=== PATIENT | female | born 1955 ===

== ENCOUNTER 2020-02-25 09:57 | Outpatient (REF) | payer MEDICARE, MEDICAID, SELFPAY ==
--- NOTE | 2020-02-25 10:46 | XR_ITS ---
EXAMINATION: XR SHOULDER, RIGHT CLINICAL INFORMATION: Shoulder pain. COMPARISON: None TECHNIQUE: 3 views of the right shoulder. FINDINGS: Lhgy-gl-bwfzcvha glenohumeral joint arthritis, with prominent osteophytes. Moderate AC joint arthritis. No evidence of fracture or dislocation. No abnormal soft tissue calcification. IMPRESSION: Aaui-ju-thiurjho glenohumeral joint arthritis. Moderate AC joint arthritis.
== END 2020-02-25 09:58 | disposition home or self-care (01) ==
LOC: CF 09:57
PROVIDERS: PCP Internal Medicine; Visit Provider Orthopaedic Surgery
DX: M75.101 Unspecified rotator cuff tear or rupture of right shoulder, not specified as traumatic (principal); M12.811 Other specific arthropathies, not elsewhere classified, right shoulder
CPT/HCPCS: 20610; 73030; 99204; J1040

== ENCOUNTER 2020-03-12 15:12 | Outpatient (REF) | payer MEDICARE, MEDICAID, SELFPAY ==
--- NOTE | 2020-03-12 15:25 | XR_ITS ---
EXAMINATION: XR HIP, LEFT CLINICAL INFORMATION: Radiculopathy. Left hip pain. COMPARISON: None TECHNIQUE: Two views of the left hip. FINDINGS: Bones and soft tissues are normal. No fracture. Alignment is anatomic. Hip joint space is maintained. XR/XR hip LT w PEL1V IMPRESSION: Unremarkable left hip.
== END 2020-03-12 15:13 | disposition home or self-care (01) ==
LOC: HO.XRAY 15:12
PROVIDERS: PCP Internal Medicine; Visit Provider Internal Medicine
DX: M54.10 Radiculopathy, site unspecified (principal)
CPT/HCPCS: 73502

== ENCOUNTER → 2020-03-18 13:45 | Outpatient (BNVA) | payer MEDICARE, MEDICAID, SELFPAY | PROVIDERS: PCP Internal Medicine; Visit Provider Physician Assistant | DX: E66.3 Overweight (principal); Z68.28 Body mass index [BMI] 28.0-28.9, adult; Z90.3 Acquired absence of stomach [part of]; Z71.3 Dietary counseling and surveillance | CPT/HCPCS: 99212 ==

== ENCOUNTER → 2020-04-02 13:32 | Outpatient (BNVA) | payer MEDICARE, MEDICAID, SELFPAY | PROVIDERS: PCP Internal Medicine; Referring Provider Internal Medicine; Visit Provider Student in an Organized Health Care Education/Training Program | DX: M25.561 Pain in right knee (principal); M25.562 Pain in left knee; G89.29 Other chronic pain | CPT/HCPCS: 99202 ==

== ENCOUNTER 2020-04-07 09:15 | Outpatient (REF) | payer MEDICARE, MEDICAID, SELFPAY ==
--- NOTE | 2020-04-07 09:34 | XR_ITS ---
EXAMINATION: BILATERAL KNEE X-RAY CLINICAL INFORMATION: Pain COMPARISON: Previous x-ray April 2018 TECHNIQUE: 4 views each knee FINDINGS: Left: Bone alignment is normal. No fracture or dislocation is seen. There is evidence of severe arthritis at the lateral femoral tibial joint with joint space narrowing and osteophyte formation. There is mild arthritis at the patellofemoral joint with small osteophytes. There is no significant joint effusion. Right: There is mild valgus angulation. Bone alignment is otherwise normal. No fracture or dislocation is seen. There is tricompartment arthritis, greatest at the lateral femoral tibial joint, with joint space narrowing and osteophyte formation. There is no significant joint effusion.. XR/XR knee LT 3V IMPRESSION: Bilateral arthritis. Mild valgus angulation at the right knee joint.
--- NOTE | 2020-04-07 09:34 | XR_ITS ---
EXAMINATION: BILATERAL KNEE X-RAY CLINICAL INFORMATION: Pain COMPARISON: Previous x-ray April 2018 TECHNIQUE: 4 views each knee FINDINGS: Left: Bone alignment is normal. No fracture or dislocation is seen. There is evidence of severe arthritis at the lateral femoral tibial joint with joint space narrowing and osteophyte formation. There is mild arthritis at the patellofemoral joint with small osteophytes. There is no significant joint effusion. Right: There is mild valgus angulation. Bone alignment is otherwise normal. No fracture or dislocation is seen. There is tricompartment arthritis, greatest at the lateral femoral tibial joint, with joint space narrowing and osteophyte formation. There is no significant joint effusion.. XR/XR knee RT 3V IMPRESSION: Bilateral arthritis. Mild valgus angulation at the right knee joint.
[2020-04-07 10:14] LABS: MANUAL DIFF FLAG NO
[2020-04-07 10:34] LABS: Basophils Percent Auto 0.2 % (0-2); Eosinophils Absolute Auto 0.1 X10*3/uL (0.0-0.4); Eosinophils Percent Auto 2.9 % (0-4); Hematocrit 42.6 % (37-47); Imm Gran Abs Auto 0.01 X10*3/uL (0.00-0.03); Imm Gran Pct Auto 0.2 % (0.0-0.4); Lymphocytes Absolute Auto 1.2 X10*3/uL (1.2-4.9); Lymphocytes Percent Auto 28.1 % (20-40); Mean Corpuscular HGB Conc 32.9 g/dl (31.0-35.0); Mean Corpuscular Hemoglobin 32.1 pg (27.0-33.0); Mean Corpuscular Volume 97.7 fL (80-98); Mean Platelet Volume 10.1 fL (9.4-12.3); Monocytes Absolute Auto 0.4 X10*3/uL (0.1-1.2); Monocytes Percent Auto 10.6 % (2-11); Neutrophils Absolute Auto 2.4 X10*3/uL (2.0-8.3); Platelet Count 230 X10*3/uL (160-400); Red Blood Count 4.36 X10*6/uL (4.20-5.50); Red Cell Distribution Width 12.3 % (11.0-16.0); White Blood Count 4.2 X10*3/uL (4.8-10.8)
[2020-04-07 11:00] LABS: Alanine Aminotransferase 35 U/L (0-31); Alkaline Phosphatase 150 U/L (39-117); Anion Gap 12 (12-20); Aspartate Amino Transferase 39 U/L (5-31); Bilirubin Total 0.7 mg/dL (0.0-1.0); Blood Urea Nitrogen 17 mg/dL (9-16); C Reactive Protein 0.09 mg/dL (< or = 0.50); Carbon Dioxide 31 mmol/L (22-29); Chloride 102 mmol/L (96-108); Estimated Glomerular Filt Rate > 60; Glucose Random 81 mg/dL (60-115); Potassium 4.8 mmol/l (3.3-5.1); Sodium 140 mmol/L (135-145)
[2020-04-07 11:15] LABS: Rheumatoid Factor < 15.0 IU/mL (<15.0)
[2020-04-07 11:41] LABS: Erythrocyte Sedimentation Rate 10 MM/HR (0-20)
[2020-04-08 15:11] LABS: Cyclic Citrullinated Peptide <16 UNITS
== END 2020-04-07 09:16 | disposition home or self-care (01) ==
LOC: HO.LAB 09:15
PROVIDERS: PCP Internal Medicine; Visit Provider Student in an Organized Health Care Education/Training Program
DX: M25.561 Pain in right knee (principal); M25.562 Pain in left knee; G89.29 Other chronic pain
CPT/HCPCS: 36415; 73562; 80053; 85025; 85652; 86140; 86200; 86431

== ENCOUNTER 2020-04-13 14:03 | Outpatient (REF) | payer MEDICARE, MEDICAID, SELFPAY | END 2020-04-13 14:04 | disposition home or self-care (01) | LOC: HO.LAB 14:03 | PROVIDERS: PCP Internal Medicine; Visit Provider Internal Medicine | DX: Z20.828 Contact with and (suspected) exposure to other viral communicable diseases (principal) | CPT/HCPCS: C9803; U0003 ==

== ENCOUNTER 2020-04-23 08:02 | Outpatient (REF) | payer MEDICARE, MEDICAID, SELFPAY ==
--- NOTE | 2020-04-23 08:04 | EMG_ITS ---
Left tibial and peroneal motor studies were performed. Left superficial, peroneal, and sural studies were performed. Common tibial H-reflex was obtained and needle examination was done on paraspinal muscles and some limb muscles. IMPRESSION: There was no sign of any entrapment neuropathy. There was indication of left lower lumbar radiculopathy. MD SEJAL Moore/WADE / [id number]
== END 2020-04-23 08:03 | disposition home or self-care (01) ==
LOC: HO.NEURO 08:02
PROVIDERS: PCP Internal Medicine; Visit Provider Internal Medicine
DX: R20.2 Paresthesia of skin (principal); M79.2 Neuralgia and neuritis, unspecified; M47.27 Other spondylosis with radiculopathy, lumbosacral region
CPT/HCPCS: 95860; 95886; 95909; Q3014

== ENCOUNTER 2020-05-02 10:15 | Emergency (ER) | payer MEDICARE, MEDICAID, SELFPAY ==
[2020-05-02 10:28] VITALS: BP 153/75; PULSE 78; RESP 20; TEMP 36.7; O2SAT 97; BMI 27.7
[2020-05-02 10:45] LABS: Glucose Urine UA NEG (NEG); Leukocyte Esterase Urine 2+ (NEG); Nitrite Urine POS (NEG); PH 5.5 (5.0-8.0); Specific Gravity - Urine >= 1.030 (1.005-1.025); Urine Blood 3+ (NEG); Urine Ketones NEG (NEG); Urine Protein 2+ MG/DL (NEG-TRACE)
[2020-05-02 10:48] LABS: Appearance Urine TURBID; Color Urine BROWN
--- NOTE | 2020-05-02 10:54 | CT_ITS ---
EXAMINATION: CT ABDOMEN AND PELVIS WITHOUT CONTRAST CLINICAL INFORMATION: Lower abdominal pain, hematuria patient kidney stones. COMPARISON: Ultrasound abdomen 11/30/2017 TECHNIQUE: Multidetector volumetric imaging was performed from the superior aspect of the liver through the pubic symphysis. Sagittal and coronal reformatted images were obtained on the technologist's workstation. This CT examination was performed using dose optimization techniques as appropriate, variously including the following: *Automated exposure control *Adjustment of mA and/or kV according to patient size (this includes techniques or standardized protocols for targeted exams where dose is matched to indication/reason for exam; i.e. extremities or head) *Use of iterative reconstruction technique DLP: 635 mGy-cm FINDINGS: LUNG BASES: Minimal atelectatic changes in the right lung base. The heart size is normal. LIVER, GALLBLADDER, AND BILIARY TREE: The liver is normal in size, shape, and attenuation. No focal hepatic lesion or biliary ductal dilatation is present. The common bile duct is prominent in the head of pancreas measuring 1.5 cm. The gallbladder is unremarkable with no evidence of radiopaque gallstones, gallbladder wall thickening, or obvious pericholecystic inflammatory changes. PANCREAS: Unremarkable. SPLEEN: Unremarkable. ADRENAL GLANDS: Unremarkable. KIDNEYS AND URETERS: The kidneys are normal in size, shape, and attenuation. No hydronephrosis, hydroureter, or calculi seen. No perinephric stranding. There are phleboliths seen along the left retroperitoneum unlikely stones. There is no hydronephrosis seen BLADDER: Unremarkable. GASTROINTESTINAL TRACT: Postsurgical changes are seen along the There is moderate scattered stool and few scattered diverticula throughout the colon without diverticulitis or colonic distention. The small bowel loops are normal caliber. Appendix is not well visualized no free air or free fluid seen. ABDOMINAL WALL: No significant hernia is appreciated. LYMPH NODES: Normal. VASCULAR: Unremarkable. PELVIC VISCERA: Unremarkable. OSSEOUS STRUCTURES: There are degenerative disc changes L1-L2 disc level with moderate endplate sclerosis and spondylosis. There is vacuum disc phenomenon and loss of disc height L4-L5 and L5-S1 disc levels. CT/CT abdomen pelvis wo con IMPRESSION: Moderate constipation. No acute process seen. No radiopaque urolith or hydroureteronephrosis. Prominent CBD measuring 1.5 cm. Minimal right basilar atelectasis.
--- NOTE | 2020-05-02 10:57 | ED_ITS ---
HPI - Female Genitourinary General Chief complaint: Urogenital-Female Stated complaint: painful urination Time Seen by Provider: 05/02/20 10:17 Source: patient Mode of arrival: ambulatory Limitations: language barrier ([place]an-speaking) History of Present Illness HPI Narrative: 64yoF c PMHx of HTN, HLD, hypothyroidism, elevated LFT's, laparoscopic gastric sleeve, intestinal gaseous abdominal distention, malabsorpt ion following gastrectomy, ductal carcinoma in situ of breast and COPD presenting to the ED c c/o dysuria, urinary urgency/frequency and hematuria with suprapubic abdominal pain and lower back pain for the past week self treating with amoxicillin that she had for a sinus infection the past. Denies any fevers, vaginal discharge, gross hematuria or any other symptom complaints or concerns. Related Data Home Medications Medication Instructions Recorded Confirmed levothyroxine 100 mcg tablet 100 mcg PO DAILY 02/19/20 04/26/20 vitamin B complex 1 tab PO DAILY 02/19/20 04/26/20 multivitamin 1 tab PO DAILY 02/22/20 04/26/20 amlodipine 5 mg tablet 5 mg PO DAILY 03/03/20 04/26/20 ascorbate calcium (vitamin C) 500 500 mg PO BID 03/03/20 04/26/20 mg tablet aspirin 81 mg chewable tablet 81 mg PO DAILY 03/03/20 04/26/20 atorvastatin 20 mg tablet 20 mg PO DAILY 03/03/20 04/26/20 ibuprofen 600 mg tablet 600 mg PO TID PRN 03/03/20 04/26/20 mecobalamin (vitamin B12) 5,000 1,000 mcg PO .1 tab once a day tab 03/03/20 04/26/20 mcg disintegrating tablet metoprolol succinate 50 mg 50 mg PO DAILY 03/03/20 04/26/20 tablet,extended release 24 hr nabumetone 750 mg tablet 750 mg PO BID PRN 03/03/20 04/26/20 tizanidine 4 mg tablet 4 mg PO TID PRN 03/03/20 04/26/20 albuterol sulfate 90 mcg/actuation 2 puff INHALATION .4 times a day 03/11/20 04/26/20 aerosol inhaler PRN g loratadine 10 mg tablet 10 mg PO DAILY 03/11/20 04/26/20 triamcinolone acetonide 0.1 % 1 applic TOPICAL BID 03/11/20 04/26/20 topical cream pantoprazole 40 mg tablet,delayed 40 mg PO DAILY PRN 04/26/20 04/26/20 release Previous Rx's Medication Instructions Recorded acetaminophen 650 mg 650 mg PO Q8H PRN #90 tab 04/02/20 tablet,extended release calcium citrate 250 mg 2 tab PO BID #120 tab 04/23/20 calcium-vitamin D3 5 mcg (200 unit) tablet simethicone 125 mg capsule See Rx Instructions PO TID-QID PRN 04/24/20 30 Days #120 cap cefuroxime axetil 250 mg PO BID 7 Days #14 tab 05/02/20 docusate sodium [Colace] 100 mg PO DAILY #30 cap 05/02/20 phenazopyridine [Pyridium] 100 mg PO TID PRN #6 tab 05/02/20 Allergies Allergy/AdvReac Type Severity Reaction Status Date / Time apple [APPLE] Allergy Intermediate ITCHING Verified 04/26/20 20:27 THROAT- GREEN APPLES kamara [CHERRIES] Allergy Intermediate ITCHING-THR Verified 04/26/20 20:27 OAT Sulfa (Sulfonamide Allergy Intermediate rash Verified 04/26/20 20:27 Antibiotics) naproxen AdvReac Mild dizziness Verified 04/26/20 20:27 Review of Systems Review of Systems: Constitutional : No Fever, No Chills ENT/Mouth : No sore throat, No Rhinorrhea Eyes: No Eye Pain, No Redness Cardiovascular : No Chest Pain, No SOB Respiratory : No Cough, No Sputum, No Wheezing Gastrointestinal : No Nausea, No Vomiting, No Diarrhea, positive abdominal pain, Genitourinary :No irregular bleeding, + Dysuria, + Urinary Frequency/urgency/hematuria, No pelvic pain, No vaginal discharge Musculoskeletal : No Myalgias Skin : No rash Neuro : No Weakness, No Headache Psych : No Anxiety/Panic, No Depression Heme/Lymph: No bruising, No Lymphadenopathy Endocrine : No Polyuria, No Polydipsia Yes all other systems are reviewed and are negative [facility] Past Medical History Attestation statement: The following information was validated with the patient. Medical History Abdominal distension, gaseous Acquired hypothyroidism Allergic rhinitis Benign essential hypertension Chronic obstructive pulmonary disease (COPD) Elevated LFTs High cholesterol History of ductal carcinoma in situ (DCIS) of breast Hypertension Intestinal malabsorption following gastrectomy Left inguinal pain Left lumbar pain Left-sided thoracic back pain Neuropathic pain of left lower extremity Osteoarthritis of spine with radiculopathy, lumbosacral region Overweight (BMI 25.0-29.9) Primary insomnia Primary osteoarthritis of both knees Primary osteoarthritis, unspecified shoulder Pure hypercholesterolemia Radicular pain of left lower extremity Vitamin D deficiency Surgical History H/O unilateral oophorectomy History of cardiac cath (~03/2018) History of lumpectomy of right breast (~12/2012) History of sleeve gastrectomy (~07/24/18) History of total abdominal hysterectomy and bilateral salpingo-oophorectomy (~2004) S/P laparoscopic sleeve gastrectomy Family History Family History Father CVD (cardiovascular disease) Mother Cervical cancer Pancreatic cancer Uterine cancer Social History Social History Alcohol intake: never Smoking Status: Never smoker Use of substances other than those prescribed or required for medical reasons: No Advance Directives: No Advance Directives Information Provided: No 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: Unemployed Physical Exam 2 Vital Signs: Vital Signs: Last Vital Signs Temp 98.0 F 05/02/20 10:28 Pulse 78 05/02/20 10:28 Resp 20 05/02/20 10:28 BP 153/75 H 05/02/20 10:28 Pulse Ox 97 05/02/20 10:28 Body Mass Index 27.7 vital signs have been reviewed as normal and appeared to be correct. Blood pressure normal. Heart rate normal. Respiration rate normal. Temperature normal. Oxygen saturation normal. Appearance: Alert. Oriented X3. No acute distress. Head: Normal external exam. Normocephalic. Eyes: PERRLA. EOMI. Conjunctiva and sclera normal. Eyelids normal. ENT: Pharynx normal. Uvula midline. Moist mucous membranes. Neck: Normal inspection. Neck supple. FROM. No adenopathy. No meningeal signs. CVS: Normal heart rate and rhythm. Heart sound normal. No murmurs noted. Pulses normal throughout. Respiratory: No respiratory distress. Painless inspiration. Breath sounds normal. No wheezes/rales/rhonchi noted. Chest nontender. No accessory muscle usage noted or decreased air movement noted. Abdomen: Soft and mild suprapubic abdominal. Bowel sounds normal in all 4 q uadrants. No distention noted. No organomegaly noted. No visible injury noted. Back: No CVA tenderness. Full range of motion noted. Skin: Skin warm and dry. Normal skin color. Normal skin turgor. No rashes/lesions/lacerations noted. Extremities: Extremities exhibit normal range of motion. Extremities nontender. Neuro: Oriented X 3. No motor deficit. No sensory deficit. Reflexes normal. Course Course Course Narrative: 11am 64yoF c PMHx of HTN, HLD, hypothyroidism, elevated LFT's, laparoscopic gastric sleeve, intestinal gaseous abdominal distention, malabsorption following gastrectomy, ductal carcinoma in situ of breast and COPD presenting to the ED c c/o dysuria, urinary urgency/frequency and hematuria with suprapubic abdominal pain and lower back pain for the past week self treating with amoxicillin that she had for a sinus infection the past. - Concern for UTI vs Pyelonephritis vs Kidney stones - Plan: Labs, UA, CT scan of abd/pelvis and re-evaluate Reevaluation(s) Reevaluation #1: - Labs within normal limits. UA positive for nitrates consistent with UTI. CT scan of abdomen and pelvis negative for any kidney stone although revealed constipation, prominent CBD measuring 1.5 and right basilar atelectasis otherwise no other acute processes. Patient is not having any epigastric/upper abdominal pain. Will DC home with antibiotics and symptomatic treatment along with instructions return if any new or worsening symptoms and I instructed the patient to stop taking any medications that she cristina d in the past. She understands and agrees with this plan. MDM - Female Genitourinary Medical Records Attestation: I reviewed the patient's medical records. Lab Data Attestation: I reviewed the patient's lab results. Result diagrams: 05/02/20 11:00 05/02/20 11:00 Labs: Lab Results 05/02/20 05/02/20 05/02/20 Range/Units 10:34 11:00 11:00 WBC 9.3 (4.8-10.8) X10*3/uL RBC 3.90 L (4.20-5.50) X10*6/uL Hgb 12.7 (12.0-16.0) g/dl Hct 37.9 (37-47) % MCV 97.2 (80-98) fL MCH 32.6 (27.0-33.0) pg MCHC 33.5 (31.0-35.0) g/dl RDW 12.9 (11.0-16.0) % Plt Count 196 (160-400) X10*3/uL MPV 9.6 (9.4-12.3) fL Immature Gran % (Auto) 0.3 (0.0-0.4) % Neut % (Auto) 78.4 H (45-73) % Lymph % (Auto) 11.8 L (20-40) % Dupage % (Auto) 8.0 (2-11) % Eos % (Auto) 1.2 (0-4) % Baso % (Auto) 0.3 (0-2) % Lymph # (Auto) 1.1 L (1.2-4.9) X10*3/uL Dupage # (Auto) 0.7 (0.1-1.2) X10*3/uL Eos # (Auto) 0.1 (0.0-0.4) X10*3/uL Baso # (Auto) 0.0 (0.0-0.2) X10*3/uL Abs Immat Gran (auto) 0.03 (0.00-0.03) X10*3/uL Absolute Neuts (auto) 7.3 (2.0-8.3) X10*3/uL Absolute Nucleated RBC 0.000 (0.0-0.012) X10*3/uL Nucleated RBC % (auto) 0.0 (0.0-0.2) /100WBC Sodium 138 (135-145) mmol/L Potassium 4.1 (3.3-5.1) mmol/l Chloride 103 (96-108) mmol/L Carbon Dioxide 29 (22-29) mmol/L Anion Gap 10 L (12-20) BUN 20 H (9-16) mg/dL Creatinine 0.79 (0.5-1.4) mg/dL Estim Creat Clear Calc 76.3 Estimated GFR > 60 Random Glucose 78 (60-115) mg/dL Calcium 8.6 (8.4-10.2) mg/dL Urine Color BROWN Urine Appearance TURBID Urine pH 5.5 (5.0-8.0) Ur Specific Dwight >= 1.030 H (1.005-1.025) Urine Protein 2+ H (NEG-TRACE) MG/DL Urine Glucose (UA) NEG (NEG) MG/DL Urine Ketones NEG (NEG) MG/DL Urine Blood 3+ H (NEG) Urine Nitrite POS H (NEG) Ur Leukocyte Esterase 2+ H (NEG) Urine RBC TNTC H (0) /HPF Urine WBC 76-150 H (0-4) /HPF Ur Squamous Epith Cells NONE /LPF Urine Bacteria 1+ /LPF Imaging Data CT scan - abdomen: Attestation: I personally reviewed and interpreted this imaging study as follows: Radiologist's impression: IMPRESSION: Moderate constipation. No acute process seen. No radiopaque urolith or hydroureteronephrosis. Prominent CBD measuring 1.5 cm. Minimal right basilar atelectasis. Discharge Plan Discharge Clinical Impression: Acute UTI, Constipation Patient Disposition: Home, Self-Care Instructions: Constipation (ED), Urinary Tract Infection in Older Adults (ED) Prescriptions: New cefuroxime axetil 250 mg tablet 250 mg PO BID 7 Days Qty: 14 RF: 0 phenazopyridine [Pyridium] 100 mg tablet 100 mg PO TID PRN (Reason: pain) Qty: 6 RF: 0 docusate sodium [Colace] 100 mg capsule 100 mg PO DAILY Qty: 30 RF: 0 No Action aspirin 81 mg tablet,chewable 81 mg PO DAILY RF: 0 ascorbate calcium (vitamin C) 500 mg tablet 500 mg PO BID RF: 0 mecobalamin (vitamin B12) 5,000 mcg tablet,disintegrating 1,000 mcg PO .1 tab once a day RF: 0 ibuprofen 600 mg tablet 600 mg PO TID PRN (Reason: pain) RF: 0 tizanidine 4 mg tablet 4 mg PO TID PRNRF: 0 nabumetone 750 mg tablet 750 mg PO BID PRN (Reason: pain) RF: 0 atorvastatin 20 mg tablet 20 mg PO DAILY RF: 0 amlodipine 5 mg tablet 5 mg PO DAILY RF: 0 metoprolol succinate 50 mg tablet extended release 24 hr 50 mg PO DAILY RF: 0 simethicone 125 mg capsule See Rx Instructions PO TID-QID PRN (Reason: abdominal distention) 30 Days Qty: 120 RF: 3 triamcinolone acetonide 0.1 % cream 1 applic topical BID RF: 0 albuterol sulfate [ProAir HFA] 90 mcg/actuation HFA aerosol inhaler 2 puff inhalation .4 times a day PRNRF: 0 loratadine 10 mg tablet 10 mg PO DAILY RF: 0 acetaminophen [Tylenol Arthritis Pain] 650 mg tablet extended release 650 mg PO Q8H PRN (Reason: pain) Qty: 90 RF: 3 vitamin B complex [B Complex-Vitamin B12] Tablet 1 tab PO DAILY RF: 0 levothyroxine 100 mcg tablet 100 mcg PO DAILY RF: 0 pantoprazole 40 mg tablet,delayed release (DR/EC) 40 mg PO DAILY PRNRF: 0 calcium citrate-vitamin D3 250 mg-5 mcg (200 unit) tablet 2 tab PO BID Qty: 120 RF: 11 multivitamin [Multiple Vitamins] Tablet 1 tab PO DAILY RF: 0 Referrals: Armando Wheeler MD [Primary Care Provider] - 2 days Print Language: Zimbabwean
[2020-05-02 11:00] LABS: Bacteria Urine 1+ /LPF; RBC Urine TNTC /HPF (0)
[2020-05-02 11:04] LABS: MANUAL DIFF FLAG NO
[2020-05-02 11:06] LABS: Basophils Percent Auto 0.3 % (0-2); Eosinophils Absolute Auto 0.1 X10*3/uL (0.0-0.4); Eosinophils Percent Auto 1.2 % (0-4); Hematocrit 37.9 % (37-47); Hemoglobin 12.7 g/dl (12.0-16.0); Imm Gran Abs Auto 0.03 X10*3/uL (0.00-0.03); Imm Gran Pct Auto 0.3 % (0.0-0.4); Lymphocytes Absolute Auto 1.1 X10*3/uL (1.2-4.9); Lymphocytes Percent Auto 11.8 % (20-40); Mean Corpuscular HGB Conc 33.5 g/dl (31.0-35.0); Mean Corpuscular Hemoglobin 32.6 pg (27.0-33.0); Mean Corpuscular Volume 97.2 fL (80-98); Mean Platelet Volume 9.6 fL (9.4-12.3); Monocytes Absolute Auto 0.7 X10*3/uL (0.1-1.2); Neutrophils Absolute Auto 7.3 X10*3/uL (2.0-8.3); Neutrophils Percent Auto 78.4 % (45-73); Platelet Count 196 X10*3/uL (160-400); Red Cell Distribution Width 12.9 % (11.0-16.0); White Blood Count 9.3 X10*3/uL (4.8-10.8)
--- NOTE | 2020-05-02 11:19 | PC.NURSE ---
labs drawn and sent, taken to ct scan via stretcher
[2020-05-02 11:43] LABS: Anion Gap 10 (12-20); Blood Urea Nitrogen 20 mg/dL (9-16); Calcium 8.6 mg/dL (8.4-10.2); Carbon Dioxide 29 mmol/L (22-29); Chloride 103 mmol/L (96-108); Creatinine Clr Calc Pharmacy 76.3; Estimated Glomerular Filt Rate > 60; Glucose Random 78 mg/dL (60-115); Potassium 4.1 mmol/l (3.3-5.1); Sodium 138 mmol/L (135-145)
[2020-05-02] MEDS: Phenazopyridine HCL 100 MG TABLET PO (12:16)
== END 2020-05-02 12:24 | disposition home or self-care (01) ==
PROVIDERS: Physician Assistant Medical; Emergency Provider Emergency Medicine; PCP Internal Medicine
DX: N39.0 Urinary tract infection, site not specified (principal); K59.00 Constipation, unspecified; I10 Essential (primary) hypertension; J44.9 Chronic obstructive pulmonary disease, unspecified
CPT/HCPCS: 36415; 74176; 80048; 81001; 85025; 87086; 87088; 87186; 99284

== ENCOUNTER → 2020-05-05 08:28 | Outpatient (BNVA) | payer MEDICARE, MEDICAID, SELFPAY | PROVIDERS: PCP Internal Medicine; Referring Provider Internal Medicine; Visit Provider Physician Assistant | DX: Z76.89 Persons encountering health services in other specified circumstances (principal) ==

== ENCOUNTER 2020-06-01 12:43 | Outpatient (REF) | payer MEDICARE, MEDICAID, OTHER, SELFPAY ==
[2020-06-01 14:16] LABS: Basophils Percent Auto 0.6 % (0-2); Eosinophils Absolute Auto 0.1 X10*3/uL (0.0-0.4); Eosinophils Percent Auto 2.4 % (0-4); Hematocrit 44.3 % (37-47); Hemoglobin 14.6 g/dl (12.0-16.0); Imm Gran Abs Auto 0.01 X10*3/uL (0.00-0.03); Imm Gran Pct Auto 0.2 % (0.0-0.4); Lymphocytes Absolute Auto 1.6 X10*3/uL (1.2-4.9); Lymphocytes Percent Auto 30.8 % (20-40); MANUAL DIFF FLAG NO; Mean Corpuscular Hemoglobin 32.4 pg (27.0-33.0); Mean Corpuscular Volume 98.4 fL (80-98); Mean Platelet Volume 10.4 fL (9.4-12.3); Monocytes Absolute Auto 0.5 X10*3/uL (0.1-1.2); Monocytes Percent Auto 10.1 % (2-11); Neutrophils Absolute Auto 2.8 X10*3/uL (2.0-8.3); Neutrophils Percent Auto 55.9 % (45-73); Platelet Count 244 X10*3/uL (160-400); Red Cell Distribution Width 12.1 % (11.0-16.0); White Blood Count 5.1 X10*3/uL (4.8-10.8)
[2020-06-01 14:34] LABS: Glucose Urine UA NEG (NEG); Leukocyte Esterase Urine NEG (NEG); Nitrite Urine NEG (NEG); Specific Gravity - Urine 1.025 (1.005-1.025); Urine Blood NEG (NEG); Urine Ketones NEG (NEG); Urine Protein NEG (NEG-TRACE)
[2020-06-01 14:39] LABS: Estimated Average Glucose 100 mg/dL; Hemoglobin A1c % 5.1 %
[2020-06-01 14:41] LABS: Appearance Urine CLEAR; Color Urine YELLOW
[2020-06-01 14:58] LABS: C Reactive Protein 0.05 mg/dL (< or = 0.50); Iron 142 mcg/dL (30-160); Percent Iron Saturation 40 % (15-50); Total Iron Binding Capacity 354 mcg/dL (228-428); Unsaturated Iron Binding 212 ug/dL
[2020-06-01 15:01] LABS: Alanine Aminotransferase 11 U/L (0-31); Albumin Level 4.1 g/dL (3.5-5.0); Alkaline Phosphatase 164 U/L (39-117); Anion Gap 13 (12-20); Aspartate Amino Transferase 16 U/L (5-31); Blood Urea Nitrogen 15 mg/dL (9-16); Calcium 9.5 mg/dL (8.4-10.2); Carbon Dioxide 30 mmol/L (22-29); Chloride 102 mmol/L (96-108); Cholesterol 235 mg/dL; Estimated Glomerular Filt Rate > 60; Glucose Fasting 90 mg/dL (60-99); HDL Cholesterol 70 mg/dL; LDL Cholesterol Calculated 150 mg/dl; Potassium 4.7 mmol/l (3.3-5.1); Sodium 140 mmol/L (135-145); Total Protein 7.2 g/dL (6.5-8.0); Triglycerides 79 mg/dL
[2020-06-01 15:05] LABS: Erythrocyte Sedimentation Rate 7 MM/HR (0-20)
[2020-06-01 15:12] LABS: Ferritin 19 ng/mL (10-250); TSH reflex Free T4 1.76 mIU/mL (0.32-4.0); Vitamin D 25-OH Total 39.4 ng/mL (>30)
[2020-06-01 15:13] LABS: Free T4 (Free Thyroxine) 1.04 ng/dL (0.71-1.85); Thyroid Stimulating Hormone 1.64 uIU/mL (0.32-4.0); Vitamin D 25-OH Total 35.9 ng/mL (>30)
[2020-06-01 15:29] LABS: Folate 18.9 ng/mL (> or = 4.0); Vitamin B12 384 pg/mL (200-900)
[2020-06-02 17:01] LABS: Calcium (PTHI) 9.5 mg/dL (8.6-10.4); PTHI 37 pg/mL (14-64)
[2020-06-03 21:42] LABS: Zinc 71 mcg/dL (60-130)
[2020-06-04 12:12] LABS: Vitamin B1 31 nmol/L (8-30)
[2020-06-05 22:23] LABS: Vitamin A 57 mcg/dL (38-98)
== END 2020-06-01 12:44 | disposition home or self-care (01) ==
LOC: HO.LAB 12:43
PROVIDERS: Absent Provider Internal Medicine; PCP Internal Medicine; Visit Provider Physician Assistant
DX: I10 Essential (primary) hypertension (principal); J30.9 Allergic rhinitis, unspecified; E78.00 Pure hypercholesterolemia, unspecified; R79.89 Other specified abnormal findings of blood chemistry; M17.0 Bilateral primary osteoarthritis of knee; M47.27 Other spondylosis with radiculopathy, lumbosacral region; M19.019 Primary osteoarthritis, unspecified shoulder; Z86.000 Personal history of in-situ neoplasm of breast; E03.9 Hypothyroidism, unspecified; E66.3 Overweight; E55.9 Vitamin D deficiency, unspecified; Z98.84 Bariatric surgery status
CPT/HCPCS: 36415; 80053; 80061; 81003; 82306; 82607; 82728; 82746; 83036; 83525; 83540; 83970; 84425; 84439; 84443; 84590; 84630; 85025; 85652; 86140

== ENCOUNTER → 2020-06-18 11:33 | Outpatient (BNVA) | payer MEDICARE, MEDICAID, SELFPAY | PROVIDERS: PCP Internal Medicine; Visit Provider Student in an Organized Health Care Education/Training Program | DX: M25.562 Pain in left knee (principal); M25.561 Pain in right knee; G89.29 Other chronic pain | CPT/HCPCS: 99212 ==

== ENCOUNTER → 2020-06-30 08:57 | Outpatient (BNVA) | payer MEDICARE, MEDICAID, SELFPAY | PROVIDERS: PCP Internal Medicine; Visit Provider Dietitian, Registered ==

== ENCOUNTER → 2020-07-01 09:41 | Outpatient (BNVA) | payer MEDICARE, MEDICAID, SELFPAY | PROVIDERS: PCP Internal Medicine; Visit Provider Surgery | DX: Z86.000 Personal history of in-situ neoplasm of breast (principal) | CPT/HCPCS: 99212 ==

== ENCOUNTER 2020-07-29 14:00 | Outpatient (RCR) | payer MEDICARE, MEDICAID, OTHER, SELFPAY ==
--- NOTE | 2020-05-28 10:16 | MHC.PT.EP ---
[facility] [place] Office [place] Office [place] Office [address] Allan Alvarez [address] [phone] F: [phone] F: [phone] F: [phone] F: [phone] Physical Therapy Plan of Care Date of Evaluation: 05/27/20 Date of Surgery: N/A Diagnosis: radiculopathy, site unspecified Assessment: pt presents w/ pain localized to L SI joint line. She does presents w/ pelvic asymmetry and benefit from muscle energy techniques and pelvic stabilization exercises to reduce pain, promote improved alignment, and optimize function. pt presents to physical therapy with pain, decreased range of motion, decreased strength, impaired functional mobility, impaired postural awareness, and gait deviations. pt is a good candidate for skilled PT due to age, potential remediation of impairments, typical disease/condition progression and prognosis, comorbidities, and motivation. pt would benefit from tailored strengthening and stretching exercise program, functional training, gait training, postural re-training, neuromuscular re-education, modalities as needed for pain, equipment safety demonstration. Frequency and Duration: The patient will be seen 2x/wk for 5 wks Short Term Goals: pt will be I w/ HEP to promote self-management of condition. pt will demo symmetrical pelvic/hip alignment to facilitate neutral pelvis and spine. Candlemaker Goals: pt will report statistically significant improvement in self-reported outcome measure, LEFI, to promote return to PLOF. 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 Treatment Plan: Modalities to reduce pain, spasms and effusion. Manual therapy to restore motion and function. Therapeutic exercise to improve strength and flexibility. Neuromuscular re-education for posture and balance. Therapeutic activities to return to functional activities of daily living. Electronically signed by: Lanny Baird PT, DPT Please sign and return to therapist. Thank you for your referral.
--- NOTE | 2020-07-29 15:04 | MHC.PT.EP ---
[facility] [place] Office [place] Office [place] Office [address] Allan Alvarez [address] [phone] F: [phone] F: [phone] F: [phone] F: [phone] Physical Therapy Plan of Care Date of Evaluation: 07/29/20 Date of Surgery: N/A Diagnosis: radiculopathy, site unspecified Assessment: pt presents w/ pain localized to L SI joint line. She does presents w/ pelvic asymmetry and benefit from muscle energy techniques and pelvic stabilization exercises to reduce pain, promote improved alignment, and optimize function. pt presents to physical therapy with pain, decreased range of motion, decreased strength, impaired functional mobility, impaired postural awareness, and gait deviations. pt is a good candidate for skilled PT due to age, potential remediation of impairments, typical disease/condition progression and prognosis, comorbidities, and motivation. pt would benefit from tailored strengthening and stretching exercise program, functional training, gait training, postural re-training, neuromuscular re-education, modalities as needed for pain, equipment safety demonstration. Frequency and Duration: The patient will be seen 2x/wk for 5 wks Short Term Goals: pt will be I w/ HEP to promote self-management of condition. pt will demo symmetrical pelvic/hip alignment to facilitate neutral pelvis and spine. - GOAL MET Grab Jack Worker Goals: pt will report statistically significant improvement in self-reported outcome measure, LEFI, to promote return to PLOF. pt report <1/10 low back pain w/ lifting 15# object from ground to waist level x 10 reps to facilitate return to judge. Treatment Plan: Modalities to reduce pain, spasms and effusion. Manual therapy to restore motion and function. Therapeutic exercise to improve strength and flexibility. Neuromuscular re-education for posture and balance. Therapeutic activities to return to functional activities of daily living. Electronically signed by: Lanny Baird PT, DPT Please sign and return to therapist. Thank you for your referral.
== END 2020-07-29 15:05 | disposition other institution (70) ==
LOC: HO.PT 14:00
PROVIDERS: PCP Internal Medicine; Visit Provider Internal Medicine
DX: M54.10 Radiculopathy, site unspecified (principal)
CPT/HCPCS: 97110; 97140; 97162

== ENCOUNTER 2020-07-30 13:09 | Outpatient (REF) | payer MEDICARE, MEDICAID, SELFPAY ==
--- NOTE | ~2020-07-30 | XR_ITS ---
EXAMINATION: XR THORACIC SPINE XR LUMBAR SPINE CLINICAL INFORMATION: Pain. COMPARISON: CT 05/02/2020 TECHNIQUE: 3 views of the thoracic spine. 3 views of the lumbar spine. FINDINGS: Thoracic spine: No fracture or subluxation. Vertebral body height and alignment is maintained. There is diffuse disc space narrowing with endplate osteophyte formation. The paravertebral soft tissues are unremarkable. The visualized lungs are clear. Left upper quadrant surgical clips noted. Lumbar spine: No fracture or subluxation. Mild scoliotic curvature. Vertebral body heights are maintained. Disc spaces are narrowed, particularly at L4-L5 and L5-S1. Small endplate osteophytes. Mild facet arthropathy. The sacroiliac joints are symmetric. The sacrum appears intact. XR/XR lumbar spine 2-3V IMPRESSION: Mild to moderate degenerative changes throughout the thoracolumbar spine.
--- NOTE | ~2020-07-30 | XR_ITS ---
EXAMINATION: XR THORACIC SPINE XR LUMBAR SPINE CLINICAL INFORMATION: Pain. COMPARISON: CT 05/02/2020 TECHNIQUE: 3 views of the thoracic spine. 3 views of the lumbar spine. FINDINGS: Thoracic spine: No fracture or subluxation. Vertebral body height and alignment is maintained. There is diffuse disc space narrowing with endplate osteophyte formation. The paravertebral soft tissues are unremarkable. The visualized lungs are clear. Left upper quadrant surgical clips noted. Lumbar spine: No fracture or subluxation. Mild scoliotic curvature. Vertebral body heights are maintained. Disc spaces are narrowed, particularly at L4-L5 and L5-S1. Small endplate osteophytes. Mild facet arthropathy. The sacroiliac joints are symmetric. The sacrum appears intact. XR/XR thoracic spine 3V IMPRESSION: Mild to moderate degenerative changes throughout the thoracolumbar spine.
--- NOTE | ~2020-07-30 | XR_ITS ---
EXAMINATION: XR CHEST CLINICAL INFORMATION: Pleurodynia COMPARISON: 07/25/2018 TECHNIQUE: 2 views of the chest were obtained. FINDINGS: The lungs are well expanded. There is no focal consolidation, edema, or effusion. No pneumothorax. The cardiomediastinal silhouette is within normal limits. No acute osseous abnormality. Mild degenerative changes of the spine. Degenerative changes at both shoulders. XR/XR chest 2V IMPRESSION: No acute pulmonary finding.
== END 2020-07-30 13:10 | disposition home or self-care (01) ==
LOC: HO.XRAY 13:09
PROVIDERS: PCP Internal Medicine; Visit Provider Internal Medicine
DX: R07.81 Pleurodynia (principal); M54.5 Low back pain; M51.36 Other intervertebral disc degeneration, lumbar region; M54.6 Pain in thoracic spine
CPT/HCPCS: 71046; 72072; 72100

== ENCOUNTER 2020-08-04 14:20 | Emergency (ER) | payer MEDICARE, MEDICAID, SELFPAY ==
--- NOTE | ~2020-08-04 | CT_ITS ---
EXAMINATION: CT HEAD WITHOUT CONTRAST CLINICAL INFORMATION: Vertigo COMPARISON: Previous head CT July 2013 TECHNIQUE: Contiguous axial imaging was performed from the skull base to vertex without intravenous administration of contrast. This CT examination was performed using dose optimization techniques as appropriate, variously including the following: *Automated exposure control *Adjustment of mA and/or kV according to patient size (this includes techniques or standardized protocols for targeted exams where dose is matched to indication/reason for exam; i.e. extremities or head) *Use of iterative reconstruction technique DLP: 590 mGy-cm FINDINGS: There is no evidence of acute intracranial hemorrhage or territorial infarction. No abnormal mass effect or midline shift is seen. Flores to white matter differentiation is well preserved. No extra-axial fluid collections are identified. There is a small extra-axial calcification along the left cerebellar tentorium that is stable. The ventricles are normal in size. There is no abnormal attenuation within the brain parenchyma. The osseous structures and soft tissues are normal. The mastoid air cells and visualized portions of the paranasal sinuses are well aerated. CT/CT head/brain wo con IMPRESSION: No acute intracranial pathology.
[2020-08-04 14:26] VITALS: BP 151/69; PULSE 67; RESP 18; TEMP 36.8; O2SAT 96; BMI 27.8
--- NOTE | 2020-08-04 15:33 | ED.DIZZY ---
HPI - Dizziness General Chief Complaint: Dizziness Stated Complaint: DIZZY Time Seen by Provider: 08/04/20 15:32 Source: patient Mode of arrival: ambulatory Limitations: no limitations History of Present Illness HPI Narrative: patient with 5 days of dizziness, room spinning MD elicited complaint: disequilibrium Onset (ago): day(s) (5) Timing: gradual onset Severity: moderate Description: room spinning Exacerbating factors: position/lying down Relieving factors: remaining still Related Data Home Medications Medication Instructions Recorded Confirmed vitamin B complex 1 tab PO DAILY 02/19/20 07/29/20 multivitamin 1 tab PO DAILY 02/22/20 07/29/20 amlodipine 5 mg tablet 5 mg PO DAILY 03/03/20 07/29/20 ascorbate calcium (vitamin C) 500 500 mg PO BID 03/03/20 07/29/20 mg tablet aspirin 81 mg chewable tablet 81 mg PO DAILY 03/03/20 07/29/20 atorvastatin 20 mg tablet 20 mg PO DAILY 03/03/20 07/29/20 ibuprofen 600 mg tablet 600 mg PO TID PRN 03/03/20 07/29/20 mecobalamin (vitamin B12) 5,000 1,000 mcg PO .1 tab once a day tab 03/03/20 07/29/20 mcg disintegrating tablet metoprolol succinate 50 mg 50 mg PO DAILY 03/03/20 07/29/20 tablet,extended release 24 hr nabumetone 750 mg tablet 750 mg PO BID PRN 03/03/20 07/29/20 tizanidine 4 mg tablet 4 mg PO TID PRN 03/03/20 07/29/20 albuterol sulfate 90 mcg/actuation 2 puff INHALATION .4 times a day 03/11/20 07/29/20 aerosol inhaler PRN g triamcinolone acetonide 0.1 % 1 applic TOPICAL BID 03/11/20 07/29/20 topical cream pantoprazole 40 mg tablet,delayed 40 mg PO DAILY PRN 04/26/20 07/29/20 release Previous Rx's Medication Instructions Recorded acetaminophen 650 mg 650 mg PO Q8H PRN #90 tab 04/02/20 tablet,extended release simethicone 125 mg capsule See Rx Instructions PO TID-QID PRN 04/24/20 30 Days #120 cap docusate sodium [Colace] 100 mg PO DAILY #30 cap 05/02/20 calcium citrate 250 mg PO BID #60 tab 05/20/20 cholecalciferol (vitamin D3) 25 25 mcg PO DAILY #30 cap 05/20/20 mcg (1,000 unit) capsule levothyroxine 100 mcg tablet 100 mcg PO DAILY #90 tab 06/11/20 diclofenac sodium 1 % topical gel 2 g TOPICAL QID #100 g 06/18/20 mometasone 0.1 % topical cream 1 appl TOPICAL DAILY 15 Days #45 g 07/09/20 loratadine 10 mg tablet 10 mg PO DAILY PRN 90 Days #90 tab 07/29/20 meclizine 25 mg PO TID PRN #20 tab 08/04/20 Allergies Allergy/AdvReac Type Severity Reaction Status Date / Time apple [APPLE] Allergy Intermediate ITCHING Verified 08/04/20 14:26 THROAT- GREEN APPLES kamara [CHERRIES] Allergy Intermediate ITCHING-THR Verified 08/04/20 14:26 OAT Sulfa (Sulfonamide Allergy Intermediate rash Verified 08/04/20 14:26 Antibiotics) naproxen AdvReac Mild dizziness Verified 08/04/20 14:26 Review of Systems Constitutional: Constitutional: Reports no additional constitutional complaints Eyes: Eyes: Reports no additional eye complaints ENT: Denies dizziness Cardiovascular: Cardiovascular: Reports no additional cardiovascular complaints Respiratory: Respiratory: Reports as per HPI Gastrointestinal: Gastrointestinal: Reports no additional gastrointestinal complaints Genitourinary: Genitourinary: Reports no additional female genitourinary complaints Musculoskeletal: Musculoskeletal: Reports no additional musculoskeletal complaints Integumentary/Breasts: Skin/Breast: Denies rash Neurologic: Reports system reviewed and no additional complaints, except as documented, Denies dizziness and Denies Sensory deficit (Neuro) Psychiatric: Psychiatric: Denies anxiety [facility] Past Medical History Medical History Abdominal distension, gaseous Acquired hypothyroidism Allergic rhinitis Benign essential hypertension Chest pain, pleuritic Chronic obstructive pulmonary disease (COPD) Elevated LFTs High cholesterol History of ductal carcinoma in situ (DCIS) of breast Hypertension Intestinal malabsorption following gastrectomy Left inguinal pain Left lumbar pain Left-sided thoracic back pain Lumbar degenerative disc disease Neuropathic pain of left lower extremity Osteoarthritis of spine with radiculopathy, lumbosacral region Overweight (BMI 25.0-29.9) Primary insomnia Primary osteoarthritis of both knees Primary osteoarthritis, unspecified shoulder Pure hypercholesterolemia Radicular pain of left lower extremity Vitamin D deficiency Surgical History H/O unilateral oophorectomy History of cardiac cath (~03/2018) History of lumpectomy of right breast (~12/2012) History of sleeve gastrectomy (~07/24/18) History of total abdominal hysterectomy and bilateral salpingo-oophorectomy (~2004) S/P laparoscopic sleeve gastrectomy Family History Family History Father CVD (cardiovascular disease) Mother Cervical cancer Pancreatic cancer Uterine cancer Social History Social History Alcohol intake: never Smoking Status: Never smoker Use of substances other than those prescribed or required for medical reasons: No Advance Directives: No Advance Directives Information Provided: Yes 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: Unemployed Physical Exam Vital Signs: Vital Signs: Last Vital Signs Temp 98.3 F 08/04/20 16:03 Pulse 53 08/04/20 16:03 Resp 16 08/04/20 16:03 BP 148/79 H 08/04/20 16:03 Pulse Ox 98 08/04/20 16:03 Body Mass Index 27.8 Const: General: healthy appearing Nutritional Appearance: average body habitus Orientation/consciousness: oriented to person and patient oriented x3 Limitations: no limitations HENMT: Head: Yes normal to inspection Ears: external ears normal and TM's normal bilaterally General nose exam: Normal external nose present Mouth: Normal oral and palatal mucosa present and oropharynx normal Throat: Yes posterior oropharynx normal Eyes: Other: nystagmus on right lateral gaze General: appearance normal, both eyes and all related structures Neck: Other: supple Neck: Yes normal visual inspection Chest: Chest palpation & inspection: normal inspection of the chest Resp: Auscultation: clear to auscultation bilaterally Cardio: Jugular venous distension: no JVD Rate: regular rate Rhythm: regular rhythm Heart sounds: S1 normal heart sound present and S2 normal heart sound present GI: Inspection: Yes normal to inspection Palpation (GI): Soft to palpation, nontender and No hepatosplenomegaly present Auscultation: normal bowel sounds : General: Yes no CVA tenderness Back/Spine/Pelvis: Back: no CVA tenderness Skin: General skin exam: no rashes or lesions noted Neuro: Other: positive barrone with right lateral gaze and nystagmus General: oriented to person and patient oriented x3 Cranial nerves: Yes CN's II-XII intact bilaterally Motor exam (neuro): 5/5 motor strength present throughout Sensory Exam: No Sensory deficit (Neuro) Extrem: General: Yes normal to inspection Psych: Appearance: grossly normal MDM - Dizziness Lab Data Result diagrams: 08/04/20 16:10 08/04/20 16:10 Labs: Lab Results 08/04/20 08/04/20 08/04/20 Range/Units 16:10 16:10 16:10 WBC 6.2 (4.8-10.8) X10*3/uL RBC 4.10 L (4.20-5.50) X10*6/uL Hgb 13.0 (12.0-16.0) g/dl Hct 40.2 (37-47) % MCV 98.0 (80-98) fL MCH 31.7 (27.0-33.0) pg MCHC 32.3 (31.0-35.0) g/dl RDW 12.1 (11.0-16.0) % Plt Count 233 (160-400) X10*3/uL MPV 9.8 (9.4-12.3) fL Immature Gran % (Auto) 0.2 (0.0-0.4) % Neut % (Auto) 64.9 (45-73) % Lymph % (Auto) 22.9 (20-40) % [place] % (Auto) 9.1 (2-11) % Eos % (Auto) 2.4 (0-4) % Baso % (Auto) 0.5 (0-2) % Lymph # (Auto) 1.4 (1.2-4.9) X10*3/uL [place] # (Auto) 0.6 (0.1-1.2) X10*3/uL Eos # (Auto) 0.2 (0.0-0.4) X10*3/uL Baso # (Auto) 0.0 (0.0-0.2) X10*3/uL Abs Immat Gran (auto) 0.01 (0.00-0.03) X10*3/uL Absolute Neuts (auto) 4.0 (2.0-8.3) X10*3/uL Absolute Nucleated RBC 0.000 (0.0-0.012) X10*3/uL Nucleated RBC % (auto) 0.0 (0.0-0.2) /100WBC Hold Purple Top SEE NOTE Hold Blue Top SEE NOTE Imaging Data CT scan - head: Radiologist's impression: no acute changes ECG Data Attestation: I personally reviewed and interpreted this ECG as follows: Interpretation: sinus rate of 60, pvc no acute st or twave changes Discharge Plan Discharge Clinical Impression: Vertigo Patient Disposition: Home, Self-Care Instructions: Vertigo (ED) Prescriptions: New meclizine 25 mg tablet 25 mg PO TID PRN (Reason: dizziness) Qty: 20 RF: 0 No Action cholecalciferol (vitamin D3) 25 mcg (1,000 unit) capsule 25 mcg PO DAILY Qty: 30 RF: 11 calcium citrate 250 mg calcium tablet 250 mg PO BID Qty: 60 RF: 11 levothyroxine 100 mcg tablet 100 mcg PO DAILY Qty: 90 RF: 2 mometasone 0.1 % cream 1 appl topical DAILY 15 Days Qty: 45 RF: 1 docusate sodium [Colace] 100 mg capsule 100 mg PO DAILY Qty: 30 RF: 0 aspirin 81 mg tablet,chewable 81 mg PO DAILY RF: 0 ascorbate calcium (vitamin C) 500 mg tablet 500 mg PO BID RF: 0 mecobalamin (vitamin B12) 5,000 mcg tablet,disintegrating 1,000 mcg PO .1 tab once a day RF: 0 ibuprofen 600 mg tablet 600 mg PO TID PRN (Reason: pain) RF: 0 tizanidine 4 mg tablet 4 mg PO TID PRNRF: 0 nabumetone 750 mg tablet 750 mg PO BID PRN (Reason: pain) RF: 0 atorvastatin 20 mg tablet 20 mg PO DAILY RF: 0 amlodipine 5 mg tablet 5 mg PO DAILY RF: 0 metoprolol succinate 50 mg tablet extended release 24 hr 50 mg PO DAILY RF: 0 simethicone 125 mg capsule See Rx Instructions PO TID-QID PRN (Reason: abdominal distention) 30 Days Qty: 120 RF: 3 loratadine 10 mg tablet 10 mg PO DAILY PRN (Reason: allergy symptoms) 90 Days Qty: 90 RF: 1 triamcinolone acetonide 0.1 % cream 1 applic topical BID RF: 0 albuterol sulfate [ProAir HFA] 90 mcg/actuation HFA aerosol inhaler 2 puff inhalation .4 times a day PRNRF: 0 acetaminophen [Tylenol Arthritis Pain] 650 mg tablet extended release 650 mg PO Q8H PRN (Reason: pain) Qty: 90 RF: 3 vitamin B complex [B Complex-Vitamin B12] Tablet 1 tab PO DAILY RF: 0 pantoprazole 40 mg tablet,delayed release (DR/EC) 40 mg PO DAILY PRNRF: 0 diclofenac sodium [Voltaren] 1 % gel 2 g topical QID Qty: 100 RF: 1 multivitamin [Multiple Vitamins] Tablet 1 tab PO DAILY RF: 0 Referrals: Armando Wheeler MD [Primary Care Provider] - 2 days
--- NOTE | 2020-08-04 15:38 | ECG_ITS ---
Test Reason : DIZZINESS Blood Pressure : / mmHG Vent. Rate : 057 BPM Atrial Rate : 057 BPM P-R Int : 198 ms QRS Dur : 090 ms QT Int : 418 ms P-R-T Axes : 063 013 030 degrees QTc Int : 406 ms Sinus bradycardia with sinus arrhythmia with occasional Premature ventricular complexes Otherwise normal ECG When compared to the previous EKG of Premature ventricular complexes are now Present Referred By: Ministerio Parker Electronically Signed By:TRISTAN FERGUSON MD
[2020-08-04 16:03] VITALS: BP 148/79; PULSE 53; RESP 16; TEMP 36.8; O2SAT 98
[2020-08-04] MEDS: Meclizine HCl 25 MG TABLET 50 MG PO (16:11)
[2020-08-04 16:19] LABS: MANUAL DIFF FLAG NO
[2020-08-04 16:30] LABS: Basophils Percent Auto 0.5 % (0-2); Eosinophils Absolute Auto 0.2 X10*3/uL (0.0-0.4); Eosinophils Percent Auto 2.4 % (0-4); Hematocrit 40.2 % (37-47); Imm Gran Abs Auto 0.01 X10*3/uL (0.00-0.03); Imm Gran Pct Auto 0.2 % (0.0-0.4); Lymphocytes Absolute Auto 1.4 X10*3/uL (1.2-4.9); Lymphocytes Percent Auto 22.9 % (20-40); Mean Corpuscular HGB Conc 32.3 g/dl (31.0-35.0); Mean Corpuscular Hemoglobin 31.7 pg (27.0-33.0); Mean Platelet Volume 9.8 fL (9.4-12.3); Monocytes Absolute Auto 0.6 X10*3/uL (0.1-1.2); Monocytes Percent Auto 9.1 % (2-11); Neutrophils Percent Auto 64.9 % (45-73); Platelet Count 233 X10*3/uL (160-400); Red Cell Distribution Width 12.1 % (11.0-16.0); White Blood Count 6.2 X10*3/uL (4.8-10.8)
[2020-08-04 16:48] LABS: Anion Gap 10 (12-20); Blood Urea Nitrogen 26 mg/dL (9-16); Calcium 8.9 mg/dL (8.4-10.2); Carbon Dioxide 31 mmol/L (22-29); Chloride 104 mmol/L (96-108); Creatinine Clr Calc Pharmacy 76.6; Estimated Glomerular Filt Rate > 60; Glucose Random 94 mg/dL (60-115); Potassium 4.6 mmol/L (3.3-5.1); Sodium 140 mmol/L (135-145)
== END 2020-08-04 16:56 | disposition home or self-care (01) ==
PROVIDERS: Emergency Provider Emergency Medicine; PCP Internal Medicine
DX: R42 Dizziness and giddiness (principal); I10 Essential (primary) hypertension; J44.9 Chronic obstructive pulmonary disease, unspecified; Z98.84 Bariatric surgery status
CPT/HCPCS: 36415; 70450; 80048; 85025; 93005; 99284

== ENCOUNTER → 2020-08-18 12:50 | Outpatient (BNVA) | payer MEDICARE, MEDICAID, SELFPAY | PROVIDERS: PCP Internal Medicine; Visit Provider Dietitian, Registered ==

== ENCOUNTER 2020-09-02 14:19 | Outpatient (REF) | payer MEDICARE, MEDICAID, SELFPAY ==
--- NOTE | ~2020-09-02 | US_ITS ---
EXAMINATION: US VENOUS ULTRASOUND WITH DOPPLER LOWER EXTREMITY, LEFT CLINICAL INFORMATION: Left lower extremity pain. Assess for occult DVT. COMPARISON: None TECHNIQUE: Ultrasound of the deep veins is performed from the hip to the calf with compression sonography and color and pulse Doppler assessment. Spectral analysis with color-flow imaging is performed. FINDINGS: There is normal venous compression and respiratory variation and augmented flow. The visualized common femoral vein, superficial femoral vein, profunda femoral vein, popliteal vein, and the trifurcation region shows no evidence of deep venous thrombosis. No popliteal fossa cyst demonstrated. US/US venous duplex LE LT IMPRESSION: No DVT demonstrated in the left lower extremity.
== END 2020-09-02 14:20 | disposition home or self-care (01) ==
LOC: HO.HMGCX 14:19
PROVIDERS: Visit Provider Internal Medicine
DX: M79.605 Pain in left leg (principal); M79.89 Other specified soft tissue disorders
CPT/HCPCS: 93971

== ENCOUNTER → 2020-10-09 14:32 | Outpatient (BNV) | payer MEDICARE, MEDICAID, SELFPAY | PROVIDERS: PCP Internal Medicine; Visit Provider Internal Medicine Medical Oncology | DX: Z85.3 Personal history of malignant neoplasm of breast (principal) | CPT/HCPCS: 99213 ==

== ENCOUNTER → 2020-11-05 14:15 | Outpatient (BNVA) | payer MEDICARE, MEDICAID, SELFPAY | PROVIDERS: PCP Internal Medicine; Visit Provider Physician Assistant | DX: E66.3 Overweight (principal); Z68.28 Body mass index [BMI] 28.0-28.9, adult | CPT/HCPCS: 99212 ==

== ENCOUNTER 2020-11-09 10:30 | Outpatient (REF) | payer MEDICARE, MEDICAID, SELFPAY ==
[2020-11-09 11:36] LABS: MANUAL DIFF FLAG NO
[2020-11-09 11:43] LABS: Basophils Percent Auto 0.6 % (0-2); Eosinophils Absolute Auto 0.1 X10*3/uL (0.0-0.4); Eosinophils Percent Auto 2.2 % (0-4); Hematocrit 41.4 % (37-47); Hemoglobin 14.3 g/dl (12.0-16.0); Imm Gran Abs Auto 0.01 X10*3/uL (0.00-0.03); Imm Gran Pct Auto 0.2 % (0.0-0.4); Lymphocytes Absolute Auto 1.2 X10*3/uL (1.2-4.9); Lymphocytes Percent Auto 24.5 % (20-40); Mean Corpuscular HGB Conc 34.5 g/dl (31.0-35.0); Mean Corpuscular Hemoglobin 33.3 pg (27.0-33.0); Mean Corpuscular Volume 96.5 fL (80-98); Monocytes Absolute Auto 0.5 X10*3/uL (0.1-1.2); Monocytes Percent Auto 10.1 % (2-11); Neutrophils Absolute Auto 3.1 X10*3/uL (2.0-8.3); Neutrophils Percent Auto 62.4 % (45-73); Platelet Count 269 X10*3/uL (160-400); Red Blood Count 4.29 X10*6/uL (4.20-5.50); Red Cell Distribution Width 12.3 % (11.0-16.0); White Blood Count 4.9 X10*3/uL (4.8-10.8)
[2020-11-09 11:52] LABS: Estimated Average Glucose 103 mg/dL; Hemoglobin A1c % 5.2 %
[2020-11-09 12:15] LABS: Alanine Aminotransferase 11 U/L (0-31); Albumin Level 4.1 g/dL (3.5-5.0); Alkaline Phosphatase 142 U/L (39-117); Anion Gap 9 (12-20); Aspartate Amino Transferase 17 U/L (5-31); Bilirubin Total 0.8 mg/dL (0.0-1.0); Blood Urea Nitrogen 24 mg/dL (9-16); C Reactive Protein 0.07 mg/dL (< or = 0.50); Calcium 9.4 mg/dL (8.4-10.2); Carbon Dioxide 31 mmol/L (22-29); Chloride 104 mmol/L (96-108); Cholesterol 260 mg/dL; Estimated Glomerular Filt Rate > 60; Glucose Fasting 83 mg/dL (60-99); HDL Cholesterol 70 mg/dL; Iron 120 mcg/dL (30-160); LDL Cholesterol Calculated 175 mg/dl; Percent Iron Saturation 36 % (15-50); Potassium 4.4 mmol/L (3.3-5.1); Sodium 140 mmol/L (135-145); Total Iron Binding Capacity 332 mcg/dL (228-428); Total Protein 6.9 g/dL (6.5-8.0); Triglycerides 78 mg/dL; Unsaturated Iron Binding 212 ug/dL
[2020-11-09 12:17] LABS: Ferritin 23 ng/mL (10-250); TSH reflex Free T4 0.07 uIU/mL (0.32-4.0); Vitamin D 25-OH Total 36.1 ng/mL (>30)
[2020-11-09 12:36] LABS: Folate 11.8 ng/mL (> or = 4.0); Vitamin B12 228 pg/mL (200-900)
[2020-11-09 13:10] LABS: Free T4 (Free Thyroxine) 1.01 ng/dL (0.71-1.85)
[2020-11-10 09:36] LABS: Calcium (PTHI) 9.5 mg/dL (8.6-10.4); Insulin Level Total 5.5 uIU/mL; PTHI 51 pg/mL (14-64)
[2020-11-12 22:52] LABS: Zinc 58 mcg/dL (60-130)
[2020-11-13 20:46] LABS: Vitamin A 69 mcg/dL (38-98)
== END 2020-11-09 10:31 | disposition home or self-care (01) ==
LOC: HO.LAB 10:30
PROVIDERS: PCP Internal Medicine; Visit Provider Physician Assistant
DX: E66.01 Morbid (severe) obesity due to excess calories (principal); Z90.3 Acquired absence of stomach [part of]
CPT/HCPCS: 36415; 80053; 80061; 82306; 82607; 82728; 82746; 83036; 83525; 83540; 83970; 84425; 84439; 84443; 84590; 84630; 85025; 86140

== ENCOUNTER 2020-11-12 | Outpatient (REF) | payer MEDICARE, MEDICAID, SELFPAY | END 2020-11-12 00:01 | disposition home or self-care (01) | LOC: HO.LAB | PROVIDERS: Visit Provider Physician Assistant | DX: E66.3 Overweight (principal); Z90.3 Acquired absence of stomach [part of] | CPT/HCPCS: 36415; 84425 ==

== ENCOUNTER 2020-11-27 22:16 | Emergency (ER) | payer MEDICARE, MEDICAID, SELFPAY ==
[2020-11-27 22:47] VITALS: BP 147/64; PULSE 66; RESP 16; TEMP 36.9; O2SAT 96; BMI 29.3
--- NOTE | 2020-11-28 00:17 | ED.EXTPRO ---
HPI - Extremity Problem General Chief complaint: Extremity Problem Stated complaint: Hip pain Time Seen by Provider: 11/28/20 00:17 Source: patient Mode of arrival: ambulatory Limitations: no limitations History of Present Illness HPI Narrative: Patient with no significant past medical history complaining of pain for last 2 days left hip area radiating to the left thigh no paresthesia no motor weakness no spinal injury no urinary complaints Related Data Home Medications Medication Instructions Recorded Confirmed multivitamin 1 tab PO DAILY 02/22/20 11/05/20 ascorbate calcium (vitamin C) 500 500 mg PO BID 03/03/20 11/05/20 mg tablet aspirin 81 mg chewable tablet 81 mg PO DAILY 03/03/20 11/05/20 atorvastatin 20 mg tablet 20 mg PO DAILY 03/03/20 11/05/20 mecobalamin (vitamin B12) 5,000 1,000 mcg PO .1 tab once a day tab 03/03/20 11/05/20 mcg disintegrating tablet nabumetone 750 mg tablet 750 mg PO BID PRN 03/03/20 11/05/20 tizanidine 4 mg tablet 4 mg PO TID PRN 03/03/20 11/05/20 albuterol sulfate 90 mcg/actuation 2 puff INHALATION .4 times a day 03/11/20 11/05/20 aerosol inhaler PRN g Previous Rx's Medication Instructions Recorded acetaminophen 650 mg 650 mg PO Q8H PRN #90 tab 04/02/20 tablet,extended release calcium citrate 250 mg PO BID #60 tab 05/20/20 cholecalciferol (vitamin D3) 25 25 mcg PO DAILY #30 cap 05/20/20 mcg (1,000 unit) capsule levothyroxine 100 mcg tablet 100 mcg PO DAILY #90 tab 06/11/20 loratadine 10 mg tablet 10 mg PO DAILY PRN 90 Days #90 tab 07/29/20 diclofenac sodium 1 % topical gel 2 g TOPICAL BID PRN #100 g 09/01/20 ibuprofen 600 mg tablet 600 mg PO BID-TID PRN #90 tab 10/06/20 cholecalciferol (vitamin D3) 50 50 mcg PO DAILY #30 cap 11/26/20 mcg (2,000 unit) capsule vitamin A 10,000 unit capsule 10,000 unit PO DAILY #30 cap 11/26/20 zinc acetate 25 mg (zinc) capsule 25 mg PO DAILY #30 cap 11/26/20 cyclobenzaprine 10 mg PO Q8H #20 tab 11/28/20 tramadol 50 mg PO Q6H PRN #20 tab 11/28/20 Allergies Allergy/AdvReac Type Severity Reaction Status Date / Time apple [APPLE] Allergy Intermediate ITCHING Verified 11/27/20 22:51 THROAT- GREEN APPLES kamara [CHERRIES] Allergy Intermediate ITCHING-THR Verified 11/27/20 22:51 OAT Sulfa (Sulfonamide Allergy Intermediate rash Verified 11/27/20 22:51 Antibiotics) naproxen AdvReac Mild dizziness Verified 11/27/20 22:51 Review of Systems Review of Systems: Yes all other systems are reviewed and are negative PMFSH Past Medical History Medical History Abdominal distension, gaseous Acquired hypothyroidism Allergic rhinitis Benign essential hypertension Chest pain, pleuritic Chronic obstructive pulmonary disease (COPD) Elevated LFTs High cholesterol History of ductal carcinoma in situ (DCIS) of breast Hypertension Intestinal malabsorption following gastrectomy Left inguinal pain Left lumbar pain Left lumbar radiculopathy Left-sided thoracic back pain Lumbar degenerative disc disease Neuropathic pain of left lower extremity Osteoarthritis of spine with radiculopathy, lumbosacral region Overweight (BMI 25.0-29.9) Pain and swelling of left lower extremity Primary insomnia Primary osteoarthritis of both knees Primary osteoarthritis, unspecified shoulder Pure hypercholesterolemia Radicular pain of left lower extremity Vitamin A deficiency Vitamin B1 deficiency Vitamin D deficiency Zinc deficiency Surgical History H/O unilateral oophorectomy History of cardiac cath (~03/2018) History of lumpectomy of right breast (~12/2012) History of sleeve gastrectomy (07/24/18) History of total abdominal hysterectomy and bilateral salpingo-oophorectomy (~2004) S/P laparoscopic sleeve gastrectomy Family History Family History Father CVD (cardiovascular disease) Mother Cervical cancer Pancreatic cancer Uterine cancer Social History Social History Alcohol intake: never Advance Directives: No Advance Directives Information Provided: No 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: Unemployed Physical Exam Vital Signs: Vital Signs: Last Vital Signs Temp 98.5 F 11/27/20 22:47 Pulse 66 11/27/20 22:47 Resp 16 11/27/20 22:47 BP 147/64 H 11/27/20 22:47 Pulse Ox 96 11/27/20 22:47 Body Mass Index 29.3 Const: General: comfortable HENMT: Head: Yes normocephalic Eyes: General: appearance normal, both eyes and all related structures Neck: Neck: Yes normal visual inspection Resp: Effort & Inspection: normal respiratory effort Cardio: Rate: regular rate Rhythm: regular rhythm GI: Inspection: Yes normal to inspection Palpation (GI): Soft to palpation and nontender : General: Yes no CVA tenderness Back/Spine/Pelvis: Back: no CVA tenderness Thoracic/Lumbar Spine: thoracic and lumbar spine normal to inspection, straight leg raise negative bilaterally and paraspinal muscle tenderness Pelvis: no pain with anterior-posterior compression Back/spine/pelvis image: 1. Iliac notch tenderness SLR negative MDM - Extremity (Nontraumatic) MDM Narrative Medical decision making narrative: Patient's symptoms matches pyriform muscle spasm syndrome. Will discharge patient on Flexeril and tramadol advised by the from his muscle exercises Discharge Plan Discharge Clinical Impression: Pyriformis syndrome Qualifiers: Laterality: left Qualified Code(s): G57.02 - Lesion of sciatic nerve, left lower limb Patient Disposition: Home, Self-Care Instructions: Piriformis Syndrome (ED) Additional Instructions: Take pain and muscle relaxant medication as prescribed and do exercise as advised for piriformis syndrome Prescriptions: New cyclobenzaprine 10 mg tablet 10 mg PO Q8H Qty: 20 RF: 0 tramadol 50 mg tablet 50 mg PO Q6H PRN (Reason: pain) Qty: 20 RF: 0 No Action cholecalciferol (vitamin D3) 25 mcg (1,000 unit) capsule 25 mcg PO DAILY Qty: 30 RF: 11 calcium citrate 250 mg calcium tablet 250 mg PO BID Qty: 60 RF: 11 levothyroxine 100 mcg tablet 100 mcg PO DAILY Qty: 90 RF: 2 diclofenac sodium 1 % gel 2 g topical BID PRN (Reason: pain) Qty: 100 RF: 3 ibuprofen 600 mg tablet 600 mg PO BID-TID PRN (Reason: for pain) Qty: 90 RF: 1 zinc acetate 25 mg (zinc) capsule 25 mg PO DAILY Qty: 30 RF: 1 vitamin A 10,000 unit capsule 10,000 unit PO DAILY Qty: 30 RF: 1 cholecalciferol (vitamin D3) 50 mcg (2,000 unit) capsule 50 mcg PO DAILY Qty: 30 RF: 1 aspirin 81 mg tablet,chewable 81 mg PO DAILY RF: 0 ascorbate calcium (vitamin C) 500 mg tablet 500 mg PO BID RF: 0 mecobalamin (vitamin B12) 5,000 mcg tablet,disintegrating 1,000 mcg PO .1 tab once a day RF: 0 tizanidine 4 mg tablet 4 mg PO TID PRN (Reason: Pain) RF: 0 nabumetone 750 mg tablet 750 mg PO BID PRN (Reason: pain) RF: 0 atorvastatin 20 mg tablet 20 mg PO DAILY RF: 0 loratadine 10 mg tablet 10 mg PO DAILY PRN (Reason: allergy symptoms) 90 Days Qty: 90 RF: 1 albuterol sulfate [ProAir HFA] 90 mcg/actuation HFA aerosol inhaler 2 puff inhalation .4 times a day PRN (Reason: Wheezing) RF: 0 acetaminophen [Tylenol Arthritis Pain] 650 mg tablet extended release 650 mg PO Q8H PRN (Reason: pain) Qty: 90 RF: 3 multivitamin [Multiple Vitamins] Tablet 1 tab PO DAILY RF: 0 Interventions: ED Discharge Assessment Last Done: 11/28/20 00:49 Discharge Date/Time: 11/28/20 00:52
[2020-11-28] MEDS: traMADoL HCL 50 MG TABLET PO (00:48)
[2020-11-28] MEDS: Cyclobenzaprine HCl 10 MG TABLET PO (00:48)
== END 2020-11-28 00:52 | disposition home or self-care (01) ==
PROVIDERS: Emergency Provider Internal Medicine; PCP Internal Medicine
DX: G57.02 Lesion of sciatic nerve, left lower limb (principal); M25.552 Pain in left hip; Z79.899 Other long term (current) drug therapy
CPT/HCPCS: 99283

== ENCOUNTER 2020-12-11 13:22 | Outpatient (REF) | payer MEDICARE, MEDICAID, SELFPAY ==
--- NOTE | ~2020-12-11 | XR_ITS ---
EXAMINATION: XR HIP, LEFT CLINICAL INFORMATION: Left hip pain. COMPARISON: Pelvic and left hip radiographs dated 03/12/2020. TECHNIQUE: Two views of the left hip. FINDINGS: No acute fracture or dislocation. No significant joint space narrowing or marginal osteophytes. No osseous erosion. No abnormal soft tissue calcification. XR/XR hip LT min 2V IMPRESSION: Unremarkable examination.
== END 2020-12-11 13:23 | disposition home or self-care (01) ==
LOC: HO.XRAY 13:22
PROVIDERS: PCP Internal Medicine; Visit Provider Nurse Practitioner Family
DX: M25.552 Pain in left hip (principal)
CPT/HCPCS: 73502

== ENCOUNTER → 2021-01-07 12:50 | Outpatient (BNVA) | payer MEDICARE, MEDICAID, SELFPAY | PROVIDERS: PCP Internal Medicine; Visit Provider Surgery | DX: D05.11 Intraductal carcinoma in situ of right breast (principal); I10 Essential (primary) hypertension; E78.00 Pure hypercholesterolemia, unspecified; K90.9 Intestinal malabsorption, unspecified; Z92.3 Personal history of irradiation; Z90.3 Acquired absence of stomach [part of]; Z87.891 Personal history of nicotine dependence | CPT/HCPCS: 99212 ==

== ENCOUNTER 2021-02-25 14:36 | Outpatient (REF) | payer MEDICARE, MEDICAID, SELFPAY ==
--- NOTE | ~2021-02-25 | MM_ITS ---
EXAMINATION: BONE DENSITOMETRY CLINICAL INDICATION: Osteopenia. COMPARISON: Previous BD dated 10/06/2017 and baseline BD dated 08/24/2009. TECHNIQUE: Using a [employer] DXA System (software version: 13.1) manufactured by [employer], dual-energy x-ray absorptiometry was performed of the lumbar spine and left hip. The images are of good technical quality. Summary results are attached. FINDINGS: AP SPINE L1-L3 (excluding L2 and L4): The data of L1-L4 has been changed to exclude the L2 and L4 vertebral bodies, because degenerative changes at these levels may cause overestimation of lumbar spine density. Current: BMD 1.182 g/cm2, Z-score 1.2, T-score 0.1, normal, 7.0% decrease from previous, 1.2% decrease from baseline (<5% change is not significant). Prior: BMD 1.271 g/cm2. Baseline: BMD 1.196 g/cm2. LEFT FEMUR, NECK: Current: BMD 0.895 g/cm2, Z-score 0.1, T-score -1.0, normal. Prior: BMD 1.043 g/cm2. Baseline: BMD 1.141 g/cm2. LEFT FEMUR, TOTAL: Current: BMD 0.951 g/cm2, Z-score 0.4, T-score -0.4, normal, 17.4% decrease from previous, 20.5% decrease from baseline (<5% change is not significant). Prior: BMD 1.152 g/cm2. Baseline: BMD 1.196 g/cm2. IDENTIFIED RISK FACTORS: Secondary osteoporosis (early menopause, part of stomach removed). Hysterectomy. Bilateral oophorectomy. HISTORY OF FRACTURE: None listed. MEDICATIONS: Calcium supplement and/or multivitamin. Vitamin D. MM/XR DEXA axial skeleton IMPRESSION: 1. DIAGNOSIS: Normal bone density based on the lowest T-score value of -1.0 in the femoral neck applying World Health Organization criteria. 2. 10-YEAR FRACTURE RISK PREDICTION, FRAX: Major osteoporotic fracture (clinical spine, forearm, hip or shoulder) 4.6%. Hip fracture 0.4%. 3. Treatment Recommendations: NOF guidelines recommend consideration for treatment in postmenopausal women and men age 50 and older presenting with the following: -A hip or vertebral (clinical or morphometric) fracture. -T-score less than or equal to -2.5 at the femoral neck or spine after appropriate evaluation to exclude secondary causes. -Low bone mass at the hip or spine and a 10-year fracture probability by FRAX of greater than or equal to 3% for hip fracture or greater than or equal to 20% for major osteoporotic fracture based on the [place] adapted WHO algorithm. 4. Other Recommendations: All treatment decisions require clinical judgment and consideration of individual patient factors, including patient preferences, comorbidities, previous drug use, risk factors not captured in the FRAX model (e.g. frailty, falls, vitamin D deficiency, increased bone turnover, interval significant decline in bone density) and possible under or overestimation of fracture risk by FRAX. FUTURE SCAN RECOMMENDATION: People with diagnosed cases of osteoporosis or at high risk for fracture should have regular bone mineral density tests. For patients eligible for Medicare, routine testing is allowed once every 2 years. The testing frequency can be increased to one year for patients who have rapidly progressing disease, those who are receiving or discontinuing medical therapy to restore bone mass, or have additional risk factors.
--- NOTE | ~2021-02-25 | MM_ITS ---
EXAMINATION: MM SCREENING DIGITAL BREAST TOMOSYNTHESIS, BILATERAL CLINICAL INFORMATION: Screening. Asymptomatic. Right DCIS post lumpectomy, 2013. Due for yearly. COMPARISON: Mammography: 12/06/2019, 08/08/2018, 10/08/2017, 09/30/2016 TECHNIQUE: Digital breast tomosynthesis is performed in both the craniocaudal and mediolateral oblique views along with computer-aided detection (CAD). Synthesized 2D images are generated from the tomosynthesis. FINDINGS: There are scattered areas of fibroglandular density (ACR BI-RADS breast composition Category b). Fibronodular parenchymal pattern is similar to prior studies. Minor parenchymal asymmetry posterior medial left breast is stable. There is no developing density or interval mass or architectural abnormality. There are scattered benign round and coarse calcifications again seen. No significant changes. MM/MM tomosynthesis screening BI IMPRESSION: No significant changes from prior studies. ASSESSMENT: BI-RADS 2: Benign RECOMMENDATION: Routine annual mammography screening. This patient's information was entered into a reminder system with a target due date for their next mammogram.
== END 2021-02-25 14:37 | disposition home or self-care (01) ==
LOC: HO.MAMMO 14:36
PROVIDERS: Visit Provider Internal Medicine
DX: Z12.31 Encounter for screening mammogram for malignant neoplasm of breast (principal); Z13.820 Encounter for screening for osteoporosis; D05.11 Intraductal carcinoma in situ of right breast; Z78.0 Asymptomatic menopausal state; Z79.899 Other long term (current) drug therapy; Z90.722 Acquired absence of ovaries, bilateral; Z98.890 Other specified postprocedural states
CPT/HCPCS: 77063; 77067; 77080

== ENCOUNTER 2021-03-08 12:13 | Outpatient (REF) | payer MEDICARE, OTHER, SELFPAY ==
[2021-03-08 12:38] LABS: MANUAL DIFF FLAG NO
[2021-03-08 13:03] LABS: Basophils Percent Auto 0.6 % (0-2); Eosinophils Absolute Auto 0.1 X10*3/uL (0.0-0.4); Eosinophils Percent Auto 2.1 % (0-4); Hematocrit 40.5 % (37-47); Hemoglobin 13.4 g/dl (12.0-16.0); Lymphocytes Absolute Auto 1.2 X10*3/uL (1.2-4.9); Lymphocytes Percent Auto 25.4 % (20-40); Mean Corpuscular HGB Conc 33.1 g/dl (31.0-35.0); Mean Corpuscular Hemoglobin 32.1 pg (27.0-33.0); Mean Corpuscular Volume 97.1 fL (80-98); Mean Platelet Volume 9.8 fL (9.4-12.3); Monocytes Absolute Auto 0.5 X10*3/uL (0.1-1.2); Monocytes Percent Auto 11.4 % (2-11); Neutrophils Absolute Auto 2.9 X10*3/uL (2.0-8.3); Neutrophils Percent Auto 60.5 % (45-73); Platelet Count 254 X10*3/uL (160-400); Red Blood Count 4.17 X10*6/uL (4.20-5.50); White Blood Count 4.7 X10*3/uL (4.8-10.8)
[2021-03-08 13:20] LABS: Appearance Urine CLEAR; Color Urine YELLOW; Glucose Urine UA NEG (NEG); Leukocyte Esterase Urine NEG (NEG); Nitrite Urine NEG (NEG); Urine Blood NEG (NEG); Urine Ketones NEG (NEG); Urine Protein NEG (NEG-TRACE)
[2021-03-08 13:21] LABS: Alanine Aminotransferase 10 U/L (0-31); Alkaline Phosphatase 153 U/L (39-117); Anion Gap 11 (12-20); Aspartate Amino Transferase 17 U/L (5-31); Bilirubin Total 0.8 mg/dL (0.0-1.0); Blood Urea Nitrogen 13 mg/dL (9-16); Calcium 9.5 mg/dL (8.4-10.2); Carbon Dioxide 29 mmol/L (22-29); Chloride 105 mmol/L (96-108); Cholesterol 244 mg/dL; Estimated Glomerular Filt Rate > 60; Glucose Fasting 85 mg/dL (60-99); HDL Cholesterol 63 mg/dL; LDL Cholesterol Calculated 166 mg/dl; Potassium 4.5 mmol/L (3.3-5.1); Sodium 140 mmol/L (135-145); Total Protein 6.9 g/dL (6.5-8.0); Triglycerides 76 mg/dL
[2021-03-08 13:41] LABS: Vitamin D 25-OH Total 39.1 ng/mL (>30)
[2021-03-08 13:42] LABS: Free T4 (Free Thyroxine) 0.87 ng/dL (0.71-1.85); Vitamin D 25-OH Total 38.1 ng/mL (>30)
[2021-03-11 02:17] LABS: Zinc 74 mcg/dL (60-130)
[2021-03-12 21:17] LABS: Vitamin A 51 mcg/dL (38-98)
== END 2021-03-08 12:14 | disposition home or self-care (01) ==
LOC: HO.LAB 12:13
PROVIDERS: Absent Provider Physician Assistant; PCP Internal Medicine; Visit Provider Internal Medicine
DX: E55.9 Vitamin D deficiency, unspecified (principal); E03.9 Hypothyroidism, unspecified; E66.3 Overweight; E50.9 Vitamin A deficiency, unspecified; E51.9 Thiamine deficiency, unspecified; E60 Dietary zinc deficiency; I10 Essential (primary) hypertension; E78.00 Pure hypercholesterolemia, unspecified; J44.9 Chronic obstructive pulmonary disease, unspecified; Z98.84 Bariatric surgery status
CPT/HCPCS: 36415; 80053; 80061; 81003; 82306; 84439; 84443; 84590; 84630; 85025

== ENCOUNTER 2021-04-22 08:40 | Outpatient (REF) | payer MEDICARE, OTHER, SELFPAY ==
--- NOTE | ~2021-04-22 | US_ITS ---
EXAMINATION: US ABDOMEN COMPLETE CLINICAL INFORMATION: Other specified abnormal findings of blood chemistry. COMPARISON: CT abdomen and pelvis 05/02/2020. X-ray abdomen 08/13/2018. Ultrasound abdomen complete with elastography 11/30/2017. TECHNIQUE: Real-time imaging of the abdominal viscera. FINDINGS: PANCREAS: Normal. ABDOMINAL AORTA: The proximal, mid, and distal segments are normal in caliber. INFERIOR VENA CAVA: Visualized portions are normal. LIVER: The liver is normal in size. The liver contour is normal. There is increased liver echogenicity. No focal hepatic lesion. There is no intrahepatic biliary duct dilatation seen. The middle portal vein appears to be prominent. GALLBLADDER: The gallbladder wall thickness is 0.3 cm. The gallbladder is physiologically distended without evidence of stones, sludge, polyps, wall thickening or pericholecystic fluid. COMMON BILE DUCT: Normal in caliber measuring 0.7-0.9 cm in diameter. The CBD is patent. RIGHT KIDNEY: Normal. No hydronephrosis. No renal calculi or focal parenchymal lesions. The kidney measures 8.7 cm in maximum dimension. LEFT KIDNEY: Normal. No hydronephrosis. No renal calculi or focal parenchymal lesions. The kidney measures 9.5 cm in maximum dimension. SPLEEN: Normal. The spleen measures 7.7 cm in maximum dimension. FREE FLUID: None. US/US abdomen complete IMPRESSION: Mildly prominent CBD measuring 0.9 cm. Dilated middle portal vein measuring 1.8 cm with hepatopedal flow seen. Mild hepatic steatosis. The rest of the abdominal ultrasound is unremarkable.
== END 2021-04-22 08:41 | disposition home or self-care (01) ==
LOC: HO.US 08:40
PROVIDERS: PCP Internal Medicine; Visit Provider Nurse Practitioner Family
DX: R79.89 Other specified abnormal findings of blood chemistry (principal)
CPT/HCPCS: 76700

== ENCOUNTER → 2021-05-07 14:01 | Outpatient (BNVA) | payer MEDICARE, OTHER, SELFPAY | PROVIDERS: PCP Internal Medicine; Referring Provider Internal Medicine; Visit Provider Physician Assistant | DX: E66.3 Overweight (principal); Z98.84 Bariatric surgery status; Z68.28 Body mass index [BMI] 28.0-28.9, adult | CPT/HCPCS: 99212 ==

== ENCOUNTER 2021-05-21 22:39 | Emergency (ER) | payer MEDICARE, OTHER, SELFPAY ==
--- NOTE | 2021-05-21 23:25 | ED.URI ---
HPI - URI/Sore Throat General Stated Complaint: Migraine, stomach pain Source: patient Mode of arrival: ambulatory Limitations: no limitations History of Present Illness HPI Narrative: 65-year-old female presents with migraine and stomach ache. Onset (ago): day(s) (1) Consistency: constant Severity: moderate Relieving factors: nothing Associated symptoms: headache and abdominal pain Treatments prior to arrival: none Related Data Home Medications Medication Instructions Recorded Confirmed ascorbate calcium (vitamin C) 500 500 mg PO BID 03/03/20 05/07/21 mg tablet aspirin 81 mg chewable tablet 81 mg PO DAILY 03/03/20 05/07/21 atorvastatin 20 mg tablet 20 mg PO DAILY 03/03/20 05/07/21 mecobalamin (vitamin B12) 5,000 1,000 mcg PO .1 tab once a day tab 03/03/20 05/07/21 mcg disintegrating tablet tizanidine 4 mg tablet 4 mg PO TID PRN 03/03/20 05/07/21 albuterol sulfate 90 mcg/actuation 2 puff INHALATION .4 times a day 03/11/20 05/07/21 aerosol inhaler (ProAir HFA) PRN g Previous Rx's Medication Instructions Recorded calcium citrate 250 mg PO BID #60 tab 05/20/20 loratadine 10 mg tablet 10 mg PO DAILY PRN 90 Days #90 tab 07/29/20 ibuprofen 600 mg tablet 600 mg PO BID-TID PRN #90 tab 10/06/20 vitamin A 10,000 unit capsule 10,000 unit PO DAILY #30 cap 11/26/20 zinc acetate 25 mg (zinc) capsule 25 mg PO DAILY #30 cap 11/26/20 cyclobenzaprine 10 mg tablet 10 mg PO Q8H #20 tab 11/28/20 tramadol 50 mg tablet 50 mg PO Q6H PRN #20 tab 11/28/20 zinc 50 mg tablet 50 mg PO .every other day #14 tab 12/10/20 diclofenac sodium 1 % topical gel 2 g TOPICAL BID PRN #100 g 01/12/21 blood pressure monitor #1 ea 03/10/21 hydrocortisone 2.5 % topical cream 1 appl TOPICAL BID PRN #30 g 03/10/21 levothyroxine 100 mcg tablet 100 mcg PO DAILY #90 tab 03/21/21 cholecalciferol (vitamin D3) 50 50 mcg PO DAILY #30 cap 05/07/21 mcg (2,000 unit) capsule multivitamin (Multiple Vitamins) 1 tab PO DAILY #30 tab 05/07/21 Allergies Allergy/AdvReac Type Severity Reaction Status Date / Time kamara [CHERRIES] Allergy Intermediate ITCHING-THR Verified 05/07/21 14:14 OAT Sulfa (Sulfonamide Allergy Intermediate rash Verified 05/07/21 14:14 Antibiotics) naproxen AdvReac Mild dizziness Verified 05/07/21 14:14 Review of Systems Review of Systems: Constitutional: No Fever, No Chills ENT/Mouth: No Ear Pain, No Hoarseness, No sore throat Eyes: No Eye Pain, No Swelling, No Redness, No Foreign Body Cardiovascular: No Chest Pain, No SOB Respiratory: No Cough, No Dyspnea Gastrointestinal: No Nausea, No Vomiting, No Diarrhea, positive abdominal Pain Genitourinary: No Dysuria, No Hematuria Musculoskeletal: No joint pain, No Myalgias, No Joint Swelling Skin: No Skin lacerations, No rash Neuro: No Weakness, No Numbness, No Paresthesias, No Loss of Consciousness, No Dizziness, positive Headache Psych: No Anxiety/Panic, No Depression Heme/Lymph: no easy bruising, no Lymphadenopathy Endocrine: No Polyuria, No Polydipsia Yes all other systems are reviewed and are negative PMFSH Past Medical History Attestation statement: The following information was validated with the patient. Source: old records reviewed Medical History Abdominal distension, gaseous Acquired hypothyroidism Allergic rhinitis Benign essential hypertension Chest pain, pleuritic Chronic obstructive pulmonary disease (COPD) Elevated LFTs High cholesterol History of ductal carcinoma in situ (DCIS) of breast Hypertension Intestinal malabsorption following gastrectomy Left inguinal pain Left lumbar pain Left lumbar radiculopathy Left-sided thoracic back pain Lumbar degenerative disc disease Neuropathic pain of left lower extremity Osteoarthritis of spine with radiculopathy, lumbosacral region Overweight (BMI 25.0-29.9) Pain and swelling of left lower extremity Primary insomnia Primary osteoarthritis of both knees Primary osteoarthritis, unspecified shoulder Pure hypercholesterolemia Radicular pain of left lower extremity Vitamin A deficiency Vitamin B1 deficiency Vitamin D deficiency Zinc deficiency Surgical History H/O unilateral oophorectomy History of cardiac cath (~03/2018) History of colonoscopy History of lumpectomy of right breast (~12/2012) History of sleeve gastrectomy (07/24/18) History of total abdominal hysterectomy and bilateral salpingo-oophorectomy (~2004) S/P laparoscopic sleeve gastrectomy Family History Family History Father CVD (cardiovascular disease) Mother Cervical cancer Pancreatic cancer Uterine cancer Sister Substance abuse Social History Social History Housing: Apartment Alcohol intake: never Patient Tobacco Use Status: Former Tobacco user Tobacco use type: Cigarette e-Cigarette/Vaping Use: Never Used Second Hand Smoke Exposure: No Advance Directives: No Advance Directives Information Provided: Yes service: No 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al status: unemployed 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: Unemployed Physical Exam Vital Signs: Vital Signs: Last Vital Signs Pulse 63 05/21/21 23:34 Resp 16 05/21/21 23:34 BP 176/80 H 05/21/21 23:34 Pulse Ox 98 05/21/21 23:34 BMI result Body Mass Index 28.3 Appearance: Alert. Oriented X3. No acute distress. Eyes: Pupils equal, round and reactive to light. ENT: Pharynx normal. Neck: Normal inspection. Neck supple. CVS: Normal heart rate and rhythm. Pulses normal. Respiratory: No respiratory distress. Breath sounds normal. Abdomen: Soft and nontender. Skin: Skin warm and dry. Normal skin color. Normal skin turgor. Extremities: No lower extremity edema. Gait well-balanced well coordinated. Neuro: No motor deficit. No sensory deficit. Cranial nerves 2-12 intact. Course Course Course Narrative: 65-year-old female presents with migraine and stomach ache. States that she was exposed to COVID-19. Patient afebrile, even unlabored respirations. Nontoxic. Patient tested positive for COVID-19. Plan of care is to for discharge home with supportive measures. Patient verbalized understanding of and agrees to plan of care discharge home. MDM - URI/Sore Throat MDM Narrative Medical decision making narrative: Carbon monoxide Differential Diagnosis Differential diagnosis: Likely upper respiratory infection, viral infection, bronchitis, influenza and pharyngitis Medical Records Attestation: I reviewed the patient's medical records. Lab Data Attestation: I reviewed the patient's lab results. Labs: Lab Results 05/21/21 Range/Units 23:07 COVID-19 (ANDRADE) Negative (Negative) COVID-19 Clin Com See Note Discharge Plan Discharge Clinical Impression: COVID-19 Patient Disposition: Home, Self-Care Instructions: Covid-19 Viral Syndrome and Novel Coronavirus (ED) Hey/Ath, COVID-19 (Coronavirus Disease 2019) (ED) Additional Instructions: You tested positive for COVID-19. Maintain social isolation per State and Federal guidelines. Thank you for choosing this emergency department for evaluation. Please follow-up with primary care physician as needed. Return to the emergency department for any new, concerning, or worsening symptoms. Prescriptions: No Action calcium citrate 250 mg calcium tablet 250 mg PO BID Qty: 60 RF: 11 ibuprofen 600 mg tablet 600 mg PO BID-TID PRN (Reason: for pain) Qty: 90 RF: 1 zinc acetate 25 mg (zinc) capsule 25 mg PO DAILY Qty: 30 RF: 1 vitamin A 10,000 unit capsule 10,000 unit PO DAILY Qty: 30 RF: 1 zinc 50 mg tablet 50 mg PO .every other day Qty: 14 RF: 0 diclofenac sodium 1 % gel 2 g topical BID PRN (Reason: for pain) Qty: 100 RF: 3 levothyroxine 100 mcg tablet 100 mcg PO DAILY Qty: 90 RF: 2 cyclobenzaprine 10 mg tablet 10 mg PO Q8H Qty: 20 RF: 0 tramadol 50 mg tablet 50 mg PO Q6H PRN (Reason: pain) Qty: 20 RF: 0 aspirin 81 mg tablet,chewable 81 mg PO DAILY RF: 0 ascorbate calcium (vitamin C) 500 mg tablet 500 mg PO BID RF: 0 mecobalamin (vitamin B12) 5,000 mcg tablet,disintegrating 1,000 mcg PO .1 tab once a day RF: 0 tizanidine 4 mg tablet 4 mg PO TID PRN (Reason: Pain) RF: 0 atorvastatin 20 mg tablet 20 mg PO DAILY RF: 0 loratadine 10 mg tablet 10 mg PO DAILY PRN (Reason: allergy symptoms) 90 Days Qty: 90 RF: 1 (DME) blood pressure monitor Kit See Rx Instructions .Route Qty: 1 RF: 0 hydrocortisone 2.5 % cream 1 appl topical BID PRN (Reason: itching) Qty: 30 RF: 0 albuterol sulfate [ProAir HFA] 90 mcg/actuation HFA aerosol inhaler 2 puff inhalation .4 times a day PRN (Reason: Wheezing) RF: 0 cholecalciferol (vitamin D3) 50 mcg (2,000 unit) capsule 50 mcg PO DAILY Qty: 30 RF: 11 multivitamin [Multiple Vitamins] Tablet 1 tab PO DAILY Qty: 30 RF: 11
[2021-05-21 23:34] VITALS: BP 176/80; PULSE 63; RESP 16; O2SAT 98; BMI 28.3
[2021-05-21 23:38] LABS: COVID-19 Test Negative (Negative); IDNOW Serial# 08D9AD1C
[2021-05-21 23:47] VITALS: BMI 28.3
== END 2021-05-22 00:14 | disposition home or self-care (01) ==
PROVIDERS: Emergency Provider Internal Medicine
DX: U07.1 COVID-19 (principal); R51.9 Headache, unspecified; I10 Essential (primary) hypertension; E78.5 Hyperlipidemia, unspecified; Z79.82 Long term (current) use of aspirin; Z79.02 Long term (current) use of antithrombotics/antiplatelets; Z98.84 Bariatric surgery status
CPT/HCPCS: 36415; 87635; 99283

== ENCOUNTER 2021-06-01 15:10 | Outpatient (REF) | payer MEDICARE, OTHER, SELFPAY ==
[2021-06-01 16:12] LABS: Binax Internal Control QC Valid; Binax Now Covid-19 Ag Positive (Negative)
== END 2021-06-01 15:11 | disposition home or self-care (01) ==
LOC: HO.LAB 15:10
PROVIDERS: Visit Provider Internal Medicine
DX: Z20.822 Contact with and (suspected) exposure to COVID-19 (principal)
CPT/HCPCS: C9803

== ENCOUNTER 2021-06-07 11:51 | Outpatient (REF) | payer MEDICARE, OTHER, SELFPAY ==
[2021-06-07 12:56] LABS: COVID-19 Test Negative (Negative); IDNOW Serial# 16C4AD1C
== END 2021-06-07 11:52 | disposition home or self-care (01) ==
LOC: HO.LAB 11:51
PROVIDERS: Visit Provider Internal Medicine
DX: Z20.822 Contact with and (suspected) exposure to COVID-19 (principal)
CPT/HCPCS: 87635; C9803

== ENCOUNTER 2021-06-17 10:25 | Outpatient (REF) | payer MEDICARE, OTHER, SELFPAY ==
--- NOTE | ~2021-06-17 | XR_ITS ---
EXAMINATION: XR WRIST, RIGHT XR ANKLE, LEFT INDICATION: Pain. COMPARISON: None TECHNIQUE: 4 views of the right wrist. 3 views of the left ankle. FINDINGS: Four views of the right wrist demonstrate some mild degeneration at the base of the thumb. There are also some likely mild degenerative changes at the articulation of the radius with the navicular and lunate. There is no acute finding. No fracture or dislocation. Three views of the left ankle show degenerative change at the insertion of the Achilles and likely dystrophic calcification within the distal Achilles. The Achilles tendon may well be thickened based on the lateral image. Mild spurring at the insertion of the plantar aponeuroses. There is mild degeneration medially and laterally, but the mortise is grossly intact. XR/XR ankle LT min 3V IMPRESSION: Some evidence of degenerative changes, as described above, in the ankle on the left and right wrist. No acute finding.
--- NOTE | ~2021-06-17 | XR_ITS ---
EXAMINATION: XR WRIST, RIGHT XR ANKLE, LEFT INDICATION: Pain. COMPARISON: None TECHNIQUE: 4 views of the right wrist. 3 views of the left ankle. FINDINGS: Four views of the right wrist demonstrate some mild degeneration at the base of the thumb. There are also some likely mild degenerative changes at the articulation of the radius with the navicular and lunate. There is no acute finding. No fracture or dislocation. Three views of the left ankle show degenerative change at the insertion of the Achilles and likely dystrophic calcification within the distal Achilles. The Achilles tendon may well be thickened based on the lateral image. Mild spurring at the insertion of the plantar aponeuroses. There is mild degeneration medially and laterally, but the mortise is grossly intact. XR/XR wrist RT 2V IMPRESSION: Some evidence of degenerative changes, as described above, in the ankle on the left and right wrist. No acute finding.
== END 2021-06-17 10:26 | disposition home or self-care (01) ==
LOC: HO.XRAY 10:25
PROVIDERS: PCP Internal Medicine; Visit Provider Internal Medicine
DX: M25.531 Pain in right wrist (principal); M79.672 Pain in left foot
CPT/HCPCS: 73100; 73610

== ENCOUNTER → 2021-07-14 14:08 | Outpatient (BNVA) | payer MEDICARE, OTHER, SELFPAY | PROVIDERS: PCP Internal Medicine; Visit Provider Physician Assistant | DX: M19.031 Primary osteoarthritis, right wrist (principal); M17.0 Bilateral primary osteoarthritis of knee; M47.27 Other spondylosis with radiculopathy, lumbosacral region; J44.9 Chronic obstructive pulmonary disease, unspecified; I10 Essential (primary) hypertension; E03.9 Hypothyroidism, unspecified; E78.00 Pure hypercholesterolemia, unspecified; E50.9 Vitamin A deficiency, unspecified; E51.9 Thiamine deficiency, unspecified; E55.9 Vitamin D deficiency, unspecified; K90.49 Malabsorption due to intolerance, not elsewhere classified; Z90.3 Acquired absence of stomach [part of]; Z91.013 Allergy to seafood; Z88.8 Allergy status to other drugs, medicaments and biological substances; Z91.018 Allergy to other foods; Z79.82 Long term (current) use of aspirin; Z79.899 Other long term (current) drug therapy | CPT/HCPCS: 99202 ==

== ENCOUNTER → 2021-07-20 12:49 | Outpatient (BNVA) | payer MEDICARE, OTHER, SELFPAY | PROVIDERS: PCP Internal Medicine; Referring Provider Internal Medicine; Visit Provider Internal Medicine | DX: R07.89 Other chest pain (principal); R53.82 Chronic fatigue, unspecified | CPT/HCPCS: 93005; 99212 ==

== ENCOUNTER 2021-07-27 14:38 | Outpatient (REF) | payer MEDICARE, OTHER, SELFPAY ==
--- NOTE | ~2021-07-27 | US_ITS ---
EXAMINATION: US VENOUS ULTRASOUND WITH DOPPLER LOWER EXTREMITY, LEFT CLINICAL INFORMATION: Pain COMPARISON: Previous exam August 2020 TECHNIQUE: Ultrasound of the deep veins is performed from the hip to the calf with compression sonography and color and pulse Doppler assessment. Spectral analysis with color-flow imaging is performed. FINDINGS: There is normal venous compression and respiratory variation and augmented flow. The visualized common femoral vein, superficial femoral vein, profunda femoral vein, popliteal vein, and the trifurcation region shows no evidence of deep venous thrombosis. There is no Hanson's cyst. Imaging of the soft tissues of the left mid medial thigh was performed in the area of patient's lump. No abnormality is seen by ultrasound. US/US venous duplex LE LT IMPRESSION: No DVT demonstrated in the left lower extremity.
== END 2021-07-27 14:39 | disposition home or self-care (01) ==
LOC: HO.US 14:38
PROVIDERS: PCP Internal Medicine; Visit Provider Nurse Practitioner Family
DX: M79.605 Pain in left leg (principal)
CPT/HCPCS: 93971

== ENCOUNTER → 2021-08-13 12:51 | Outpatient (BNVA) | payer MEDICARE, OTHER, SELFPAY | PROVIDERS: PCP Internal Medicine; Referring Provider Internal Medicine; Visit Provider Physician Assistant | DX: E66.3 Overweight (principal); Z90.3 Acquired absence of stomach [part of]; Z68.27 Body mass index [BMI] 27.0-27.9, adult | CPT/HCPCS: 99212 ==

== ENCOUNTER 2021-08-17 14:00 | Outpatient (RCR) | payer MEDICARE, MEDICAID, SELFPAY ==
--- NOTE | 2021-08-03 14:31 | MHC.OT.OEV ---
[address] [phone] F: [phone] Occupational Therapy Evaluation Diagnosis: Right wrist OA Date of Onset: 07/13/21 Attending Provider: Sri Kong PA-C Prescribed Treatment: Eval and Trat History of Current Condition: 65 yo female presents w/ right hand pain, onset about 3 weeks ago. She was referred to [facility], x-ray shows mild degeneration at base of thumb and articulation of radius at DRUJ. She was placed in prefab wrist orthosis and referred to OT. Significant Medical History: See EMR Patient Goals: Relieve pain Hand Dominance: Right Observations: Wearing right pre-ronda orthosis QuickDASH Score: 48 Prior Level of Function and Occupation Self Care, Employment, Leisure: Ind with ADLs, and IADLs and able to drive. Living Situation, Family and/or Social Support: Lives with in apartment. Current Level of Function and Occupation Self Care, Employment, Leisure: Difficulty brushing hair, washing back, moving rice in pot, opening jars, handwriting. Sleep: Difficulty sleeping due to pain in wrist. Driving: Sometimes painful to drive with both hands. Vision: Balance: Pain Assessment Pain Score: 3 Pain Scale Used: Pain Location and Description: Ulner wrist. Pain with ulnar deviation and ext with resistance Pain at rest 3/10 Pain when aggravated 9/10 Aggravating Factors: Difficulty brushing hair, washing back, moving rice in pot, opening jars, handwriting. Alleviating Factors: Tylenol for pain relief Trialed heat for pain releif, provides some comfort Nerve assessment Ulnar Nerve: WNL Median Nerve: WNL Radial Nerve: WNL Sensory Assessment Comments: Pt repors numbness intermittantly in right hand, worse with activities w/ elbow flexed or while sleeping [place] Malcolm 3.61 B/L'ly Edema Assessment Upper Extremity: Right Impaired Comments: Swelling in the ulner wrist, and thenar eminence. Wrist Crease Edema right 6.6cm left 6.1cm Special Tests Comments: (-) Tinnels at carpal tunnel and ulnar nerve at elbow and wrist (-) elbow flexion test (+) fovea sign (+) grind test (-) Ballotment test AROM(PROM) Strength Cervical Cervical Flexion: Cervical Extension: Cervical Lateral Flexion: Cervical Rotation: Comments: WFL Shoulder Flexion: Extension: Abduction: Internal Rotation: External Rotation: Comments: WFL Flexion: Extension: Abduction: Internal Rotation: External Rotation: Comments: Elbow Flexion: Extension: Pronation: Supination: Comments: WFL Flexion: Extension: Pronation: Supination: Comments: Wrist Flexion: Extension: Ulnar Deviation: Radial Deviation: Comments: WFL Flexion: Extension: Ulnar Deviation: Radial Deviation: Comments: Thumb Thumb CMC Flexion: Thumb MCP Flexion: Thumb IP Flexion: Radial Abduction: Palmar Abduction: [place] (Kapandji 0-10): Comments: WFL, mild adduction positioning w/ okay sign Digits Index MCP: PIP: DIP: Long MCP: PIP: DIP: Ring MCP: PIP: DIP: Small MCP: PIP: DIP: Comments: WFL Gross Grasp: R 21lbs L 45lbs Lateral Pinch: Two-Point Pinch: Three-Jaw Burak: Comments: Weight bearing through palm with scale: R 32 lbs L 62 lbs Patient Education Primary Language: Creative Consultant Required: Yes Current Knowledge: Understands information with skills for self-management Teaching Method: Demonstration Handouts Verbal Education Needs Identified on Evaluation: ADL's Disease Information Equipment Use Exercise Pain Safety How did patient/family demonstrate learning? Patient demonstrates Patient verbalizes Barriers to Learning: None Readiness for Learning: Accepting Who was educated? Patient Comments: Plan of Care Assessment: 65 yo female presents w/ acute onset of right wrist pain, although no mechanism of injury is noted. X-rays show mild degeneration at CMC and DRUJ and OT assessment is consistent with these findings. She does also note high pain in ulnar wrist, tender to palpate over TFCC and has pain and weakness w/ weightbearing through her palm. She will benefit from continued therapy services to address arthritis with goal of joint protection, activity modification and strengthening for stability, while being mindful of possible TFCC strain. STG Duration: 2 weeks Short Term Goals: Ind w/ HEP Ind w/ orthosis wear Ind w/ joint protection techniques Pt to report 2/10 resting pain Pt to report relief of nighttime numbenss w/ sleep modifications LTG Duration: 4 weeks Nursing Home Goals: Pain free wrist and hand w/ rest Good carry over w/ use of heat/cold modalities for comfort in home Pt to progress to strengthening program for stability of DRUJ and CMC Quickdash score <25pts Frequency and Duration: The patient will be seen 2x/wk for 4 weeks Treatment Plan: Therapeutic Exercise Therapeutic Activity Home Exercise Program Splinting Neuro Re-ed Patient Education Edema Control ADL Training Paraffin Fluidotherapy MHP Cold Packs Joint Mobilization Soft Tissue Mobilization Kinesiotaping CMC orthosis K-tape for Marilyn tape to [facility] Electronically Signed By: Shirley Del Rosario OT/s Reviewed/agree with student documentation: Yes Therapist: Sandi Ibarra, OTR/L Please sign and return to therapist, Thank you for your referral.
--- NOTE | 2021-08-19 14:05 | MHC.OT.DC ---
[address] [phone] F: [phone] Occupational Therapy Discharge Note Provider: Sri Kong PA-C Diagnosis: Right wrist OA Date of Evaluation: 08/03/21 Date of Discharge: 08/19/21 Treatments to Date: 3 Cancellations to Date: 3 Discharge Status: Visit Non-compliance Discharge Summary: Dannielle was seen for initial assessment of right hand pain due to OA. She has been educated on joint protection and general pain management techniques, but has missed several appointments. Pt has trialed Wrist Widget in clinic and reported decrease in pain w/ weight bearing and wrist ROM, she would benefit from wearing to improve wrist stability. Recommend pt cont her HEP for strengthening and joint protection. Electronically Signed By: BETSY Cardona/Mohit Reviewed/agree with student documentation: Yes Therapist: BETSY Cardona/Mohit Please Sign and return to therapist, thank you for your referral.
== END 2021-08-19 14:06 | disposition home or self-care (01) ==
LOC: HO.OT 14:00
PROVIDERS: PCP Internal Medicine; Visit Provider Physician Assistant
DX: M19.031 Primary osteoarthritis, right wrist (principal)
CPT/HCPCS: 29130; 97110; 97140; 97165; 97760

== ENCOUNTER → 2021-08-24 13:32 | Outpatient (BNVA) | payer MEDICARE, OTHER, SELFPAY | PROVIDERS: PCP Internal Medicine; Visit Provider Physician Assistant | DX: M19.031 Primary osteoarthritis, right wrist (principal) | CPT/HCPCS: 99212 ==

== ENCOUNTER 2021-08-30 08:42 | Outpatient (REF) | payer MEDICARE, OTHER, SELFPAY ==
[2021-08-30 09:08] LABS: MANUAL DIFF FLAG NO
[2021-08-30 09:43] LABS: Basophils Percent Auto 0.4 % (0-2); Eosinophils Absolute Auto 0.2 X10*3/uL (0.0-0.4); Eosinophils Percent Auto 3.6 % (0-4); Hematocrit 39.2 % (37.0-47.0); Imm Gran Abs Auto 0.02 X10*3/uL (0.00-0.03); Imm Gran Pct Auto 0.4 % (0.0-0.4); Lymphocytes Percent Auto 21.8 % (20-40); Mean Corpuscular HGB Conc 33.2 g/dl (31.0-35.0); Mean Corpuscular Hemoglobin 32.4 pg (27.0-33.0); Mean Corpuscular Volume 97.8 fL (80.0-98.0); Mean Platelet Volume 9.7 fL (9.4-12.3); Monocytes Absolute Auto 0.4 X10*3/uL (0.1-1.2); Monocytes Percent Auto 9.4 % (2-11); Neutrophils Percent Auto 64.4 % (45-73); Platelet Count 237 X10*3/uL (160-400); Red Blood Count 4.01 X10*6/uL (4.20-5.50); Red Cell Distribution Width 13.2 % (11.0-16.0); White Blood Count 4.7 X10*3/uL (4.8-10.8)
[2021-08-30 09:54] LABS: Estimated Average Glucose 103 mg/dL; Hemoglobin A1c % 5.2 %
[2021-08-30 10:07] LABS: Alanine Aminotransferase 11 U/L (0-31); Alkaline Phosphatase 136 U/L (39-117); Anion Gap 10 (12-20); Aspartate Amino Transferase 17 U/L (5-31); Bilirubin Total 0.6 mg/dL (0.0-1.0); Blood Urea Nitrogen 17 mg/dL (9-16); Calcium 9.5 mg/dL (8.4-10.2); Carbon Dioxide 29 mmol/L (22-29); Chloride 104 mmol/L (96-108); Cholesterol 248 mg/dL; Estimated Glomerular Filt Rate > 60; Glucose Random 84 mg/dL (60-115); HDL Cholesterol 60 mg/dL; Iron 109 mcg/dL (30-160); LDL Cholesterol Calculated 174 mg/dl; Percent Iron Saturation 34 % (15-50); Potassium 4.5 mmol/L (3.3-5.1); Sodium 138 mmol/L (135-145); Total Iron Binding Capacity 325 mcg/dL (228-428); Total Protein 6.9 g/dL (6.5-8.0); Triglycerides 70 mg/dL; Unsaturated Iron Binding 216 ug/dL
[2021-08-30 10:33] LABS: Ferritin 26 ng/mL (10-250); TSH reflex Free T4 2.02 uIU/mL (0.32-4.0); Vitamin D 25-OH Total 39.7 ng/mL (>30)
[2021-08-30 10:47] LABS: Folate 15.7 ng/mL (> or = 4.0); Vitamin B12 180 pg/mL (200-900)
[2021-08-30 11:04] LABS: Insulin 5 uU/mL (2-29)
[2021-08-31 13:47] LABS: Calcium (PTHI) 9.5 mg/dL (8.6-10.4); PTHI 51 pg/mL (16-77)
[2021-09-03 06:22] LABS: Zinc 78 mcg/dL (60-130)
[2021-09-03 13:02] LABS: Vitamin B1 13 nmol/L (8-30)
[2021-09-03 20:52] LABS: Vitamin A 54 mcg/dL (38-98)
== END 2021-08-30 08:43 | disposition home or self-care (01) ==
LOC: HO.LAB 08:42
PROVIDERS: Absent Provider Physician Assistant; PCP Internal Medicine; Visit Provider Internal Medicine
DX: E66.3 Overweight (principal); Z98.84 Bariatric surgery status
CPT/HCPCS: 36415; 80053; 80061; 82306; 82607; 82728; 82746; 83036; 83525; 83540; 83970; 84425; 84443; 84590; 84630; 85025; 86140

== ENCOUNTER → 2021-09-03 13:56 | Outpatient (BNVA) | payer MEDICARE, OTHER, SELFPAY | PROVIDERS: PCP Internal Medicine; Referring Provider Internal Medicine; Visit Provider Nurse Practitioner | DX: K59.04 Chronic idiopathic constipation (principal) | CPT/HCPCS: 99202 ==

== ENCOUNTER → 2021-10-01 14:50 | Outpatient (BNVA) | payer MEDICARE, OTHER, SELFPAY | PROVIDERS: PCP Internal Medicine; Referring Provider Internal Medicine; Visit Provider Nurse Practitioner | DX: K59.04 Chronic idiopathic constipation (principal) | CPT/HCPCS: 99212 ==

== ENCOUNTER → 2021-10-15 08:58 | Outpatient (BNVA) | payer MEDICARE, OTHER, SELFPAY | PROVIDERS: PCP Internal Medicine; Referring Provider Internal Medicine; Visit Provider Surgery | DX: D05.11 Intraductal carcinoma in situ of right breast (principal) | CPT/HCPCS: 99212 ==

== ENCOUNTER 2021-12-31 14:45 | Outpatient (REF) | payer MEDICARE, OTHER, SELFPAY ==
[2021-12-31 16:08] LABS: Appearance Urine CLEAR; Color Urine YELLOW; Glucose Urine UA NEG (NEG); Leukocyte Esterase Urine NEG (NEG); Nitrite Urine NEG (NEG); PH 5.5 (5.0-8.0); Specific Gravity - Urine 1.025 (1.005-1.025); UACC Culture Trigger NO; Urine Blood TRACE (NEG); Urine Ketones NEG (NEG); Urine Protein NEG (NEG-TRACE)
[2021-12-31 16:25] LABS: Squamous Epithelial Cell Urine 1+ /LPF; WBC Urine 0-2 /HPF (0-4)
== END 2021-12-31 14:46 | disposition home or self-care (01) ==
LOC: HO.LAB 14:45
PROVIDERS: PCP Internal Medicine; Visit Provider Nurse Practitioner
DX: R10.33 Periumbilical pain (principal); R30.9 Painful micturition, unspecified; K21.9 Gastro-esophageal reflux disease without esophagitis; K59.04 Chronic idiopathic constipation
CPT/HCPCS: 81001; 81003; 99212

== ENCOUNTER 2022-02-21 11:29 | Outpatient (REF) | payer MEDICARE, MEDICAID, SELFPAY ==
[2022-02-21 11:47] LABS: MANUAL DIFF FLAG NO
[2022-02-21 11:58] LABS: Basophils Percent Auto 0.6 % (0-2); Eosinophils Absolute Auto 0.1 X10*3/uL (0.0-0.4); Eosinophils Percent Auto 2.2 % (0-4); Hematocrit 41.4 % (37.0-47.0); Hemoglobin 13.5 g/dl (12.0-16.0); Imm Gran Abs Auto 0.01 X10*3/uL (0.00-0.03); Imm Gran Pct Auto 0.2 % (0.0-0.4); Lymphocytes Absolute Auto 1.4 X10*3/uL (1.2-4.9); Lymphocytes Percent Auto 26.4 % (20-40); Mean Corpuscular HGB Conc 32.6 g/dl (31.0-35.0); Mean Corpuscular Hemoglobin 31.8 pg (27.0-33.0); Mean Corpuscular Volume 97.4 fL (80.0-98.0); Mean Platelet Volume 9.5 fL (9.4-12.3); Monocytes Absolute Auto 0.5 X10*3/uL (0.1-1.2); Neutrophils Absolute Auto 3.3 x10*3/uL (2.0-8.3); Neutrophils Percent Auto 60.6 % (45-73); Platelet Count 234 X10*3/uL (160-400); Red Blood Count 4.25 X10*6/uL (4.20-5.50); Red Cell Distribution Width 12.5 % (11.0-16.0); White Blood Count 5.4 X10*3/uL (4.8-10.8)
[2022-02-21 12:43] LABS: Alanine Aminotransferase 13 U/L (0-31); Albumin Level 4.2 g/dL (3.5-5.0); Alkaline Phosphatase 145 U/L (39-117); Anion Gap 14 (12-20); Aspartate Amino Transferase 17 U/L (5-31); Blood Urea Nitrogen 18 mg/dL (9-16); Calcium 9.5 mg/dL (8.4-10.2); Carbon Dioxide 29 mmol/L (22-29); Chloride 102 mmol/L (96-108); Cholesterol 199 mg/dL; Estimated Glomerular Filt Rate > 60; Glucose Fasting 85 mg/dL (60-99); HDL Cholesterol 64 mg/dL; LDL Cholesterol Calculated 120 mg/dl; Potassium 4.6 mmol/L (3.3-5.1); Sodium 140 mmol/L (135-145); Total Protein 7.2 g/dL (6.5-8.0); Triglycerides 75 mg/dL
[2022-02-21 12:58] LABS: TSH reflex Free T4 1.45 uIU/mL (0.32-4.0); Vitamin D 25-OH Total 48.7 ng/mL (>30)
[2022-02-21 13:32] LABS: Folate 15.4 ng/mL (> or = 4.0); Vitamin B12 428 pg/mL (200-900)
[2022-02-21 13:38] LABS: Appearance Urine Clear; Color Urine Yellow; Glucose Urine UA Negative (Negative); Leukocyte Esterase Urine Trace (Negative); Nitrite Urine Negative (Negative); PH 5.5 (5.0-9.0); UMIC TRIGGER UACC YES; Urine Blood Negative (Negative); Urine Ketones Negative (Negative); Urine Protein Negative (Neg-Trace)
[2022-02-21 13:46] LABS: Bacteria Urine None Seen (None Seen); Hyaline Casts Urine 0-2 /LPF (0-2); RBC Urine 0-2 /HPF (0-2); Squamous Epithelial Cell Urine 0-2 /HPF (0-2); WBC Urine 0-5 /HPF (0-5)
== END 2022-02-21 11:30 | disposition home or self-care (01) ==
LOC: HO.LAB 11:29
PROVIDERS: Absent Provider Nurse Practitioner; PCP Internal Medicine; Visit Provider Internal Medicine
DX: R30.9 Painful micturition, unspecified (principal); I10 Essential (primary) hypertension; E78.00 Pure hypercholesterolemia, unspecified; E53.8 Deficiency of other specified B group vitamins; E55.9 Vitamin D deficiency, unspecified
CPT/HCPCS: 36415; 80053; 80061; 81001; 82306; 82607; 82746; 84443; 85025

== ENCOUNTER 2022-03-02 14:36 | Outpatient (REF) | payer MEDICARE, MEDICAID, SELFPAY ==
--- NOTE | ~2022-03-02 | MM_ITS ---
EXAMINATION: MM SCREENING DIGITAL BREAST TOMOSYNTHESIS, BILATERAL CLINICAL INFORMATION: Right DCIS status post lumpectomy, 2013. Due for yearly. COMPARISON: Mammography: 02/25/2021, 12/06/2019, 11/22/2019, 08/14/2018 TECHNIQUE: Digital breast tomosynthesis is performed in both the craniocaudal and mediolateral oblique views along with computer-aided detection (CAD). Synthesized 2D images are generated from the tomosynthesis. Additional left CC view is provided. FINDINGS: There are scattered areas of fibroglandular density (ACR BI-RADS breast composition Category b). Parenchymal pattern is similar to prior studies with stable fine fibronodular densities and no developing density or interval mass or architectural abnormality. There are scattered benign calcifications in both breasts. Dermal lesion again seen overlying posterior medial left breast. The axilla are unremarkable. No significant changes. MM/MM tomosynthesis screening BI IMPRESSION: No mammographic evidence of malignancy. ASSESSMENT: BI-RADS 2: Benign RECOMMENDATION: Routine annual mammography screening. This patient's information was entered into a reminder system with a target due date for their next mammogram.
== END 2022-03-02 14:37 | disposition home or self-care (01) ==
LOC: HO.MAMMO 14:36
PROVIDERS: PCP Internal Medicine; Visit Provider Internal Medicine
DX: Z12.31 Encounter for screening mammogram for malignant neoplasm of breast (principal)
CPT/HCPCS: 77063; 77067

== ENCOUNTER 2022-03-03 09:51 | Outpatient (REF) | payer MEDICARE, MEDICAID, SELFPAY ==
--- NOTE | ~2022-03-03 | US_ITS ---
EXAMINATION: US ABDOMEN COMPLETE CLINICAL INFORMATION: Periumbilical pain. COMPARISON: Ultrasound abdomen complete 04/22/2021. CT abdomen and pelvis without contrast 05/02/2020. X-Ray abdomen complete 08/13/2018. US abdomen complete with liver elastography 11/30/2017. TECHNIQUE: Real-time imaging of the abdominal viscera. FINDINGS: PANCREAS: Visualized pancreas is homogeneous in texture without focal lesion or enlargement. The talus unremarkable. Pancreatic duct is minimally prominent measuring 0.23 cm.. ABDOMINAL AORTA: The proximal, mid, and distal segments are normal in caliber. INFERIOR VENA CAVA: Visualized portions are normal. LIVER: Normal. The liver is normal in size. The liver contour is normal. Parenchymal echogenicity is normal. No focal hepatic lesion. There is no intrahepatic biliary duct dilatation seen. GALLBLADDER: Normal. The gallbladder is physiologically distended without evidence of stones, sludge, polyps, wall thickening or pericholecystic fluid. COMMON BILE DUCT: Normal in caliber measuring 0.6 cm in diameter. RIGHT KIDNEY: Normal. No hydronephrosis. No renal calculi or focal parenchymal lesions. The kidney measures 10.3 cm in maximum dimension. LEFT KIDNEY: Normal. No hydronephrosis. No renal calculi or focal parenchymal lesions. The kidney measures 10.1 cm in maximum dimension. SPLEEN: Normal. The spleen measures 9.2 cm in maximum dimension. FREE FLUID: None. US/US abdomen complete IMPRESSION: Unremarkable complete abdomen ultrasound.
== END 2022-03-03 09:52 | disposition home or self-care (01) ==
LOC: HO.US 09:51
PROVIDERS: Visit Provider Nurse Practitioner
DX: R10.33 Periumbilical pain (principal)
CPT/HCPCS: 76700

== ENCOUNTER → 2022-04-05 13:55 | Outpatient (BNVA) | payer MEDICARE, OTHER, SELFPAY | PROVIDERS: PCP Internal Medicine; Referring Provider Internal Medicine; Visit Provider Surgery | DX: D05.11 Intraductal carcinoma in situ of right breast (principal) | CPT/HCPCS: 99212 ==

== ENCOUNTER 2022-05-02 14:21 | Outpatient (REF) | payer MEDICARE, MEDICAID, SELFPAY ==
--- NOTE | ~2022-05-02 | XR_ITS ---
EXAMINATION: XR LUMBOSACRAL SPINE CLINICAL INFORMATION: Left posterior rib and lower back pain. COMPARISON: Chest and left RIBS 05/02/2022, lumbar radiographs 07/30/2020, CT abdomen and pelvis 05/02/2020. TECHNIQUE: Three views of the lumbosacral spine. FINDINGS: There is normal lumbar segmentation with 5 nonrib-bearing lumbar vertebrae of normal height and normal lumbar lordosis. Again, there is a mild dextrocurvature mid lumbar spine. There is no vertebral compression or destructive process. Prominent degenerative disc changes are again present at L1-L2, L4-L5, and L5-S1 with disc narrowing and endplate sclerosis and vertebral spurring. There is borderline retrolisthesis again seen at L1-L2. No interval spondylolisthesis. The SI joints and visualized sacrum are unremarkable. Surgical clips again seen left upper quadrant abdomen. Bowel gas unremarkable. XR/XR lumbar spine 2-3V IMPRESSION: 1. Prominent degenerative disc changes L1-L2, L4-L5, and L5-S1. 2. Borderline retrolisthesis L1-L2, stable. 3. No interval vertebral compression or destructive process.
--- NOTE | ~2022-05-02 | XR_ITS ---
EXAMINATION: XR RIBS, LEFT CLINICAL INFORMATION: R07.81 - Pleurodynia COMPARISON: Thoracic spine and chest radiographs 07/30/2020. TECHNIQUE: Frontal view chest is performed along with 3 views of the left ribs for a total of 4 views. FINDINGS: The lungs are clear. There is no pneumothorax or pleural reaction. No airspace consolidation or groundglass opacity or effusion. The costophrenic sulci are well-defined. The heart is normal in size. The hilar and mediastinal contours are normal. The left ribs show no fracture or destructive process. There are multilevel degenerative changes again seen throughout the thoracic spine. No paraspinal soft tissue swelling. No free air beneath the diaphragms. There are multiple surgical clips again seen left upper quadrant abdomen, possibly gastric sleeve surgery. XR/XR ribs LT min 3V w CXR1V IMPRESSION: 1. Lungs clear. No pneumothorax, infiltrate, or effusion. 2. No rib fracture or destructive process. 3. Multilevel degenerative changes thoracic spine.
== END 2022-05-02 14:22 | disposition home or self-care (01) ==
LOC: HO.XRAY 14:21
PROVIDERS: PCP Internal Medicine; Visit Provider Internal Medicine
DX: M54.50 Low back pain, unspecified (principal); R07.81 Pleurodynia; M54.10 Radiculopathy, site unspecified
CPT/HCPCS: 71101; 72100

== ENCOUNTER 2022-06-23 09:43 | Outpatient (REF) | payer MEDICARE, MEDICAID, SELFPAY ==
[2022-06-23 09:54] LABS: MANUAL DIFF FLAG NO
[2022-06-23 10:30] LABS: Appearance Urine Clear; Color Urine Yellow; Glucose Urine UA Negative (Negative); Leukocyte Esterase Urine Moderate (2+) (Negative); Nitrite Urine Negative (Negative); Specific Gravity - Urine 1.015 (1.005-1.025); UMIC TRIGGER UACC YES; Urine Blood Negative (Negative); Urine Ketones Negative (Negative); Urine Protein Negative (Neg-Trace)
[2022-06-23 10:33] LABS: Bacteria Urine None Seen (None Seen); Hyaline Casts Urine 0-2 /LPF (0-2); RBC Urine 0-2 /HPF (0-2); Squamous Epithelial Cell Urine 0-2 /HPF (0-2); UACC Culture Trigger YES
[2022-06-23 10:38] LABS: Basophils Percent Auto 0.6 % (0-2); Eosinophils Absolute Auto 0.1 X10*3/uL (0.0-0.4); Eosinophils Percent Auto 2.2 % (0-4); Hematocrit 40.8 % (37.0-47.0); Hemoglobin 13.4 g/dl (12.0-16.0); Imm Gran Abs Auto 0.01 X10*3/uL (0.00-0.03); Imm Gran Pct Auto 0.2 % (0.0-0.4); Lymphocytes Absolute Auto 1.5 X10*3/uL (1.2-4.9); Lymphocytes Percent Auto 32.6 % (20-40); Mean Corpuscular HGB Conc 32.8 g/dl (31.0-35.0); Mean Corpuscular Hemoglobin 31.9 pg (27.0-33.0); Mean Corpuscular Volume 97.1 fL (80.0-98.0); Mean Platelet Volume 9.7 fL (9.4-12.3); Monocytes Absolute Auto 0.5 X10*3/uL (0.1-1.2); Monocytes Percent Auto 10.8 % (2-11); Neutrophils Absolute Auto 2.5 x10*3/uL (2.0-8.3); Neutrophils Percent Auto 53.6 % (45-73); Platelet Count 263 X10*3/uL (160-400); Red Cell Distribution Width 12.4 % (11.0-16.0); White Blood Count 4.6 X10*3/uL (4.8-10.8)
[2022-06-23 10:48] LABS: Alanine Aminotransferase 13 U/L (0-31); Albumin Level 3.8 g/dL (3.5-5.0); Alkaline Phosphatase 159 U/L (39-117); Anion Gap 8 (12-20); Aspartate Amino Transferase 18 U/L (5-31); Bilirubin Total 0.9 mg/dL (0.0-1.0); Blood Urea Nitrogen 16 mg/dL (9-16); Calcium 9.2 mg/dL (8.4-10.2); Carbon Dioxide 31 mmol/L (22-29); Chloride 104 mmol/L (96-108); Cholesterol 196 mg/dL; Estimated Glomerular Filt Rate > 60; Glucose Fasting 86 mg/dL (60-99); HDL Cholesterol 54 mg/dL; LDL Cholesterol Calculated 133 mg/dl; Potassium 4.2 mmol/L (3.3-5.1); Sodium 139 mmol/L (135-145); Total Protein 6.8 g/dL (6.5-8.0); Triglycerides 49 mg/dL
[2022-06-23 11:17] LABS: Folate 16.5 ng/mL (> or = 4.0); Free T4 (Free Thyroxine) 1.05 ng/dL (0.71-1.85); Thyroid Stimulating Hormone 0.62 uIU/mL (0.32-4.0); Vitamin B12 628 pg/mL (200-900)
[2022-06-23 11:53] LABS: Erythrocyte Sedimentation Rate 14 MM/HR (0-20)
[2022-06-29 20:33] LABS: CK-BB None Detected (None Detected); CK-MB 0 % (<5); CK-MM 100 % (95-100); Creatine Kinase,Total,Serum 54 U/L (29-143)
== END 2022-06-23 09:44 | disposition home or self-care (01) ==
LOC: HO.LAB 09:43
PROVIDERS: PCP Internal Medicine; Visit Provider Internal Medicine
DX: E78.00 Pure hypercholesterolemia, unspecified (principal); I10 Essential (primary) hypertension; E53.8 Deficiency of other specified B group vitamins; M79.7 Fibromyalgia; T46.6X5A Adverse effect of antihyperlipidemic and antiarteriosclerotic drugs, initial encounter; E03.9 Hypothyroidism, unspecified; E55.9 Vitamin D deficiency, unspecified; R82.90 Unspecified abnormal findings in urine
CPT/HCPCS: 36415; 80053; 80061; 81001; 82306; 82552; 82607; 82746; 84439; 84443; 85025; 85652; 87086

== ENCOUNTER 2022-08-15 07:15 | Outpatient (REF) | payer MEDICARE, MEDICAID, SELFPAY ==
[2022-08-15 08:01] LABS: Appearance Urine Clear; Color Urine Yellow; Glucose Urine UA Negative (Negative); Leukocyte Esterase Urine Negative (Negative); Nitrite Urine Negative (Negative); PH 6.5 (5.0-9.0); Specific Gravity - Urine 1.015 (1.005-1.025); Urine Blood Negative (Negative); Urine Ketones Negative (Negative); Urine Protein Negative (Neg-Trace)
== END 2022-08-15 07:16 | disposition home or self-care (01) ==
LOC: HO.LAB 07:15
PROVIDERS: PCP Internal Medicine; Visit Provider Nurse Practitioner
DX: R30.9 Painful micturition, unspecified (principal)
CPT/HCPCS: 81003

== ENCOUNTER → 2022-09-01 13:59 | Outpatient (BNVA) | payer MEDICARE, MEDICAID, SELFPAY | PROVIDERS: PCP Internal Medicine; Visit Provider Nurse Practitioner | DX: K91.2 Postsurgical malabsorption, not elsewhere classified (principal); K59.04 Chronic idiopathic constipation; R10.33 Periumbilical pain; E66.3 Overweight; Z68.28 Body mass index [BMI] 28.0-28.9, adult; Z90.3 Acquired absence of stomach [part of]; Z98.84 Bariatric surgery status; Z79.899 Other long term (current) drug therapy | CPT/HCPCS: 99212 ==

== ENCOUNTER 2022-10-31 12:35 | Outpatient (REF) | payer MEDICARE, MEDICAID, SELFPAY ==
[2022-10-31 14:09] LABS: Erythrocyte Sedimentation Rate 10 MM/HR (0-20)
[2022-10-31 14:24] LABS: C Reactive Protein < 0.10 mg/dL (< or = 0.50); Magnesium 2.2 mg/dL (1.6-2.6)
[2022-11-04 20:27] LABS: CK-BB None Detected (None Detected); CK-MB 0 % (<5); CK-MM 100 % (95-100); Creatine Kinase,Total,Serum 49 U/L (29-143)
== END 2022-10-31 12:36 | disposition home or self-care (01) ==
LOC: HO.LAB 12:35
PROVIDERS: PCP Internal Medicine; Visit Provider Internal Medicine
DX: E83.42 Hypomagnesemia (principal); M79.10 Myalgia, unspecified site; M54.10 Radiculopathy, site unspecified
CPT/HCPCS: 36415; 82552; 83735; 85652; 86140

== ENCOUNTER 2022-11-30 16:08 | Emergency (ER) | payer OTHER, SELFPAY ==
[2022-11-30 17:15] VITALS: BP 186/81; PULSE 88; RESP 16; TEMP 36.7; O2SAT 97; BMI 28.0
--- NOTE | 2022-11-30 17:15 | ED.GENADULT ---
HPI - General Adult General Chief complaint: Ear Problems Stated complaint: Left ear pain Time Seen by Provider: 11/30/22 18:56 Source: patient Mode of arrival: ambulatory Limitations: no limitations History of Present Illness HPI narrative: This is a 67-year-old female history of ductal carcinoma insitu of right breast, lumbar radiculopathy, status post laparoscopic sleeve gastrectomy, hypertension, COPD presenting to the emergency department for 4 days of left-sided ear pain without radiation. Patient reports pain is constant in nature. Has not been a swimming pool. Denies sick contacts. Patient denies headache, vision changes, dizziness, weakness, tinnitus, hearing loss, chest pain, shortness of breath, fevers, chills, cough, sore throat. Related Data Home Medications Medication Instructions Recorded Confirmed ascorbate calcium (vitamin C) 500 500 mg PO BID 03/03/20 11/02/22 mg tablet blood pressure test kit-large #1 ea 09/01/22 11/02/22 Previous Rx's Medication Instructions Recorded albuterol sulfate 90 mcg/actuation 2 puff inhalation .4 times a day 06/20/21 aerosol inhaler (ProAir HFA) PRN Wheezing #8.5 grams cyclobenzaprine 10 mg tablet 10 mg PO BEDTIME #14 tabs 04/22/22 Ventolin HFA 90 mcg/actuation 2 puff inhalation Q6H PRN 05/02/22 aerosol inhaler (albuterol sulfate) shortness of breath or wheezing 30 days #18 grams levothyroxine 100 mcg tablet 100 mcg PO DAILY #90 tabs 05/29/22 mometasone 0.1 % topical cream 1 appl topical DAILY 15 days #45 05/29/22 grams cholecalciferol (vitamin D3) 50 50 mcg PO DAILY #90 caps 05/30/22 mcg (2,000 unit) capsule multivitamin with folic acid 400 1 tab PO DAILY #30 tabs 06/29/22 mcg tablet (Daily-Jen (with folic acid)) blood pressure monitor #1 ea 07/25/22 docusate sodium 100 mg capsule 100 mg PO .DAILY WITH FOOD 30 days 09/01/22 (Colace) #30 caps gphstl-malpeyco-mofzmim 1 cap PO QID #120 caps 09/01/22 36,000-114,000-180,000 unit capsule,delay rel (Creon) omeprazole 40 mg capsule,delayed 40 mg PO DAILY 30 days #30 caps 09/01/22 release sennosides 8.6 mg capsule (senna) 25.8 mg PO BEDTIME constipation 30 09/01/22 days #90 caps diclofenac sodium 1 % topical gel 2 g topical BID PRN for pain #100 09/14/22 grams celecoxib 200 mg capsule 200 mg PO DAILY PRN pain 30 days 11/02/22 #30 caps loratadine 10 mg tablet 10 mg PO DAILY PRN allergy 11/02/22 symptoms 90 days #90 tabs polyethylene glycol 3350 17 17 g PO DAILY constipation 30 days 11/02/22 gram/dose oral powder (Miralax) #510 grams amlodipine 5 mg tablet 5 mg PO DAILY 90 days #90 tabs 11/08/22 atorvastatin 20 mg tablet 20 mg PO DAILY #90 tabs 11/08/22 cyanocobalamin (vitamin B-12) 500 500 mcg PO DAILY #90 tabs 11/08/22 mcg tablet amoxicillin 500 mg capsule 500 mg PO BID 10 days #20 caps 11/30/22 ciprofloxacin 0.3 %-dexamethasone 4 drp otic (ears) BID 7 days #7.5 11/30/22 0.1 % ear drops,suspension mL (Ciprodex) Allergies Allergy/AdvReac Type Severity Reaction Status Date / Time kamara [CHERRIES] Allergy Intermediate ITCHING-THR Verified 11/30/22 17:18 OAT Sulfa (Sulfonamide Allergy Intermediate rash Verified 11/30/22 17:18 Antibiotics) naproxen AdvReac Mild dizziness Verified 11/30/22 17:18 Review of Systems Review of Systems: Constitutional : No Weight loss, No Fever, No Chills, No Fatigue, No Malaise ENT/Mouth : No sore throat, No Rhinorrhea, + ear pain Eyes: No Eye Pain, No Swelling, No Redness Cardiovascular : No Chest Pain, No SOB, No Dyspnea on Exertion, No Orthopnea, No Edema, No Palpitations Respiratory : No Cough, No Sputum, No Wheezing Gastrointestinal : No Nausea, No Vomiting, No Diarrhea, No Constipation, No abdominal Pain, No Hematochezia, No Melena Genitourinary : No Dysuria, No Urinary Frequency, No Hematuria, Musculoskeletal : No joint pain, No Myalgias, No Joint Swelling Skin : No Skin Lesions, No rash Neuro : No Weakness, No Numbness, No Dizziness, No Headache Psych : No Anxiety/Panic, No Depression All other systems reviewed and are negative Yes all other systems are reviewed and are negative [facility] Past Medical History Attestation statement: The following information was validated with the patient. Source: old records reviewed and nursing notes reviewed Medical History Abdominal distension, gaseous Acquired hypothyroidism Allergic rhinitis Benign essential hypertension Chest pain, pleuritic Chronic obstructive pulmonary disease (COPD) Elevated LFTs High cholesterol History of ductal carcinoma in situ (DCIS) of breast Hypertension Intestinal malabsorption following gastrectomy Left inguinal pain Left lumbar pain Left lumbar radiculopathy Left-sided thoracic back pain Lumbar degenerative disc disease Neuropathic pain of left lower extremity Osteoarthritis of spine with radiculopathy, lumbosacral region Overweight (BMI 25.0-29.9) Pain and swelling of left lower extremity Primary insomnia Primary osteoarthritis of both knees Primary osteoarthritis, unspecified shoulder Pure hypercholesterolemia Radicular pain of left lower extremity Vitamin A deficiency Vitamin B1 deficiency Vitamin D deficiency Zinc deficiency Surgical History H/O unilateral oophorectomy History of cardiac cath (~03/2018) History of colonoscopy History of lumpectomy of right breast (~12/2012) History of sleeve gastrectomy (07/24/18) History of total abdominal hysterectomy and bilateral salpingo-oophorectomy (~2004) S/P laparoscopic sleeve gastrectomy Family History Family History Father CVD (cardiovascular disease) Mother Cervical cancer Pancreatic cancer Uterine cancer Sister Substance abuse Social History Social History Household Members: Spouse Housing: Apartment Are you a primary behavioral health care manager to a significant other at home: No Do you presently have visiting nurse or other home services: No Alcohol intake: never Patient Tobacco Use Status: Former Tobacco user Tobacco use type: Cigarette e-Cigarette/Vaping Use: Never Used Second Hand Smoke Exposure: No Advance Directives: No Advance Directives Information Provided: No service: No 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al status: disabled 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, 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 Oriented X3.? No acute distress.? Head: Normocephalic, atraumatic, no step-offs or deformities Eyes: Pupils equal, round and reactive to light.? ENT: Pharynx normal.?External ears normal, TM on Left errythematous an bullging on the left and normal on the right. bilaterally EAC's are erythematous. + pain with manipulation of external ear on left not right No mastoid tenderness. Neck: Normal inspection.? Neck supple.? CVS: Normal heart rate and rhythm.? Pulses normal.? Respiratory: No respiratory distress.? Breath sounds normal.? Abdomen: Soft and nontender.? Skin: Skin warm and dry.? Normal skin color.? Normal skin turgor.? Extremities: No lower extremity edema.? No calf ttp. 5/5 strength to bilateral upper and lower extremities Back: No midline tenderness, no C-spine tenderness, full range of motion, no CVA tenderness bilaterally Neuro: Oriented X 3.? No motor deficit.? No sensory deficit. CN 2-12 intact Course Course Course Narrative: This is a rapid medical exam: Additional HPI, ROS, PE not included below will be deferred to primary provider. Patient is a 67-year-old female with complaint of left ear pain for the past 2-3 days, states pain is radiating to her neck/throat and has had difficulty swallowing. Denies fevers. Denies any drainage from hear. TMs erythematous, L>R, no bulging or effusion noted. No erythema or edema to posterior oropharynx, no lymphadenopathy. Plan: swab for strep/flu/Covid Reevaluation(s) Reevaluation #1: Patient negative for COVID, flu. Negative strep. Will treat for otitis media and externa. Educated patient on diagnosis and treatment plan, answered all question, patient verbalizes understanding. At this time patient will be discharged home, advised to return with new or worsening symptoms. Educated on worrisome signs and symptoms and when to return. At this time I feel comfortable discharge home. Time: 19:45 Medical Decision Making Medical Decision Making [facility] Narrative: 1944 67 year old female presents w/ left ear pain Pharynx normal.?External ears normal, TM on Left errythematous an bullging on the left and normal on the right. bilaterally EAC's are erythematous. + pain with manipulation of external ear on left not right . No mastoid tenderness. Likely otitis media vs externa or both. No signs of malignant otitis or mastoiditis. No meningeal signs. Plan viral tests. Differential Diagnosis Differential Diagnoses: The differential diagnosis associated with the presentation includes Likely otitis media vs externa or both. No signs of malignant otitis or mastoiditis. No meningeal signs. Admission/Observation Consideration of admission/observation: Escalation of care including admission/observation considered Not indicated Lab Data [facility] Lab Attestation statement: I reviewed the patient's lab results. Labs: Lab Results 11/30/22 11/30/22 11/30/22 Range/Units 19:17 19:17 19:19 COVID-19 (ANDRADE) Negative (Negative) COVID-19 Clin Com See Note Influenza Type A (ALESIA) Negative (Negative) Influenza Type B (ALESIA) Negative (Negative) Influenza A & B Note See Note S. pyogenes GrpA ALESIA Negative (Negative) Prescription Management I considered prescription management with: Antibiotic Core Measures AMI core measures followed: Yes Measure exclusions: not indicated Critical Care Time Critical Care Time Critical Care Time: No Discharge Plan Discharge Clinical Impression: Otitis media, Otitis externa Patient Disposition: Home, Self-Care Instructions: Otitis Externa (ED), How to Use Ear Drops (ED), Ear Infection (ED) Additional Instructions: Take your medications as prescribed. If you were prescribed antibiotics today, it is important that you take your medication to their entirety, do not skip any doses, do not finish them early. Follow-up with your primary care provider this week. Return to the emergency department with new or worsening symptoms. Such as fevers, chills, chest pain, shortness of breath, nausea, vomiting, dizziness, headache, vision changes, lethargy In case of emergency call 911 [place] medicamentos seg?n lo prescrito. Si le recetaron antibi?lala llanes, es importante que tome vásquez medicamento en vásquez totalidad, no se salte ninguna dosis, no los termine antes de tiempo. Seguimiento con vásquez proveedor de atenci?n primaria esta semana. Regrese al departamento de emergencias con s?ntomas nuevos o que empeoran. [place] fiebre, escalofr?os, dolor de pecho, dificultad para respirar, n?useas, v?mitos, mareos, dolor de leonor, cambios en la visi?n, letargo En dominic de emergencia llama al 911 Prescriptions: New ciprofloxacin-dexamethasone [Ciprodex] 0.3-0.1 % drops,suspension 4 drp otic (ears) BID 7 Days Qty: 7.5 0RF amoxicillin 500 mg capsule 500 mg PO BID 10 Days Qty: 20 0RF No Action levothyroxine 100 mcg tablet 100 mcg PO DAILY Qty: 90 2RF mometasone 0.1 % cream 1 appl topical DAILY 15 Days Qty: 45 1RF cholecalciferol (vitamin D3) 50 mcg (2,000 unit) capsule 50 mcg PO DAILY Qty: 90 3RF multivitamin with folic acid [Daily-Jen (with folic acid)] 400 mcg tablet 1 tab PO DAILY Qty: 30 11RF (DME) blood pressure monitor Kit See Rx Instructions .Route Qty: 1 0RF Rx Instructions: As directed diclofenac sodium 1 % gel 2 g topical BID PRN (Reason: for pain) Qty: 100 0RF atorvastatin 20 mg tablet 20 mg PO DAILY Qty: 90 3RF amlodipine 5 mg tablet 5 mg PO DAILY 90 Days Qty: 90 3RF cyanocobalamin (vitamin B-12) 500 mcg tablet 500 mcg PO DAILY Qty: 90 3RF ascorbate calcium (vitamin C) 500 mg tablet 500 mg PO BID albuterol sulfate [ProAir HFA] 90 mcg/actuation HFA aerosol inhaler 2 puff inhalation .4 times a day PRN (Reason: Wheezing) Qty: 8.5 5RF cyclobenzaprine 10 mg tablet 10 mg PO BEDTIME Qty: 14 0RF albuterol sulfate [Ventolin HFA] 90 mcg/actuation HFA aerosol inhaler 2 puff inhalation Q6H PRN (Reason: shortness of breath or wheezing) 30 Days Qty: 18 5RF celecoxib 200 mg capsule 200 mg PO DAILY PRN (Reason: pain) 30 Days Qty: 30 3RF Rx Instructions: Take with food polyethylene glycol 3350 [Miralax] 17 gram/dose powder 17 g PO DAILY 30 Days Qty: 510 5RF loratadine 10 mg tablet 10 mg PO DAILY PRN (Reason: allergy symptoms) 90 Days Qty: 90 1RF (DME) blood pressure test kit-large Kit See Rx Instructions .ROUTE DIRECTED Qty: 1 Rx Instructions: As directed Creon 36,000-114,000- 180,000 unit capsule,delayed release(DR/EC) 1 cap PO QID Qty: 120 6RF Rx Instructions: administer with meals and/or snacks omeprazole 40 mg capsule,delayed release(DR/EC) 40 mg PO DAILY 30 Days Qty: 30 6RF senna 8.6 mg capsule 25.8 mg PO BEDTIME 30 Days Qty: 90 6RF docusate sodium [Colace] 100 mg capsule 100 mg PO .DAILY WITH FOOD 30 Days Qty: 30 6RF Referrals: Armando Wheeler MD [Primary Care Provider] - 2 days Stand Alone Forms: Work/School Release
[2022-11-30 19:34] LABS: IDNOW Serial# 08D9AD1C; Strep A Nucleic Acid Negative (Negative)
[2022-11-30 19:39] LABS: COVID-19 Test Negative (Negative); IDNOW Serial# 9DB6401D; IDNOW Serial# BCCEAD1C; Influenza A Negative (Negative); Influenza B2 Negative (Negative)
[2022-11-30 20:01] VITALS: BP 155/72
== END 2022-11-30 20:02 | disposition home or self-care (01) ==
PROVIDERS: Physician Assistant; Registered Nurse Emergency; Emergency Provider Emergency Medicine Emergency Medical Services; PCP Internal Medicine
DX: H66.92 Otitis media, unspecified, left ear (principal); H60.92 Unspecified otitis externa, left ear; H92.02 Otalgia, left ear; Z20.822 Contact with and (suspected) exposure to COVID-19; I10 Essential (primary) hypertension; E78.00 Pure hypercholesterolemia, unspecified; Z98.84 Bariatric surgery status; Z79.899 Other long term (current) drug therapy
CPT/HCPCS: 87502; 87635; 87651; 99282; 99283

== ENCOUNTER 2022-12-01 14:48 | Emergency (ER) | payer MEDICARE, OTHER, SELFPAY ==
--- NOTE | ~2022-12-01 | CT_ITS ---
EXAMINATION: CT SOFT TISSUE NECK WITH CONTRAST CLINICAL INFORMATION: Question abscess. COMPARISON: None available. TECHNIQUE: Following the intravenous administration of 60 mL of Omnipaque 350 intravenous contrast, helical imaging was performed in the axial plane with generation of coronal and sagittal reformatted images. This CT examination was performed using dose optimization techniques as appropriate, variously including the following: *Automated exposure control *Adjustment of mA and/or kV according to patient size (this includes techniques or standardized protocols for targeted exams where dose is matched to indication/reason for exam; i.e. extremities or head) *Use of iterative reconstruction technique DLP: 384 mGy-cm FINDINGS: There is enlarged (tonsils with fluid collection suggestive of peritonsillar abscess.. There are multiple small calcifications within the left tonsil. The right palatine tonsil is unremarkable. No compromise of airway seen at this time. Bilateral parotid, submandibular glands and thyroid lobes are symmetrical and normal. There are small shotty lymph nodes seen in bilateral neck. The largest lymph node in the left carotid/jugular space measures 9 mm axial image 44/5. The prevertebral soft tissues are normal. A dominant right jugular vein is noted. The carotid arteries are widely patent. The paranasal sinuses are well-aerated aerated and clear. The mastoid sinuses are clear. Visualized optic globe, optic nerve and the periorbital soft tissues are normal. Visualized intracranial brain parenchyma is normal. The lateral ventricles are symmetrical and normal. The: Cavity is limited in evaluation due to dental amalgam related artifact. CT/CT soft tissue neck w IV con IMPRESSION: Enlarged left tonsill with tonsillar abscess. No airway compromise seen.
--- NOTE | 2022-12-01 15:00 | ED_ITS ---
HPI - General Adult General Chief complaint: Upper Respiratory Symptoms Stated complaint: Neck throat ear pain Time Seen by Provider: 12/01/22 19:38 Related Data Home Medications Medication Instructions Recorded Confirmed ascorbate calcium (vitamin C) 500 500 mg PO BID 03/03/20 11/02/22 mg tablet blood pressure test kit-large #1 ea 09/01/22 11/02/22 Previous Rx's Medication Instructions Recorded albuterol sulfate 90 mcg/actuation 2 puff inhalation .4 times a day 06/20/21 aerosol inhaler (ProAir HFA) PRN Wheezing #8.5 grams cyclobenzaprine 10 mg tablet 10 mg PO BEDTIME #14 tabs 04/22/22 Ventolin HFA 90 mcg/actuation 2 puff inhalation Q6H PRN 05/02/22 aerosol inhaler (albuterol sulfate) shortness of breath or wheezing 30 days #18 grams levothyroxine 100 mcg tablet 100 mcg PO DAILY #90 tabs 05/29/22 mometasone 0.1 % topical cream 1 appl topical DAILY 15 days #45 05/29/22 grams cholecalciferol (vitamin D3) 50 50 mcg PO DAILY #90 caps 05/30/22 mcg (2,000 unit) capsule multivitamin with folic acid 400 1 tab PO DAILY #30 tabs 06/29/22 mcg tablet (Daily-Jen (with folic acid)) blood pressure monitor #1 ea 07/25/22 docusate sodium 100 mg capsule 100 mg PO .DAILY WITH FOOD 30 days 09/01/22 (Colace) #30 caps [id number] 1 cap PO QID #120 caps 09/01/22 36,000-114,000-180,000 unit capsule,delay rel (Creon) omeprazole 40 mg capsule,delayed 40 mg PO DAILY 30 days #30 caps 09/01/22 release sennosides 8.6 mg capsule (senna) 25.8 mg PO BEDTIME constipation 30 09/01/22 days #90 caps diclofenac sodium 1 % topical gel 2 g topical BID PRN for pain #100 09/14/22 grams celecoxib 200 mg capsule 200 mg PO DAILY PRN pain 30 days 11/02/22 #30 caps loratadine 10 mg tablet 10 mg PO DAILY PRN allergy 11/02/22 symptoms 90 days #90 tabs polyethylene glycol 3350 17 17 g PO DAILY constipation 30 days 11/02/22 gram/dose oral powder (Miralax) #510 grams amlodipine 5 mg tablet 5 mg PO DAILY 90 days #90 tabs 11/08/22 atorvastatin 20 mg tablet 20 mg PO DAILY #90 tabs 11/08/22 cyanocobalamin (vitamin B-12) 500 500 mcg PO DAILY #90 tabs 11/08/22 mcg tablet amoxicillin 500 mg capsule 500 mg PO BID 10 days #20 caps 11/30/22 ciprofloxacin 0.3 %-dexamethasone 4 drp otic (ears) BID 7 days #7.5 11/30/22 0.1 % ear drops,suspension mL (Ciprodex) prednisone 50 mg tablet 50 mg PO DAILY 5 days #5 tabs 12/01/22 Allergies Allergy/AdvReac Type Severity Reaction Status Date / Time kamara [CHERRIES] Allergy Intermediate ITCHING-THR Verified 11/30/22 17:18 OAT Sulfa (Sulfonamide Allergy Intermediate rash Verified 11/30/22 17:18 Antibiotics) naproxen AdvReac Mild dizziness Verified 11/30/22 17:18 [facility] Past Medical History Medical History Abdominal distension, gaseous Acquired hypothyroidism Allergic rhinitis Benign essential hypertension Chest pain, pleuritic Chronic obstructive pulmonary disease (COPD) Elevated LFTs High cholesterol History of ductal carcinoma in situ (DCIS) of breast Hypertension Intestinal malabsorption following gastrectomy Left inguinal pain Left lumbar pain Left lumbar radiculopathy Left-sided thoracic back pain Lumbar degenerative disc disease Neuropathic pain of left lower extremity Osteoarthritis of spine with radiculopathy, lumbosacral region Overweight (BMI 25.0-29.9) Pain and swelling of left lower extremity Primary insomnia Primary osteoarthritis of both knees Primary osteoarthritis, unspecified shoulder Pure hypercholesterolemia Radicular pain of left lower extremity Vitamin A deficiency Vitamin B1 deficiency Vitamin D deficiency Zinc deficiency Surgical History H/O unilateral oophorectomy History of cardiac cath (~03/2018) History of colonoscopy History of lumpectomy of right breast (~12/2012) History of sleeve gastrectomy (07/24/18) History of total abdominal hysterectomy and bilateral salpingo-oophorectomy (~2004) S/P laparoscopic sleeve gastrectomy Family History Family History Father CVD (cardiovascular disease) Mother Cervical cancer Pancreatic cancer Uterine cancer Sister Substance abuse Social History Social History Household Members: Spouse Housing: Apartment Are you a primary foster care social worker to a significant other at home: No Do you presently have visiting nurse or other home services: No Alcohol intake: never Patient Tobacco Use Status: Former Tobacco user Tobacco use type: Cigarette Smoked in Last 30 Days: No e-Cigarette/Vaping Use: Never Used Second Hand Smoke Exposure: No Use of substances other than those prescribed or required for medical reasons: No Advance Directives: No Advance Directives Information Provided: Yes service: No 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al status: disabled 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, 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al exposures/hazards: No Cognitive needs: No Hearing needs: No Vision needs: Yes Physical Exam ED Vital Signs: Vital Signs - 24 hr 12/01/22 15:01 12/01/22 20:10 12/01/22 20:10 Temperature 99.4 F 101.1 F H Pulse Rate 108 H 115 H Respiratory Rate 20 21 H Blood Pressure 151/78 H 147/72 H Pulse Oximetry 99 95 95 Oxygen Delivery Method Room Air Room Air Room Air 12/01/22 21:36 Temperature 99.3 F Pulse Rate 103 H Respiratory Rate 20 Blood Pressure 155/70 H Pulse Oximetry 95 Oxygen Delivery Method Room Air BMI result Body Mass Index 26.6 Course Course Course Narrative: This is a rapid medical exam: Additional HPI, ROS, PE not included below will be deferred to primary provider. Patient is a 67-year-old female presenting to the ED with complaint of worsening left ear pain as well as pain to left posterior oropharynx. Was seen here yesterday and diagnosed with otitis media and externa. States has been using prescribed medication but is feeling worse instead of better. Patient triaged by this provider yesterday and voice is now more muffled, patient has swelling to left posterior oropharynx with uvula deviation. Temp of 99.4 in triage. Patient reports difficulty swallowing. Plan: blood cultures, lactic, labs Reevaluation(s) Reevaluation #1: This patient was signed out to me to follow-up on a CT scan, I have reviewed the imaging studies and it does report enlarged left tonsil with tonsillar abscess . They specifically state no airway compromise. On clinical exam there is no elevation of left tonsillar pillar or enlarged tonsil, there is noted uvulitis with noted edema that arcs over from the left base of the uvula towards the left tonsillar pillar. However this fluid appears to be clear in nature and there is not a fullness noted to the left tonsil/tonsillar pillar or otherwise to suggest accessibility for needle aspiration. I will be discharging the patient on a short course of steroids, instruct her to follow-up with ENT on Monday morning, and I will instruct her to complete the course of antibiotics as prescribed. In addition, I will give her strict return precautions and let her know that her voice will sound changed until this completely resolves. On re-evaluation patient reports that she feels better. Time: 23:06 Medications Administered Discontinued Medications Generic Name Dose Route Start Last Admin Trade Name Freq PRN Reason Stop Dose Admin Dexamethasone Sodium Phosphate 10 mg 12/01/22 19:43 12/01/22 20:14 Dexamethasone Sod Phosphate 10 Mg/Ml Vial IVPUSH 12/01/22 19:44 10 mg ONCE ONE Administration Ampicillin Sodium/Sulbactam 100 mls @ 200 mls/hr 12/01/22 21:18 12/01/22 21:32 Sodium 3 gm/ Sodium Chloride IV 12/01/22 21:47 200 mls/hr ONCE ONE Administration Iohexol 100 ml 12/01/22 20:53 12/01/22 20:54 Iohexol 350 Mg/Ml 100 Ml Infus..Btl IV 12/01/22 20:54 60 ml ONCE ONE Administration Ketorolac Tromethamine 30 mg 12/01/22 19:43 12/01/22 20:14 Ketorolac Tromethamine 30 Mg/Ml Vial IVPUSH 12/01/22 19:44 30 mg ONCE ONE Administration Medical Decision Making Lab Data 12/01/22 15:27 12/01/22 15:27 Labs: Lab Results 12/01/22 12/01/22 12/01/22 Range/Units 15:27 15:27 15:27 WBC 17.9 H (4.8-10.8) X10*3/uL RBC 4.45 (4.20-5.50) X10*6/uL Hgb 14.0 (12.0-16.0) g/dl Hct 42.4 (37.0-47.0) % MCV 95.3 (80.0-98.0) fL MCH 31.5 (27.0-33.0) pg MCHC 33.0 (31.0-35.0) g/dl RDW 12.8 (11.0-16.0) % Plt Count 228 (160-400) X10*3/uL MPV 9.6 (9.4-12.3) fL Immature Gran % (Auto) 0.4 (0.0-0.4) % Neut % (Auto) 86.8 H (45-73) % Lymph % (Auto) 4.4 L (20-40) % [place] % (Auto) 8.1 (2-11) % Eos % (Auto) 0.1 (0-4) % Baso % (Auto) 0.2 (0-2) % Lymph # (Auto) 0.8 L (1.2-4.9) X10*3/uL [place] # (Auto) 1.4 H (0.1-1.2) X10*3/uL Eos # (Auto) 0.0 (0.0-0.4) X10*3/uL Baso # (Auto) 0.0 (0.0-0.2) X10*3/uL Abs Immat Gran (auto) 0.08 H (0.00-0.03) X10*3/uL Absolute Neuts (auto) 15.5 H (2.0-8.3) x10*3/uL Absolute Nucleated RBC 0.000 (0.0-0.012) X10*3/uL Nucleated RBC % (auto) 0.0 (0.0-0.2) /100WBC Sodium 138 (135-145) mmol/L Potassium 4.0 (3.3-5.1) mmol/L Chloride 105 (96-108) mmol/L Carbon Dioxide 25 (22-29) mmol/L Anion Gap 12 (12-20) BUN 12 (9-16) mg/dL Creatinine 0.77 (0.5-1.4) mg/dL Estim Creat Clear Calc 73.8 Estimated GFR > 60 Random Glucose 105 (60-115) mg/dL Lactic Acid 0.9 (0.5-2.0) mmol/L Calcium 10.2 D (8.4-10.2) mg/dL 12/01/22 Range/Units 21:52 WBC (4.8-10.8) X10*3/uL RBC (4.20-5.50) X10*6/uL Hgb (12.0-16.0) g/dl Hct (37.0-47.0) % MCV (80.0-98.0) fL MCH (27.0-33.0) pg MCHC (31.0-35.0) g/dl RDW (11.0-16.0) % Plt Count (160-400) X10*3/uL MPV (9.4-12.3) fL Immature Gran % (Auto) (0.0-0.4) % Neut % (Auto) (45-73) % Lymph % (Auto) (20-40) % [place] % (Auto) (2-11) % Eos % (Auto) (0-4) % Baso % (Auto) (0-2) % Lymph # (Auto) (1.2-4.9) X10*3/uL [place] # (Auto) (0.1-1.2) X10*3/uL Eos # (Auto) (0.0-0.4) X10*3/uL Baso # (Auto) (0.0-0.2) X10*3/uL Abs Immat Gran (auto) (0.00-0.03) X10*3/uL Absolute Neuts (auto) (2.0-8.3) x10*3/uL Absolute Nucleated RBC (0.0-0.012) X10*3/uL Nucleated RBC % (auto) (0.0-0.2) /100WBC Sodium (135-145) mmol/L Potassium (3.3-5.1) mmol/L Chloride (96-108) mmol/L Carbon Dioxide (22-29) mmol/L Anion Gap (12-20) BUN (9-16) mg/dL Creatinine (0.5-1.4) mg/dL Estim Creat Clear Calc Estimated GFR Random Glucose (60-115) mg/dL Lactic Acid 0.6 (0.5-2.0) mmol/L Calcium (8.4-10.2) mg/dL Discharge Plan Discharge Clinical Impression: Pharyngitis, Fever, Uvulitis Patient Disposition: Home, Self-Care Instructions: Pharyngitis (ED), Uvulitis (ED) Additional Instructions: 1. Se le colocar? en un ciclo corto de esteroides. [place] aumentar? la presi?n arterial, la producci?n de ?cido y el nivel de az?car. 2. Contin?e con los antibi?ticos que le hayan recetado. 3. Recomiende Tylenol/ibuprofeno de venta karolyn seg?n sea necesario cada 6 horas para meka corporales, temperaturas superiores a 100.4. Contin?e bebiendo angel agua. 4. No dude en regresar a la hector de emergencias si experimenta alguna dificultad con la dificultad para respirar. Por favor, sharmin un seguimiento con vásquez proveedor de atenci?n primaria el lunes por la ma?terence. Regrese a la hector de emergencias si los s?ntomas empeoran. 1. You will be placed on a short course of steroids. This will increase your blood pressure, acid production, as well as your sugar level. 2. Continue with the antibiotics that you have been prescribed. 3. Recommend [id number] Tylenol/ibuprofen as needed every 6 hours for body aches, temperatures greater than 100.4. Continue to drink plenty of water. 4. Do not hesitate to return to the emergency room if you experience any diff iculty with shortness of breath. Please follow-up with your primary care provider on Monday morning. Return to the ER for any worsening symptoms. Prescriptions: New prednisone 50 mg tablet 50 mg PO DAILY 5 Days Qty: 5 0RF No Action levothyroxine 100 mcg tablet 100 mcg PO DAILY Qty: 90 2RF mometasone 0.1 % cream 1 appl topical DAILY 15 Days Qty: 45 1RF cholecalciferol (vitamin D3) 50 mcg (2,000 unit) capsule 50 mcg PO DAILY Qty: 90 3RF multivitamin with folic acid [Daily-Jen (with folic acid)] 400 mcg tablet 1 tab PO DAILY Qty: 30 11RF (DME) blood pressure monitor Kit See Rx Instructions .Route Qty: 1 0RF Rx Instructions: As directed diclofenac sodium 1 % gel 2 g topical BID PRN (Reason: for pain) Qty: 100 0RF atorvastatin 20 mg tablet 20 mg PO DAILY Qty: 90 3RF amlodipine 5 mg tablet 5 mg PO DAILY 90 Days Qty: 90 3RF cyanocobalamin (vitamin B-12) 500 mcg tablet 500 mcg PO DAILY Qty: 90 3RF ciprofloxacin-dexamethasone [Ciprodex] 0.3-0.1 % drops,suspension 4 drp otic (ears) BID 7 Days Qty: 7.5 0RF amoxicillin 500 mg capsule 500 mg PO BID 10 Days Qty: 20 0RF ascorbate calcium (vitamin C) 500 mg tablet 500 mg PO BID albuterol sulfate [ProAir HFA] 90 mcg/actuation HFA aerosol inhaler 2 puff inhalation .4 times a day PRN (Reason: Wheezing) Qty: 8.5 5RF cyclobenzaprine 10 mg tablet 10 mg PO BEDTIME Qty: 14 0RF albuterol sulfate [Ventolin HFA] 90 mcg/actuation HFA aerosol inhaler 2 puff inhalation Q6H PRN (Reason: shortness of breath or wheezing) 30 Days Qty: 18 5RF celecoxib 200 mg capsule 200 mg PO DAILY PRN (Reason: pain) 30 Days Qty: 30 3RF Rx Instructions: Take with food polyethylene glycol 3350 [Miralax] 17 gram/dose powder 17 g PO DAILY 30 Days Qty: 510 5RF loratadine 10 mg tablet 10 mg PO DAILY PRN (Reason: allergy symptoms) 90 Days Qty: 90 1RF (DME) blood pressure test kit-large Kit See Rx Instructions .ROUTE DIRECTED Qty: 1 Rx Instructions: As directed Creon 36,000-114,000- 180,000 unit capsule,delayed release(DR/EC) 1 cap PO QID Qty: 120 6RF Rx Instructions: administer with meals and/or snacks omeprazole 40 mg capsule,delayed release(DR/EC) 40 mg PO DAILY 30 Days Qty: 30 6RF senna 8.6 mg capsule 25.8 mg PO BEDTIME 30 Days Qty: 90 6RF docusate sodium [Colace] 100 mg capsule 100 mg PO .DAILY WITH FOOD 30 Days Qty: 30 6RF Referrals: Armando Wheeler MD [Primary Care Provider] - Print Language: Bulgarian
[2022-12-01 15:01] VITALS: BP 151/78; PULSE 108; RESP 20; TEMP 37.4; O2SAT 99; BMI 26.6
[2022-12-01 15:36] LABS: MANUAL DIFF FLAG NO
[2022-12-01 15:39] LABS: Basophils Percent Auto 0.2 % (0-2); Eosinophils Percent Auto 0.1 % (0-4); Hematocrit 42.4 % (37.0-47.0); Imm Gran Abs Auto 0.08 X10*3/uL (0.00-0.03); Imm Gran Pct Auto 0.4 % (0.0-0.4); Lymphocytes Absolute Auto 0.8 X10*3/uL (1.2-4.9); Lymphocytes Percent Auto 4.4 % (20-40); Mean Corpuscular Hemoglobin 31.5 pg (27.0-33.0); Mean Corpuscular Volume 95.3 fL (80.0-98.0); Mean Platelet Volume 9.6 fL (9.4-12.3); Monocytes Absolute Auto 1.4 X10*3/uL (0.1-1.2); Monocytes Percent Auto 8.1 % (2-11); Neutrophils Absolute Auto 15.5 x10*3/uL (2.0-8.3); Neutrophils Percent Auto 86.8 % (45-73); Platelet Count 228 X10*3/uL (160-400); Red Blood Count 4.45 X10*6/uL (4.20-5.50); Red Cell Distribution Width 12.8 % (11.0-16.0); White Blood Count 17.9 X10*3/uL (4.8-10.8)
[2022-12-01 15:54] LABS: Lactic Acid 0.9 mmol/L (0.5-2.0)
[2022-12-01 15:58] LABS: Anion Gap 12 (12-20); Blood Urea Nitrogen 12 mg/dL (9-16); Calcium 10.2 mg/dL (8.4-10.2); Carbon Dioxide 25 mmol/L (22-29); Chloride 105 mmol/L (96-108); Creatinine Clr Calc Pharmacy 73.8; Estimated Glomerular Filt Rate > 60; Glucose Random 105 mg/dL (60-115); Sodium 138 mmol/L (135-145)
--- NOTE | 2022-12-01 19:44 | ED_ITS ---
HPI - General Adult General Chief complaint: Upper Respiratory Symptoms Stated complaint: Neck throat ear pain Time Seen by Provider: 12/01/22 19:38 Source: patient Mode of arrival: ambulatory Limitations: no limitations History of Present Illness HPI narrative: This is 67 years old female presented to the emergency department complaining of difficult to swallow sore throat, she was seen in the emergency department yesterday diagnosed with otitis media started on antibiotic she returned today because she is unable to swallow she unable to drink water. She has been taking amoxicillin and Ciprodex as prescribed yesterday Onset (ago): day(s) (2) Location: neck Radiation: non-radiation Severity: moderate Quality: burning Pain Consistency: constant Relieving factors: none Exacerbating factors: none Related Data Home Medications Medication Instructions Recorded Confirmed ascorbate calcium (vitamin C) 500 500 mg PO BID 03/03/20 11/02/22 mg tablet blood pressure test kit-large #1 ea 09/01/22 11/02/22 Previous Rx's Medication Instructions Recorded albuterol sulfate 90 mcg/actuation 2 puff inhalation .4 times a day 06/20/21 aerosol inhaler (ProAir HFA) PRN Wheezing #8.5 grams cyclobenzaprine 10 mg tablet 10 mg PO BEDTIME #14 tabs 04/22/22 Ventolin HFA 90 mcg/actuation 2 puff inhalation Q6H PRN 05/02/22 aerosol inhaler (albuterol sulfate) shortness of breath or wheezing 30 days #18 grams levothyroxine 100 mcg tablet 100 mcg PO DAILY #90 tabs 05/29/22 mometasone 0.1 % topical cream 1 appl topical DAILY 15 days #45 05/29/22 grams cholecalciferol (vitamin D3) 50 50 mcg PO DAILY #90 caps 05/30/22 mcg (2,000 unit) capsule multivitamin with folic acid 400 1 tab PO DAILY #30 tabs 06/29/22 mcg tablet (Daily-Jen (with folic acid)) blood pressure monitor #1 ea 07/25/22 docusate sodium 100 mg capsule 100 mg PO .DAILY WITH FOOD 30 days 09/01/22 (Colace) #30 caps [id number] 1 cap PO QID #120 caps 09/01/22 36,000-114,000-180,000 unit capsule,delay rel (Creon) omeprazole 40 mg capsule,delayed 40 mg PO DAILY 30 days #30 caps 09/01/22 release sennosides 8.6 mg capsule (senna) 25.8 mg PO BEDTIME constipation 30 09/01/22 days #90 caps diclofenac sodium 1 % topical gel 2 g topical BID PRN for pain #100 09/14/22 grams celecoxib 200 mg capsule 200 mg PO DAILY PRN pain 30 days 11/02/22 #30 caps loratadine 10 mg tablet 10 mg PO DAILY PRN allergy 11/02/22 symptoms 90 days #90 tabs polyethylene glycol 3350 17 17 g PO DAILY constipation 30 days 11/02/22 gram/dose oral powder (Miralax) #510 grams amlodipine 5 mg tablet 5 mg PO DAILY 90 days #90 tabs 11/08/22 atorvastatin 20 mg tablet 20 mg PO DAILY #90 tabs 11/08/22 cyanocobalamin (vitamin B-12) 500 500 mcg PO DAILY #90 tabs 11/08/22 mcg tablet amoxicillin 500 mg capsule 500 mg PO BID 10 days #20 caps 11/30/22 ciprofloxacin 0.3 %-dexamethasone 4 drp otic (ears) BID 7 days #7.5 11/30/22 0.1 % ear drops,suspension mL (Ciprodex) Allergies Allergy/AdvReac Type Severity Reaction Status Date / Time kamara [CHERRIES] Allergy Intermediate ITCHING-THR Verified 11/30/22 17:18 OAT Sulfa (Sulfonamide Allergy Intermediate rash Verified 11/30/22 17:18 Antibiotics) naproxen AdvReac Mild dizziness Verified 11/30/22 17:18 Review of Systems Constitutional: Constitutional: Reports no additional constitutional complaints ENT: Comments: throat pain Cardiovascular: Cardiovascular: Reports no additional cardiovascular complaints Respiratory: Respiratory: Reports no additional respiratory complaints Integumentary/Breasts: Skin/Breast: Reports system reviewed and no additional complaints, except as docu PMFSH Past Medical History Attestation statement: The following information was validated with the patient. Medical History Abdominal distension, gaseous Acquired hypothyroidism Allergic rhinitis Benign essential hypertension Chest pain, pleuritic Chronic obstructive pulmonary disease (COPD) Elevated LFTs High cholesterol History of ductal carcinoma in situ (DCIS) of breast Hypertension Intestinal malabsorption following gastrectomy Left inguinal pain Left lumbar pain Left lumbar radiculopathy Left-sided thoracic back pain Lumbar degenerative disc disease Neuropathic pain of left lower extremity Osteoarthritis of spine with radiculopathy, lumbosacral region Overweight (BMI 25.0-29.9) Pain and swelling of left lower extremity Primary insomnia Primary osteoarthritis of both knees Primary osteoarthritis, unspecified shoulder Pure hypercholesterolemia Radicular pain of left lower extremity Vitamin A deficiency Vitamin B1 deficiency Vitamin D deficiency Zinc deficiency Surgical History H/O unilateral oophorectomy History of cardiac cath (~03/2018) History of colonoscopy History of lumpectomy of right breast (~12/2012) History of sleeve gastrectomy (07/24/18) History of total abdominal hysterectomy and bilateral salpingo-oophorectomy (~2004) S/P laparoscopic sleeve gastrectomy Family History Family History Father CVD (cardiovascular disease) Mother Cervical cancer Pancreatic cancer Uterine cancer Sister Substance abuse Social History Social History Household Members: Spouse Housing: Apartment Are you a primary nurse healthcare manager to a significant other at home: No Do you presently have visiting nurse or other home services: No Alcohol intake: never Patient Tobacco Use Status: Former Tobacco user Tobacco use type: Cigarette Smoked in Last 30 Days: No e-Cigarette/Vaping Use: Never Used Second Hand Smoke Exposure: No Use of substances other than those prescribed or required for medical reasons: No Advance Directives: No Advance Directives Information Provided: Yes service: No 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al status: disabled 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, 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al exposures/hazards: No Cognitive needs: No Hearing needs: No Vision needs: Yes Physical Exam ED Vital Signs: Vital Signs - 24 hr 12/01/22 15:01 12/01/22 20:10 12/01/22 20:10 Temperature 99.4 F 101.1 F H Pulse Rate 108 H 115 H Respiratory Rate 20 21 H Blood Pressure 151/78 H 147/72 H Pulse Oximetry 99 95 95 Oxygen Delivery Method Room Air Room Air Room Air 12/01/22 21:36 Temperature 99.3 F Pulse Rate 103 H Respiratory Rate 20 Blood Pressure 155/70 H Pulse Oximetry 95 Oxygen Delivery Method Room Air BMI result Body Mass Index 26.6 Const General: cooperative Nutritional Appearance: well nourished Orientation/consciousness: patient oriented x3 Limitations: no limitations HENMT Head: Yes normal to inspection General nose exam: Normal external nose present Face and sinus: Yes normal facial exam Mouth: Normal oral and palatal mucosa present Teeth and gingiva: dentition normal Throat: Yes other (redness pharynx) Neck Neck: Yes normal visual inspection Chest Chest palpation & inspection: normal inspection of the chest Resp Effort & Inspection: normal respiratory effort Auscultation: clear to auscultation bilaterally Cardio Jugular venous distension: no JVD Rate: regular rate Rhythm: regular rhythm GI Inspection: Yes normal to inspection Palpation (GI): Soft to palpation Skin General skin exam: no rashes or lesions noted and elasticity normal Lesions: no lesions Rashes: no rashes Neuro General: patient oriented x3 Course Reevaluation(s) Reevaluation #1: signed out to Dr Ricardo russo pending Time: 21:46 Medications Administered Generic Name Dose Route Start Last Admin Trade Name Freq PRN Reason Stop Dose Admin Ampicillin Sodium/Sulbactam 100 mls @ 200 mls/hr 12/01/22 21:18 12/01/22 21:32 Sodium 3 gm/ Sodium Chloride IV 12/01/22 21:47 200 mls/hr ONCE ONE Administration Discontinued Medications Generic Name Dose Route Start Last Admin Trade Name Freq PRN Reason Stop Dose Admin Dexamethasone Sodium Phosphate 10 mg 12/01/22 19:43 12/01/22 20:14 Dexamethasone Sod Phosphate 10 Mg/Ml Vial IVPUSH 12/01/22 19:44 10 mg ONCE ONE Administration Iohexol 100 ml 12/01/22 20:53 12/01/22 20:54 Iohexol 350 Mg/Ml 100 Ml Infus..Btl IV 12/01/22 20:54 60 ml ONCE ONE Administration Ketorolac Tromethamine 30 mg 12/01/22 19:43 12/01/22 20:14 Ketorolac Tromethamine 30 Mg/Ml Vial IVPUSH 12/01/22 19:44 30 mg ONCE ONE Administration Medical Decision Making Medical Decision Making MDM Narrative: This is the 2nd visit for this patient in 24 hours she is already started on amoxicillin she reports inability to swallow, she does have an elevated white count I think it is reasonable to present IV hydrate the will given some Toradol and Decadron Differential Diagnosis Differential Diagnoses: The differential diagnosis associated with the presentation includes Viral pharyngitis/neck abscess Lab Data MDM Lab Attestation statement: I reviewed the patient's lab results. 12/01/22 15:27 12/01/22 15:27 Labs: Lab Results 12/01/22 12/01/22 12/01/22 Range/Units 15:27 15:27 15:27 WBC 17.9 H (4.8-10.8) X10*3/uL RBC 4.45 (4.20-5.50) X10*6/uL Hgb 14.0 (12.0-16.0) g/dl Hct 42.4 (37.0-47.0) % MCV 95.3 (80.0-98.0) fL MCH 31.5 (27.0-33.0) pg MCHC 33.0 (31.0-35.0) g/dl RDW 12.8 (11.0-16.0) % Plt Count 228 (160-400) X10*3/uL MPV 9.6 (9.4-12.3) fL Immature Gran % (Auto) 0.4 (0.0-0.4) % Neut % (Auto) 86.8 H (45-73) % Lymph % (Auto) 4.4 L (20-40) % Gladwin % (Auto) 8.1 (2-11) % Eos % (Auto) 0.1 (0-4) % Baso % (Auto) 0.2 (0-2) % Lymph # (Auto) 0.8 L (1.2-4.9) X10*3/uL Gladwin # (Auto) 1.4 H (0.1-1.2) X10*3/uL Eos # (Auto) 0.0 (0.0-0.4) X10*3/uL Baso # (Auto) 0.0 (0.0-0.2) X10*3/uL Abs Immat Gran (auto) 0.08 H (0.00-0.03) X10*3/uL Absolute Neuts (auto) 15.5 H (2.0-8.3) x10*3/uL Absolute Nucleated RBC 0.000 (0.0-0.012) X10*3/uL Nucleated RBC % (auto) 0.0 (0.0-0.2) /100WBC Sodium 138 (135-145) mmol/L Potassium 4.0 (3.3-5.1) mmol/L Chloride 105 (96-108) mmol/L Carbon Dioxide 25 (22-29) mmol/L Anion Gap 12 (12-20) BUN 12 (9-16) mg/dL Creatinine 0.77 (0.5-1.4) mg/dL Estim Creat Clear Calc 73.8 Estimated GFR > 60 Random Glucose 105 (60-115) mg/dL Lactic Acid 0.9 (0.5-2.0) mmol/L Calcium 10.2 D (8.4-10.2) mg/dL Discharge Plan Discharge Clinical Impression: Pharyngitis, Fever Patient Disposition: Still a Patient Prescriptions: No Action levothyroxine 100 mcg tablet 100 mcg PO DAILY Qty: 90 2RF mometasone 0.1 % cream 1 appl topical DAILY 15 Days Qty: 45 1RF cholecalciferol (vitamin D3) 50 mcg (2,000 unit) capsule 50 mcg PO DAILY Qty: 90 3RF multivitamin with folic acid [Daily-Jen (with folic acid)] 400 mcg tablet 1 tab PO DAILY Qty: 30 11RF (DME) blood pressure monitor Kit See Rx Instructions .Route Qty: 1 0RF Rx Instructions: As directed diclofenac sodium 1 % gel 2 g topical BID PRN (Reason: for pain) Qty: 100 0RF atorvastatin 20 mg tablet 20 mg PO DAILY Qty: 90 3RF amlodipine 5 mg tablet 5 mg PO DAILY 90 Days Qty: 90 3RF cyanocobalamin (vitamin B-12) 500 mcg tablet 500 mcg PO DAILY Qty: 90 3RF ciprofloxacin-dexamethasone [Ciprodex] 0.3-0.1 % drops,suspension 4 drp otic (ears) BID 7 Days Qty: 7.5 0RF amoxicillin 500 mg capsule 500 mg PO BID 10 Days Qty: 20 0RF ascorbate calcium (vitamin C) 500 mg tablet 500 mg PO BID albuterol sulfate [ProAir HFA] 90 mcg/actuation HFA aerosol inhaler 2 puff inhalation .4 times a day PRN (Reason: Wheezing) Qty: 8.5 5RF cyclobenzaprine 10 mg tablet 10 mg PO BEDTIME Qty: 14 0RF albuterol sulfate [Ventolin HFA] 90 mcg/actuation HFA aerosol inhaler 2 puff inhalation Q6H PRN (Reason: shortness of breath or wheezing) 30 Days Qty: 18 5RF celecoxib 200 mg capsule 200 mg PO DAILY PRN (Reason: pain) 30 Days Qty: 30 3RF Rx Instructions: Take with food polyethylene glycol 3350 [Miralax] 17 gram/dose powder 17 g PO DAILY 30 Days Qty: 510 5RF loratadine 10 mg tablet 10 mg PO DAILY PRN (Reason: allergy symptoms) 90 Days Qty: 90 1RF (DME) blood pressure test kit-large Kit See Rx Instructions .ROUTE DIRECTED Qty: 1 Rx Instructions: As directed Creon 36,000-114,000- 180,000 unit capsule,delayed release(DR/EC) 1 cap PO QID Qty: 120 6RF Rx Instructions: administer with meals and/or snacks omeprazole 40 mg capsule,delayed release(DR/EC) 40 mg PO DAILY 30 Days Qty: 30 6RF senna 8.6 mg capsule 25.8 mg PO BEDTIME 30 Days Qty: 90 6RF docusate sodium [Colace] 100 mg capsule 100 mg PO .DAILY WITH FOOD 30 Days Qty: 30 6RF
[2022-12-01 20:10] VITALS: BP 147/72; PULSE 115; RESP 21; TEMP 38.4; O2SAT 95
[2022-12-01] MEDS: dexAMETHasone sod phosphate 10 MG/ML VIAL IVPUSH (20:14)
[2022-12-01] MEDS: Ketorolac Tromethamine 30 MG/ML VIAL IVPUSH (20:14)
--- NOTE | 2022-12-01 20:16 | PC.NURSE ---
Pt aox4 resting at the bedside. Reports throat pain, 8/10. Medicated as ordered. VSS aside from temp 101.1F Pt prefers Tylenol IV versus PO due to the throat pain. MD aware. 20G IV line started on the L ac. Pt tolerated well.
[2022-12-01] MEDS: iohexoL 350 MG/ML 100 ML INFUS..BTL IV (20:54)
[2022-12-01] MEDS: Ampicillin Sodium/Sulbactam Na 3 GM in 0.9 % Sodium Chloride 100 ML IV (21:32)
[2022-12-01 21:36] VITALS: BP 155/70; PULSE 103; RESP 20; TEMP 37.4; O2SAT 95
--- NOTE | 2022-12-01 21:56 | PC.NURSE ---
Second set of blood cultures collected at 2129. Unable to scan and save label at that time. Once scanned and saved 2nd set of cx labeled and set to the lab. Ab started at 2131.
[2022-12-01 22:13] LABS: Lactic Acid 0.6 mmol/L (0.5-2.0)
[2022-12-02 00:05] LABS: Monotest Negative (Negative)
== END 2022-12-01 23:51 | disposition home or self-care (01) ==
PROVIDERS: Emergency Medicine; Registered Nurse Emergency; Emergency Provider Student in an Organized Health Care Education/Training Program; PCP Internal Medicine
DX: J02.9 Acute pharyngitis, unspecified (principal); R50.9 Fever, unspecified; M54.2 Cervicalgia; Z79.899 Other long term (current) drug therapy
CPT/HCPCS: 36415; 70491; 80048; 83605; 85025; 86308; 87040; 96365; 96375; 99284; 99285; J0295; J1100; J1885; Q9967

== ENCOUNTER 2022-12-27 07:56 | Outpatient (AMB) | payer MEDICARE, SELFPAY ==
[2022-12-27 08:06] VITALS: BP 114/72; PULSE 93; O2SAT 97; BMI 26.3
--- NOTE | 2022-12-27 08:06 | MHC.PC.OV ---
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 Name: Karli [id number] Information Interpreted: non-clinical & clinical Allergies kamara [CHERRIES] Allergy (Intermediate, Verified 12/27/22 08:24) ITCHING-THROAT Sulfa (Sulfonamide Antibiotics) Allergy (Intermediate, Verified 12/27/22 08:24) rash naproxen Adverse Reaction (Mild, Verified 12/27/22 08:24) dizziness Tobacco use date assessed: 11/02/22 Fall risk assessment: No Falls in past year Last assessed Fall Risk: 12/27/22 Dental Screening Dental Screen Date: 12/27/22 Did you have a dental visit in the last 12 months?: Yes Did you have a dental problem in the last 6 months where you did not have access to dental care?: No Was dental information given to patient?: Patient has dentist HPI HPI Comments History of Present Illness Details 67-year-old female past history significant for chronic idiopathic constipation, chronic fatigue, right breast DCIS, history of sleeve gastrectomy 2018, COPD, acquired hypothyroidism and hypercholesteremia. Patient Dr. Wheeler presents today for hospital discharge follow-up from her [facility]. Patient was seen in the ED for throat pain for which she was started on oral antibiotics and steroids and was discharged home. Patient return to the emergency room with dyspnea, stridor and was in respiratory distress. Patient required intubation for airway protection CT imaging was completed which confirmed a left peritonsillar retropharyngeal abscess extending to involve the mediastinum and effacing the deep fascial planes of the neck which was causing moderate to severe narrowing of the airway most notable at the level of epiglottis/vocal cords. Patient was treated with IV vancomycin and dexamethasone and was transferred to [facility] for surgical management. ENT I&D the abcess. Patient was extubated on 12/08/2022.m repeat CT of the neck showed extensive multi steptated loculated abscess and fluid in the mediastinum so she underwent a repeat I&D with ENT and thoracic surgery on 12/11. Patient had [address] and had issues swallowing so dobbhoff tube was placed. Patient under went VATS on 12/15/22. Patient also had venous duplex bilateral arms which showed right upper extremity acute thrombus involving the superficial cephalic vein and left upper extremity venous duplex ultrasound demonstrated acute thrombus involving the inter jugular vein, and innominate vein, subclavian vein.axillary vein and superficial cephalic vein. Patient was advised to follow-up with ENT and at the [facility] 2 weeks following discharge. Oral antibiotics time 10 days and to continue on Eliquis for minimum of 3-6 months for blood clots. Patient states she has appointment with ENT 01/10/23. Patient state currently on amoxicillin. Patient currently on Eliquis 5 mg b.i.d. for left upper extremity acute thrombus. Referral entered hematology for recommendations on anticoagulation. Patient denies any chest pain, palpitations, shortness of breath or difficulty breathing. Denies fever, chills, cough, difficulty swallowing. [facility] Medical History Abdominal distension, gaseous Acquired hypothyroidism Allergic rhinitis Benign essential hypertension Chest pain, pleuritic Chronic obstructive pulmonary disease (COPD) Elevated LFTs High cholesterol History of ductal carcinoma in situ (DCIS) of breast Hypertension Intestinal malabsorption following gastrectomy Left inguinal pain Left lumbar pain Left lumbar radiculopathy Left-sided thoracic back pain Lumbar degenerative disc disease Neuropathic pain of left lower extremity Osteoarthritis of spine with radiculopathy, lumbosacral region Overweight (BMI 25.0-29.9) Pain and swelling of left lower extremity Primary insomnia Primary osteoarthritis of both knees Primary osteoarthritis, unspecified shoulder Pure hypercholesterolemia Radicular pain of left lower extremity Vitamin A deficiency Vitamin B1 deficiency Vitamin D deficiency Zinc deficiency Surgical History H/O unilateral oophorectomy History of cardiac cath (~03/2018) History of colonoscopy History of lumpectomy of right breast (~12/2012) History of sleeve gastrectomy (07/24/18) History of total abdominal hysterectomy and bilateral salpingo-oophorectomy (~2004) S/P laparoscopic sleeve gastrectomy Family History Father CVD (cardiovascular disease) Mother Cervical cancer Pancreatic cancer Uterine cancer Sister Substance abuse Social History Household Members: Spouse Housing: Apartment Are you a primary client care manager to a significant other at home: No Do you presently have visiting nurse or other home services: No Alcohol intake: never Patient Tobacco Use Status: Former Tobacco user Tobacco use type: Cigarette e-Cigarette/Vaping Use: Never Used Second Hand Smoke Exposure: No service: No 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al status: disabled 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, 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 1. Little interest or pleasure in doing things: not at all 2. Feeling down, depressed, or hopeless: not at all 3. Trouble falling or staying asleep, or sleeping too much: not at all 4. Feeling tired or having little energy: not at all 5. Poor appetite or overeating: not at all 6. Feeling bad about yourself - or that you are a failure or have let yourself or your family down: not at all 7. Trouble concentrating on things, such as reading the newspaper or watching television: not at all 8. Moving or speaking so slowly that other people could have noticed. Or the opposite - being so fidgety or restless that you have been moving around a lot more than usual: not at all 9. Thoughts that you would be better off or of hurting yourself in some way: not at all Total score: 0 Depression Screening Interpretation: Negative 30161 - PHQ-9 Billing: Yes Source: Developed by Drs. Martin Mata, Ankur Anguiano and colleagues, with an educational terrence from [employer]. Thrive Questionnaire Date Thrive assessed: 11/02/22 AUDIT C Alcohol Use Questionnaire (AUDIT-C) 1. How often do you have a drink containing alcohol?: Never 3. How often do you have six or more drinks on one occasion?: Never Total Score: 0 Score Reviewed/Action Taken: Yes SYDNEY-7 AMB Questionnaire SYDNEY-7 Date SYDNEY - 7 assessed: 11/02/22 Source: Developed by Drs. Martin LStephanie Medina, Ankur Jeong and colleagues, with an educational terrence from [employer]. Review of Systems Const Denies chills, Denies fatigue, Denies fever(s) and Denies poor appetite Eyes Denies no additional complaints ENT Reports Normal hearing present, Denies neck pain and Denies odynophagia Card Denies chest pain, Denies syncope, Denies rapid heart rate and Denies dyspnea Resp Denies cough and Denies dyspnea GI Denies change in stool character, Denies constipation, Denies diarrhea, Denies nausea, Denies odynophagia and Denies vomiting Denies urinary frequency, Denies dysuria and Denies urinary urgency Musc Denies neck pain Neuro Reports Normal hearing present, Denies confusion and Denies syncope Psych Denies confusion Endo Denies fatigue Physical exam (Primary Care) Vital Signs: Last Vital Signs Pulse 93 12/27/22 08:06 BP 114/72 12/27/22 08:06 Pulse Ox 97 12/27/22 08:06 Oxygen Delivery Method Room Air 12/27/22 08:06 BMI result Body Mass Index 26.3 Tobacco/Smoking Status: Tobacco use Status Tobacco use date assessed 11/02/22 12/27/22 08:13 Patient Tobacco Use Status Former Tobacco user 12/27/22 08:13 Tobacco use type Cigarette 12/27/22 08:13 e-Cigarette/Vaping Use Never Used 12/27/22 08:13 PHQ-9: PHQ-9 Score PHQ-9: Total score 0 12/27/22 08:13 Depression Screening Interpretation: Negative Thrive Assessment: Date of Thrive Assessment Date Thrive assessed 11/02/22 12/27/22 08:13 Const General: No confusion Orientation/consciousness: No confusion HENMO Head: Yes normocephalic and Yes atraumatic Mouth: moist mucous membranes Throat: Yes tonsils normal Eyes Conjunctivae: conjunctivae normal Chest Chest palpation & inspection: normal inspection of the chest Resp Effort & Inspection: normal respiratory effort Auscultation: clear to auscultation bilaterally, no crackles, no rhonchi and no wheezes Cardio Rate: regular rate Rhythm: regular rhythm Heart sounds: S1 normal heart sound present and S2 normal heart sound present Peripheral pulses: radial pulses present and dorsalis pedis present GI Inspection: Yes normal to inspection Neuro General: No confusion Cranial nerves: Yes Normal hearing present Extrem General: No edema Assessment and Plan Assessment & Plan (1) Anemia: Code(s): D64.9 - Anemia, unspecified Plan: Follow-up CBC ordered. (2) Thrombosis of left upper extremity: Code(s): I82.602 - Acute embolism and thrombosis of unspecified veins of left upper extremity Plan: Continue on Eliquis 5 mg b.i.d.. Referral entered hematology. (3) Hx of peritonsillar abscess drainage: Code(s): Z98.890 - Other specified postprocedural states Plan: Continue on antibiotic. Follow-up with ENT scheduled for 01/10/2023. (4) Hospital discharge follow-up: Code(s): Z09 - Encounter for follow-up examination after completed treatment for conditions other than malignant neoplasm Plan Keep scheduled follow-up with Dr. Hernandez on 01/02/2023. Orders: Orders Comprehensive Met. Panel Today D64.9 - Anemia, unspecified Complete Blood Count Auto Diff Today Z13.0 - Encounter for screening for diseases of the blood and blood-forming organs and certain disorders involving the immune mechanism Referrals Hematology & Oncology Referral I82.602 - Acute embolism and thrombosis of unspecified veins of left upper extremity Coding Level of Care Code Est Pt Level 4 (20552) Diagnoses Anemia D64.9 Thrombosis of left upper extremity I82.602 Hx of peritonsillar abscess drainage Z98.890 Hospital discharge follow-up Z09
== END 2022-12-27 08:42 | disposition home or self-care (01) ==
PROVIDERS: PCP Internal Medicine; Visit Provider Nurse Practitioner Family
DX: D64.9 Anemia, unspecified (principal); I82.602 Acute embolism and thrombosis of unspecified veins of left upper extremity; Z98.890 Other specified postprocedural states; Z09 Encounter for follow-up examination after completed treatment for conditions other than malignant neoplasm
CPT/HCPCS: 99214

== ENCOUNTER 2023-03-07 10:04 | Outpatient (REF) | payer MEDICARE, SELFPAY ==
[2023-03-07 10:26] LABS: MANUAL DIFF FLAG NO
[2023-03-07 11:11] LABS: Basophils Percent Auto 0.7 % (0-2); Eosinophils Absolute Auto 0.1 X10*3/uL (0.0-0.4); Eosinophils Percent Auto 3.4 % (0-4); Hematocrit 38.4 % (37.0-47.0); Hemoglobin 12.5 g/dl (12.0-16.0); Imm Gran Abs Auto 0.01 X10*3/uL (0.00-0.03); Imm Gran Pct Auto 0.2 % (0.0-0.4); Lymphocytes Absolute Auto 1.5 X10*3/uL (1.2-4.9); Lymphocytes Percent Auto 35.7 % (20-40); Mean Corpuscular HGB Conc 32.6 g/dl (31.0-35.0); Mean Corpuscular Hemoglobin 30.7 pg (27.0-33.0); Mean Corpuscular Volume 94.3 fL (80.0-98.0); Mean Platelet Volume 9.9 fL (9.4-12.3); Monocytes Absolute Auto 0.5 X10*3/uL (0.1-1.2); Monocytes Percent Auto 12.7 % (2-11); Neutrophils Absolute Auto 1.9 x10*3/uL (2.0-8.3); Neutrophils Percent Auto 47.3 % (45-73); Platelet Count 277 X10*3/uL (160-400); Red Blood Count 4.07 X10*6/uL (4.20-5.50); Red Cell Distribution Width 12.7 % (11.0-16.0); White Blood Count 4.1 X10*3/uL (4.8-10.8)
[2023-03-07 12:07] LABS: Alanine Aminotransferase 8 U/L (0-31); Albumin Level 3.8 g/dL (3.5-5.0); Alkaline Phosphatase 149 U/L (39-117); Anion Gap 13 (12-20); Aspartate Amino Transferase 16 U/L (5-31); Bilirubin Total 0.6 mg/dL (0.0-1.0); Blood Urea Nitrogen 14 mg/dL (9-16); Carbon Dioxide 28 mmol/L (22-29); Chloride 104 mmol/L (96-108); Cholesterol 191 mg/dL (<200); Estimated Glomerular Filt Rate > 60; Glucose Fasting 76 mg/dL (60-99); HDL Cholesterol 58 mg/dL (>40); LDL Cholesterol Calculated 118 mg/dL (<100); Potassium 4.6 mmol/L (3.3-5.1); Sodium 140 mmol/L (135-145); Triglycerides 75 mg/dL (<150)
[2023-03-07 12:22] LABS: Free T4 (Free Thyroxine) 1.23 ng/dL (0.71-1.85); Thyroid Stimulating Hormone 0.03 uIU/mL (0.32-4.0); Vitamin D 25-OH Total 57.7 ng/mL (>30)
[2023-03-07 12:23] LABS: Folate 16.2 ng/mL (> or = 4.0); Vitamin B12 511 pg/mL (200-900)
== END 2023-03-07 10:05 | disposition home or self-care (01) ==
LOC: HO.LAB 10:04
PROVIDERS: PCP Internal Medicine; Visit Provider Internal Medicine
DX: Z00.00 Encounter for general adult medical examination without abnormal findings (principal); E53.8 Deficiency of other specified B group vitamins; E55.9 Vitamin D deficiency, unspecified; E03.9 Hypothyroidism, unspecified; E78.00 Pure hypercholesterolemia, unspecified; I10 Essential (primary) hypertension
CPT/HCPCS: 36415; 80053; 80061; 82306; 82607; 82746; 84439; 84443; 85025

== ENCOUNTER 2023-03-08 12:29 | Outpatient (REF) | payer MEDICARE, SELFPAY ==
--- NOTE | ~2023-03-08 | MM_ITS ---
EXAMINATION: BONE DENSITOMETRY CLINICAL INDICATION: Osteopenia. COMPARISON: Previous BD dated 02/25/2021 and baseline BD dated 08/24/2009. TECHNIQUE: Using a [employer] DXA System (software version: 13.1) manufactured by [employer], dual-energy x-ray absorptiometry was performed of the lumbar spine and right hip. The images are of good technical quality. Summary results are attached. FINDINGS: AP SPINE L1-L3 (excluding L4): The data of L1-L4 has been changed to exclude the L4 vertebral body, because degenerative sclerosis at this level may cause overestimation of lumbar spine density. Current: BMD 1.105 g/cm2, Z-score 0.7, T-score -0.5, normal, 13.6% decrease from previous, 9.5% decrease from baseline (<5% change is not significant). Prior: BMD 1.279 g/cm2. Baseline: BMD 1.221 g/cm2. LEFT FEMUR, NECK: Current: BMD 0.914 g/cm2, Z-score 0.5, T-score -0.9, normal. Prior: BMD 0.895 g/cm2. Baseline: BMD 1.141 g/cm2. LEFT FEMUR, TOTAL: Current: BMD 0.991 g/cm2, Z-score 1.0, T-score -0.1, normal, 4.2% increase from previous, 17.1% decrease from baseline (<5% change is not significant). Prior: BMD 0.951 g/cm2. Baseline: BMD 1.196 g/cm2. IDENTIFIED RISK FACTORS: Rheumatoid arthritis. Secondary osteoporosis (hyperthyroidism, part of stomach removed). Menopause. Hysterectomy. Bilateral oophorectomy HISTORY OF FRACTURE: None listed. MEDICATIONS: Calcium supplement or multivitamin. Vitamin D. MM/XR DEXA axial skeleton IMPRESSION: 1. DIAGNOSIS: Normal bone density based on the lowest T-score value of -0.9 in the femoral neck applying World Health Organization criteria. 2. 10-YEAR FRACTURE RISK PREDICTION, FRAX: According to the guidelines, FRAX calculation should only be performed on patients in the osteopenia bone density category. Therefore, FRAX was not performed on this patient.? 3. Treatment Recommendations: NOF guidelines recommend consideration for treatment in postmenopausal women and men age 50 and older presenting with the following: -A hip or vertebral (clinical or morphometric) fracture. -T-score less than or equal to -2.5 at the femoral neck or spine after appropriate evaluation to exclude secondary causes. -Low bone mass at the hip or spine and a 10-year fracture probability by FRAX of greater than or equal to 3% for hip fracture or greater than or equal to 20% for major osteoporotic fracture based on the [place] adapted WHO algorithm. 4. Other Recommendations: All treatment decisions require clinical judgment and consideration of individual patient factors, including patient preferences, comorbidities, previous drug use, risk factors not captured in the FRAX model (e.g. frailty, falls, vitamin D deficiency, increased bone turnover, interval significant decline in bone density) and possible under or overestimation of fracture risk by FRAX. FUTURE SCAN RECOMMENDATION: People with diagnosed cases of osteoporosis or at high risk for fracture should have regular bone mineral density tests. For patients eligible for Medicare, routine testing is allowed once every 2 years. The testing frequency can be increased to one year for patients who have rapidly progressing disease, those who are receiving or discontinuing medical therapy to restore bone mass, or have additional risk factors.
--- NOTE | ~2023-03-08 | MM_ITS ---
EXAMINATION: MM SCREENING DIGITAL BREAST TOMOSYNTHESIS, BILATERAL CLINICAL INFORMATION: Screening. Asymptomatic. The patient is status post right breast surgery for DCIS diagnosed in 2013. COMPARISON: Mammography: This study is compared with prior exams dating back to TECHNIQUE: Digital breast tomosynthesis is performed in both the craniocaudal and mediolateral oblique views along with computer-aided detection (CAD). Synthesized 2D images are generated from the tomosynthesis. FINDINGS: There are scattered areas of fibroglandular density (ACR BI-RADS breast composition Category b). There are no significant masses, abnormal calcifications, or other abnormalities. Few, bilateral, benign calcifications are present. MM/MM tomosynthesis screening BI IMPRESSION: No mammographic evidence of malignancy. ASSESSMENT: BI-RADS BI-RADS 2 - Benign Findings RECOMMENDATION: Routine annual mammography screening. 1 year F/U This examination should not preclude the clinical evaluation of a suspicious palpable abnormality. This patient's information was entered into a reminder system with a target due date for their next mammogram.
== END 2023-03-08 12:30 | disposition home or self-care (01) ==
LOC: HO.MAMMO 12:29
PROVIDERS: PCP Internal Medicine; Visit Provider Internal Medicine Medical Oncology
DX: Z12.31 Encounter for screening mammogram for malignant neoplasm of breast (principal); Z13.820 Encounter for screening for osteoporosis; Z78.0 Asymptomatic menopausal state; M54.16 Radiculopathy, lumbar region
CPT/HCPCS: 77063; 77067; 77080

== ENCOUNTER → 2023-03-08 13:00 | Outpatient (BNV) | payer MEDICARE, SELFPAY | PROVIDERS: PCP Internal Medicine; Visit Provider Radiology Diagnostic Radiology | DX: Z12.31 Encounter for screening mammogram for malignant neoplasm of breast (principal) | CPT/HCPCS: 77063; 77067 ==

== ENCOUNTER 2023-03-08 14:13 | Outpatient (AMB) | payer OTHER, SELFPAY ==
[2023-03-08 14:20] VITALS: BP 122/80; PULSE 74; O2SAT 98; BMI 27.0
--- NOTE | 2023-03-08 14:20 | MHC.PC.OV ---
Vital Signs 03/08/23 14:20 Height 5 ft 7 in Weight 172 lb 6 oz BMI 27.0 BP 122/80 Blood Pressure Location Lt brachial Position Sitting Pulse 74 Pulse Source Pulse Oximeter Pulse Oximetry (%) 98 Oxygen Delivery Method Room Air Intake Visit Reasons: hyperlipidemia, hypothyroidism Specialized Developer Required: No Accompanied by: Self / Same As Patient Allergies kamara [CHERRIES] Allergy (Intermediate, Verified 03/12/23 22:15) ITCHING-THROAT Sulfa (Sulfonamide Antibiotics) Allergy (Intermediate, Verified 03/12/23 22:15) rash naproxen Adverse Reaction (Mild, Verified 03/12/23 22:15) dizziness Medication List - Last Reconciled 03/12/23 by Armando Wheeler MD albuterol sulfate 90 mcg/actuation (ProAir HFA) 2 puffs inhalation .4 times a day PRN amlodipine 5 mg PO DAILY 90 days apixaban (Eliquis) 5 mg PO BID ascorbate calcium (vitamin C) 500 mg PO BID atorvastatin 20 mg PO DAILY blood pressure monitor As directed blood pressure test kit-large As directed celecoxib 200 mg PO DAILY PRN 30 days cholecalciferol (vitamin D3) 50 mcg PO DAILY cyanocobalamin (vitamin B-12) 500 mcg PO DAILY cyclobenzaprine 10 mg PO BEDTIME diclofenac sodium 1% 2 grams topical BID PRN docusate sodium (Colace) 100 mg PO .DAILY WITH FOOD 30 days levothyroxine 100 mcg PO DAILY bdysoh-ldgsnjkb-lgoshvb 36,000-114,000- 180,000 unit (Creon) 1 cap PO QID loratadine 10 mg PO DAILY PRN 90 days mometasone 0.1% 1 appl topical DAILY 15 days multivitamin with folic acid 400 mcg (Daily-Jen (with folic acid)) 1 tab PO DAILY omeprazole 40 mg PO DAILY 30 days polyethylene glycol 3350 (Miralax) 17 grams PO DAILY 30 days sennosides (senna) 25.8 mg (3 x 8.6 mg) PO BEDTIME 30 days Ventolin HFA 90 mcg/actuation (albuterol sulfate) 2 puffs inhalation Q6H PRN 30 days NS Tobacco use date assessed: 03/08/23 Fall risk assessment: No Falls in past year Last assessed Fall Risk: 03/08/23 Dental Screening Dental Screen Date: 03/08/23 Did you have a dental visit in the last 12 months?: No Did you have a dental problem in the last 6 months where you did not have access to dental care?: No Was dental information given to patient?: No HPI hyperlipidemia, hypothyroidism HPI Details Patient comes in today for her follow up visit States that she was admitted to [facility] back in November 2022 for a parapharyngeal abscess that required surgical intervention - underwent mediastinoscopy with I & D of neck abscess on 12/05/2022, then had a thoracoscopic decortication and drainage of a mediastinal cyst on 12/15/2022 She also apparently developed a DVT of the left upper extremity post-op and has been started on Eliquis 5 mg BID She has been doing well since with no issues related to her surgery in November 2022 at present and currently feels okay She denies any headaches or dizziness Denies any chest pains, no SOB No nausea/vomiting, no abdominal pain No change in bowel habits noted She also currently has some rash on her right hand that she thinks are due to some fungal infection and is requesting for some topical Rx to help clear these up Had her follow up labs done yesterday - to discuss her results [facility] Medical History (Updated 03/12/23 @ 22:59 by Armando Wheeler MD) Parapharyngeal abscess (~11/2022) Zinc deficiency Vitamin B1 deficiency Vitamin A deficiency Left lumbar radiculopathy Pain and swelling of left lower extremity Lumbar degenerative disc disease Chest pain, pleuritic Abdominal distension, gaseous Left lumbar pain Left-sided thoracic back pain Intestinal malabsorption following gastrectomy Radicular pain of left lower extremity Left inguinal pain Neuropathic pain of left lower extremity Overweight (BMI 25.0-29.9) Primary insomnia History of ductal carcinoma in situ (DCIS) of breast Vitamin D deficiency Allergic rhinitis Elevated LFTs Primary osteoarthritis, unspecified shoulder Osteoarthritis of spine with radiculopathy, lumbosacral region Primary osteoarthritis of both knees Chronic obstructive pulmonary disease (COPD) Benign essential hypertension Acquired hypothyroidism Pure hypercholesterolemia Hypertension High cholesterol Surgical History (Updated 03/12/23 @ 22:56 by Armando Wheeler MD) History of incision and drainage (~11/2022) History of colonoscopy S/P laparoscopic sleeve gastrectomy History of sleeve gastrectomy (07/24/18) History of total abdominal hysterectomy and bilateral salpingo-oophorectomy (~2004) History of cardiac cath (~03/2018) History of lumpectomy of right breast (~12/2012) H/O unilateral oophorectomy Family History Father CVD (cardiovascular disease) Mother Cervical cancer Pancreatic cancer Uterine cancer Sister Substance abuse Social History Household Members: Spouse Housing: Apartment Are you a primary school childcare attendant to a significant other at home: No Do you presently have visiting nurse or other home services: No Alcohol intake: never Patient Tobacco Use Status: Former Tobacco user Tobacco use type: Cigarette e-Cigarette/Vaping Use: Never Used Second Hand Smoke Exposure: No service: No 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al status: disabled 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 1. Little interest or pleasure in doing things: not at all 2. Feeling down, depressed, or hopeless: not at all 3. Trouble falling or staying asleep, or sleeping too much: not at all 4. Feeling tired or having little energy: not at all 5. Poor appetite or overeating: not at all 6. Feeling bad about yourself - or that you are a failure or have let yourself or your family down: not at all 7. Trouble concentrating on things, such as reading the newspaper or watching television: not at all 8. Moving or speaking so slowly that other people could have noticed. Or the opposite - being so fidgety or restless that you have been moving around a lot more than usual: not at all 9. Thoughts that you would be better off or of hurting yourself in some way: not at all Total score: 0 Depression Screening Interpretation: Negative Depression Screening Done: Yes 81546 - PHQ-9 Billing: Yes Source: Developed by Drs. Martin Mata, Stephanie Briceño, Ankur Jeong and colleagues, with an educational terrence from [employer] Thrive Questionnaire Date Thrive assessed: 03/08/23 I am a: Patient What is your living situation today?: I have a steady place to live Within the past 12 months, did the food you bought not last and you didn't have the money to get more?: Never true Within the past 12 months, did you worry whether your food would run out before you got money to buy more?: Never true Do you have trouble paying for medicines?: No Do you have trouble getting transportation to medical appointments?: No Do you have trouble paying your heating and electricity bill?: No Do you have trouble taking care of your child, family member or friend?: No Do you have trouble with day-to-day activities such as bathing, preparing meals, shopping, managing finances, etc.?: No Are you currently unemployed and looking for a job?: No Are you interested in more education?: No Please select the resources that you would like help with: None Currently or been in a relationship where the following occur: no concerns reported AUDIT C Alcohol Use Questionnaire (AUDIT-C) 1. How often do you have a drink containing alcohol?: Never 3. How often do you have six or more drinks on one occasion?: Never Total Score: 0 Score Reviewed/Action Taken: Yes SYDNEY-7 AMB Questionnaire SYDNEY-7 Date SYDNEY - 7 assessed: 03/08/23 Feeling nervous, anxious, or on edge: 0 = Not at all Not being able to stop or control worryin = Not at all Worrying too much about different things: 0 = Not at all Trouble relaxin = Not at all Being so restless that it is hard to sit still: 0 = Not at all Becoming easily annoyed or irritable: 0 = Not at all Feeling afraid as if something awful might happen: 0 = Not at all Total SYDNEY-7 score (0-4 normal; 5-9 mild; 10-14 moderate; 15-21 severe): 0 Source: Developed by Drs. Martin Mata, Stephanie Briceño, Ankur Jeong and colleagues, with an educational terrence from [employer]. Review of Systems Const Denies chills, Denies fatigue, Denies fever(s) and Denies headache(s) ENT Denies dysphagia, Denies dizziness, Denies otalgia, Denies headache(s), Denies neck pain, Denies odynophagia and Denies sore throat Card Denies chest pain, Denies rapid heart rate, Denies irregular heart rhythm, Denies palpitations and Denies dyspnea Resp Denies chest congestion, Denies cough, Denies dyspnea and Denies wheezing GI Denies abdominal pain, Reports constipation (on and off), Denies dysphagia, Denies heartburn, Denies diarrhea, Denies nausea, Denies odynophagia and Denies vomiting Denies hematuria, Denies urinary frequency, Denies dysuria and Denies urinary urgency Musc Reports back pain (over the lower back), Reports arthralgias (involving multiple joints, including right wrist, shoulder, hips) and Denies neck pain Skin/Breast Reports rash (recurrent, on the right hand) Neuro Denies dizziness, Denies headache(s) and Denies paresthesias Psych Denies anxiety and Denies depression Endo Denies fatigue and Denies palpitations Anup/Lymph Denies easy bruising Aller/Immun Denies wheezing Physical exam (Primary Care) Vital Signs: Last Vital Signs Pulse 74 03/08/23 14:20 BP 122/80 03/08/23 14:20 Pulse Ox 98 03/08/23 14:20 Oxygen Delivery Method Room Air 03/08/23 14:20 BMI result Body Mass Index 27.0 Tobacco/Smoking Status: Tobacco use Status Tobacco use date assessed 03/08/23 03/08/23 14:24 Patient Tobacco Use Status Former Tobacco user 03/08/23 14:24 Tobacco use type Cigarette 03/08/23 14:24 e-Cigarette/Vaping Use Never Used 03/08/23 14:24 PHQ-9: PHQ-9 Score PHQ-9: Total score 0 03/12/23 22:43 Depression Screening Interpretation: Negative Thrive Assessment: Date of Thrive Assessment Date Thrive assessed 03/08/23 03/08/23 14:24 Currently or been in a relationship where the following occur: no concerns reported Const General: no acute distress and alert HENMT Ears: TM's normal bilaterally and EAC's normal Throat: Yes posterior oropharynx normal and Yes tonsils normal (no TP congestion) Neck Neck: Yes no lymphadenopathy and Yes supple Thyroid: Thyroid normal Resp Auscultation: clear to auscultation bilaterally, no rales and no wheezes Cardio Rate: regular rate Rhythm: regular rhythm Heart sounds: no murmurs GI Palpation (GI): Soft to palpation and nontender Auscultation: normal bowel sounds General: Yes no CVA tenderness Back/Spine/Pelvis Back: no CVA tenderness Thoracic/Lumbar Spine: lumbar spinal tenderness Skin Other: (+) few scattered scaling rash on the right hand/fingers Extrem General: Yes no clubbing, cyanosis or edema Right upper extremity: shoulder/upper arm Details: tenderness Location: of the A-C joint Left lower extremity: foot Details: tenderness Location: of the calcaneus and no edema Results Reviewed Results Reviewed: Laboratory Tests 03/07/23 10:25 WBC 4.1 L Hgb 12.5 Hct 38.4 Plt Count 277 D Sodium 140 Potassium 4.6 Creatinine 0.67 Estimated GFR > 60 Fasting Glucose 76 Calcium 9.0 AST 16 ALT 8 Triglycerides 75 Cholesterol 191 LDL Cholesterol, Calc 118 H HDL Cholesterol 58 Vitamin B12 511 25-OH Vitamin D Total 57.7 TSH 0.03 L Free T4 1.23 Assessment and Plan Assessment & Plan (1) Hx of peritonsillar abscess drainage: Code(s): Z98.890 - Other specified postprocedural states Plan: Is S/P mediastinoscopy with I & D of neck abscess on 12/05/2022, then had a thoracoscopic decortication and drainage of a mediastinal cyst on 12/15/2022 Has been doing well with no acute ENT or throat issues since Follow up with ENT as scheduled (2) Thrombosis of left upper extremity: Code(s): I82.602 - Acute embolism and thrombosis of unspecified veins of left upper extremity Plan: Continue Eliquis 5 mg BID (3) Pure hypercholesterolemia: Code(s): E78.00 - Pure hypercholesterolemia, unspecified Plan: Results of her labs done yesterday reviewed and discussed with patient Reinforced low-cholesterol diet Continue Atorvastatin 20 mg QD Will recheck her labs and fasting lipids in 4 months for follow up (4) Benign essential hypertension: Code(s): I10 - Essential (primary) hypertension Plan: Reinforced low sodium diet - goal is systolic BP of at least 130 mm or less Her BP appears much better controlled lately Continue Amlodipine 5 mg QD Patient is reminded to continue monitoring her blood pressure regularly (5) Acquired hypothyroidism: Code(s): E03.9 - Hypothyroidism, unspecified Plan: Her TSH remains suppressed but free T4 is normal on her labs done yesterday Patient remains clinically euthyroid at present Continue Levothyroxine 100 mcg QD Will recheck her TFTs in 4 months for follow up (6) Chronic obstructive pulmonary disease (COPD): Code(s): J44.9 - Chronic obstructive pulmonary disease, unspecified Qualifiers: COPD type: unspecified COPD Qualified Code(s): J44.9 - Chronic obstructive pulmonary disease, unspecified Plan: Stable - continue Albuterol HFA 2 inhalations Q 6 hours PRN (7) Elevated LFTs: Code(s): R79.89 - Other specified abnormal findings of blood chemistry Plan: Resolved - her LFTs remain normal on her labs done yesterday Will continue to monitor her LFTs regularly (8) Myalgia: Code(s): M79.10 - Myalgia, unspecified site Plan: Was most likely due to her statin Rx although they may also be partly due to her fibromyalgia States that these have improved a lot since she started taking Co Q-10 200 mg QD with her Atorvastatin upon our recommendation Her on and off sharp left thigh and leg pains may actually be related to her lower back (lumbar spine) issues - lumbar spine x-rays done back in April 2022 revealed (+) prominent degenerative disc changes at L1-L2, L4-L5, and L5-S1 with borderline retrolisthesis, but findings appear stable with no interval vertebral compression or destructive process seen Was advised that we can start her on some Rx to help with her symptoms but as her pain has been occurring only occasionally and lasts briefly, does not make much sense to have her take something for prevention at this time ESR and CRP done back in October 2022 both came back normal then (9) Lumbar degenerative disc disease: Code(s): M51.36 - Other intervertebral disc degeneration, lumbar region Plan: Reinforced activity and weight-lifting restrictions Lumbar spine x-rays done in April 2022 revealed (+) prominent degenerative disc changes L1-L2, L4-L5, and L5-S1 with borderline retrolisthesis at L1-L2 that are stable and no interval vertebral compression or destructive process are seen Continue Tramadol 50 mg TID PRN (10) Osteoarthritis involving multiple joints on both sides of body: Code(s): M15.9 - Polyosteoarthritis, unspecified Plan: Involving multiple joints, including both knees, right shoulder, hips and left ankle X-rays of the left ankle and right wrist done a few months ago revealed (+) mild OA changes Continue Celebrex 200 mg QD PRN for pain; was on Naproxen or Ibuprofen in the past and states that they have not helped much (11) Vitamin B12 deficiency: Code(s): E53.8 - Deficiency of other specified B group vitamins Plan: Continue Vitamin B12 1000 mcg QD (12) Vitamin D deficiency: Code(s): E55.9 - Vitamin D deficiency, unspecified Plan: Continue Vitamin D3 2000 units QD (13) Chronic idiopathic constipation: Code(s): K59.04 - Chronic idiopathic constipation Plan: Better controlled lately Reinforced increased oral fluids and dietary fiber Continue Docusate 100 mg QD PRN and Miralax 17 gm QD Follow up with GI as scheduled (14) Ductal carcinoma in situ (DCIS) of right breast: Code(s): D05.11 - Intraductal carcinoma in situ of right breast Plan: S/P treatment with Tamoxifen x 5 years, from 01/2013 to 01/2018 Follow up with oncology as scheduled for continuing surveillance (15) Dermatitis: Code(s): L30.9 - Dermatitis, unspecified Plan: Primarily on the right hand/fingers Will start her on Lotrisone cream BID x 7 to 10 days (16) Overweight (BMI 25.0-29.9): Comment: S/P sleeve gastrectomy Code(s): E66.3 - Overweight Plan: Reinforced diet/exercise as tolerated/lose weight Plan Follow up in 4 months Orders: Orders Lipid Panel 4 Months E78.00 - Pure hypercholesterolemia, unspecified Vitamin D 25-OH Total 07/09/23 E55.9 - Vitamin D deficiency, unspecified CK, Total+Isoenzymes, Serum 07/09/23 M79.10 - Myalgia, unspecified site Comprehensive [place]. Panel Fast 4 Months E78.00 - Pure hypercholesterolemia, unspecified Complete Blood Count Auto Diff 07/09/23 I10 - Essential (primary) hypertension Thyroid Stimulating Hormone 07/09/23 E03.9 - Hypothyroidism, unspecified Free T4 (Free Thyroxine) 07/09/23 E03.9 - Hypothyroidism, unspecified Vitamin B12 and Folate 07/09/23 E53.8 - Deficiency of other specified B group vitamins UA CC w/rflx Micro + Cult 07/09/23 R30.0 - Dysuria Medications: New clotrimazole-betamethasone 1-0.05 % 1 appl topical BID 45 grams 0RF 10 days Coding Level of Care Code Est Pt Level 4 (81905) Diagnoses Hx of peritonsillar abscess drainage Z98.890 Thrombosis of left upper extremity I82.602 Pure hypercholesterolemia E78.00 Benign essential hypertension I10 Acquired hypothyroidism E03.9 Chronic obstructive pulmonary disease, unspecified COPD type J44.9 COPD type: unspecified COPD Elevated LFTs R79.89 Myalgia M79.10 Lumbar degenerative disc disease M51.36 Osteoarthritis involving multiple joints on both sides of body M15.9 Vitamin B12 deficiency E53.8 Vitamin D deficiency E55.9 Chronic idiopathic constipation K59.04 Ductal carcinoma in situ (DCIS) of right breast D05.11 Dermatitis L30.9 Overweight (BMI 25.0-29.9) E66.3
== END 2023-03-08 15:24 | disposition home or self-care (01) ==
PROVIDERS: PCP Internal Medicine; Visit Provider Internal Medicine
DX: J44.9 Chronic obstructive pulmonary disease, unspecified (principal); Z98.890 Other specified postprocedural states; I82.602 Acute embolism and thrombosis of unspecified veins of left upper extremity; E78.00 Pure hypercholesterolemia, unspecified; I10 Essential (primary) hypertension; E03.9 Hypothyroidism, unspecified; R79.89 Other specified abnormal findings of blood chemistry; M79.10 Myalgia, unspecified site; M51.36 Other intervertebral disc degeneration, lumbar region; M15.9 Polyosteoarthritis, unspecified; E53.8 Deficiency of other specified B group vitamins; E55.9 Vitamin D deficiency, unspecified
CPT/HCPCS: 99214

== ENCOUNTER 2023-04-04 08:51 | Outpatient (AMB) | payer MEDICARE, SELFPAY ==
--- NOTE | 2023-04-04 08:54 | MHC.OFFVIS ---
Intake Vital Signs 04/04/23 09:03 Height 5 ft 7 in Weight 174 lb 6 oz BMI 27.3 BP 155/67 H Blood Pressure Location Lt brachial Position Sitting Pulse 71 Intake Visit Reasons: 1 year breast F/U Intake Note: Patient is seen in office for yearly breast exam. Patient c/o: denies any concerns regarding the breast Supervisor [employer] Required: Yes Supervisor [employer] Language: Street Commissioner Name: Shirley MCCORMICK Information Interpreted: non-clinical & clinical Wastewater Treatment Plant Attendant: Wastewater Treatment Plant Attendant Present Accompanied by: Self / Same As Patient Allergies kamara [CHERRIES] Allergy (Intermediate, Verified 04/04/23 09:09) ITCHING-THROAT Sulfa (Sulfonamide Antibiotics) Allergy (Intermediate, Verified 04/04/23 09:09) rash naproxen Adverse Reaction (Mild, Verified 04/04/23 09:09) dizziness Medication List - Last Reconciled 04/04/23 by Glenn Friedman MD albuterol sulfate 90 mcg/actuation (ProAir HFA) 2 puffs inhalation .4 times a day PRN amlodipine 5 mg PO DAILY 90 days apixaban (Eliquis) 5 mg PO BID ascorbate calcium (vitamin C) 500 mg PO BID atorvastatin 20 mg PO DAILY blood pressure monitor As directed blood pressure test kit-large As directed celecoxib 200 mg PO DAILY PRN 30 days cholecalciferol (vitamin D3) 50 mcg PO DAILY clotrimazole-betamethasone 1-0.05 % 1 appl topical BID 10 days cyanocobalamin (vitamin B-12) 500 mcg PO DAILY cyclobenzaprine 10 mg PO BEDTIME diclofenac sodium 1% 2 grams topical BID PRN docusate sodium (Colace) 100 mg PO .DAILY WITH FOOD 30 days levothyroxine 100 mcg PO DAILY opbvnl-gerammcc-euvoehz 36,000-114,000- 180,000 unit (Creon) 1 cap PO QID loratadine 10 mg PO DAILY PRN 90 days mometasone 0.1% 1 appl topical DAILY 15 days multivitamin with folic acid 400 mcg (Daily-Jen (with folic acid)) 1 tab PO DAILY omeprazole 40 mg PO DAILY 30 days polyethylene glycol 3350 (Miralax) 17 grams PO DAILY 30 days sennosides (senna) 25.8 mg (3 x 8.6 mg) PO BEDTIME 30 days Ventolin HFA 90 mcg/actuation (albuterol sulfate) 2 puffs inhalation Q6H PRN 30 days NS HPI HPI Comments History of Present Illness Details 67-year-old female patient returning for six-month follow-up examination following right breast surgery. She is a former patient of Dr. Valdes with a history of ductal carcinoma in situ of the right breast, ER/ND positive. A stereotactic biopsy was not possible therefore she underwent lumpectomy with needle localization on November 2012. She subsequently required a re-excision in January 2013. She completed radiation therapy on 04/14/2013. Her most recent mammogram of 03/08/2023 revealed no mammographic evidence of malignancy (BI-RADS 2). Routine routine annual mammography was recommended. She denies any pain, skin changes, redness, discharge from the nipples, or palpable mass in either breast. [facility] Medical History (Updated 03/12/23 @ 22:59 by Armando Wheeler MD) Parapharyngeal abscess (~11/2022) Zinc deficiency Vitamin B1 deficiency Vitamin A deficiency Left lumbar radiculopathy Pain and swelling of left lower extremity Lumbar degenerative disc disease Chest pain, pleuritic Abdominal distension, gaseous Left lumbar pain Left-sided thoracic back pain Intestinal malabsorption following gastrectomy Radicular pain of left lower extremity Left inguinal pain Neuropathic pain of left lower extremity Overweight (BMI 25.0-29.9) Primary insomnia History of ductal carcinoma in situ (DCIS) of breast Vitamin D deficiency Allergic rhinitis Elevated LFTs Primary osteoarthritis, unspecified shoulder Osteoarthritis of spine with radiculopathy, lumbosacral region Primary osteoarthritis of both knees Chronic obstructive pulmonary disease (COPD) Benign essential hypertension Acquired hypothyroidism Pure hypercholesterolemia Hypertension High cholesterol Surgical History History of incision and drainage (~11/2022) History of colonoscopy S/P laparoscopic sleeve gastrectomy History of sleeve gastrectomy (07/24/18) History of total abdominal hysterectomy and bilateral salpingo-oophorectomy (~2004) History of cardiac cath (~03/2018) History of lumpectomy of right breast (~12/2012) H/O unilateral oophorectomy Family History Father CVD (cardiovascular disease) Mother Cervical cancer Pancreatic cancer Uterine cancer Sister Substance abuse Social History Household Members: Spouse Housing: Apartment Are you a primary post acute care nurse to a significant other at home: No Do you presently have visiting nurse or other home services: No Alcohol intake: never Patient Tobacco Use Status: Former Tobacco user Tobacco use type: Cigarette e-Cigarette/Vaping Use: Never Used Second Hand Smoke Exposure: No service: No 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al status: disabled 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, 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al exposures/hazards: No Cognitive needs: No Hearing needs: No Vision needs: Yes Female Reproductive History Menstrual Date of Mammogram: 03/08/23 Review of Systems Const All systems reviewed & are unremarkable except as noted in HPI and below Denies headache(s) and Reports weight loss ENT Denies headache(s) Resp Denies chest congestion, Denies cough, Denies hemoptysis and Denies wheezing Denies nipple discharge Skin/Breast Denies breast skin changes, Denies breast pain, Denies breast mass, Denies change in breast shape, Reports dry skin and Denies nipple discharge Neuro Denies headache(s) Anup/Lymph Denies lymphadenopathy Aller/Immun Denies wheezing Physical Exam Const General: cooperative, healthy appearing, comfortable, no acute distress and well developed Eyes Sclerae: sclerae normal Chest Other: Left breast: No skin change, no nipple retraction, no nipple discharge, no palpable mass, no enlarged lymph nodes. Right breast: Well-healed incision in the 3 o'clock position just medial to the nipple-areolar complex. No palpable mass below this incision. No new skin change, no nipple retraction, no nipple discharge, no palpable mass, no enlarged lymph nodes Chest/axillae images: 1. 2. Resp Effort & Inspection: normal respiratory effort Auscultation: no crackles and no wheezes Skin Other: Warm, dry, no rash General skin exam: no rashes or lesions noted Extrem Other: No upper extremity lymphedema General: Yes no clubbing, cyanosis or edema Assessment & Plan Assessment & Plan (1) Ductal carcinoma in situ (DCIS) of right breast: Code(s): D05.11 - Intraductal carcinoma in situ of right breast Plan: Patient returns for follow-up breast examination after right breast lumpectomy for ductal carcinoma in situ at the 3 o'clock position in November 2012 followed by radiation therapy. She feels well and denies any ongoing symptoms. Examination reveals no suspicious findings in either breast and no evidence of recurrence disease. She should continue with yearly mammography due in February 2024. I recommended follow-up examination in 1 year, sooner p.r.n.. Coding Level of Care Code Est Pt Level 3 (04820) Diagnoses Ductal carcinoma in situ (DCIS) of right breast D05.11
[2023-04-04 09:03] VITALS: BP 155/67; PULSE 71; BMI 27.3
== END 2023-04-04 09:10 | disposition home or self-care (01) ==
PROVIDERS: PCP Internal Medicine; Visit Provider Surgery
DX: D05.11 Intraductal carcinoma in situ of right breast (principal)
CPT/HCPCS: 99213

== ENCOUNTER → 2023-04-04 08:51 | Outpatient (BNVA) | payer MEDICARE, SELFPAY | PROVIDERS: PCP Internal Medicine; Visit Provider Surgery | DX: D05.11 Intraductal carcinoma in situ of right breast (principal) | CPT/HCPCS: 99212 ==

== ENCOUNTER 2023-04-06 09:27 | Outpatient (AMB) | payer MEDICARE, SELFPAY ==
--- NOTE | 2023-04-06 09:33 | MHC.OFFVIS ---
Intake Vital Signs 04/06/23 09:35 Height 5 ft 7 in Weight 175 lb 0.752 oz BMI 27.4 BP 143/68 H Blood Pressure Location Rt brachial Position Sitting Pulse 68 Intake Visit Reasons: 8 Weeks Follow up Intake Note: Patient presents to in office visit today in follow up of GERD. CC: Patient reports she is having constipation right now, and occasional nausea when eating. Denies other GI symptoms. Naval Architect Specialist Required: Yes Naval Architect Specialist Name: Anthony rosa art therapy certified supervisor Accompanied by: Self / Same As Patient Allergies kamara [CHERRIES] Allergy (Intermediate, Verified 04/06/23 09:54) ITCHING-THROAT Sulfa (Sulfonamide Antibiotics) Allergy (Intermediate, Verified 04/06/23 09:54) rash naproxen Adverse Reaction (Mild, Verified 04/06/23 09:54) dizziness HPI 8 Weeks Follow up HPI Details Assessment & Plan (1) Intestinal malabsorption following gastrectomy: ?Code(s): K91.2 - Postsurgical malabsorption, not elsewhere classified; Z90.3 - Acquired absence of stomach [part of] ?Plan: [place] #Anthony Rosa She is feeling generally well, but is having a great deal of flatulence all day long even if I don't eat. We discuss possible causes and she does not drink soda and does not use artificial sugars. She is moving her bowels well and has senna for prn CIC. WE discuss zenaida Vasquez given her past report of not tolerating fatty foods that results in bloating. The gas it worse with milk products, so this sounds like mild EPI. She also c/o wt gain even if not eating much. We discuss the metabolic reasons this happens as we age and the only real way to address this is through exercise. She is not keen on this. THEN she also admits that she likes to eat a lot of sweets. ROV 8 weeks. (2) Chronic idiopathic constipation: ?Code(s): K59.04 - Chronic idiopathic constipation (3) Periumbilical abdominal pain: ?Code(s): R10.33 - Periumbilical pain ? ? ? Medications: New bykdmc-hajwoajx-ft ylase 36,000-114,0 00- 180,000 unit ( Creon) ?? administ er with meals and/ or snacks 1 cap? PO QID 120 caps 6RF R10.33 - Periumbil ical pain ? Refilled omeprazole 40 mg? PO DAILY 30 days 30 caps 6RF C ? ? sennosides (senna) 25.8 mg (3 x 8.6 m g) PO BEDTIME 30 d ays 90 caps 6RF co nstipation K59.04 - Chronic i diopathic constipa tion ? docusate sodium (C olace) 100 mg? PO .DAILY WITH FOOD 30 days 30 caps 6RF K59.04 - Chronic i diopathic constipa tion ? TODAY'S VISIT [place] #Carol Rosa She has been having pain after eating. She feels the creon helps but she is only taking 2 a day. I suggest 2 tabs bid dosing. Senna only causing borborygmus and not moving her bowels, so clearly this is not working. She found her system changed after she was in the hospital and they put a tube in my throat to get out the infection, ;(sounds like a bronchoscopy). We will start Linzess since she has failed bisacodyl r/t s/e, Miralax, fiber, senna and colace. 72 mcg and titrate. ROV 4 weeks. RX Toradol cream as a courtesy. [facility] Medical History (Updated 04/06/23 @ 16:54 by MITA Godfrey) Hospital discharge follow-up Annual physical exam Rib pain on left side Upper back pain Myalgia Left leg pain Recurrent abdominal pain Pain of left heel Right wrist pain COVID-19 Rash Adult general medical exam Left lumbar radiculopathy Pain and swelling of left lower extremity Lumbar degenerative disc disease Parapharyngeal abscess (~11/2022) Zinc deficiency Vitamin B1 deficiency Vitamin A deficiency Chest pain, pleuritic Abdominal distension, gaseous Left-sided thoracic back pain Intestinal malabsorption following gastrectomy Left inguinal pain Neuropathic pain of left lower extremity Overweight (BMI 25.0-29.9) Primary insomnia History of ductal carcinoma in situ (DCIS) of breast Vitamin D deficiency Allergic rhinitis Elevated LFTs Primary osteoarthritis, unspecified shoulder Osteoarthritis of spine with radiculopathy, lumbosacral region Primary osteoarthritis of both knees Chronic obstructive pulmonary disease (COPD) Benign essential hypertension Acquired hypothyroidism Pure hypercholesterolemia Hypertension High cholesterol Surgical History (Updated 04/06/23 @ 16:54 by MITA Godfrey) History of sleeve gastrectomy (07/24/18) History of incision and drainage (~11/2022) History of colonoscopy History of total abdominal hysterectomy and bilateral salpingo-oophorectomy (~2004) History of cardiac cath (~03/2018) History of lumpectomy of right breast (~12/2012) H/O unilateral oophorectomy Family History Father CVD (cardiovascular disease) Mother Cervical cancer Pancreatic cancer Uterine cancer Sister Substance abuse Social History Household Members: Spouse Housing: Apartment Are you a primary healthcare administration internship to a significant other at home: No Do you presently have visiting nurse or other home services: No Alcohol intake: never Patient Tobacco Use Status: Former Tobacco user Tobacco use type: Cigarette e-Cigarette/Vaping Use: Never Used Second Hand Smoke Exposure: No service: No 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al status: disabled 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, 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al exposures/hazards: No Cognitive needs: No Hearing needs: No Vision needs: Yes Review of Systems Const Denies fatigue, Denies fever(s), Denies night sweats, Denies poor appetite and Denies weight loss ENT Reports Normal hearing present, Denies dental pain, Denies dysphagia, Denies hearing loss, Denies mouth pain, Denies odynophagia, Denies throat swelling, Denies tongue swelling and Reports other (Dentition adequate) Card Reports no additional complaints Resp Reports no additional complaints GI Reports abdominal pain, Denies melena, Reports bloating, Denies hematochezia, Reports constipation, Denies GI cramping, Denies dysphagia, Denies excessive flatus, Denies early satiety, Denies heartburn, Denies diarrhea, Denies nausea, Denies odynophagia, Denies vomiting and Denies hematemesis Skin/Breast Denies pruritus, Denies lesions, Denies rash and Denies jaundice Neuro Reports Normal hearing present and Denies Abnormal speech present Endo Denies fatigue Aller/Immun Denies throat swelling and Denies tongue swelling Physical Exam Vital Signs: Last Vital Signs Pulse 68 04/06/23 09:35 BP 143/68 H 04/06/23 09:35 BMI result Body Mass Index 27.4 Const General: cooperative, no acute distress, well developed and well groomed Nutritional Appearance: average body habitus and well nourished Orientation/consciousness: oriented to person, oriented to place and oriented to time Limitations: language barrier HEENT Head: Yes normocephalic and Yes atraumatic Eyes General: appearance normal, both eyes and all related structures Pupils: Equal, round and reactive pupils present Neck Neck: Yes normal visual inspection and Yes no lymphadenopathy Thyroid: Thyroid normal Resp Effort & Inspection: normal respiratory effort and able to speak in complete sentences Auscultation: clear to auscultation bilaterally Cardio Rate: regular rate Rhythm: regular rhythm Heart sounds: Normal, physiologic split S2 sound present Peripheral pulses: radial pulses present and posterior tibial pulses present GI Inspection: No distended and No Abdominal panniculus present Palpation (GI): Soft to palpation, nontender, no guarding, not rigid and No hepatosplenomegaly present Percussion: Yes normal to percussion Auscultation: normal bowel sounds Rectal Exam - Female: deferred Skin General skin exam: no rashes or lesions noted, turgor normal, skin not dry, no jaundice, No spider nevi and no striae Rashes: no rashes Nails: normal Neuro General: oriented to person, oriented to place and oriented to time Cranial nerves: Yes Equal, round and reactive pupils present and Yes Normal hearing present Speech: No Abnormal speech present Extrem General: Yes normal to inspection, No clubbing, No cyanosis and No edema Psych Appearance: grossly normal and well kempt Mental Status: mental status grossly normal Speech and movement: Normal speech and movement present Affect: normal affect Attitude: cooperative Thought process: Normal thought process present and not confabulating Thought content: Normal thought content present Insight: Limited insight present (Psych) Judgement: Limited judgement present (Psych) Assessment & Plan Assessment & Plan (1) Chronic idiopathic constipation: Code(s): K59.04 - Chronic idiopathic constipation Plan: [place] #Carol LIve She has been having pain after eating. She feels the creon helps but she is only taking 2 a day. I suggest 2 tabs bid dosing. Senna only causing borborygmus and not moving her bowels, so clearly this is not working. She found her system changed after she was in the hospital and they put a tube in my throat to get out the infection, ;(sounds like a bronchoscopy). We will start Linzess since she has failed bisacodyl r/t s/e, Miralax, fiber, senna and colace. 72 mcg and titrate. ROV 4 weeks. RX Toradol cream as a courtesy. (2) Periumbilical abdominal pain: Code(s): R10.33 - Periumbilical pain (3) Abdominal distension, gaseous: Code(s): R14.0 - Abdominal distension (gaseous) (4) Intestinal malabsorption following gastrectomy: Code(s): K91.2 - Postsurgical malabsorption, not elsewhere classified; Z90.3 - Acquired absence of stomach [part of] Medications: New linaclotide (Linzess) 72 mcg PO QAM 30 caps 3RF K59.04 - Chronic idiopathic constipation Refilled diclofenac sodium 1% 2 grams topical BID PRN 100 grams 6RF for pain M79.605 - Pain in left leg docusate sodium (Colace) 100 mg PO .DAILY WITH FOOD 30 days 30 caps 6RF K59.04 - Chronic idiopathic constipation Patient Instructions: Dannielle Dejesus Empiece a katey Creon 2 c?psulas por la ma?terence y 2 c?psulas por la noche. Ale de katey sen y docusate. Estoy empezando a katey un nuevo medicamento llamado Linzess que se carlos a primera hora de la ma?terence con un vaso lleno de agua. Quiero verte en 4 semanas para princess c?mo funciona esto. Coding Level of Care Code Est Pt Level 3 (61582) Diagnoses Chronic idiopathic constipation K59.04 Periumbilical abdominal pain R10.33 Abdominal distension, gaseous R14.0 Intestinal malabsorption following gastrectomy K91.2; Z90.3
[2023-04-06 09:35] VITALS: BP 143/68; PULSE 68; BMI 27.4
== END 2023-04-06 11:21 | disposition home or self-care (01) ==
PROVIDERS: PCP Internal Medicine; Visit Provider Nurse Practitioner
DX: K59.04 Chronic idiopathic constipation (principal); R10.33 Periumbilical pain; R14.0 Abdominal distension (gaseous); K91.2 Postsurgical malabsorption, not elsewhere classified; Z90.3 Acquired absence of stomach [part of]
CPT/HCPCS: 99213

== ENCOUNTER → 2023-04-06 09:27 | Outpatient (BNVA) | payer MEDICARE, SELFPAY | PROVIDERS: PCP Internal Medicine; Visit Provider Nurse Practitioner | DX: K59.04 Chronic idiopathic constipation (principal); K91.2 Postsurgical malabsorption, not elsewhere classified; R10.33 Periumbilical pain; R14.0 Abdominal distension (gaseous); Z90.3 Acquired absence of stomach [part of] | CPT/HCPCS: 99212 ==

== ENCOUNTER 2023-05-10 15:44 | Outpatient (REF) | payer MEDICARE, SELFPAY ==
--- NOTE | ~2023-05-10 | XR_ITS ---
EXAMINATION: XR HAND, RIGHT CLINICAL INFORMATION: Right hand pain. COMPARISON: None available. TECHNIQUE: PA, lateral, and oblique views of the right hand. FINDINGS: On the lateral radiograph, a triquetral avulsion fracture is seen. Some associated soft tissue swelling. An additional bony fragment is seen just dorsal to the distal radius which may represent a small avulsion fracture from the radius. The exam is otherwise unremarkable. XR/XR hand RT min 3V IMPRESSION: Triquetral avulsion fracture. Possible small avulsion fracture from the distal/dorsal radius.
== END 2023-05-10 15:45 | disposition home or self-care (01) ==
LOC: HO.XRAY 15:44
PROVIDERS: PCP Internal Medicine; Visit Provider Internal Medicine
DX: M79.641 Pain in right hand (principal)
CPT/HCPCS: 73130

== ENCOUNTER 2023-06-30 10:07 | Outpatient (AMB) | payer MEDICARE, SELFPAY ==
[2023-06-30 10:09] VITALS: BMI 27.4
--- NOTE | 2023-06-30 10:09 | MHC.OFFVIS ---
Intake Vital Signs 06/30/23 10:09 Height 5 ft 7 in Weight 175 lb BMI 27.4 Intake Visit Reasons: fc-RT Hand Triquetral avulsion fracture Intake Note: Dannielle is a 67 year old right hand dominant female who presents today for a evaluation for her right wrist fx, 05/2023. Patient reports she was kneading dough and she felt a sharp pain. Pain is more focused on the base of the thumb and on the palm of the hand. She states taking Tylenol and icing which gives her mild relief. Denies numbness and tingling. Allergies kamara [CHERRIES] Allergy (Intermediate, Verified 06/30/23 10:35) ITCHING-THROAT Sulfa (Sulfonamide Antibiotics) Allergy (Intermediate, Verified 06/30/23 10:35) rash naproxen Adverse Reaction (Mild, Verified 06/30/23 10:35) dizziness HPI fc-RT Hand Triquetral avulsion fracture HPI Details 67-year-old right hand dominant female, who is Welsh speaking, presents in the office today for an evaluation of right hand pain. I last saw the patient in the office on 08/24/2021 with a chief complaint of right wrist pain which radiated up the arm. At the time she was using a wrist brace and attending occupational therapy but she missed two visits and when she went to come back she was told she was dismissed from therapy. It was recommended for her to return to OT and to discontinue the use of the brace which was causing stiffness. The patient reported she wished to continue her care with the provider that was first treating her right wrist pain. While in the office today the patient reports she was kneading dough when she felt a sharp pain. She reports the pain is focus at the base of her right thumb and on the palm of her hand. She confirms the use of Tylenol and icing, with mild relief. She denies numbness or tingling. Patient has a significant medical history of left upper extremity DVT post-op in 11/2022. Currently on Eliquis 5 mg BID. [facility] Medical History (Updated 06/30/23 @ 10:55 by Tiffanie Toscano) Hospital discharge follow-up Annual physical exam Rib pain on left side Upper back pain Myalgia Left leg pain Recurrent abdominal pain Pain of left heel Right wrist pain COVID-19 Rash Adult general medical exam Left lumbar radiculopathy Pain and swelling of left lower extremity Lumbar degenerative disc disease Parapharyngeal abscess (~11/2022) Zinc deficiency Vitamin B1 deficiency Vitamin A deficiency Chest pain, pleuritic Abdominal distension, gaseous Left-sided thoracic back pain Intestinal malabsorption following gastrectomy Left inguinal pain Neuropathic pain of left lower extremity Overweight (BMI 25.0-29.9) Primary insomnia History of ductal carcinoma in situ (DCIS) of breast Vitamin D deficiency Allergic rhinitis Elevated LFTs Primary osteoarthritis, unspecified shoulder Osteoarthritis of spine with radiculopathy, lumbosacral region Primary osteoarthritis of both knees Chronic obstructive pulmonary disease (COPD) Benign essential hypertension Acquired hypothyroidism Pure hypercholesterolemia Hypertension High cholesterol Surgical History (Updated 04/06/23 @ 16:54 by MITA Godfrey) History of sleeve gastrectomy (07/24/18) History of incision and drainage (~11/2022) History of colonoscopy History of total abdominal hysterectomy and bilateral salpingo-oophorectomy (~2004) History of cardiac cath (~03/2018) History of lumpectomy of right breast (~12/2012) H/O unilateral oophorectomy Family History Father CVD (cardiovascular disease) Mother Cervical cancer Pancreatic cancer Uterine cancer Sister Substance abuse Social History Household Members: Spouse Housing: Apartment Are you a primary care transitions manager to a significant other at home: No Do you presently have visiting nurse or other home services: No Alcohol intake: never Patient Tobacco Use Status: Former Tobacco user Tobacco use type: Cigarette e-Cigarette/Vaping Use: Never Used Second Hand Smoke Exposure: No service: No 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al status: disabled 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, 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al exposures/hazards: No Cognitive needs: No Hearing needs: No Vision needs: Yes Review of Systems Const All systems reviewed & are unremarkable except as noted in HPI and below Physical Exam Vital Signs: BMI result Body Mass Index 27.4 Const General: cooperative, healthy appearing and no acute distress Resp Effort & Inspection: normal respiratory effort and able to speak in complete sentences Cardio Rate: regular rate Peripheral pulses: Peripheral pulses 2+ throughout GI Palpation (GI): Soft to palpation Skin Lesions: no lesions Rashes: no rashes Extrem Other: Right hand: Normal to inspection. No ecchymosis, erythema, or edema. Tenderness to palpation at the base of the thumb on the dorsal and palmar aspect. Tenderness to palpation at the distal radius. Able to perform full finger flexion, extension, abduction, adduction, finger cross, okay sign, and thumbs up without deficit. Able to make a closed fist. Sensation intact. Capillary refill is brisk. Radial pulse intact. Assessment & Plan Assessment & Plan (1) Osteoarthritis of right hand: Code(s): M19.041 - Primary osteoarthritis, right hand (2) Fracture of triquetrum of right wrist: Code(s): S62.111A - Displaced fracture of triquetrum [cuneiform] bone, right wrist, initial encounter for closed fracture (3) History of DVT (deep vein thrombosis): Code(s): Z86.718 - Personal history of other venous thrombosis and embolism Plan Ms. Nitza Dejesus is a 67-year-old right hand dominant female, who is Welsh speaking, presents in the office today for an evaluation of right hand pain. I last saw the patient in the office on 08/24/2021 with a chief complaint of right wrist pain which radiated up the arm. At the time she was using a wrist brace and attending occupational therapy but she missed two visits and when she went to come back she was told she was dismissed from therapy. It was recommended for her to return to OT and to discontinue the use of the brace which was causing stiffness. The patient reported she wished to continue her care with the provider that was first treating her right wrist pain. While in the office today the patient reports she was kneading dough when she felt a sharp pain. She reports the pain is focus at the base of her right thumb and on the palm of her hand. She confirms the use of Tylenol and icing, with mild relief. She denies numbness or tingling. Patient has a significant medical history of left upper extremity DVT post-op in 11/2022. Currently on Eliquis 5 mg BID. The patient was given a comfort cool brace, off the shelf, while in the office today. She should wear this with activities. She should have activity modification to avoid pinching or tight gripping with wrist flexion and extension. Follow up will be PRN, or sooner if needed. X-rays of the right hand which were obtained while in the office today and were reviewed by me, Sri Kong PA-C, revealed No acute fracture or dislocation. X-rays of the right hand, obtained on 05/10/2023, revealed: Question of triquetral avulsion fracture. Possible small avulsion fracture from the distal/dorsal radius. The is not tenderness in this area. Orders: Orders XR hand RT min 3V Today M79.643 - Pain in unspecified hand Patient Instructions: Scribed by Tiffanie Toscano general medical practitioner, for Sri Kong PA-C on 06/30/2023 at 10:08 am, EST. Coding Level of Care Code Est Pt Level 3 (10859) Diagnoses Osteoarthritis of right hand M19.041 Fracture of triquetrum of right wrist S62.111A History of DVT (deep vein thrombosis) Z86.718
== END 2023-06-30 10:59 | disposition home or self-care (01) ==
PROVIDERS: PCP Internal Medicine; Visit Provider Physician Assistant
DX: M19.041 Primary osteoarthritis, right hand (principal); S62.111A Displaced fracture of triquetrum [cuneiform] bone, right wrist, initial encounter for closed fracture; Z86.718 Personal history of other venous thrombosis and embolism
CPT/HCPCS: 99213

== ENCOUNTER 2023-06-30 12:38 | Outpatient (REF) | payer MEDICARE, SELFPAY ==
--- NOTE | ~2023-06-30 | XR_ITS ---
EXAMINATION: XR HAND, RIGHT CLINICAL INFORMATION: Pain COMPARISON: Right hand radiograph from 05/10/2023 TECHNIQUE: PA, lateral, and oblique views of the right hand. FINDINGS: Redemonstration of right triquetral avulsion fracture best visualized on the lateral projection. Additional ossific densities along the distal radius are stable. Joint spaces and alignment are otherwise maintained. Soft tissue swelling about the wrist. XR/XR hand RT min 3V IMPRESSION: 1. Redemonstration of right triquetral avulsion fracture best visualized on the lateral projection. 2. Additional ossific densities along the distal radius are stable. 3. Soft tissue swelling about the wrist.
== END 2023-06-30 12:39 | disposition home or self-care (01) ==
LOC: HO.HOSX 12:38
PROVIDERS: Visit Provider Physician Assistant
DX: S62.111D Displaced fracture of triquetrum [cuneiform] bone, right wrist, subsequent encounter for fracture with routine healing (principal); M19.041 Primary osteoarthritis, right hand; X58.XXXD Exposure to other specified factors, subsequent encounter
CPT/HCPCS: 73130; 99212

== ENCOUNTER 2023-10-10 11:24 | Outpatient (AMB) | payer MEDICARE, SELFPAY ==
--- NOTE | 2023-10-10 11:31 | MHC.OFFVIS ---
Vital Signs 10/10/23 11:33 Height 5 ft 7 in Weight 180 lb 5.41 oz BMI 28.2 BP 134/62 Blood Pressure Location Rt brachial Position Sitting Pulse 70 Intake Visit Reasons: Follow up N/S last appt Intake Note: Patient in office today for follow up of CIC. CC: Patient states that she was feeling well until yesterday when she began to have abdominal cramps. Salon Receptionist Required: Yes Salon Receptionist Name: [id number] Td Accompanied by: Self / Same As Patient Allergies kamara [CHERRIES] Allergy (Intermediate, Verified 10/10/23 11:41) ITCHING-THROAT Sulfa (Sulfonamide Antibiotics) Allergy (Intermediate, Verified 10/10/23 11:41) rash naproxen Adverse Reaction (Mild, Verified 10/10/23 11:41) dizziness HPI HPI Follow up N/S last appt: Details: Assessment & Plan (1) Chronic idiopathic constipation: Code(s): K59.04 - Chronic idiopathic constipation Plan: [place] #Carol LIve She has been having pain after eating. She feels the creon helps but she is only taking 2 a day. I suggest 2 tabs bid dosing. Senna only causing borborygmus and not moving her bowels, so clearly this is not working. She found her system changed after she was in the hospital and they put a tube in my throat to get out the infection, ;(sounds like a bronchoscopy). We will start Linzess since she has failed bisacodyl r/t s/e, Miralax, fiber, senna and colace. 72 mcg and titrate. ROV 4 weeks. RX Toradol cream as a courtesy. (2) Periumbilical abdominal pain: Code(s): R10.33 - Periumbilical pain (3) Abdominal distension, gaseous: Code(s): R14.0 - Abdominal distension (gaseous) (4) Intestinal malabsorption following gastrectomy: Code(s): K91.2 - Postsurgical malabsorption, not elsewhere classified; Z90.3 - Acquired absence of stomach [part of] Medications: New linaclotide (Linzess) 72 mcg PO QAM 30 caps 3RF K59.04 - Chronic idiopathic constipation Refilled diclofenac sodium 1% 2 grams topical BID PRN 100 grams 6RF for pain M79.605 - Pain in left leg docusate sodium (Colace) 100 mg PO .DAILY WITH FOOD 30 days 30 [facility] 6RF K59.04 - Chronic idiopathic constipation Patient Instructions: Dannielle Dejesus Empiece a katey Creon 2 c?psulas por la ma?terence y 2 c?psulas por la noche. Ale de katey sen y docusate. Estoy empezando a katey un nuevo medicamento llamado Linzess que se carlos a primera hora de la ma?terence con un vaso lleno de agua. Quiero verte en 4 semanas para princess c?mo funciona esto. TODAY'S VISIT [place]er #[id number], Td She is doing well using the Linzess prn, However, she developed sudden onset of lowell umbilical abdominal pain across the entire abd and diarrhea the past 2 days. Will get stool samples to test for possible infection (she confirms she is holding the Linzess). She also held the creon but this is not necessary as it would not cause diarrhea. No other new meds, no F/C, no N/V, no known sick contacts. She also continues on her omeprazole once a day. ROV 2 weeks. [facility] Medical History (Reviewed 10/10/23 @ 11:41 by Des Nguyễn [facility]) Hospital discharge follow-up Annual physical exam Rib pain on left side Upper back pain Myalgia Left leg pain Recurrent abdominal pain Pain of left heel Right wrist pain COVID-19 Rash Adult general medical exam Left lumbar radiculopathy Pain and swelling of left lower extremity Lumbar degenerative disc disease Parapharyngeal abscess (~11/2022) Zinc deficiency Vitamin B1 deficiency Vitamin A deficiency Chest pain, pleuritic Abdominal distension, gaseous Left-sided thoracic back pain Intestinal malabsorption following gastrectomy Left inguinal pain Neuropathic pain of left lower extremity Overweight (BMI 25.0-29.9) Primary insomnia History of ductal carcinoma in situ (DCIS) of breast Vitamin D deficiency Allergic rhinitis Elevated LFTs Primary osteoarthritis, unspecified shoulder Osteoarthritis of spine with radiculopathy, lumbosacral region Primary osteoarthritis of both knees Chronic obstructive pulmonary disease (COPD) Benign essential hypertension Acquired hypothyroidism Pure hypercholesterolemia Hypertension High cholesterol Surgical History History of sleeve gastrectomy (07/24/18) History of incision and drainage (~11/2022) History of colonoscopy History of total abdominal hysterectomy and bilateral salpingo-oophorectomy (~2004) History of cardiac cath (~03/2018) History of lumpectomy of right breast (~12/2012) H/O unilateral oophorectomy Family History Father CVD (cardiovascular disease) Mother Cervical cancer Pancreatic cancer Uterine cancer Sister Substance abuse Social History Household Members: Spouse Housing: Apartment Are you a primary pediatric acute care unit nurse to a significant other at home: No Do you presently have visiting nurse or other home services: No Alcohol intake: never Patient Tobacco Use Status: Former Tobacco user Tobacco use type: Cigarette e-Cigarette/Vaping Use: Never Used Second Hand Smoke Exposure: No service: No 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al status: disabled 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, 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al exposures/hazards: No Cognitive needs: No Hearing needs: No Vision needs: Yes Review of Systems Const Denies fatigue, Denies fever(s), Denies night sweats, Denies poor appetite and Denies weight loss ENT Reports Normal hearing present, Denies dental pain, Denies dysphagia, Denies hearing loss, Denies mouth pain, Denies odynophagia, Denies throat swelling, Denies tongue swelling and Reports other (Dentition adequate) Card Reports no additional complaints Resp Reports no additional complaints GI Details: Denies abdominal pain, Denies melena, Denies bloating, Denies hematochezia, Denies constipation, Reports GI cramping, Denies dysphagia, Denies excessive flatus, Denies early satiety, Reports heartburn, Reports diarrhea, Denies nausea, Denies odynophagia, Denies vomiting and Denies hematemesis Skin/Breast Denies pruritus, Denies lesions, Denies rash and Denies jaundice Neuro Reports Normal hearing present and Denies Abnormal speech present Endo Denies fatigue Aller/Immun Denies throat swelling and Denies tongue swelling Physical Exam Vital Signs: Last Vital Signs Pulse 70 10/10/23 11:33 BP 134/62 10/10/23 11:33 BMI result Body Mass Index 28.2 Const General: cooperative, no acute distress, well developed and well groomed Nutritional Appearance: well nourished and overweight Orientation/consciousness: oriented to person, oriented to place and oriented to time Limitations: language barrier HEENT Head: Yes normocephalic and Yes atraumatic Eyes General: appearance normal, both eyes and all related structures Pupils: Equal, round and reactive pupils present Neck Neck: Yes normal visual inspection and Yes no lymphadenopathy Thyroid: Thyroid normal Resp Effort & Inspection: normal respiratory effort and able to speak in complete sentences Auscultation: clear to auscultation bilaterally Cardio Rate: regular rate Rhythm: regular rhythm Heart sounds: Normal, physiologic split S2 sound present Peripheral pulses: radial pulses present and posterior tibial pulses present GI Inspection: No distended and No Abdominal panniculus present Palpation (GI): Soft to palpation, nontender, no guarding, not rigid and No hepatosplenomegaly present Percussion: Yes normal to percussion Auscultation: normal bowel sounds Rectal Exam - Female: deferred Skin General skin exam: no rashes or lesions noted, turgor normal, skin not dry, no jaundice, No spider nevi and no striae Rashes: no rashes Nails: normal Neuro General: oriented to person, oriented to place and oriented to time Cranial nerves: Yes Equal, round and reactive pupils present and Yes Normal hearing present Speech: No Abnormal speech present Extrem General: Yes normal to inspection, No clubbing, No cyanosis and No edema Psych Appearance: grossly normal and well kempt Mental Status: mental status grossly normal Speech and movement: Normal speech and movement present Affect: normal affect Attitude: cooperative Thought process: Normal thought process present and not confabulating Thought content: Normal thought content present Insight: Limited insight present (Psych) Judgement: Limited judgement present (Psych) Assessment & Plan Assessment & Plan (1) Chronic idiopathic constipation: Code(s): K59.04 - Chronic idiopathic constipation Category: Medical (2) Abdominal distension, gaseous: Code(s): R14.0 - Abdominal distension (gaseous) Category: Medical (3) Left-sided thoracic back pain: Code(s): M54.6 - Pain in thoracic spine Category: Medical (4) Acute diarrhea: Code(s): R19.7 - Diarrhea, unspecified Category: Medical Plan [place] #[id number], Td She is doing well using the Linzess prn, However, she developed sudden onset of lowell umbilical abdominal pain across the entire abd and diarrhea the past 2 days. Will get stool samples to test for possible infection (she confirms she is holding the Linzess). She also held the creon but this is not necessary as it would not cause diarrhea. No other new meds, no F/C, no N/V, no known sick contacts. She also continues on her omeprazole once a day. ROV 2 weeks. Orders: Orders C Reactive Protein Today R19.7 - Diarrhea, unspecified CDiff Gene PCR Today R19.7 - Diarrhea, unspecified GI Panel Today R19.7 - Diarrhea, unspecified Calprotectin, Fecal Today R19.7 - Diarrhea, unspecified Coding Level of Care Code Est Pt Level 3 (89394) Diagnoses Chronic idiopathic constipation K59.04 Abdominal distension, gaseous R14.0 Left-sided thoracic back pain M54.6 Acute diarrhea R19.7
[2023-10-10 11:33] VITALS: BP 134/62; PULSE 70; BMI 28.2
== END 2023-10-10 12:04 | disposition home or self-care (01) ==
PROVIDERS: PCP Internal Medicine; Visit Provider Nurse Practitioner
DX: K59.04 Chronic idiopathic constipation (principal); R14.0 Abdominal distension (gaseous); M54.6 Pain in thoracic spine; R19.7 Diarrhea, unspecified
CPT/HCPCS: 99213

== ENCOUNTER → 2023-10-10 11:24 | Outpatient (BNVA) | payer MEDICARE, SELFPAY | PROVIDERS: PCP Internal Medicine; Visit Provider Nurse Practitioner | DX: K59.04 Chronic idiopathic constipation (principal); R14.0 Abdominal distension (gaseous); R19.7 Diarrhea, unspecified; M54.6 Pain in thoracic spine | CPT/HCPCS: 99212 ==

== ENCOUNTER 2023-10-13 11:45 | Outpatient (REF) | payer MEDICARE, MEDICAID, SELFPAY ==
[2023-10-14 10:07] LABS: CDiff Gene PCR NEGATIVE (Negative)
[2023-10-14 12:37] LABS: Adenovirus F 40/41 Not Detected (Not Detect.); Astrovirus Not Detected (Not Detect.); Campylobacter Not Detected (Not Detect.); Cryptosporidium Not Detected (Not Detect.); Cyclospora cayetanensis Not Detected (Not Detect.); E. coli EAEC Not Detected (Not Detect.); E. coli EPEC Not Detected (Not Detect.); E. coli ETEC Not Detected (Not Detect.); E. coli STEC Not Detected (Not Detect.); Entamoeba histolytica Not Detected (Not Detect.); Giardia lamblia Not Detected (Not Detect.); Norovirus GI/GII Not Detected (Not Detect.); Plesiomonas shigelloides Not Detected (Not Detect.); Rotavirus A Not Detected (Not Detect.); Salmonella Not Detected (Not Detect.); Sapovirus Not Detected (Not Detect.); Shigella sp./EIEC Not Detected (Not Detect.); Vibrio Not Detected (Not Detect.); Vibrio Cholerae Not Detected (Not Detect.); Yersinia enterocolitica Not Detected (Not Detect.)
[2023-10-20 20:13] LABS: Calprotectin, Fecal 248 mcg/g
== END 2023-10-13 11:46 | disposition home or self-care (01) ==
LOC: HO.LNP 11:45
PROVIDERS: Visit Provider Nurse Practitioner
DX: R19.7 Diarrhea, unspecified (principal)
CPT/HCPCS: 83993; 87493; 87507

== ENCOUNTER 2023-10-23 11:56 | Outpatient (REF) | payer MEDICARE, SELFPAY ==
[2023-10-23 12:56] LABS: C Reactive Protein < 0.10 mg/dL (< or = 0.50)
== END 2023-10-23 11:57 | disposition home or self-care (01) ==
LOC: HO.LAB 11:56
PROVIDERS: Absent Provider Internal Medicine; PCP Internal Medicine; Visit Provider Nurse Practitioner
DX: R19.7 Diarrhea, unspecified (principal)
CPT/HCPCS: 36415; 86140

== ENCOUNTER 2023-10-24 15:42 | Outpatient (AMB) | payer MEDICARE, SELFPAY ==
--- NOTE | 2023-10-24 15:45 | A.OFFPC_ITS ---
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 Accompanied by: Self / Same As Patient Allergies kamara [CHERRIES] Allergy (Intermediate, Verified 10/24/23 15:59) ITCHING-THROAT Sulfa (Sulfonamide Antibiotics) Allergy (Intermediate, Verified 10/24/23 15:59) rash naproxen Adverse Reaction (Mild, Verified 10/24/23 15:59) dizziness Medication List - Last Reconciled 10/24/23 by Armando Wheeler MD albuterol sulfate 90 mcg/actuation (ProAir HFA) 2 puffs inhalation .4 times a day PRN amlodipine 5 mg PO DAILY 90 days apixaban (Eliquis) 5 mg PO BID ascorbate calcium (vitamin C) 500 mg PO BID atorvastatin 20 mg PO DAILY blood pressure monitor As directed blood pressure test kit-large As directed celecoxib 200 mg PO DAILY PRN 30 days cholecalciferol (vitamin D3) 50 mcg PO DAILY clotrimazole-betamethasone 1-0.05 % 1 appl topical BID 10 days cyanocobalamin (vitamin B-12) 500 mcg PO DAILY cyclobenzaprine 10 mg PO BEDTIME diclofenac sodium 1% 2 grams topical BID PRN docusate sodium (Colace) 100 mg PO .DAILY WITH FOOD 30 days levothyroxine 100 mcg PO DAILY linaclotide (Linzess) 72 mcg PO QAM [id number] 36,000-114,000- 180,000 unit (Creon) 1 cap PO QID loratadine 10 mg PO DAILY PRN 90 days mometasone 0.1% 1 appl topical DAILY 15 days multivitamin with folic acid 400 mcg (Daily-Jen (with folic acid)) 1 tab PO DAILY omeprazole 40 mg PO DAILY 30 days polyethylene glycol 3350 (Miralax) 17 grams PO DAILY 30 days sennosides (senna) 25.8 mg (3 x 8.6 mg) PO BEDTIME 30 days Ventolin HFA 90 mcg/actuation (albuterol sulfate) 2 puffs inhalation Q6H PRN 30 days NS Tobacco use date assessed: 10/24/23 Fall risk assessment: No Falls in past year Last assessed Fall Risk: 10/24/23 Dental Screening Dental Screen Date: 10/24/23 Did you have a dental visit in the last 12 months?: Yes Did you have a dental problem in the last 6 months where you did not have access to dental care?: No Was dental information given to patient?: Patient has dentist HPI Hyperlipidemia/Hypothyroidism/GERD - see comment HPI Details Patient comes in today for her follow up visit States that she currently feels okay but continues to experience increased pain often in her right hand, especially over the dorsum of the hand She was reportedly seen for this by orthopedics a few months ago and sent for PT/OT, which patient states helped somewhat at the time but the pain has since recurred and she feels that it has been slowly progressing - would like to know what she should do now to help alleviate the pain She denies any headaches or dizziness Denies any chest pains, no SOB No nausea/vomiting, no abdominal pain No change in bowel habits noted Needs a couple of her Rx refilled States that she has been on her blood thinner for a while now and her left upper arm is still somewhat swollen - is wondering if she should get another follow up US to see if the blood clot is still present She had her follow up labs done a couple of weeks ago - to discuss her results [facility] Medical History COVID-19 Left lumbar radiculopathy Lumbar degenerative disc disease Parapharyngeal abscess (~11/2022) Zinc deficiency Vitamin B1 deficiency Vitamin A deficiency Chest pain, pleuritic Intestinal malabsorption following gastrectomy Left inguinal pain Neuropathic pain of left lower extremity Overweight (BMI 25.0-29.9) Primary insomnia History of ductal carcinoma in situ (DCIS) of breast Vitamin D deficiency Allergic rhinitis Elevated LFTs Primary osteoarthritis, unspecified shoulder Osteoarthritis of spine with radiculopathy, lumbosacral region Primary osteoarthritis of both knees Chronic obstructive pulmonary disease (COPD) Benign essential hypertension Acquired hypothyroidism Pure hypercholesterolemia Surgical History History of sleeve gastrectomy (07/24/18) History of incision and drainage (~11/2022) History of colonoscopy History of total abdominal hysterectomy and bilateral salpingo-oophorectomy (~2004) History of cardiac cath (~03/2018) History of lumpectomy of right breast (~12/2012) H/O unilateral oophorectomy Family History Father CVD (cardiovascular disease) Mother Cervical cancer Pancreatic cancer Uterine cancer Sister Substance abuse Social History Household Members: Spouse Housing: Apartment Are you a primary day care home provider to a significant other at home: No Do you presently have visiting nurse or other home services: No Alcohol intake: never Patient Tobacco Use Status: Former Tobacco user Tobacco use type: Cigarette e-Cigarette/Vaping Use: Never Used Second Hand Smoke Exposure: No service: No 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al status: disabled 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, 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 1. Little interest or pleasure in doing things: not at all 2. Feeling down, depressed, or hopeless: not at all 3. Trouble falling or staying asleep, or sleeping too much: not at all 4. Feeling tired or having little energy: not at all 5. Poor appetite or overeating: not at all 6. Feeling bad about yourself - or that you are a failure or have let yourself or your family down: not at all 7. Trouble concentrating on things, such as reading the newspaper or watching television: not at all 8. Moving or speaking so slowly that other people could have noticed. Or the opposite - being so fidgety or restless that you have been moving around a lot more than usual: not at all 9. Thoughts that you would be better off or of hurting yourself in some way: not at all Total score: 0 Depression Screening Interpretation: Negative Depression Screening Done: Yes 41229 - PHQ-9 Billing: Yes Source: Developed by Drs. Martin Mata, Stephanie Briceño, Ankur Jeong and colleagues, with an educational terrence from [employer]. Thrive Questionnaire Date Thrive assessed: 10/24/23 I am a: Patient What is your living situation today?: I have a steady place to live Within the past 12 months, did the food you bought not last and you didn't have the money to get more?: Never true Within the past 12 months, did you worry whether your food would run out before you got money to buy more?: Never true Do you have trouble paying for medicines?: No Do you have trouble getting transportation to medical appointments?: No Do you have trouble paying your heating and electricity bill?: No Do you have trouble taking care of your child, family member or friend?: No Do you have trouble with day-to-day activities such as bathing, preparing meals, shopping, managing finances, etc.?: No Are you currently unemployed and looking for a job?: No Are you interested in more education?: No Please select the resources that you would like help with: None Currently or been in a relationship where the following occur: no concerns reported THRIVE Score: 0 AUDIT C Alcohol Use Questionnaire (AUDIT-C) 1. How often do you have a drink containing alcohol?: Never 3. How often do you have six or more drinks on one occasion?: Never Total Score: 0 Score Reviewed/Action Taken: Yes SYDNEY-7 AMB Questionnaire SYDNEY-7 Date SYDNEY - 7 assessed: 10/24/23 Feeling nervous, anxious, or on edge: 0 = Not at all Not being able to stop or control worryin = Not at all Worrying too much about different things: 0 = Not at all Trouble relaxin = Not at all Being so restless that it is hard to sit still: 0 = Not at all Becoming easily annoyed or irritable: 0 = Not at all Feeling afraid as if something awful might happen: 0 = Not at all Total SYDNEY-7 score (0-4 normal; 5-9 mild; 10-14 moderate; 15-21 severe): 0 Source: Developed by Drs. Martin Mata, Stephanie Briceño, Ankur Jeong and colleagues, with an educational terrence from [employer]. Review of Systems Const Denies chills, Denies fatigue, Denies fever(s) and Denies headache(s) ENT Denies dysphagia, Denies dizziness, Denies otalgia, Denies headache(s), Denies neck pain, Denies odynophagia and Denies sore throat Card Denies chest pain, Denies rapid heart rate, Denies irregular heart rhythm, Denies palpitations and Denies dyspnea Resp Denies chest congestion, Denies cough, Denies dyspnea and Denies wheezing GI Denies abdominal pain, Reports constipation (on and off), Denies dysphagia, Denies heartburn, Denies diarrhea, Denies nausea, Denies odynophagia and Denies vomiting Denies hematuria, Denies urinary frequency, Denies dysuria and Denies urinary urgency Musc Details: increased pain over the dorsum of the right hand recently Reports back pain (over the lower back), Reports arthralgias (involving multiple joints, including right wrist, shoulder, hips) and Denies neck pain Skin/Breast Denies rash Neuro Denies dizziness, Denies headache(s) and Denies paresthesias Psych Denies anxiety and Denies depression Endo Denies fatigue and Denies palpitations Anup/Lymph Denies easy bruising Aller/Immun Denies wheezing Physical exam (Primary Care) Vital Signs: Last Vital Signs Pulse 90 10/24/23 15:46 BP 132/64 10/24/23 15:46 Pulse Ox 97 10/24/23 15:46 Oxygen Delivery Method Room Air 10/24/23 15:46 BMI result Body Mass Index 28.3 Tobacco/Smoking Status: Tobacco use Status Tobacco use date assessed 10/24/23 10/24/23 15:47 Patient Tobacco Use Status Former Tobacco user 10/24/23 15:47 Tobacco use type Cigarette 10/24/23 15:47 e-Cigarette/Vaping Use Never Used 10/24/23 15:47 PHQ-9: PHQ-9 Score PHQ-9: Total score 0 10/24/23 15:47 Depression Screening Interpretation: Negative Thrive Assessment: Date of Thrive Assessment Date Thrive assessed 10/24/23 10/24/23 15:47 Currently or been in a relationship where the following occur: no concerns reported Const General: no acute distress and alert HENMT Ears: TM's normal bilaterally and EAC's normal Throat: Yes posterior oropharynx normal and Yes tonsils normal (no TP congestion) Neck Neck: Yes no lymphadenopathy and Yes supple Thyroid: Thyroid normal Resp Auscultation: clear to auscultation bilaterally, no rales and no wheezes Cardio Rate: regular rate Rhythm: regular rhythm Heart sounds: no murmurs GI Palpation (GI): Soft to palpation and nontender Auscultation: normal bowel sounds General: Yes no CVA tenderness Back/Spine/Pelvis Back: no CVA tenderness Thoracic/Lumbar Spine: lumbar spinal tenderness Skin Rashes: no rashes Extrem General: Yes no clubbing, cyanosis or edema Right upper extremity: shoulder/upper arm Details: tenderness Location: of the A-C joint and Extremity exam: right hand Details: tenderness Location: of the dorsal hand Left lower extremity: foot Details: tenderness Location: of the calcaneus and no edema Results Reviewed Results Reviewed: Laboratory Tests 10/09/23 13:35 WBC 6.0 Hgb 12.6 Hct 38.3 Plt Count 300 Sodium 141 Potassium 4.2 Creatinine 0.72 Estimated GFR > 60 Random Glucose 94 Calcium 9.7 D AST 17 ALT 10 Assessment and Plan Assessment & Plan (1) Pure hypercholesterolemia: Code(s): E78.00 - Pure hypercholesterolemia, unspecified Plan: Results of her labs done a couple of weeks ago reviewed and discussed with patient but advised that these did not include her fasting lipids so she has not had her fasting lipids rechecked since February 2023 Reinforced low-cholesterol diet Continue Atorvastatin 20 mg QD Will recheck her labs and fasting lipids in 4 months for follow up (2) Thrombosis of left upper extremity: Code(s): I82.602 - Acute embolism and thrombosis of unspecified veins of left upper extremity Plan: Continue Eliquis 5 mg BID Will send her for repeat venous doppler of the left upper extremity for follow up of her thrombosis (3) Benign essential hypertension: Code(s): I10 - Essential (primary) hypertension Plan: Reinforced low sodium diet - goal is systolic BP of at least 130 mm or less Continue Amlodipine 5 mg QD Patient is reminded to continue monitoring her blood pressure regularly (4) Acquired hypothyroidism: Code(s): E03.9 - Hypothyroidism, unspecified Plan: Her TSH remained suppressed but free T4 was normal when her TFTs were last checked late last year; these were also not included in her recent labs Patient remains clinically euthyroid at present Continue Levothyroxine 100 mcg QD Will recheck her TFTs in 4 months for follow up (5) Chronic obstructive pulmonary disease (COPD): Code(s): J44.9 - Chronic obstructive pulmonary disease, unspecified Qualifiers: COPD type: unspecified COPD Qualified Code(s): J44.9 - Chronic obstructive pulmonary disease, unspecified Plan: Stable - continue Albuterol HFA 2 inhalations Q 6 hours PRN (Rx refilled) (6) Elevated LFTs: Code(s): R79.89 - Other specified abnormal findings of blood chemistry Plan: Resolved - her LFTs remain normal on her labs done a couple of weeks ago Will continue to monitor her LFTs regularly (7) Myalgia: Code(s): M79.10 - Myalgia, unspecified site Plan: Was most likely due to her statin Rx although they may also be partly due to her fibromyalgia States that these have improved a lot since she started taking Co Q-10 200 mg QD with her Atorvastatin upon our recommendation Her on and off sharp left thigh and leg pains may actually be related to her lower back (lumbar spine) issues - lumbar spine x-rays done back in April 2022 revealed (+) prominent degenerative disc changes at L1-L2, L4-L5, and L5-S1 with borderline retrolisthesis, but findings appear stable with no interval vertebral compression or destructive process seen She was advised that we can start her on some Rx to help with her symptoms but as her pain has been occurring only occasionally and lasts briefly, does not make much sense to have her take something for prevention at this time ESR and CRP done back in October 2022 both came back normal as well (8) Lumbar degenerative disc disease: Code(s): M51.36 - Other intervertebral disc degeneration, lumbar region Plan: Reinforced activity and weight-lifting restrictions Lumbar spine x-rays done in April 2022 revealed (+) prominent degenerative disc changes L1-L2, L4-L5, and L5-S1 with borderline retrolisthesis at L1-L2 that are stable and no interval vertebral compression or destructive process are seen Continue Tramadol 50 mg TID PRN (9) Osteoarthritis involving multiple joints on both sides of body: Code(s): M15.9 - Polyosteoarthritis, unspecified Plan: Involving multiple joints, including both knees, right shoulder, hips and left ankle X-rays of the left ankle and right wrist done a few months ago revealed (+) mild OA changes Continue Celebrex 200 mg QD PRN for pain; was on Naproxen or Ibuprofen in the past and states that they have not helped much (10) Fracture of triquetral bone of right wrist with routine healing: Code(s): S62.111D - Displaced fracture of triquetrum [cuneiform] bone, right wrist, subsequent encounter for fracture with routine healing Qualifiers: Fracture type: closed Fracture alignment: nondisplaced Qualified Code(s): S62.114D - Nondisplaced fracture of triquetrum [cuneiform] bone, right wrist, subsequent encounter for fracture with routine healing Plan: She is advised that this is likely the source of her recent increasing right hand pain Patient states that she was sent to PT/OT by orthopedics a few months ago, which helped initially but reports increasing pain in her hand lately Have discussed with her that pain and stiffness from a triquetral fracture often takes several weeks to months to gradually clear up Have advised her to check back with orthopedics regarding this to see what they would recommend as the next step here - advised that since they have seen her before, she does not need a new referral from us and all she has to do is to call them up to schedule a follow up appt with them (11) Vitamin B12 deficiency: Code(s): E53.8 - Deficiency of other specified B group vitamins Plan: Continue Vitamin B12 1000 mcg QD (12) Vitamin D deficiency: Code(s): E55.9 - Vitamin D deficiency, unspecified Plan: Continue Vitamin D3 2000 units QD (13) Chronic idiopathic constipation: Code(s): K59.04 - Chronic idiopathic constipation Plan: Better controlled lately Reinforced increased oral fluids and dietary fiber Continue Docusate 100 mg QD PRN and Miralax 17 gm QD; was also started on Linzess 72 mcg QD by GI a few weeks ago Follow up with GI as scheduled (14) Ductal carcinoma in situ (DCIS) of right breast: Code(s): D05.11 - Intraductal carcinoma in situ of right breast Plan: S/P treatment with Tamoxifen x 5 years, from 01/2013 to 01/2018 Follow up with oncology as scheduled for continuing surveillance (15) Dermatitis: Code(s): L30.9 - Dermatitis, unspecified Plan: Primarily on the right hand/fingers Continue Lotrisone cream BID PRN (16) Overweight (BMI 25.0-29.9): Comment: S/P sleeve gastrectomy Code(s): E66.3 - Overweight Plan: Reinforced diet/exercise as tolerated/lose weight Plan Follow up in 4 months Orders: Orders Thyroid Stimulating Hormone 4 Months E03.9 - Hypothyroidism, unspecified Free T4 (Free Thyroxine) 4 Months E03.9 - Hypothyroidism, unspecified Comprehensive [place]. 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 Medications: Refilled diclofenac sodium 1% 2 grams topical BID PRN 100 grams 0RF for pain M79.605 - Pain in left leg Coding Level of Care Code Est Pt Level 4 (60423) Complex EM visit Add On G2211 Diagnoses Pure hypercholesterolemia E78.00 Thrombosis of left upper extremity I82.602 Benign essential hypertension I10 Acquired hypothyroidism E03.9 Chronic obstructive pulmonary disease, unspecified COPD type J44.9 COPD type: unspecified COPD Elevated LFTs R79.89 Myalgia M79.10 Lumbar degenerative disc disease M51.36 Osteoarthritis involving multiple joints on both sides of body M15.9 Closed nondisplaced fracture of triquetrum of right wrist with routine healing, subsequent encounter S62.114D Fracture type: closed Fracture alignment: nondisplaced Vitamin B12 deficiency E53.8 Vitamin D deficiency E55.9 Chronic idiopathic constipation K59.04 Ductal carcinoma in situ (DCIS) of right breast D05.11 Dermatitis L30.9 Overweight (BMI 25.0-29.9) E66.3
[2023-10-24 15:46] VITALS: BP 132/64; PULSE 90; O2SAT 97; BMI 28.3
== END 2023-10-24 16:23 | disposition home or self-care (01) ==
PROVIDERS: PCP Internal Medicine; Visit Provider Internal Medicine
DX: E78.00 Pure hypercholesterolemia, unspecified (principal); J44.9 Chronic obstructive pulmonary disease, unspecified; I82.602 Acute embolism and thrombosis of unspecified veins of left upper extremity; I10 Essential (primary) hypertension; E03.9 Hypothyroidism, unspecified; R79.89 Other specified abnormal findings of blood chemistry; M79.10 Myalgia, unspecified site; M51.36 Other intervertebral disc degeneration, lumbar region; M15.9 Polyosteoarthritis, unspecified; S62.114D Nondisplaced fracture of triquetrum [cuneiform] bone, right wrist, subsequent encounter for fracture with routine healing; E53.8 Deficiency of other specified B group vitamins; E55.9 Vitamin D deficiency, unspecified
CPT/HCPCS: 99214; G2211

== ENCOUNTER 2023-10-25 11:28 | Outpatient (AMB) | payer MEDICARE, SELFPAY ==
--- NOTE | 2023-10-25 11:30 | MHC.OFFVIS ---
Vital Signs 10/25/23 11:49 Height 5 ft 7 in Weight 180 lb 12.465 oz BMI 28.3 BP 165/76 H Blood Pressure Location Lt brachial Position Sitting Pulse 63 Intake Visit Reasons: 2 week follow up Intake Note: Patient in office today for follow up of labs and CIC. CC: Patient reports feeling well and denies having any new GI concerns today. 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 Accompanied by: Self / Same As Patient Allergies kamara [CHERRIES] Allergy (Intermediate, Verified 10/25/23 11:51) ITCHING-THROAT Sulfa (Sulfonamide Antibiotics) Allergy (Intermediate, Verified 10/25/23 11:51) rash naproxen Adverse Reaction (Mild, Verified 10/25/23 11:51) dizziness HPI HPI 2 week follow up: Details: Assessment & Plan (1) Chronic idiopathic constipation: Code(s): K59.04 - Chronic idiopathic constipation Category: Medical (2) Abdominal distension, gaseous: Code(s): R14.0 - Abdominal distension (gaseous) Category: Medical (3) Left-sided thoracic back pain: Code(s): M54.6 - Pain in thoracic spine Category: Medical (4) Acute diarrhea: Code(s): R19.7 - Diarrhea, unspecified Category: Medical Plan [place] #[id number], Td She is doing well using the Linzess prn, However, she developed sudden onset of lowell umbilical abdominal pain across the entire abd and diarrhea the past 2 days. Will get stool samples to test for possible infection (she confirms she is holding the Linzess). She also held the creon but this is not necessary as it would not cause diarrhea. No other new meds, no F/C, no N/V, no known sick contacts. She also continues on her omeprazole once a day. ROV 2 weeks. Orders: Orders C Reactive Protein Today R19.7 - Diarrhea, unspecified CDiff Gene PCR Today R19.7 - Diarrhea, unspecified GI Panel Today R19.7 - Diarrhea, unspecified Calprotectin, Fecal Today R19.7 - Diarrhea, unspecified LABS: Laboratory Tests 10/13/23 10/23/23 11:45 12:17 C-Reactive Protein < 0.10 Stool Calprotectin 248 H 10/14/23-0820 OTHR : ORDERED: GI Panel Test Result Flag Reference Campylobacter Not Detected Not Detect. P. shigelloides Not Detected Not Detect. Salmonella Not Detected Not Detect. Vibrio Not Detected Not Detect. Vibrio Cholerae Not Detected Not Detect. Y. enterocolit. Not Detected Not Detect. E. coli EAEC Not Detected Not Detect. E. coli EPEC Not Detected Not Detect. E. coli ETEC Not Detected Not Detect. E. coli STEC Not Detected Not Detect. E. coli O157 Not applicable Not Detect. E. coli containing the O157 antigen are a subset of Shiga-like toxin-producing E. coli (STEC). Shigella/EIEC Not Detected Not Detect. Cryptosporidium Not Detected Not Detect. Cyclospora Not Detected Not Detect. E. histolytica Not Detected Not Detect. Giardia lamblia Not Detected Not Detect. Adenovirus Not Detected Not Detect. Astrovirus Not Detected Not Detect. Norovirus Not Detected Not Detect. Rotavirus A Not Detected Not Detect. Sapovirus Not Detected Not Detect. TODAY'S VISIT [place] #[facility] Live She had sx for about 3 days. Now feeling well. not taking o2o or creon or LInzess or senna or colace. Elevated fecal nicolasa...ddx wide includes meds, viral, or IBD less likely Watch and wait as she feels well now ROV 8 weeks. [facility] Medical History COVID-19 Left lumbar radiculopathy Lumbar degenerative disc disease Parapharyngeal abscess (~11/2022) Zinc deficiency Vitamin B1 deficiency Vitamin A deficiency Chest pain, pleuritic Intestinal malabsorption following gastrectomy Left inguinal pain Neuropathic pain of left lower extremity Overweight (BMI 25.0-29.9) Primary insomnia History of ductal carcinoma in situ (DCIS) of breast Vitamin D deficiency Allergic rhinitis Elevated LFTs Primary osteoarthritis, unspecified shoulder Osteoarthritis of spine with radiculopathy, lumbosacral region Primary osteoarthritis of both knees Chronic obstructive pulmonary disease (COPD) Benign essential hypertension Acquired hypothyroidism Pure hypercholesterolemia Surgical History History of sleeve gastrectomy (07/24/18) History of incision and drainage (~11/2022) History of colonoscopy History of total abdominal hysterectomy and bilateral salpingo-oophorectomy (~2004) History of cardiac cath (~03/2018) History of lumpectomy of right breast (~12/2012) H/O unilateral oophorectomy Family History Father CVD (cardiovascular disease) Mother Cervical cancer Pancreatic cancer Uterine cancer Sister Substance abuse Social History Household Members: Spouse Housing: Apartment Are you a primary landcare facilitator to a significant other at home: No Do you presently have visiting nurse or other home services: No Alcohol intake: never Patient Tobacco Use Status: Former Tobacco user Tobacco use type: Cigarette e-Cigarette/Vaping Use: Never Used Second Hand Smoke Exposure: No service: No 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al status: disabled 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, 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al exposures/hazards: No Cognitive needs: No Hearing needs: No Vision needs: Yes Review of Systems Const Denies fatigue, Denies fever(s), Denies night sweats, Denies poor appetite and Denies weight loss ENT Reports Normal hearing present, Denies dental pain, Denies dysphagia, Denies hearing loss, Denies mouth pain, Denies odynophagia, Denies throat swelling, Denies tongue swelling and Reports other (Dentition adequate) Card Reports no additional complaints Resp Reports no additional complaints GI Details: Denies abdominal pain, Denies melena, Denies bloating, Denies hematochezia, Denies constipation, Denies GI cramping, Denies dysphagia, Denies excessive flatus, Denies early satiety, Denies heartburn, Denies diarrhea, Denies nausea, Denies odynophagia, Denies vomiting and Denies hematemesis Skin/Breast Denies pruritus, Denies lesions, Denies rash and Denies jaundice Neuro Reports Normal hearing present and Denies Abnormal speech present Endo Denies fatigue Aller/Immun Denies throat swelling and Denies tongue swelling Physical Exam Vital Signs: Last Vital Signs Pulse 63 10/25/23 11:49 BP 165/76 H 10/25/23 11:49 BMI result Body Mass Index 28.3 Const General: cooperative, no acute distress, well developed and well groomed Nutritional Appearance: average body habitus and well nourished Orientation/consciousness: oriented to person, oriented to place and oriented to time Limitations: language barrier HEENT Head: Yes normocephalic and Yes atraumatic Eyes General: appearance normal, both eyes and all related structures Pupils: Equal, round and reactive pupils present Neck Neck: Yes normal visual inspection and Yes no lymphadenopathy Thyroid: Thyroid normal Resp Effort & Inspection: normal respiratory effort and able to speak in complete sentences Auscultation: clear to auscultation bilaterally Cardio Rate: regular rate Rhythm: regular rhythm Heart sounds: Normal, physiologic split S2 sound present Peripheral pulses: radial pulses present and posterior tibial pulses present GI Inspection: No distended and No Abdominal panniculus present Palpation (GI): Soft to palpation, nontender, no guarding, not rigid and No hepatosplenomegaly present Percussion: Yes normal to percussion Auscultation: normal bowel sounds Rectal Exam - Female: deferred Skin General skin exam: no rashes or lesions noted, turgor normal, skin not dry, no jaundice, No spider nevi and no striae Rashes: no rashes Nails: normal Neuro General: oriented to person, oriented to place and oriented to time Cranial nerves: Yes Equal, round and reactive pupils present and Yes Normal hearing present Speech: No Abnormal speech present Extrem General: Yes normal to inspection, No clubbing, No cyanosis and No edema Psych Appearance: grossly normal and well kempt Mental Status: mental status grossly normal Speech and movement: Normal speech and movement present Affect: normal affect Attitude: cooperative Thought process: Normal thought process present and not confabulating Thought content: Normal thought content present Insight: Limited insight present (Psych) Judgement: Limited judgement present (Psych) Results Reviewed Results Reviewed: Laboratory Tests 10/13/23 10/23/23 11:45 12:17 C-Reactive Protein < 0.10 Stool Calprotectin 248 H 10/14/23-0820 OTHR : ORDERED: GI Panel Test Result Flag Reference Campylobacter Not Detected Not Detect. P. shigelloides Not Detected Not Detect. Salmonella Not Detected Not Detect. Vibrio Not Detected Not Detect. Vibrio Cholerae Not Detected Not Detect. Y. enterocolit. Not Detected Not Detect. E. coli EAEC Not Detected Not Detect. E. coli EPEC Not Detected Not Detect. E. coli ETEC Not Detected Not Detect. E. coli STEC Not Detected Not Detect. E. coli O157 Not applicable Not Detect. E. coli containing the O157 antigen are a subset of Shiga-like toxin-producing E. coli (STEC). Shigella/EIEC Not Detected Not Detect. Cryptosporidium Not Detected Not Detect. Cyclospora Not Detected Not Detect. E. histolytica Not Detected Not Detect. Giardia lamblia Not Detected Not Detect. Adenovirus Not Detected Not Detect. Astrovirus Not Detected Not Detect. Norovirus Not Detected Not Detect. Rotavirus A Not Detected Not Detect. Sapovirus Not Detected Not Detect. Assessment & Plan Assessment & Plan (1) Abdominal distension, gaseous: Code(s): R14.0 - Abdominal distension (gaseous) Category: Medical (2) Chronic idiopathic constipation: Code(s): K59.04 - Chronic idiopathic constipation Category: Medical (3) Periumbilical abdominal pain: Code(s): R10.33 - Periumbilical pain Category: Medical (4) Acute diarrhea: Code(s): R19.7 - Diarrhea, unspecified Category: Medical Plan [place] #Carol Petersen She had sx for about 3 days. Now feeling well. not taking o2o or creon or LInzess or senna or colace. Elevated fecal nicolasa...ddx wide includes meds, viral, or IBD less likely Watch and wait as she feels well now ROV 8 weeks. Medications: Discontinued [id number] 36,000-114,000- 180,000 unit (Creon) administer with meals and/or snacks Discontinued Reason: Patient no longer taking 1 cap PO QID 120 caps 6RF R10.33 - Periumbilical pain omeprazole Discontinued Reason: Patient no longer taking 40 mg PO DAILY 30 days 30 caps 6RF On Hold linaclotide (Linzess) Hold Comment: Doctor's Order 72 mcg PO QAM 30 caps 3RF K59.04 - Chronic idiopathic constipation Coding Level of Care Code Est Pt Level 3 (91216) Diagnoses Abdominal distension, gaseous R14.0 Chronic idiopathic constipation K59.04 Periumbilical abdominal pain R10.33 Acute diarrhea R19.7
[2023-10-25 11:49] VITALS: BP 165/76; PULSE 63; BMI 28.3
== END 2023-10-25 12:13 | disposition home or self-care (01) ==
PROVIDERS: PCP Internal Medicine; Referring Provider Internal Medicine; Visit Provider Nurse Practitioner
DX: R14.0 Abdominal distension (gaseous) (principal); K59.04 Chronic idiopathic constipation; R10.33 Periumbilical pain; R19.7 Diarrhea, unspecified
CPT/HCPCS: 99213

== ENCOUNTER → 2023-10-25 11:28 | Outpatient (BNVA) | payer MEDICARE, SELFPAY | PROVIDERS: PCP Internal Medicine; Visit Provider Nurse Practitioner | DX: K59.04 Chronic idiopathic constipation (principal); R14.0 Abdominal distension (gaseous); R10.33 Periumbilical pain; R19.7 Diarrhea, unspecified | CPT/HCPCS: 99212 ==

== ENCOUNTER 2023-11-08 10:30 | Outpatient (REF) | payer MEDICARE, SELFPAY ==
--- NOTE | ~2023-11-08 | US_ITS ---
EXAMINATION: US VENOUS WITH DOPPLER UPPER EXTREMITY, LEFT CLINICAL INFORMATION: Chronic embolism, thrombosis of axillary vein. COMPARISON: No recent relevant comparison. However, some of the images from CT examination of the neck from 12/01/2022 are reviewed. TECHNIQUE: Ultrasound of the upper extremity is performed using compression sonography and color and pulse Doppler flow with assessment of augmentation of flow. There is also imaging and Doppler assessment of the jugular and subclavian veins. Spectral analysis with color-flow imaging is performed. FINDINGS: The left internal jugular, subclavian and axillary veins are normal. Within the upper arm, the brachial, cephalic and basilic veins are compressible and have normal flow on Doppler imaging. Within the forearm, the radial and ulnar veins are normal. US/US venous duplex UE LT IMPRESSION: Normal. No evidence of superficial or deep vein thrombosis in the left upper extremity.
== END 2023-11-08 10:31 | disposition home or self-care (01) ==
LOC: HO.US 10:30
PROVIDERS: PCP Internal Medicine; Visit Provider Internal Medicine
DX: I82.A22 Chronic embolism and thrombosis of left axillary vein (principal)
CPT/HCPCS: 93971

== ENCOUNTER 2024-02-20 12:19 | Outpatient (REF) | payer MEDICARE, SELFPAY ==
[2024-02-20 12:29] LABS: MANUAL DIFF FLAG NO
[2024-02-20 13:25] LABS: Basophils Percent Auto 0.5 % (0-2); Eosinophils Absolute Auto 0.1 X10*3/uL (0.0-0.4); Eosinophils Percent Auto 1.3 % (0-4); Hematocrit 44.6 % (37.0-47.0); Hemoglobin 14.3 g/dl (12.0-16.0); Imm Gran Abs Auto 0.01 X10*3/uL (0.00-0.03); Imm Gran Pct Auto 0.2 % (0.0-0.4); Lymphocytes Absolute Auto 1.3 X10*3/uL (1.2-4.9); Lymphocytes Percent Auto 23.4 % (20-40); Mean Corpuscular HGB Conc 32.1 g/dl (31.0-35.0); Mean Corpuscular Hemoglobin 30.2 pg (27.0-33.0); Mean Corpuscular Volume 94.3 fL (80.0-98.0); Mean Platelet Volume 9.9 fL (9.4-12.3); Monocytes Absolute Auto 0.5 X10*3/uL (0.1-1.2); Monocytes Percent Auto 9.1 % (2-11); Neutrophils Absolute Auto 3.6 x10*3/uL (2.0-8.3); Neutrophils Percent Auto 65.5 % (45-73); Platelet Count 305 X10*3/uL (160-400); Red Blood Count 4.73 X10*6/uL (4.20-5.50); Red Cell Distribution Width 14.1 % (11.0-16.0); White Blood Count 5.5 X10*3/uL (4.8-10.8)
[2024-02-20 13:44] LABS: Appearance Urine Clear; Color Urine Yellow; Glucose Urine UA Negative (Negative); Leukocyte Esterase Urine Trace (Negative); Nitrite Urine Negative (Negative); PH 7.5 (5.0-9.0); Specific Gravity - Urine 1.015 (1.005-1.025); UMIC TRIGGER UACC YES; Urine Blood Negative (Negative); Urine Ketones Negative (Negative); Urine Protein Negative (Neg-Trace)
[2024-02-20 14:00] LABS: Bacteria Urine None Seen (None Seen); Hyaline Casts Urine 0-2 /LPF (0-2); RBC Urine 0-2 /HPF (0-2); Squamous Epithelial Cell Urine 0-2 /HPF (0-2); WBC Urine 0-5 /HPF (0-5)
[2024-02-20 14:05] LABS: Alanine Aminotransferase 9 U/L (0-31); Albumin Level 4.1 g/dL (3.5-5.0); Alkaline Phosphatase 163 U/L (39-117); Anion Gap 13 (12-20); Aspartate Amino Transferase 16 U/L (5-31); Bilirubin Total 0.7 mg/dL (0.0-1.0); Blood Urea Nitrogen 12 mg/dL (9-16); Calcium 9.6 mg/dL (8.4-10.2); Carbon Dioxide 29 mmol/L (22-29); Chloride 104 mmol/L (96-108); Cholesterol 277 mg/dL (<200); Estimated Glomerular Filt Rate > 60; Glucose Fasting 94 mg/dL (60-99); HDL Cholesterol 61 mg/dL (>40); LDL Cholesterol Calculated 191 mg/dL (<100); Potassium 4.2 mmol/L (3.3-5.1); Sodium 142 mmol/L (135-145); Total Protein 7.7 g/dL (6.5-8.0); Triglycerides 129 mg/dL (<150)
[2024-02-20 14:21] LABS: Free T4 (Free Thyroxine) 1.06 ng/dL (0.71-1.85); Thyroid Stimulating Hormone 0.09 uIU/mL (0.32-4.0); Vitamin D 25-OH Total 59.2 ng/mL (>30)
[2024-02-20 14:32] LABS: Vitamin B12 > 2000 pg/mL (200-900)
[2024-02-24 00:49] LABS: CK-BB None Detected (None Detected); CK-MB 4 % (<5); CK-MM 91 % (95-100); Creatine Kinase,Total,Serum 63 U/L (29-143)
== END 2024-02-20 12:20 | disposition home or self-care (01) ==
LOC: HO.LAB 12:19
PROVIDERS: PCP Internal Medicine; Visit Provider Internal Medicine
DX: E78.00 Pure hypercholesterolemia, unspecified (principal); I10 Essential (primary) hypertension; E03.9 Hypothyroidism, unspecified; R30.0 Dysuria; E55.9 Vitamin D deficiency, unspecified; D64.9 Anemia, unspecified
CPT/HCPCS: 36415; 80053; 80061; 81001; 82306; 82552; 82607; 82746; 84439; 84443; 85025

== ENCOUNTER 2024-02-23 09:00 | Outpatient (AMB) | payer MEDICARE, SELFPAY ==
--- NOTE | 2024-02-23 09:05 | A.OFFPC_ITS ---
Vital Signs 02/23/24 09:07 Height 5 ft 7 in Weight 180 lb BMI 28.2 BP 128/78 Blood Pressure Location Rt brachial Position Sitting Pulse 70 Pulse Source Pulse Oximeter Pulse Oximetry (%) 97 Oxygen Delivery Method Room Air Intake Visit Reasons: 4mth f/u Intake Note: Patient is here to follow up on OA, COPD, HTN, Neuropathy. Pt decline flu shot today. Welder Setter Resistance Machine Required: Yes Welder Setter Resistance Machine Language: Ext Js Developer Name: Elina ([id number]) Information Interpreted: non-clinical & clinical Sample Grinder: Not Required per policy Accompanied by: Self / Same As Patient Allergies kamara [CHERRIES] Allergy (Intermediate, Verified 02/23/24 09:56) ITCHING-THROAT Sulfa (Sulfonamide Antibiotics) Allergy (Intermediate, Verified 02/23/24 09:56) rash naproxen Adverse Reaction (Mild, Verified 02/23/24 09:56) dizziness Medication List - Last Reconciled 02/23/24 by Armando Wheeler MD albuterol sulfate 90 mcg/actuation (ProAir HFA) 2 puffs inhalation .4 times a day PRN amlodipine 5 mg PO DAILY 90 days ascorbate calcium (vitamin C) 500 mg PO BID atorvastatin 20 mg PO DAILY 90 days blood pressure monitor As directed blood pressure test kit-large As directed celecoxib 200 mg PO DAILY PRN 30 days cholecalciferol (vitamin D3) 50 mcg PO DAILY clotrimazole-betamethasone 1-0.05 % 1 appl topical BID 10 days cyanocobalamin (vitamin B-12) 500 mcg PO DAILY cyclobenzaprine 10 mg PO BEDTIME diclofenac sodium 1% 2 grams topical BID PRN docusate sodium (Colace) 100 mg PO .DAILY WITH FOOD 30 days levothyroxine 100 mcg PO DAILY 90 days linaclotide (Linzess) 72 mcg PO QAM loratadine 10 mg PO DAILY PRN 90 days mometasone 0.1% 1 appl topical DAILY 15 days multivitamin with folic acid 400 mcg (Daily-Jen (with folic acid)) 1 tab PO SOLIS LY polyethylene glycol 3350 (Miralax) 17 grams PO DAILY 30 days sennosides (senna) 25.8 mg (3 x 8.6 mg) PO BEDTIME 30 days Ventolin HFA 90 mcg/actuation (albuterol sulfate) 2 puffs inhalation Q6H PRN 30 days NS Tobacco use date assessed: 02/23/24 Fall risk assessment: No Falls in past year Last assessed Fall Risk: 02/23/24 Dental Screening Dental Screen Date: 10/24/23 HPI 4mth f/u HPI Details Patient comes in today for her follow up visit Relates that she has been experiencing increased pain in her body all over , including over her arms and legs as well as over seceral of her joints Notes that her symptoms are worse in AM when she wakes up - feels very stiff and achy - and that these would slowly ease up slightly as she starts to move around She recalls being sent to PT/OT by orthopedics a few months ago and that they helped somewhat at the time but the pain has since recurred She denies any headaches or dizziness Denies any chest pains, no SOB No nausea/vomiting, no abdominal pain No change in bowel habits noted Adds that she is still losing a lot of her hair rapidly and states that the shade bander that she saw in [place] did nothing to help her and she does not want to go back to see them and would like to get a referral to another dermatology group Needs a few her Rx refilled She had her follow up labs done a few days ago - to discuss her results [facility] Medical History (Updated 02/23/24 @ 12:15 by Armando Wheeler MD) Lumbar degenerative disc disease COVID-19 Left lumbar radiculopathy Parapharyngeal abscess (~11/2022) Zinc deficiency Vitamin B1 deficiency Vitamin A deficiency Chest pain, pleuritic Intestinal malabsorption following gastrectomy Left inguinal pain Neuropathic pain of left lower extremity Overweight (BMI 25.0-29.9) Primary insomnia History of ductal carcinoma in situ (DCIS) of breast Vitamin D deficiency Allergic rhinitis Elevated LFTs Primary osteoarthritis, unspecified shoulder Osteoarthritis of spine with radiculopathy, lumbosacral region Primary osteoarthritis of both knees Chronic obstructive pulmonary disease (COPD) Benign essential hypertension Acquired hypothyroidism Pure hypercholesterolemia Surgical History (Updated 02/23/24 @ 10:24 by Armando Wheeler MD) History of sleeve gastrectomy (07/24/18) History of incision and drainage (~11/2022) History of colonoscopy History of total abdominal hysterectomy and bilateral salpingo-oophorectomy (~2004) History of cardiac cath (~03/2018) History of lumpectomy of right breast (~12/2012) H/O unilateral oophorectomy Family History Father CVD (cardiovascular disease) Mother Cervical cancer Pancreatic cancer Uterine cancer Sister Substance abuse Social History Household Members: Spouse Housing: Apartment Are you a primary child care worker to a significant other at home: No Do you presently have visiting nurse or other home services: No Alcohol intake: never Patient Tobacco Use Status: Former Tobacco user Tobacco use type: Cigarette e-Cigarette/Vaping Use: Never Used Second Hand Smoke Exposure: No service: No 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al status: disabled 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, 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 Depression Screening Interpretation: Negative Depression Screening Done: Yes Source: Developed by Drs. Martin Mata, Stephanie Briceño, Ankur Jeong and colleagues, with an educational terrence from [employer]. Thrive Questionnaire Date Thrive assessed: 10/24/23 Are you currently unemployed and looking for a job?: Yes THRIVE Score: 0 SYDNEY-7 AMB Questionnaire SYDNEY-7 Date SYDNEY - 7 assessed: 10/24/23 Source: Developed by Drs. Martin Mata, Stephanie Briceño, Ankur Jeong and colleagues, with an educational terrence from [employer]. Review of Systems Const Denies chills, Denies fatigue, Denies fever(s) and Denies headache(s) ENT Denies dysphagia, Denies dizziness, Denies otalgia, Denies headache(s), Denies neck pain, Denies odynophagia and Denies sore throat Card Denies chest pain, Denies irregular heart rhythm, Denies palpitations and Denies dyspnea Resp Denies chest congestion, Denies cough and Denies dyspnea GI Reports abdominal pain (on and off cramping pain, often over the middle of her stomach), Reports constipation (on and off), Denies dysphagia, Denies heartburn, Denies diarrhea, Denies nausea, Denies odynophagia and Denies vomiting Denies hematuria, Denies urinary frequency, Denies dysuria and Denies urinary urgency Musc Reports as per HPI, Reports back pain (over the lower back), Reports arthralgias (involving multiple joints, including right wrist, shoulder, hips), Denies neck pain and Reports stiffness Skin/Breast Reports alopecia (hair falling off ) and Denies rash Neuro Denies dizziness, Denies headache(s) and Denies paresthesias Psych Denies anxiety and Denies depression Endo Denies fatigue and Denies palpitations Anup/Lymph Denies easy bruising Physical exam (Primary Care) Vital Signs: Last Vital Signs Pulse 70 02/23/24 09:07 BP 128/78 02/23/24 09:07 Pulse Ox 97 02/23/24 09:07 Oxygen Delivery Method Room Air 02/23/24 09:07 BMI result Body Mass Index 28.2 Tobacco/Smoking Status: Tobacco use Status Tobacco use date assessed 02/23/24 02/23/24 09:15 Patient Tobacco Use Status Former Tobacco user 02/23/24 09:15 Tobacco use type Cigarette 02/23/24 09:15 e-Cigarette/Vaping Use Never Used 02/23/24 09:15 Depression Screening Interpretation: Negative Thrive Assessment: Date of Thrive Assessment Date Thrive assessed 10/24/23 02/23/24 09:15 Const General: no acute distress and alert HENMT Head: Yes scalp lesion ((+) increased dryness noted on her scalp, with some flaking / scaling noted) Ears: TM's normal bilaterally and EAC's normal Throat: Yes posterior oropharynx normal and Yes tonsils normal (no TP congestion) Neck Neck: Yes no lymphadenopathy and Yes supple Thyroid: Thyroid normal Resp Auscultation: clear to auscultation bilaterally, no rales and no wheezes Cardio Rate: regular rate Rhythm: regular rhythm Heart sounds: no murmurs GI Palpation (GI): Soft to palpation and nontender Auscultation: normal bowel sounds General: Yes no CVA tenderness Back/Spine/Pelvis Back: no CVA tenderness Thoracic/Lumbar Spine: lumbar spinal tenderness Skin Rashes: no rashes Extrem General: Yes no clubbing, cyanosis or edema Right upper extremity: shoulder/upper arm Details: tenderness Location: of the A-C joint and Extremity exam: right hand Details: tenderness Location: of the dorsal hand Left lower extremity: foot Details: tenderness Location: of the calcaneus and no edema Results Reviewed Results Reviewed: Laboratory Tests 02/20/24 02/20/24 12:28 12:29 WBC 5.5 Hgb 14.3 Hct 44.6 Plt Count 305 Sodium 142 Potassium 4.2 Creatinine 0.83 Estimated GFR > 60 Fasting Glucose 94 Calcium 9.6 AST 16 ALT 9 Triglycerides 129 Cholesterol 277 H LDL Cholesterol, Calc 191 H HDL Cholesterol 61 Vitamin B12 > 2000 H 25-OH Vitamin D Total 59.2 TSH 0.09 L Free T4 1.06 Ur Specific [place] 1.015 Urine Protein Negative Urine Glucose (UA) Negative Urine Blood Negative Urine Nitrite Negative Ur Leukocyte Esterase Trace H Coding Level of Care Code Est Pt Level 4 (62838) Diagnoses Pure hypercholesterolemia E78.00 Benign essential hypertension I10 Acquired hypothyroidism E03.9 Thrombosis of left upper extremity I82.602 Chronic obstructive pulmonary disease, unspecified COPD type J44.9 COPD type: unspecified COPD Osteoarthritis involving multiple joints on both sides of body M15.9 Degeneration of intervertebral disc of lumbar region with discogenic back pain M51.360 Disc-related pain type: discogenic back pain only Vitamin D deficiency E55.9 Vitamin B12 deficiency E53.8 Chronic idiopathic constipation K59.04 Ductal carcinoma in situ (DCIS) of right breast D05.11 Seborrheic dermatitis of scalp L21.9 Overweight (BMI 25.0-29.9) E66.3 Assessment & Plan Assessment & Plan (1) Pure hypercholesterolemia: Code(s): E78.00 - Pure hypercholesterolemia, unspecified Category: Medical Plan: Results of her labs done a few days ago reviewed and discussed with patient - advised patient that her cholesterol levels have increased significantly compared to her previous numbers in February 2023 (total cholesterol is now at 277 mg/dl and LDL cholesterol is at 191 mg/dl) Reinforced low-cholesterol diet She was supposed to be on Atorvastatin 20 mg QD but patient admits that she has not been taking this regularly/daily and has not taken it recently Her Rx log shows that this has not been refilled since October 2022 so including her refills then, she would have been out of this for at least a couple of months now - Rx refilled Have advised her to start back on this everyday - Atorvastatin 20 mg QD Will recheck her labs and fasting lipids in 4 months for follow up (2) Benign essential hypertension: Code(s): I10 - Essential (primary) hypertension Category: Medical Plan: Reinforced low sodium diet - goal is systolic BP of at least 130 mm or less Continue Amlodipine 5 mg QD Patient is reminded to continue monitoring her blood pressure regularly (3) Acquired hypothyroidism: Code(s): E03.9 - Hypothyroidism, unspecified Category: Medical Plan: Her TSH remains suppressed but free T4 is still normal on her recent labs Patient remains clinically euthyroid at present Continue Levothyroxine 100 mcg QD Will recheck her TFTs in 4 months for follow up (4) Thrombosis of left upper extremity: Code(s): I82.602 - Acute embolism and thrombosis of unspecified veins of left upper extr emity Category: Medical Plan: Repeat venous doppler of her left upper extremity done a few months ago in October 2023 came back normal with no evidence of superficial or deep vein thrombosis in the left upper extremity She has been on Eliquis 5 mg BID and has completed at least 6 months of Eliquis - Rx was discontinued a few months ago (5) Chronic obstructive pulmonary disease (COPD): Code(s): J44.9 - Chronic obstructive pulmonary disease, unspecified Category: Medical Qualifiers: COPD type: unspecified COPD Qualified Code(s): J44.9 - Chronic obstructive pulmonary disease, unspecified Plan: Stable - continue Albuterol HFA 2 inhalations Q 6 hours PRN (Rx refilled) (6) Osteoarthritis involving multiple joints on both sides of body: Code(s): M15.9 - Polyosteoarthritis, unspecified Category: Medical Plan: Involving multiple joints, including both knees, right shoulder, hips and left ankle X-rays of the left ankle and right wrist done a few months ago revealed (+) mild OA changes Continue Celebrex 200 mg QD PRN for pain; was on Naproxen or Ibuprofen in the past and states that they have not helped much Have explained to patient that majority of her complaints of pain all over are most likely related to her asthritis and unfortunately, there is nothing that we can start her on that will completely eliminate the joint pains and diffuse pains that she has been complaining about, and that these are something that we can help her manage better and learn to live with Have advised her that regular exercises and stretchings and referral to PT/OT when needed are likely the most effective methods of handling these going forward and that her meds will only help calm her symptoms down temporarily and should only be taken on an as needed basis for when her pain are significantly increased (7) Lumbar degenerative disc disease: Code(s): M51.36 - Other intervertebral disc degeneration, lumbar region Category: Medical Qualifiers: Disc-related pain type: discogenic back pain only Qualified Code(s): M51.360 - Other intervertebral disc degeneration, lumbar region with discogenic back pain only Plan: Reinforced activity and weight-lifting restrictions Lumbar spine x-rays done in April 2022 revealed (+) prominent degenerative disc changes L1-L2, L4-L5, and L5-S1 with borderline retrolisthesis at L1-L2 that are stable and no interval vertebral compression or destructive process are seen Continue Tramadol 50 mg TID PRN (8) Vitamin D deficiency: Code(s): E55.9 - Vitamin D deficiency, unspecified Category: Medical Plan: Continue Vitamin D3 2000 units QD (9) Vitamin B12 deficiency: Code(s): E53.8 - Deficiency of other specified B group vitamins Category: Medical Plan: She was taking her Vitamin B12 1000 mcg QD but is now advised to cut it back to 2 to 3 times a week as her B12 level is now >2000 (10) Chronic idiopathic constipation: Code(s): K59.04 - Chronic idiopathic constipation Category: Medical Plan: Better controlled Reinforced increased oral fluids and dietary fiber Continue Docusate 100 mg QD PRN and Miralax 17 gm QD; was also started on Linzess 72 mcg QD by GI a few weeks ago Follow up with GI as scheduled (11) Ductal carcinoma in situ (DCIS) of right breast: Code(s): D05.11 - Intraductal carcinoma in situ of right breast Category: Medical Plan: S/P treatment with Tamoxifen x 5 years, from 01/2013 to 01/2018 Follow up with oncology as scheduled for continuing surveillance (12) Seborrheic dermatitis of scalp: Code(s): L21.9 - Seborrheic dermatitis, unspecified Category: Medical Plan: Per request, will refer her to Dr. Kenney for dermatology evaluation and management (13) Overweight (BMI 25.0-29.9): Comment: S/P sleeve gastrectomy Code(s): E66.3 - Overweight Category: Medical Plan: Reinforced diet/exercise as tolerated/lose weight Plan Follow up in 4 months Orders: Orders Comprehensive [place]. Panel Fast 4 Months E78.00 - Pure hypercholesterolemia, unspecified Complete Blood Count Auto Diff 4 Months D64.9 - Anemia, unspecified Lipid Panel 4 Months E78.00 - Pure hypercholesterolemia, unspecified Free T4 (Free Thyroxine) 4 Months E03.9 - Hypothyroidism, unspecified Thyroid Stimulating Hormone 4 Months E03.9 - Hypothyroidism, unspecified Referrals Dermatology Referral L21.9 - Seborrheic dermatitis, unspecified Gastroenterology Referral Z12.11 - Encounter for screening for malignant neoplasm of colon Medications: Changed From levothyroxine 100 mcg PO DAILY 90 tabs 2RF To levothyroxine 100 mcg PO DAILY 90 days 90 tabs 3RF From atorvastatin 20 mg PO DAILY 90 tabs 3RF To atorvastatin 20 mg PO DAILY 90 days 90 tabs 3RF Refilled cyanocobalamin (vitamin B-12) 500 mcg PO DAILY 90 tabs 3RF Ventolin HFA 90 mcg/actuation (albuterol sulfate) 2 puffs inhalation Q6H 30 days PRN 18 grams 5RF shortness of breath or wheezing NS
[2024-02-23 09:07] VITALS: BP 128/78; PULSE 70; O2SAT 97; BMI 28.2
== END 2024-02-23 10:13 | disposition home or self-care (01) ==
PROVIDERS: PCP Internal Medicine; Visit Provider Internal Medicine
DX: E78.00 Pure hypercholesterolemia, unspecified (principal); J44.9 Chronic obstructive pulmonary disease, unspecified; I10 Essential (primary) hypertension; E03.9 Hypothyroidism, unspecified; I82.602 Acute embolism and thrombosis of unspecified veins of left upper extremity; M15.9 Polyosteoarthritis, unspecified; M51.360 Other intervertebral disc degeneration, lumbar region with discogenic back pain only; E55.9 Vitamin D deficiency, unspecified; E53.8 Deficiency of other specified B group vitamins; K59.04 Chronic idiopathic constipation; D05.11 Intraductal carcinoma in situ of right breast; L21.9 Seborrheic dermatitis, unspecified

== ENCOUNTER → 2024-02-23 09:00 | Outpatient (BNVA) | payer MEDICARE, SELFPAY | PROVIDERS: PCP Internal Medicine; Visit Provider Internal Medicine | DX: E78.00 Pure hypercholesterolemia, unspecified (principal); I10 Essential (primary) hypertension; E03.9 Hypothyroidism, unspecified; I82.602 Acute embolism and thrombosis of unspecified veins of left upper extremity; J44.9 Chronic obstructive pulmonary disease, unspecified; M15.9 Polyosteoarthritis, unspecified; M51.360 Other intervertebral disc degeneration, lumbar region with discogenic back pain only; E55.9 Vitamin D deficiency, unspecified; E53.8 Deficiency of other specified B group vitamins; K59.04 Chronic idiopathic constipation; D05.11 Intraductal carcinoma in situ of right breast; L21.9 Seborrheic dermatitis, unspecified; E66.3 Overweight | CPT/HCPCS: 99212 ==

== ENCOUNTER 2024-03-11 12:45 | Outpatient (REF) | payer MEDICARE, SELFPAY ==
--- NOTE | ~2024-03-11 | MM_ITS ---
EXAMINATION: MM SCREENING DIGITAL BREAST TOMOSYNTHESIS, BILATERAL CLINICAL INFORMATION: Screening. Asymptomatic. COMPARISON: Mammography: Comparison is made with available priors TECHNIQUE: Digital breast mammography with tomosynthesis is performed in both the craniocaudal and mediolateral oblique views along with computer-aided detection (CAD). FINDINGS: The breasts are heterogeneously dense, which may obscure small masses (ACR BI-RADS breast composition Category c). There are no significant masses, abnormal calcifications, or other abnormalities. MM/MM tomosynthesis screening BI IMPRESSION: No mammographic evidence of malignancy. ASSESSMENT: BI-RADS BI-RADS 1 - Negative RECOMMENDATION: Routine annual mammography screening. 1 year F/U This examination should not preclude the clinical evaluation of a suspicious palpable abnormality. This patient's information was entered into a reminder system with a target due date for their next mammogram. Electronically signed by: Ellie Santacruz DO 03/22/2024 10:48 AM EDT
== END 2024-03-11 12:46 | disposition home or self-care (01) ==
LOC: HO.MAMMO 12:45
PROVIDERS: PCP Internal Medicine; Visit Provider Internal Medicine
DX: Z12.31 Encounter for screening mammogram for malignant neoplasm of breast (principal)
CPT/HCPCS: 77063; 77067

== ENCOUNTER → 2024-03-11 13:00 | Outpatient (BNV) | payer MEDICARE, SELFPAY | PROVIDERS: PCP Internal Medicine; Visit Provider Internal Medicine | DX: Z12.31 Encounter for screening mammogram for malignant neoplasm of breast (principal) | CPT/HCPCS: 77063; 77067 ==

== ENCOUNTER 2024-03-13 09:45 | Outpatient (AMB) | payer MEDICARE, SELFPAY ==
[2024-03-13 09:52] VITALS: BP 135/60; PULSE 67; BMI 28.4
--- NOTE | 2024-03-13 09:52 | A.OFFVIS_ITS ---
Vital Signs 03/13/24 09:52 Height 5 ft 7 in Weight 181 lb 10.574 oz BMI 28.4 BP 135/60 Blood Pressure Location Lt brachial Position Sitting Pulse 67 Intake Visit Reasons: Pre colonoscopy Intake Note: Patient in office today for colonoscopy consult. CC: Patient reports abdominal pain sometimes. She states that a nurse from her insurance gave her a box to have a stool test done and sent by mail but she have not heard back about the results. 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 Accompanied by: Self / Same As Patient Allergies kamara [CHERRIES] Allergy (Intermediate, Verified 03/13/24 09:58) ITCHING-THROAT Sulfa (Sulfonamide Antibiotics) Allergy (Intermediate, Verified 03/13/24 09:58) rash naproxen Adverse Reaction (Mild, Verified 03/13/24 09:58) dizziness Medication List - Last Reconciled 03/13/24 by MITA Godfrey albuterol sulfate 90 mcg/actuation (ProAir HFA) 2 puffs inhalation .4 times a day PRN amlodipine 5 mg PO DAILY 90 days ascorbate calcium (vitamin C) 500 mg PO BID atorvastatin 20 mg PO DAILY 90 days blood pressure monitor As directed blood pressure test kit-large As directed celecoxib 200 mg PO DAILY PRN 30 days cholecalciferol (vitamin D3) 50 mcg PO DAILY clotrimazole-betamethasone 1-0.05 % 1 appl topical BID 10 days cyanocobalamin (vitamin B-12) 500 mcg PO DAILY cyclobenzaprine 10 mg PO BEDTIME diclofenac sodium 1% 2 grams topical BID PRN famotidine (Pepcid) 40 mg PO DAILY PRN levothyroxine 100 mcg PO DAILY 90 days loratadine 10 mg PO DAILY PRN 90 days mometasone 0.1% 1 appl topical DAILY 15 days multivitamin with folic acid 400 mcg (Daily-Jen (with folic acid)) 1 tab PO DAILY polyethylene glycol 3350 (Miralax) 17 grams PO DAILY 30 days sennosides (senna) 25.8 mg (3 x 8.6 mg) PO BEDTIME 30 days simethicone 180 mg PO QID 30 days Ventolin HFA 90 mcg/actuation (albuterol sulfate) 2 puffs inhalation Q6H PRN 30 days NS HPI HPI Pre colonoscopy: Details: Assessment & Plan (1) Abdominal distension, gaseous: Code(s): R14.0 - Abdominal distension (gaseous) Category: Medical (2) Chronic idiopathic constipation: Code(s): K59.04 - Chronic idiopathic constipation Category: Medical (3) Periumbilical abdominal pain: Code(s): R10.33 - Periumbilical pain Category: Medical (4) Acute diarrhea: Code(s): R19.7 - Diarrhea, unspecified Category: Medical Plan Neyda Michel Live She had sx for about 3 days. Now feeling well. not taking o2o or creon or LInzess or senna or colace. Elevated fecal nicolasa...ddx wide includes meds, viral, or IBD less likely Watch and wait as she feels well now ROV 8 weeks. Medications: Discontinued [id number] 36,000-114,000- 180,000 unit (Creon) administer with meals and/or snacks Discontinued Reason: Patient no longer taking 1 cap PO QID 120 caps 6RF R10.33 - Periumbilical pain omeprazole Discontinued Reason: Patient no longer taking 40 mg PO DAILY 30 days 30 caps 6RF On Hold linaclotide (Linzess) Hold Comment: Doctor's Order 72 mcg PO QAM 30 caps 3RF K59.04 - Chronic idiopathic constipation PMX Chronic DVT upper extremity History of right breast cancer COPD Laboratory Tests 02/20/24 12:29 WBC 5.5 Hgb 14.3 Hct 44.6 Plt Count 305 Estimated GFR > 60 Total Bilirubin 0.7 AST 16 ALT 9 Alkaline Phosphatase 163 H Free T4 1.06 TODAY'S VISIT Neyda Michel Live For a screening colonoscopy her last being in 2019 and was negative. She has never had a personal history of polyps and given her multiple co-morbidities despite her family history of polyps I think we should discuss Cologuard as an alternative screening. I show her the video for Cologuard and she really likes this idea. She is c/o intermittent dyspepsia, but prn o2o not working so well. I explain the mechanism and that she would be better off with pepcid as it has a better onset of action for prn use. She continues on prn senna and has good bowel control as well as Miralax prn. ROV 6 week. [facility] Medical History Lumbar degenerative disc disease COVID-19 Left lumbar radiculopathy Parapharyngeal abscess (~11/2022) Zinc deficiency Vitamin B1 deficiency Vitamin A deficiency Chest pain, pleuritic Intestinal malabsorption following gastrectomy Left inguinal pain Neuropathic pain of left lower extremity Overweight (BMI 25.0-29.9) Primary insomnia History of ductal carcinoma in situ (DCIS) of breast Vitamin D deficiency Allergic rhinitis Elevated LFTs Primary osteoarthritis, unspecified shoulder Osteoarthritis of spine with radiculopathy, lumbosacral region Primary osteoarthritis of both knees Chronic obstructive pulmonary disease (COPD) Benign essential hypertension Acquired hypothyroidism Pure hypercholesterolemia Surgical History History of sleeve gastrectomy (07/24/18) History of incision and drainage (~11/2022) History of colonoscopy History of total abdominal hysterectomy and bilateral salpingo-oophorectomy (~2004) History of cardiac cath (~03/2018) History of lumpectomy of right breast (~12/2012) H/O unilateral oophorectomy Family History Father CVD (cardiovascular disease) Mother Cervical cancer Pancreatic cancer Uterine cancer Sister Substance abuse Social History Household Members: Spouse Housing: Apartment Are you a primary customer care consultant to a significant other at home: No Do you presently have visiting nurse or other home services: No Alcohol intake: never Patient Tobacco Use Status: Former Tobacco user Tobacco use type: Cigarette e-Cigarette/Vaping Use: Never Used Second Hand Smoke Exposure: No service: No 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al status: disabled 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, 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al exposures/hazards: No Cognitive needs: No Hearing needs: No Vision needs: Yes Review of Systems Const Denies fatigue, Denies fever(s), Denies night sweats, Denies poor appetite and Denies weight loss ENT Reports Normal hearing present, Denies dental pain, Denies dysphagia, Denies hearing loss, Denies mouth pain, Denies odynophagia, Denies throat swelling, Denies tongue swelling and Reports other (Dentition adequate) Card Reports no additional complaints Resp Reports no additional complaints GI Details: Denies abdominal pain, Denies melena, Reports bloating, Denies hematochezia, Reports constipation, Denies GI cramping, Denies dysphagia, Denies excessive flatus, Denies early satiety, Reports heartburn, Denies diarrhea, Denies nausea, Denies odynophagia, Denies vomiting and Denies hematemesis Skin/Breast Denies pruritus, Denies lesions, Denies rash and Denies jaundice Neuro Reports Normal hearing present and Denies Abnormal speech present Endo Denies fatigue Aller/Immun Denies throat swelling and Denies tongue swelling Physical Exam Vital Signs: Last Vital Signs Pulse 67 03/13/24 09:52 BP 135/60 03/13/24 09:52 BMI result Body Mass Index 28.4 Const General: cooperative, no acute distress, well developed and well groomed Nutritional Appearance: average body habitus and well nourished Orientation/consciousness: oriented to person, oriented to place and oriented to time Limitations: language barrier HEENT Head: Yes normocephalic and Yes atraumatic Eyes General: appearance normal, both eyes and all related structures Pupils: Equal, round and reactive pupils present Neck Neck: Yes normal visual inspection and Yes no lymphadenopathy Thyroid: Thyroid normal Resp Effort & Inspection: normal respiratory effort and able to speak in complete sentences Auscultation: clear to auscultation bilaterally Cardio Rate: regular rate Rhythm: regular rhythm Heart sounds: Normal, physiologic split S2 sound present Peripheral pulses: radial pulses present and posterior tibial pulses present GI Inspection: No distended and No Abdominal panniculus present Palpation (GI): Soft to palpation, nontender, no guarding, not rigid and No hepatosplenomegaly present Percussion: Yes normal to percussion Auscultation: normal bowel sounds Rectal Exam - Female: deferred Skin General skin exam: no rashes or lesions noted, turgor normal, skin not dry, no jaundice, No spider nevi and no striae Rashes: no rashes Nails: normal Neuro General: oriented to person, oriented to place and oriented to time Cranial nerves: Yes Equal, round and reactive pupils present and Yes Normal hearing present Speech: No Abnormal speech present Extrem General: Yes normal to inspection, No clubbing, No cyanosis and No edema Psych Appearance: grossly normal and well kempt Mental Status: mental status grossly normal Speech and movement: Normal speech and movement present Affect: normal affect Attitude: cooperative Thought process: Normal thought process present and not confabulating Thought content: Normal thought content present Insight: Fair insight present (Psych) Judgement: Fair judgement present (Psych) Assessment & Plan Assessment & Plan (1) Dyspepsia: Code(s): R10.13 - Epigastric pain Category: Medical (2) Abdominal bloating: Code(s): R14.0 - Abdominal distension (gaseous) Category: Medical Plan [place] #Carol Live For a screening colonoscopy her last being in 2019 and was negative. She has never had a personal history of polyps and given her multiple co-morbidities despite her family history of polyps I think we should discuss Cologuard as an alternative screening. I show her the video for Cologuard and she really likes this idea. She is c/o intermittent dyspepsia, but prn o2o not working so well. I explain the mechanism and that she would be better off with pepcid as it has a better onset of action for prn use. She continues on prn senna and has good bowel control as well as Miralax prn. ROV 6 week. Medications: New simethicone after meals 180 mg PO QID 30 days 120 caps 3RF R14.0 - Abdominal distension (gaseous) famotidine (Pepcid) 40 mg PO DAILY PRN 30 tabs 6RF dyspepsia R10.13 - Epigastric pain Refilled multivitamin with folic acid 400 mcg (Daily-Jen (with folic acid)) 1 tab PO DAILY 30 tabs 11RF Discontinued linaclotide (Linzess) Discontinued Reason: Doctor's Order 72 mcg PO QAM 30 caps 3RF K59.04 - Chronic idiopathic constipation Coding Level of Care Code Est Pt Level 3 (93654) Diagnoses Dyspepsia R10.13 Abdominal bloating R14.0
== END 2024-03-13 10:33 | disposition home or self-care (01) ==
PROVIDERS: PCP Internal Medicine; Visit Provider Nurse Practitioner
DX: R10.13 Epigastric pain (principal); R14.0 Abdominal distension (gaseous)
CPT/HCPCS: 99213

== ENCOUNTER → 2024-03-13 09:45 | Outpatient (BNVA) | payer MEDICARE, SELFPAY | PROVIDERS: PCP Internal Medicine; Visit Provider Nurse Practitioner | DX: R10.13 Epigastric pain (principal); R14.0 Abdominal distension (gaseous) | CPT/HCPCS: 99212 ==

== ENCOUNTER 2024-03-15 18:47 | Emergency (ER) | payer MEDICARE, SELFPAY ==
[2024-03-15 19:03] VITALS: BP 155/56; PULSE 67; RESP 18; TEMP 36.8; O2SAT 98; BMI 28.0
--- NOTE | 2024-03-15 19:03 | ED.EAR ---
HPI - Ear Problem General Chief complaint: Ear Problems Stated complaint: ear pain Time Seen by Provider: 03/15/24 20:54 Source: patient Limitations: language barrier History of Present Illness ED Provider: Natacha Saldana PA-C HPI Narrative: 68-year-old female with a history of hypertension, hyperlipidemia, COPD and arthritis, presents with odd sensation of left side of neck. Patient states she has had sxs for 3 days. A sensation originates behind the left ear and radiates across the left lateral neck. Denies ear pain, pain in the neck, or sore throat. Denies difficulty swallowing. Patient states 1 year ago she required a surgery for a ?neck infection . At that time, patient had swelling inferior to the jaw line that encompassed the entire neck. Related Data Home Medications ?Medication ?Instructions ?Recorded ?Confirmed ascorbate calcium (vitamin C) 500 500 mg PO BID 03/03/20 03/13/24 mg tablet blood pressure test kit-large #1 ea 09/01/22 03/13/24 Previous Rx's ?Medication ?Instructions ?Recorded albuterol sulfate 90 mcg/actuation 2 puff inhalation .4 times a day 06/20/21 aerosol inhaler (ProAir HFA) PRN Wheezing #8.5 grams cyclobenzaprine 10 mg tablet 10 mg PO BEDTIME #14 tabs 04/22/22 mometasone 0.1 % topical cream 1 appl topical DAILY 15 days #45 05/29/22 grams blood pressure monitor #1 ea 07/25/22 sennosides 8.6 mg capsule (senna) 25.8 mg (3 x 8.6 mg) PO BEDTIME 09/01/22 constipation 30 days #90 caps loratadine 10 mg tablet 10 mg PO DAILY PRN allergy 11/02/22 symptoms 90 days #90 tabs polyethylene glycol 3350 17 17 g PO DAILY constipation 30 days 11/02/22 gram/dose oral powder (Miralax) #510 grams cholecalciferol (vitamin D3) 50 50 mcg PO DAILY #90 caps 05/25/23 mcg (2,000 unit) capsule clotrimazole-betamethasone 1 1 appl topical BID 10 days #45 06/25/23 %-0.05 % topical cream grams diclofenac sodium 1 % topical gel 2 g topical BID PRN for pain #100 10/24/23 grams amlodipine 5 mg tablet 5 mg PO DAILY 90 days #90 tabs 11/11/23 celecoxib 200 mg capsule 200 mg PO DAILY PRN pain 30 days 12/27/23 #30 caps Ventolin HFA 90 mcg/actuation 2 puff inhalation Q6H PRN 02/23/24 aerosol inhaler (albuterol sulfate) shortness of breath or wheezing 30 days #18 grams atorvastatin 20 mg tablet 20 mg PO DAILY 90 days #90 tabs 02/23/24 cyanocobalamin (vitamin B-12) 500 500 mcg PO DAILY #90 tabs 02/23/24 mcg tablet levothyroxine 100 mcg tablet 100 mcg PO DAILY 90 days #90 tabs 02/23/24 famotidine 40 mg tablet (Pepcid) 40 mg PO DAILY PRN dyspepsia #30 03/13/24 tabs multivitamin with folic acid 400 1 tab PO DAILY #30 tabs 03/13/24 mcg tablet (Daily-Jen (with folic acid)) simethicone 180 mg capsule 180 mg PO QID 30 days #120 caps 03/13/24 Allergies Allergy/AdvReac Type Severity Reaction Status Date / Time kamara [CHERRIES] Allergy Intermediate ITCHING-THR Verified 03/15/24 19:06 OAT Sulfa (Sulfonamide Allergy Intermediate rash Verified 03/15/24 19:06 Antibiotics) naproxen AdvReac Mild dizziness Verified 03/15/24 19:06 Review of Systems Review of Systems: Yes all other systems are reviewed and are negative Constitutional: Constitutional: Denies fatigue and Denies fever(s) ENT: Denies ear discharge, Denies otalgia, Denies facial pain, Denies neck pain, Denies odynophagia, Denies sore throat, Denies throat swelling and Denies tongue swelling Cardiovascular: Cardiovascular: Denies dyspnea Respiratory: Respiratory: Denies cough, Denies dyspnea and Denies stridor Gastrointestinal: Gastrointestinal: Denies odynophagia Musculoskeletal: Musculoskeletal: Denies neck pain Endocrine: Endocrine: Denies fatigue Allergic/Immunologic: Allergic/Immunologic: Denies throat swelling and Denies tongue swelling PMFSH Past Medical History Attestation statement: The following information was validated with the patient. Medical History Lumbar degenerative disc disease COVID-19 Left lumbar radiculopathy Parapharyngeal abscess (~11/2022) Zinc deficiency Vitamin B1 deficiency Vitamin A deficiency Chest pain, pleuritic Intestinal malabsorption following gastrectomy Left inguinal pain Neuropathic pain of left lower extremity Overweight (BMI 25.0-29.9) Primary insomnia History of ductal carcinoma in situ (DCIS) of breast Vitamin D deficiency Allergic rhinitis Elevated LFTs Primary osteoarthritis, unspecified shoulder Osteoarthritis of spine with radiculopathy, lumbosacral region Primary osteoarthritis of both knees Chronic obstructive pulmonary disease (COPD) Benign essential hypertension Acquired hypothyroidism Pure hypercholesterolemia Surgical History History of sleeve gastrectomy (07/24/18) History of incision and drainage (~11/2022) History of colonoscopy History of total abdominal hysterectomy and bilateral salpingo-oophorectomy (~2004) History of cardiac cath (~03/2018) History of lumpectomy of right breast (~12/2012) H/O unilateral oophorectomy Family History Family History Father CVD (cardiovascular disease) Mother Cervical cancer Pancreatic cancer Uterine cancer Sister Substance abuse Social History Social History Household Members: Spouse Housing: Apartment Are you a primary care transition manager to a significant other at home: No Do you presently have visiting nurse or other home services: No Alcohol intake: never Patient Tobacco Use Status: Former Tobacco user Tobacco use type: Cigarette e-Cigarette/Vaping Use: Never Used Second Hand Smoke Exposure: No Advance Directives: No Advance Directives Information Provided: No service: No 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al status: disabled 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, 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al exposures/hazards: No Cognitive needs: No Hearing needs: No Vision needs: Yes Physical Exam Vital Signs: Vital Signs: Last Vital Signs Temp 98.2 F 03/15/24 19:03 Pulse 67 03/15/24 19:03 Resp 18 03/15/24 19:03 BP 155/56 H 03/15/24 19:03 Pulse Ox 98 03/15/24 19:03 O2 Del Method Room Air 03/15/24 19:03 BMI result Body Mass Index 28.0 Const: Other: Alert, well in appearance, speaking with a normal tone of voice Orientation/consciousness: patient oriented x3 HEENT: Other: 0P is without erythema, tonsils are absent, uvula midline, no trismus no drooling, no sublingual fluctuance. The left TM is translucent, without overlying erythema, no exudate or erythema noted in the external ear canal, no tragal tenderness, no tenderness to palpation over the left mastoid, and no overlying warmth or erythema or swelling Neck: Other: Soft, supple, full range of motion, no cervical lymphadenopathy, no swelling inferior to the jaw line Resp: Other: Nonlabored respirations, no stridor Cardio: Other: Normal peripheral perfusion Skin: Other: Warm dry no rash Neuro: General: patient oriented x3, no focal motor deficits and CN's II-XI intact bilaterally Psych: Other: Calm cooperative Course Course Course Narrative: This is an RME performed by Eris Landry, [employer]: Additional HPI, ROS, PE not included below will be deferred to primary provider. Patient is a 68 year old female who presents emergency department for evaluation. She is endorsing pain to the left ear that is radiating posteriorly and down beneath her jaw in the anterior/lateral neck uncomfortable sensation . She reports a history of similar presentation approximately 1 year ago for which she was seen given a course of oral antibiotics and things worsened she ultimately states she had to have surgery at [facility] due to an infection. She states that her current pain feels similar to this. When asked, she does admit to having a sore throat and painful swallowing yesterday but this has somewhat improved today, has nasal congestion and rhinorrhea on the left side. When asked she denies having chest pain, shortness of breath, difficulty breathing. On review of her records she was seen in November of 2022, initially treated for acute otitis media with a return visit found to have a peritonsillar abscess Exam: Mildly erythematous posterior oropharynx, right TM with effusion but no bulging or surrounding erythema, no mastoid tenderness on examination, no cervical adenopathy. Plan: Viral serologies, strep a Medical Decision Making Medical Decision Making MDM Narrative: 68-year-old female with a history of hypertension, hyperlipidemia, COPD and arthritis, presents with odd sensation of left side of neck. Patient states she has had sxs for 3 days. A sensation originates behind the left ear and radiates across the left lateral neck. Denies ear pain, pain in the neck, or sore throat. Denies difficulty swallowing. Patient states 1 year ago she required a surgery for a ?neck infection . At that time, patient had swelling inferior to the jaw line that encompassed the entire neck. Problem: Age, hypertension History: Per patient I have considered the following differential diagnoses: Pharyngitis, strep pharyngitis, RPA, MACHINE GRINDER, Manish angina, mastoiditis, otitis media, otitis externa, cervical strain Plan: The patient has no pain, whatever the sensation is it is very subjective. Her exam was completely benign, there is no evidence of RPA or MACHINE GRINDER on exam, certainly no evidence of Manish angina. There was no objective warmth or redness over the mastoid to suggest a mastoiditis, and furthermore she has no ear pain. She can follow up with her primary care provider. No indication for labs or imaging, however she was screened for strep And a viral panel from triage I have independently reviewed the following tests: Labs: Strep screen negative, viral panel negative Lab Data Labs: Lab Results 03/15/24 Range/Units 19:48 Influenza Type A (PCR) NEGATIVE (Negative) Influenza Type B (PCR) NEGATIVE (Negative) RSV RNA Qual (PCR) NEGATIVE (Negative) SARS-CoV-2 RNA (RT-PCR) NEGATIVE (Negative) S. pyogenes GrpA ALESIA Negative (Negative) Discharge Plan Discharge Clinical Impression: Alteration in skin sensation Patient Disposition: Home, Self-Care Additional Instructions: You were screened for strep throat, that test was negative. You were also screened for COVID, influenza and RSV, the viral panel was negative. Your exam was completely normal today. Follow up with your primary care provider as needed. Prescriptions: No Action mometasone 0.1 % cream 1 appl topical DAILY 15 Days Qty: 45 1RF (DME) blood pressure monitor Kit See Rx Instructions .Route Qty: 1 0RF Rx Instructions: As directed cholecalciferol (vitamin D3) 50 mcg (2,000 unit) capsule 50 mcg PO DAILY Qty: 90 3RF clotrimazole-betamethasone 1-0.05 % cream 1 appl topical BID 10 Days Qty: 45 0RF amlodipine 5 mg tablet 5 mg PO DAILY 90 Days Qty: 90 3RF celecoxib 200 mg capsule 200 mg PO DAILY PRN (Reason: pain) 30 Days Qty: 30 3RF Rx Instructions: Take with food ascorbate calcium (vitamin C) 500 mg tablet 500 mg PO BID albuterol sulfate [ProAir HFA] 90 mcg/actuation HFA aerosol inhaler 2 puff inhalation .4 times a day PRN (Reason: Wheezing) Qty: 8.5 5RF cyclobenzaprine 10 mg tablet 10 mg PO BEDTIME Qty: 14 0RF polyethylene glycol 3350 [Miralax] 17 gram/dose powder 17 g PO DAILY 30 Days Qty: 510 5RF loratadine 10 mg tablet 10 mg PO DAILY PRN (Reason: allergy symptoms) 90 Days Qty: 90 1RF diclofenac sodium 1 % gel 2 g topical BID PRN (Reason: for pain) Qty: 100 0RF (DME) blood pressure test kit-large Kit See Rx Instructions .ROUTE DIRECTED Qty: 1 Rx Instructions: As directed senna 8.6 mg capsule 25.8 mg PO BEDTIME 30 Days Qty: 90 6RF cyanocobalamin (vitamin B-12) 500 mcg tablet 500 mcg PO DAILY Qty: 90 3RF albuterol sulfate [Ventolin HFA] 90 mcg/actuation HFA aerosol inhaler 2 puff inhalation Q6H PRN (Reason: shortness of breath or wheezing) 30 Days Qty: 18 5RF levothyroxine 100 mcg tablet 100 mcg PO DAILY 90 Days Qty: 90 3RF atorvastatin 20 mg tablet 20 mg PO DAILY 90 Days Qty: 90 3RF famotidine [Pepcid] 40 mg tablet 40 mg PO DAILY PRN (Reason: dyspepsia) Qty: 30 6RF simethicone 180 mg capsule 180 mg PO QID 30 Days Qty: 120 3RF Rx Instructions: after meals multivitamin with folic acid [Daily-Jen (with folic acid)] 400 mcg tablet 1 tab PO DAILY Qty: 30 11RF Print Language: Guine[place]
[2024-03-15 20:04] LABS: IDNOW Serial# 08D9AD1C; Strep A Nucleic Acid Negative (Negative)
[2024-03-15 20:30] LABS: Influenza A PCR NEGATIVE (Negative); Influenza B PCR NEGATIVE (Negative); Resp Syncy Virus RNA Qual PCR NEGATIVE (Negative); SARS COV2 PCR INHOUSE NEGATIVE (Negative)
[2024-03-15 22:18] VITALS: BP 148/77; PULSE 72; RESP 18; TEMP 36.6; O2SAT 97
== END 2024-03-15 22:19 | disposition home or self-care (01) ==
PROVIDERS: Nurse Practitioner Family; Emergency Provider Emergency Medicine; PCP Internal Medicine
DX: J02.9 Acute pharyngitis, unspecified (principal); H92.02 Otalgia, left ear; R09.81 Nasal congestion; J34.89 Other specified disorders of nose and nasal sinuses; R13.10 Dysphagia, unspecified; Z79.899 Other long term (current) drug therapy; Z87.891 Personal history of nicotine dependence; Z03.818 Encounter for observation for suspected exposure to other biological agents ruled out
CPT/HCPCS: 0241U; 87651; 99282; 99283

== ENCOUNTER 2024-04-05 13:33 | Outpatient (AMB) | payer MEDICARE, SELFPAY ==
--- NOTE | 2024-04-05 13:34 | MHC.OFFVIS ---
Vital Signs 04/05/24 13:42 Height 5 ft 7 in Weight 184 lb BMI 28.8 BP 155/70 H Blood Pressure Location Lt brachial Position Sitting Pulse 86 Intake Visit Reasons: 1 year breast F/U Intake Note: Patient is seen in office for yearly breast exam. Pt c/o: denies any concerns or changes mm:03/11/24 Manager Of Community Relations Required: Yes Manager Of Community Relations Language: Shipping And Receiving Weigher Services: Manager Of Community Relations Present Manager Of Community Relations Name: Shirley MCCORMICK Information Interpreted: non-clinical & clinical Mud Mixer Operator: Mud Mixer Operator Present Accompanied by: Self / Same As Patient Allergies kamara [CHERRIES] Allergy (Intermediate, Verified 04/05/24 13:43) ITCHING-THROAT Sulfa (Sulfonamide Antibiotics) Allergy (Intermediate, Verified 04/05/24 13:43) rash naproxen Adverse Reaction (Mild, Verified 04/05/24 13:43) dizziness HPI Comments Details: 68-year-old female patient returning for six-month follow-up examination following right breast surgery. She is a former patient of Dr. Valdes with a history of ductal carcinoma in situ of the right breast, ER/GA positive. A stereotactic biopsy was not possible therefore she underwent lumpectomy with needle localization on November 2012. She subsequently required a re-excision in January 2013. She completed radiation therapy on 04/14/2013. Her most recent mammogram of 03/11/2024 revealed no mammographic evidence of malignancy (BI-RADS 2). Routine routine annual mammography was recommended. She denies any pain, skin changes, redness, discharge from the nipples, or palpable mass in either breast. [facility] Medical History Lumbar degenerative disc disease COVID-19 Left lumbar radiculopathy Parapharyngeal abscess (~11/2022) Zinc deficiency Vitamin B1 deficiency Vitamin A deficiency Chest pain, pleuritic Intestinal malabsorption following gastrectomy Left inguinal pain Neuropathic pain of left lower extremity Overweight (BMI 25.0-29.9) Primary insomnia History of ductal carcinoma in situ (DCIS) of breast Vitamin D deficiency Allergic rhinitis Elevated LFTs Primary osteoarthritis, unspecified shoulder Osteoarthritis of spine with radiculopathy, lumbosacral region Primary osteoarthritis of both knees Chronic obstructive pulmonary disease (COPD) Benign essential hypertension Acquired hypothyroidism Pure hypercholesterolemia Surgical History History of sleeve gastrectomy (07/24/18) History of incision and drainage (~11/2022) History of colonoscopy History of total abdominal hysterectomy and bilateral salpingo-oophorectomy (~2004) History of cardiac cath (~03/2018) History of lumpectomy of right breast (~12/2012) H/O unilateral oophorectomy Family History Father CVD (cardiovascular disease) Mother Cervical cancer Pancreatic cancer Uterine cancer Sister Substance abuse Social History Household Members: Spouse Housing: Apartment Are you a primary foster care therapist to a significant other at home: No Do you presently have visiting nurse or other home services: No Alcohol intake: never Patient Tobacco Use Status: Former Tobacco user Tobacco use type: Cigarette e-Cigarette/Vaping Use: Never Used Second Hand Smoke Exposure: No service: No 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al status: disabled 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, 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al exposures/hazards: No Cognitive needs: No Hearing needs: No Vision needs: Yes Review of Systems Const All systems reviewed & are unremarkable except as noted in HPI and below Denies headache(s) and Reports weight loss ENT Denies headache(s) Resp Denies chest congestion, Denies cough, Denies hemoptysis and Denies wheezing Denies nipple discharge Skin/Breast Denies breast skin changes, Denies breast pain, Denies breast mass, Denies change in breast shape, Reports dry skin and Denies nipple discharge Neuro Denies headache(s) Anup/Lymph Denies lymphadenopathy Aller/Immun Denies wheezing Physical Exam Const General: cooperative, healthy appearing, comfortable, no acute distress and well developed Eyes Sclerae: sclerae normal Chest Other: Left breast: No skin change, no nipple retraction, no nipple discharge, no palpable mass, no enlarged lymph nodes. Right breast: Well-healed incision in the 3 o'clock position just medial to the nipple-areolar complex. No palpable mass below this incision. No new skin change, no nipple retraction, no nipple discharge, no palpable mass, no enlarged lymph nodes Chest/axillae images: 1. Incision 03:00 o'clock location right breast Resp Effort & Inspection: normal respiratory effort Auscultation: no crackles and no wheezes Skin Other: Warm, dry, no rash General skin exam: no rashes or lesions noted Neuro Other: Mobility Assessment: 5 1. 3 meter assessment time (seconds) 2. Gait observations: Normal balance and gait Extrem Other: No upper extremity lymphedema General: Yes no clubbing, cyanosis or edema Assessment & Plan Assessment & Plan (1) Ductal carcinoma in situ (DCIS) of right breast: Code(s): D05.11 - Intraductal carcinoma in situ of right breast Category: Medical Plan: Patient returns for follow-up breast examination after right breast lumpectomy for ductal carcinoma in situ at the 3 o'clock position in November 2012 followed by radiation therapy. She feels well and denies any ongoing symptoms. Examination reveals no suspicious findings in either breast and no evidence of recurrence disease. Her most recent mammogram of 03/11/2024 revealed no mammographic evidence of malignancy (BI-RADS 2) and follow-up in 1 year is recommended. I recommended follow-up examination in 1 year, sooner p.r.n.. Coding Level of Care Code Est Pt Level 3 (87328) Diagnoses Ductal carcinoma in situ (DCIS) of right breast D05.11
[2024-04-05 13:42] VITALS: BP 155/70; PULSE 86; BMI 28.8
== END 2024-04-05 13:50 | disposition home or self-care (01) ==
PROVIDERS: PCP Internal Medicine; Visit Provider Surgery
DX: D05.11 Intraductal carcinoma in situ of right breast (principal)
CPT/HCPCS: 99213

== ENCOUNTER → 2024-04-05 13:33 | Outpatient (BNVA) | payer MEDICARE, SELFPAY | PROVIDERS: PCP Internal Medicine; Visit Provider Surgery | DX: D05.11 Intraductal carcinoma in situ of right breast (principal) | CPT/HCPCS: 99212 ==

== ENCOUNTER 2024-06-25 09:53 | Outpatient (AMB) | payer MEDICARE, SELFPAY ==
[2024-06-25 09:56] VITALS: BP 132/80; PULSE 63; O2SAT 98; BMI 28.7
--- NOTE | 2024-06-25 09:56 | MHC.PC.OV ---
Vital Signs 06/25/24 09:56 Height 5 ft 7 in Weight 183 lb 2 oz BMI 28.7 BP 132/80 Blood Pressure Location Lt brachial Position Sitting Pulse 63 Pulse Source Pulse Oximeter Pulse Oximetry (%) 98 Oxygen Delivery Method Room Air Intake Visit Reasons: 4mth f/u Director Pharmacology Required: No Accompanied by: Self / Same As Patient Allergies kamara [CHERRIES] Allergy (Intermediate, Verified 06/25/24 10:45) ITCHING-THROAT Sulfa (Sulfonamide Antibiotics) Allergy (Intermediate, Verified 06/25/24 10:45) rash atorvastatin Adverse Reaction (Intermediate, Verified 06/25/24 10:45) myalgia naproxen Adverse Reaction (Mild, Verified 06/25/24 10:45) dizziness Medication List - Last Reconciled 06/25/24 by Armando Wheeler MD albuterol sulfate 90 mcg/actuation (ProAir HFA) 2 puffs inhalation .4 times a day PRN amlodipine 5 mg PO DAILY 90 days ascorbate calcium (vitamin C) 500 mg PO BID blood pressure monitor As directed blood pressure test kit-large As directed celecoxib 200 mg PO DAILY PRN 30 days cholecalciferol (vitamin D3) 50 mcg PO DAILY clotrimazole-betamethasone 1-0.05 % 1 appl topical BID 10 days cyanocobalamin (vitamin B-12) 500 mcg PO DAILY cyclobenzaprine 10 mg PO BEDTIME diclofenac sodium 1% 2 grams topical BID PRN famotidine (Pepcid) 40 mg PO DAILY PRN levothyroxine 100 mcg PO DAILY 90 days loratadine 10 mg PO DAILY PRN 90 days mometasone 0.1% 1 appl topical DAILY 15 days multivitamin with folic acid 400 mcg (Daily-Jen (with folic acid)) 1 tab PO DAILY polyethylene glycol 3350 (Miralax) 17 grams PO DAILY 30 days sennosides (senna) 25.8 mg (3 x 8.6 mg) PO BEDTIME 30 days simethicone 180 mg PO QID 30 days Ventolin HFA 90 mcg/actuation (albuterol sulfate) 2 puffs inhalation Q6H PRN 30 days NS Tobacco use date assessed: 06/25/24 Fall risk assessment: No Falls in past year Last assessed Fall Risk: 06/25/24 Dental Screening Dental Screen Date: 06/25/24 Did you have a dental visit in the last 12 months?: No Did you have a dental problem in the last 6 months where you did not have access to dental care?: No Was dental information given to patient?: No HPI 4mth f/u HPI Details Patient comes in today for her follow up visit States that she stopped taking her Atorvastatin a few weeks ago as she noticed that her severe generalized aches and pains that she has been complaining about for the majority of last year seems to feel much worse shortly after she takes her cholesterol medication States that all of her aches and pains gradually improved and cleared up a few days after she stopped taking Atorvastatin Adds that she was experiencing recurrent tingling sensation and numbness in both legs often and all of these cleared up as well when she stopped taking her Atorvastatin She denies any headaches or dizziness Denies any chest pains, no SOB No nausea/vomiting, no abdominal pain No change in bowel habits noted She has not yet gotten her follow up labs done - states that she can go to the lab after her appointment today to get them drawn [facility] [place] Medical History Lumbar degenerative disc disease COVID-19 Left lumbar radiculopathy Parapharyngeal abscess (~11/2022) Zinc deficiency Vitamin B1 deficiency Vitamin A deficiency Chest pain, pleuritic Intestinal malabsorption following gastrectomy Left inguinal pain Neuropathic pain of left lower extremity Overweight (BMI 25.0-29.9) Primary insomnia History of ductal carcinoma in situ (DCIS) of breast Vitamin D deficiency Allergic rhinitis Elevated LFTs Primary osteoarthritis, unspecified shoulder Osteoarthritis of spine with radiculopathy, lumbosacral region Primary osteoarthritis of both knees Chronic obstructive pulmonary disease (COPD) Benign essential hypertension Acquired hypothyroidism Pure hypercholesterolemia Surgical History History of sleeve gastrectomy (07/24/18) History of incision and drainage (~11/2022) History of colonoscopy History of total abdominal hysterectomy and bilateral salpingo-oophorectomy (~2004) History of cardiac cath (~03/2018) History of lumpectomy of right breast (~12/2012) H/O unilateral oophorectomy Family History Father CVD (cardiovascular disease) Mother Cervical cancer Pancreatic cancer Uterine cancer Sister Substance abuse Social History Household Members: Spouse Housing: Apartment Are you a primary critical care physician to a significant other at home: No Do you presently have visiting nurse or other home services: No Alcohol intake: never Patient Tobacco Use Status: Former Tobacco user Tobacco use type: Cigarette e-Cigarette/Vaping Use: Never Used Second Hand Smoke Exposure: No service: No 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al status: disabled 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 1. Little interest or pleasure in doing things: not at all 2. Feeling down, depressed, or hopeless: not at all 3. Trouble falling or staying asleep, or sleeping too much: not at all 4. Feeling tired or having little energy: not at all 5. Poor appetite or overeating: not at all 6. Feeling bad about yourself - or that you are a failure or have let yourself or your family down: not at all 7. Trouble concentrating on things, such as reading the newspaper or watching television: not at all 8. Moving or speaking so slowly that other people could have noticed. Or the opposite - being so fidgety or restless that you have been moving around a lot more than usual: not at all 9. Thoughts that you would be better off or of hurting yourself in some way: not at all Total score: 0 Depression Screening Interpretation: Negative Depression Screening Done: Yes 05542 - PHQ-9 Billing: Yes Source: Developed by Drs. Martin Mata, Stephanie Briceño, Ankur Jeong and colleagues, with an educational terrence from [email or web address]. Thrive Questionnaire Date Thrive assessed: 06/25/24 I am a: Patient What is your living situation today?: I have a steady place to live Within the past 12 months, did the food you bought not last and you didn't have the money to get more?: Never true Within the past 12 months, did you worry whether your food would run out before you got money to buy more?: Never true Do you have trouble paying for medicines?: No Do you have trouble getting transportation to medical appointments?: No Do you have trouble paying your heating and electricity bill?: No Do you have trouble taking care of your child, family member or friend?: No Do you have trouble with day-to-day activities such as bathing, preparing meals, shopping, managing finances, etc.?: No Are you currently unemployed and looking for a job?: Yes Are you interested in more education?: No Please select the resources that you would like help with: None Currently or been in a relationship where the following occur: No concerns reported THRIVE Score: 0 AUDIT C Alcohol Use Questionnaire (AUDIT-C) 1. How often do you have a drink containing alcohol?: Never 3. How often do you have six or more drinks on one occasion?: Never Total Score: 0 Score Reviewed/Action Taken: Yes SYDNEY-7 AMB Questionnaire SYDNEY-7 Date SYDNEY - 7 assessed: 06/25/24 Feeling nervous, anxious, or on edge: 0 = Not at all Not being able to stop or control worryin = Not at all Worrying too much about different things: 0 = Not at all Trouble relaxin = Not at all Being so restless that it is hard to sit still: 0 = Not at all Becoming easily annoyed or irritable: 0 = Not at all Feeling afraid as if something awful might happen: 0 = Not at all Total SYDNEY-7 score (0-4 normal; 5-9 mild; 10-14 moderate; 15-21 severe): 0 Source: Developed by Drs. Martin Mata, Stehpanie Briceño, Ankur Jeong and colleagues, with an educational terrence from [email or web address]. Review of Systems Const Denies chills, Denies fatigue, Denies fever(s) and Denies headache(s) ENT Denies dysphagia, Denies dizziness, Denies otalgia, Denies headache(s), Denies neck pain, Denies odynophagia and Denies sore throat Card Denies chest pain, Denies irregular heart rhythm, Denies palpitations and Denies dyspnea Resp Denies chest congestion, Denies cough and Denies dyspnea GI Denies abdominal pain, Reports constipation (on and off - Rx help), Denies dysphagia, Denies heartburn, Denies diarrhea, Denies nausea, Denies odynophagia and Denies vomiting Denies hematuria, Denies urinary frequency, Denies dysuria and Denies urinary urgency Musc Reports as per HPI, Reports back pain (over the lower back), Reports arthralgias (involving multiple joints, including right wrist, shoulder, hips), Denies muscle cramps, Denies neck pain, Reports stiffness and Denies tingling Skin/Breast Denies rash Neuro Denies dizziness, Denies headache(s), Denies tingling and Denies paresthesias Psych Denies anxiety and Denies depression Endo Denies fatigue and Denies palpitations Anup/Lymph Denies easy bruising Physical exam (Primary Care) Vital Signs: Last Vital Signs Pulse 63 06/25/24 09:56 BP 132/80 06/25/24 09:56 Pulse Ox 98 06/25/24 09:56 Oxygen Delivery Method Room Air 06/25/24 09:56 BMI result Body Mass Index 28.7 Tobacco/Smoking Status: Tobacco use Status Tobacco use date assessed 06/25/24 06/25/24 09:59 Patient Tobacco Use Status Former Tobacco user 06/25/24 09:59 Tobacco use type Cigarette 06/25/24 09:59 e-Cigarette/Vaping Use Never Used 06/25/24 09:59 PHQ-9: PHQ-9 Score PHQ-9: Total score 0 06/25/24 09:59 Depression Screening Interpretation: Negative Thrive Assessment: Date of Thrive Assessment Date Thrive assessed 06/25/24 06/25/24 09:59 Currently or been in a relationship where the following occur: No concerns reported Const General: no acute distress and alert HENMT Ears: TM's normal bilaterally and EAC's normal Throat: Yes posterior oropharynx normal and Yes tonsils normal (no TP congestion) Neck Neck: Yes supple and No lymphadenopathy Thyroid: Thyroid normal Resp Auscultation: clear to auscultation bilaterally, no rales and no wheezes Cardio Rate: regular rate Rhythm: regular rhythm Heart sounds: no murmurs GI Palpation (GI): Soft to palpation and nontender Auscultation: normal bowel sounds General: Yes no CVA tenderness Back/Spine/Pelvis Back: no CVA tenderness Thoracic/Lumbar Spine: lumbar spinal tenderness (mild) Skin Rashes: no rashes Extrem General: Yes no clubbing, cyanosis or edema Right upper extremity: shoulder/upper arm Details: tenderness Location: of the A-C joint and Extremity exam: right hand Details: tenderness Location: of the dorsal hand Left lower extremity: foot Details: tenderness Location: of the calcaneus and no edema Coding Level of Care Code Est Pt Level 4 (37796) Diagnoses Pure hypercholesterolemia E78.00 Benign essential hypertension I10 Acquired hypothyroidism E03.9 Thrombosis of left upper extremity I82.602 Chronic obstructive pulmonary disease, unspecified COPD type J44.9 COPD type: unspecified COPD Osteoarthritis involving multiple joints on both sides of body M15.9 Degeneration of intervertebral disc of lumbar region with discogenic back pain M51.360 Disc-related pain type: discogenic back pain only Vitamin D deficiency E55.9 Vitamin B12 deficiency E53.8 Chronic idiopathic constipation K59.04 Ductal carcinoma in situ (DCIS) of right breast D05.11 Overweight (BMI 25.0-29.9) E66.3 Additional Codes PHQ-9 - 91083 - PHQ-9 Billing: Yes ([id number]) Assessment & Plan Assessment & Plan (1) Pure hypercholesterolemia: Code(s): E78.00 - Pure hypercholesterolemia, unspecified Category: Medical Plan: Patient was not able to get her labs done prior to her appointment today - states that she will go over to the hospital after her appointment today to get her labs done AYLA Patient's cholesterol levels were significantly elevated when they were last checked on 02/20/2024 (total cholesterol was at 277 mg/dl and LDL cholesterol at 191 mg/dl), as she was not taking her Atorvastatin 20 mg regularly at the time She has since stopped taking it as she noticed that her myalgia and joint pains felt a lot worse after she takes her Rx - states that her joint pains and muscle aches have since improved significantly since she stopped taking Atorvastatin Reinforced low-cholesterol diet Have advised patient that I will wait and see how her numbers are when she goes for her labs after her appointment today and if her cholesterol numbers are still very high, I will likely try her on low dose Rosuvastatin or Pitavastatin (if her insurance will agree to cover the Rx) If she still cannot tolerate the alternative statins, then we may have to try her on the newer PCSK9 inhibitors like Repatha or Praluent Will recheck her labs and fasting lipids in 4 months for follow up (2) Benign essential hypertension: Code(s): I10 - Essential (primary) hypertension Category: Medical Plan: Reinforced low sodium diet - goal is systolic BP of at least 130 mm or less Continue Amlodipine 5 mg QD Patient is reminded to continue monitoring her blood pressure regularly (3) Acquired hypothyroidism: Code(s): E03.9 - Hypothyroidism, unspecified Category: Medical Plan: Patient remains clinically euthyroid at present Continue Levothyroxine 100 mcg QD Will recheck her TFTs in 4 months for follow up (4) Thrombosis of left upper extremity: Code(s): I82.602 - Acute embolism and thrombosis of unspecified veins of left upper extremity Category: Medical Plan: RESOLVED Repeat venous doppler of her left upper extremity done in October 2023 came back normal with no evidence of superficial or deep vein thrombosis in the left upper extremity She has been on Eliquis 5 mg BID and has completed at least 6 months of Eliquis - Rx was then discontinued (5) Chronic obstructive pulmonary disease (COPD): Code(s): J44.9 - Chronic obstructive pulmonary disease, unspecified Category: Medical Qualifiers: COPD type: unspecified COPD Qualified Code(s): J44.9 - Chronic obstructive pulmonary disease, unspecified Plan: Stable - continue Albuterol HFA 2 inhalations Q 6 hours PRN (6) Osteoarthritis involving multiple joints on both sides of body: Code(s): M15.9 - Polyosteoarthritis, unspecified Category: Medical Plan: Involving multiple joints, including both knees, right shoulder, hips and left ankle X-rays of the left ankle and right wrist done a few months ago revealed (+) mild OA changes Continue Celebrex 200 mg QD PRN for pain; she was on Naproxen or Ibuprofen in the past and states that they have not helped much Have advised her again that regular exercises and stretching and referral to PT/OT when needed are likely the most effective methods of helping her manage her symptoms although patient reports that a lot of her symptoms have improved significantly since she stopped taking her Atorvastatin (7) Lumbar degenerative disc disease: Code(s): M51.36 - Other intervertebral disc degeneration, lumbar region Category: Medical Qualifiers: Disc-related pain type: discogenic back pain only Qualified Code(s): M51.360 - Other intervertebral disc degeneration, lumbar region with discogenic back pain only Plan: Reinforced activity and weight-lifting restrictions Lumbar spine x-rays done in April 2022 revealed (+) prominent degenerative disc changes L1-L2, L4-L5, and L5-S1 with borderline retrolisthesis at L1-L2 that are stable and no interval vertebral compression or destructive process are seen Continue Tramadol 50 mg TID PRN (8) Vitamin D deficiency: Code(s): E55.9 - Vitamin D deficiency, unspecified Category: Medical Plan: Continue Vitamin D3 2000 units QD (9) Vitamin B12 deficiency: Code(s): E53.8 - Deficiency of other specified B group vitamins Category: Medical Plan: She was taking her Vitamin B12 1000 mcg QD but was advised to cut it back to 2 to 3 times a week at her last visit as her B12 level was >2000 then (10) Chronic idiopathic constipation: Code(s): K59.04 - Chronic idiopathic constipation Category: Medical Plan: Better controlled Reinforced increased oral fluids and dietary fiber Continue Docusate 100 mg QD PRN and Miralax 17 gm QD; she was also started on Linzess 72 mcg QD by GI a few months ago Follow up with GI as scheduled (11) Ductal carcinoma in situ (DCIS) of right breast: Code(s): D05.11 - Intraductal carcinoma in situ of right breast Category: Medical Plan: S/P treatment with Tamoxifen x 5 years, from 01/2013 to 01/2018 Follow up with oncology as scheduled for continuing surveillance (12) Overweight (BMI 25.0-29.9): Comment: S/P sleeve gastrectomy Code(s): E66.3 - Overweight Category: Medical Plan: Reinforced diet/exercise as tolerated/lose weight Plan Follow up in 4 months Orders: Orders Lipid Panel 4 Months E78.00 - Pure hypercholesterolemia, unspecified Free T4 (Free Thyroxine) 4 Months E03.9 - Hypothyroidism, unspecified UA CC w/rflx Micro + Cult 4 Months R30.0 - Dysuria Thyroid Stimulating Hormone 4 Months E03.9 - Hypothyroidism, unspecified Complete Blood Count Auto Diff 4 Months D64.9 - Anemia, unspecified Comprehensive Susan. Panel Fast 4 Months E78.00 - Pure hypercholesterolemia, unspecified Vitamin D 25-OH Total 4 Months E55.9 - Vitamin D deficiency, unspecified Vitamin B12 and Folate 4 Months E53.8 - Deficiency of other specified B group vitamins Medications: New multivitamin (Multiple Vitamins tablet) 1 tab PO QAM 90 days 90 tabs 3RF
--- OUTSIDE RECORDS SUMMARY | 2024-06-25 10:35 | XMS_ITS | Clinical Summary ---
Author Organization [facility] Address [address] [place] [address] Care Team Providers Care Route Driver Name Role Phone Armando Wheeler MD Primary Care Provider +1- [phone] Allergies No known active allergies Medications Medication Sig Dispensed Refills Start Date End Date Status amLODIPine (NORVASC) 5 MG tabletIndications:Dwayne hungg's angina Take 1 tablet (5 mg total) by mouth daily. Do not start before December 22, 2022. 30 tablet 12/22/2022 Active amoxicillin-clavulana te (AUGMENTIN) 875-125 MG per tabletIndications:Dwayne wig's angina Take 1 tablet by mouth 2 (two) times a day. 20 tablet 12/21/2022 Active apixaban (ELIQUIS) 5 MG tabletIndications:Dwayne wig's angina Take 1 tablet (5 mg total) by mouth 2 (two) times a day. 60 tablet 5 12/21/2022 Active levothyroxine (SYNTHROID, LEVOTHROID) 100 MCG tabletIndications:Dwayne gallagher's angina Take 1 tablet (100 mcg total) by mouth daily on an empty stomach. Do not start before December 22, 2022. 30 tablet 12/22/2022 Active multivitamin with minerals (CEROVITE) Liquid liquidIndications:Dwayne hungg's angina Take 15 mL by mouth daily. Do not start before December 22, 2022. 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 Not very hard 12/07/2022 Hunger Vital Sign Answer Date Recorded Within the past 12 months, y ou worried that your food would run out before you got the money to buy more. Never true 12/08/19 23 Within the past 12 months, t he food you bought just didn't last and you didn't have money to get more. Never true 12/07/2022 PRAPARE - Transportation Answer Date Re corded In the past 12 months, has l ack of transportation kept you from medical appointments or from getting medications? No 11/19 In the past 12 months, has l ack of transportation kept you from meetings, work, or from getting things needed for daily living? No 12/07/2022 Housing Stability Vital Sign Answer Dani e Recorded In the last 12 months, was t here a time when you were not able to pay the mortgage or rent on time? No 12/07/2022 In the last 12 months, how many places have you lived? 1 12/07/2022 Unstable Housing in the Last Year Not on file 12/07/2022 Sex and Gender Information Value Date Recorded Sex Assigned at Female 12/05/2022 7:16 AM EDT Gender Identity Female 12/05/2022 7:16 AM EDT Sexual Orientation Heterosexual (straight) 12/05 7:16 AM EDT Last Filed Vital Signs Vital Sign Reading Time Taken Comments Blood Pressure 155/89 01/10/2023 10:10 AM EDT Pulse 82 01/10/2023 10:10 AM EDT Temperature 36.4 ??C (97.5 ??F) 01/10/2023 10:10 AM E DT Respiratory Rate 18 12/21/2022 11:02 AM EDT Oxygen Saturation 96% 01/10/2023 10:10 AM EDT Inhaled Oxygen Concentration - - Weight 78 kg (172 lb) 01/10/2023 10:10 AM EDT Height 170.2 cm (5' 7 ) 12/05/2022 11:00 AM EDT Body Mass Index 26.94 12/05/2022 11:00 AM EDT Plan of Treatment Health Maintenance Due Date Last Done Comments Hepatitis C Virus Screening 1955 DTaP/Tdap/Td Vaccines (1 - Tdap) 1972 Mammogram 1993 Colonoscopy 1998 Pneumococcal Vaccines 50+ (1 of 1 - PCV) 10/07/2003 Zoster (Shingles) Vaccine (1 of 2) 10/07/2003 DXA Bone Density (Females,Ag es 65 and older) 2018 Influenza Vaccine 12/21/2023 COVID-19 Vaccine (1 - 2023-2 5 season) 2024 RSV Vaccine 60 years and old er and Patients (1 - 1-dose 75+ series) 2028 Hepatitis B Vaccines Aged Out No long er eligible based on patient's age to complete this topic Advance Directives * Full Code (Latest Code Status on File) Date Activated Date Inactivated Comments 12/15/2022 8:13 PM * Full Code Date Activated Date Inactivated Comments 12/05/2022 9:07 AM 12/15/2022 8:13 PM Care Teams Route Driver Relationship Specialty Start Date End Date Armando Wheeler MD [address] [place] [address] [place] [id number] PCP - General Internal Medicine 12/21/22
--- OUTSIDE RECORDS SUMMARY | 2024-06-25 10:35 | XMS_ITS ---
Author Name [facility] Organization Unknown History of Medication Use Medication Directions Dispensed Refills Start Date End Date Stat us amoxicillin-clavula fortunato (AUGMENTIN) 875-125 MG per tablet Take 1 tablet by mouth 2 (two) times a day. 12/21/2022 01/01/2023 active amLODIPine (NORVASC) 5 MG tablet Take 1 tablet (5 mg total) by mouth daily. Do not start before December 22, 2022. 12/22/2022 01/22/2023 active Problems Problem Status Onset Date Problem Type Date of Resolution Source Parapharyngeal abscess active [facility]
== END 2024-06-25 10:52 | disposition home or self-care (01) ==
PROVIDERS: PCP Internal Medicine; Visit Provider Internal Medicine
DX: I10 Essential (primary) hypertension (principal); J44.9 Chronic obstructive pulmonary disease, unspecified; E78.00 Pure hypercholesterolemia, unspecified; E03.9 Hypothyroidism, unspecified; I82.602 Acute embolism and thrombosis of unspecified veins of left upper extremity; M15.9 Polyosteoarthritis, unspecified; M51.360 Other intervertebral disc degeneration, lumbar region with discogenic back pain only; E55.9 Vitamin D deficiency, unspecified; E53.8 Deficiency of other specified B group vitamins; K59.04 Chronic idiopathic constipation; D05.11 Intraductal carcinoma in situ of right breast; E66.3 Overweight

== ENCOUNTER 2024-06-25 09:53 | Outpatient (REF) | payer MEDICARE, SELFPAY ==
[2024-06-25 11:12] LABS: MANUAL DIFF FLAG NO
[2024-06-25 11:41] LABS: Appearance Urine Clear; Color Urine Yellow; Glucose Urine UA Negative (Negative); Leukocyte Esterase Urine Negative (Negative); Nitrite Urine Negative (Negative); Specific Gravity - Urine 1.015 (1.005-1.025); Urine Blood Negative (Negative); Urine Ketones Negative (Negative); Urine Protein Negative (Neg-Trace)
[2024-06-25 11:52] LABS: Basophils Percent Auto 0.8 % (0-2); Eosinophils Absolute Auto 0.1 X10*3/uL (0.0-0.4); Eosinophils Percent Auto 1.9 % (0-4); Hematocrit 39.4 % (37.0-47.0); Hemoglobin 12.9 g/dl (12.0-16.0); Imm Gran Abs Auto 0.02 X10*3/uL (0.00-0.03); Imm Gran Pct Auto 0.4 % (0.0-0.4); Lymphocytes Absolute Auto 1.4 X10*3/uL (1.2-4.9); Lymphocytes Percent Auto 25.7 % (20-40); Mean Corpuscular HGB Conc 32.7 g/dl (31.0-35.0); Mean Corpuscular Hemoglobin 31.2 pg (27.0-33.0); Mean Corpuscular Volume 95.2 fL (80.0-98.0); Mean Platelet Volume 9.8 fL (9.4-12.3); Monocytes Absolute Auto 0.5 X10*3/uL (0.1-1.2); Monocytes Percent Auto 9.7 % (2-11); Neutrophils Absolute Auto 3.2 x10*3/uL (2.0-8.3); Neutrophils Percent Auto 61.5 % (45-73); Platelet Count 278 X10*3/uL (160-400); Red Blood Count 4.14 X10*6/uL (4.20-5.50); Red Cell Distribution Width 13.3 % (11.0-16.0); White Blood Count 5.3 X10*3/uL (4.8-10.8)
--- OUTSIDE RECORDS SUMMARY | 2024-06-25 11:58 | XMS_ITS | Clinical Summary ---
Author Organization [facility] Address [address] [place] [address] Care Team Providers Care Seed Production Field Supervisor Name Role Phone Armando Wheeler MD Primary Care Provider [phone]- [phone] Allergies No known active allergies Medications Medication [...] 9:07 AM 12/15/2022 8:13 PM Care Teams Seed Production Field Supervisor Relationship Specialty Start Date End Date Armando Wheeler MD [address] [place] [address] [place] [id number] PCP - General Internal Medicine 12/21/22
[2024-06-25 12:42] LABS: Alanine Aminotransferase 9 U/L (0-31); Albumin Level 3.9 g/dL (3.5-5.0); Alkaline Phosphatase 130 U/L (39-117); Anion Gap 16 (12-20); Aspartate Amino Transferase 20 U/L (5-31); Bilirubin Total 0.8 mg/dL (0.0-1.0); Blood Urea Nitrogen 11 mg/dL (9-16); Calcium 9.2 mg/dL (8.4-10.2); Carbon Dioxide 29 mmol/L (22-29); Chloride 102 mmol/L (96-108); Cholesterol 237 mg/dL (<200); Estimated Glomerular Filt Rate > 60; Glucose Fasting 81 mg/dL (60-99); HDL Cholesterol 62 mg/dL (>40); LDL Cholesterol Calculated 159 mg/dL (<100); Potassium 4.4 mmol/L (3.3-5.1); Sodium 143 mmol/L (135-145); Total Protein 7.5 g/dL (6.5-8.0); Triglycerides 82 mg/dL (<150)
[2024-06-25 12:49] LABS: Free T4 (Free Thyroxine) 1.13 ng/dL (0.71-1.85); Thyroid Stimulating Hormone 0.67 uIU/mL (0.32-4.0); Vitamin D 25-OH Total 51.7 ng/mL (>30)
== END 2024-06-25 09:54 | disposition home or self-care (01) ==
LOC: HO.LAB 09:53
PROVIDERS: PCP Internal Medicine; Visit Provider Internal Medicine
DX: E78.00 Pure hypercholesterolemia, unspecified (principal); I10 Essential (primary) hypertension; E03.9 Hypothyroidism, unspecified; I82.602 Acute embolism and thrombosis of unspecified veins of left upper extremity; J44.9 Chronic obstructive pulmonary disease, unspecified; M15.9 Polyosteoarthritis, unspecified; M51.360 Other intervertebral disc degeneration, lumbar region with discogenic back pain only; E55.9 Vitamin D deficiency, unspecified; E53.8 Deficiency of other specified B group vitamins; K59.04 Chronic idiopathic constipation; E66.3 Overweight; R30.0 Dysuria; D64.9 Anemia, unspecified; Z86.000 Personal history of in-situ neoplasm of breast; Z79.899 Other long term (current) drug therapy; Z98.84 Bariatric surgery status
CPT/HCPCS: 36415; 80053; 80061; 81003; 82306; 84439; 84443; 85025; 96127; 99212

== ENCOUNTER 2024-09-23 13:54 | Emergency (ER) | payer MEDICARE, SELFPAY ==
--- NOTE | ~2024-09-23 | XR_ITS ---
EXAMINATION: XR CHEST 2 VIEWS HISTORY: chest pain COMPARISON: Comparison is made with the prior examination dated 05/02/2022. FINDINGS: PA and lateral views of the chest are submitted. The lungs are expanded and clear. There is no pleural effusion, pneumothorax, or pulmonary vascular congestion. The heart is normal in size. There is degenerative disc disease of the spine. There are surgical clips in the left upper quadrant. XR/XR chest 2V IMPRESSION: No acute cardiopulmonary abnormality. Electronically signed by: Martin Phillips MD 09/23/2024 03:20 PM EDT
--- NOTE | ~2024-09-23 | XR_ITS ---
EXAMINATION: XR THORACIC SPINE 3 VIEWS HISTORY: upper back pain COMPARISON: Comparison is made with the prior examination dated 07/30/2020. FINDINGS: AP and lateral views of the thoracic spine are submitted. Osseous mineralization is normal. The vertebral bodies maintain normal height without evidence of fracture or subluxation. There is mild levoscoliosis at the thoracolumbar junction. There is moderate degenerative disc disease with disc space narrowing and osteophyte formation. The visualized paraspinal soft tissues are unremarkable. XR/XR thoracic spine 3V IMPRESSION: Diffuse moderate degenerative disc disease. Electronically signed by: Martin Phillips MD 09/23/2024 03:21 PM EDT
[2024-09-23 14:14] VITALS: BP 146/74; PULSE 87; RESP 18; TEMP 36.2; O2SAT 97; BMI 29.1
--- NOTE | 2024-09-23 14:40 | ED.GENADULT ---
HPI - General Adult General Chief complaint: Back Pain/Injury Stated complaint: pain on lung Time Seen by Provider: 09/23/24 15:51 Source: patient Mode of arrival: ambulatory Limitations: no limitations History of Present Illness ED Provider: Carlos Alberto Smith HPI narrative: 68 yold female pmh of gastric sleeve, dyspepsia, upper extrmeity DVT, lumbar degenerative disc disease presents to the ED for left upper back pain that is worse on movement for the past two months. Patient describes pain as burning. patient denies any rash, chest pain, shortness of breath, pleurisy, neck pain, arm pain, upper extremity swelling, calf pain, or leg swelling. patient denies any urinary/bowel incontinence, IV drug use, or immunocomprimised diseases. Related Data Home Medications ?Medication ?Instructions ?Recorded ?Confirmed ascorbate calcium (vitamin C) 500 500 mg PO BID 03/03/20 06/25/24 mg tablet blood pressure test kit-large #1 ea 09/01/22 06/25/24 Previous Rx's ?Medication ?Instructions ?Recorded albuterol sulfate 90 mcg/actuation 2 puff inhalation .4 times a day 06/20/21 aerosol inhaler (ProAir HFA) PRN Wheezing #8.5 grams cyclobenzaprine 10 mg tablet 10 mg PO BEDTIME #14 tabs 04/22/22 mometasone 0.1 % topical cream 1 appl topical DAILY 15 days #45 05/29/22 grams blood pressure monitor #1 ea 07/25/22 sennosides 8.6 mg capsule (senna) 25.8 mg (3 x 8.6 mg) PO BEDTIME 09/01/22 constipation 30 days #90 caps loratadine 10 mg tablet 10 mg PO DAILY PRN allergy 11/02/22 symptoms 90 days #90 tabs polyethylene glycol 3350 17 17 g PO DAILY constipation 30 days 11/02/22 gram/dose oral powder (Miralax) #510 grams clotrimazole-betamethasone 1 1 appl topical BID 10 days #45 06/25/23 %-0.05 % topical cream grams diclofenac sodium 1 % topical gel 2 g topical BID PRN for pain #100 10/24/23 grams amlodipine 5 mg tablet 5 mg PO DAILY 90 days #90 tabs 11/11/23 celecoxib 200 mg capsule 200 mg PO DAILY PRN pain 30 days 12/27/23 #30 caps Ventolin HFA 90 mcg/actuation 2 puff inhalation Q6H PRN 02/23/24 aerosol inhaler (albuterol sulfate) shortness of breath or wheezing 30 days #18 grams cyanocobalamin (vitamin B-12) 500 500 mcg PO DAILY #90 tabs 02/23/24 mcg tablet levothyroxine 100 mcg tablet 100 mcg PO DAILY 90 days #90 tabs 02/23/24 famotidine 40 mg tablet (Pepcid) 40 mg PO DAILY PRN dyspepsia #30 03/13/24 tabs multivitamin with folic acid 400 1 tab PO DAILY #30 tabs 03/13/24 mcg tablet (Daily-Jen (with folic acid)) simethicone 180 mg capsule 180 mg PO QID 30 days #120 caps 03/13/24 cholecalciferol (vitamin D3) 50 50 mcg PO DAILY #90 caps 06/14/24 mcg (2,000 unit) capsule multivitamin (Multiple Vitamins 1 tab PO QAM 90 days #90 tabs 06/25/24 tablet) lidocaine 5 % topical patch 1 patch topical DAILY #15 ea 09/23/24 naproxen 500 mg tablet 500 mg PO BID PRN pain #14 tabs 09/23/24 prednisone 20 mg tablet 40 mg (2 x 20 mg) PO DAILY 5 days 09/23/24 #10 tabs Allergies Allergy/AdvReac Type Severity Reaction Status Date / Time kamara [CHERRIES] Allergy Intermediate ITCHING-THR Verified 09/23/24 14:17 OAT Sulfa (Sulfonamide Allergy Intermediate rash Verified 09/23/24 14:17 Antibiotics) atorvastatin AdvReac Intermediate myalgia Verified 09/23/24 14:17 naproxen AdvReac Mild dizziness Verified 09/23/24 14:17 green apples Allergy Rash Uncoded 09/23/24 14:17 Review of Systems Review of Systems: left upper back pain worse on movement and burning Yes all other systems are reviewed and are negative PMFSH Past Medical History Medical History (Updated 09/24/24 @ 00:01 by Background Daemhcace) Lumbar degenerative disc disease COVID-19 Left lumbar radiculopathy Parapharyngeal abscess (~11/2022) Zinc deficiency Vitamin B1 deficiency Vitamin A deficiency Chest pain, pleuritic Intestinal malabsorption following gastrectomy Left inguinal pain Neuropathic pain of left lower extremity Overweight (BMI 25.0-29.9) Primary insomnia History of ductal carcinoma in situ (DCIS) of breast Vitamin D deficiency Allergic rhinitis Elevated LFTs Primary osteoarthritis, unspecified shoulder Osteoarthritis of spine with radiculopathy, lumbosacral region Primary osteoarthritis of both knees Chronic obstructive pulmonary disease (COPD) Benign essential hypertension Acquired hypothyroidism Pure hypercholesterolemia Surgical History (Updated 08/19/24 @ 12:16 by JET Valdovinos) History of sleeve gastrectomy (07/24/18) History of incision and drainage (~11/2022) History of colonoscopy History of total abdominal hysterectomy and bilateral salpingo-oophorectomy (~2004) History of cardiac cath (~03/2018) History of lumpectomy of right breast (~12/2012) H/O unilateral oophorectomy Family History Family History Father CVD (cardiovascular disease) Mother Cervical cancer Pancreatic cancer Uterine cancer Sister Substance abuse Social History Social History Household Members: Spouse Housing: Apartment Are you a primary plant care worker to a significant other at home: No Do you presently have visiting nurse or other home services: No Alcohol intake: never Patient Tobacco Use Status: Former Tobacco user Tobacco use type: Cigarette e-Cigarette/Vaping Use: Never Used Second Hand Smoke Exposure: No Advance Directives: No Advance Directives Information Provided: Yes Advance Directives on File: No Do you have a plan to hurt others: No Plan service: No 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al status: disabled 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, 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al exposures/hazards: No Cognitive needs: No Hearing needs: No Vision needs: Yes Physical Exam ED Vital Signs: Vital Signs - 24 hr 09/23/24 14:14 09/23/24 16:58 Temperature 97.1 F 97.1 F Pulse Rate 87 87 Respiratory Rate 18 18 Blood Pressure 146/74 H 146/74 H Pulse Oximetry 97 97 Oxygen Delivery Method Room Air Room Air BMI result Body Mass Index 29.1 Const General: cooperative, healthy appearing, comfortable, no acute distress, well developed, alert, awake and Physically active Orientation/consciousness: patient oriented x3 HENMT Head: Yes normal to inspection, Yes No palpable skull fracture present, Yes normocephalic, Yes atraumatic and No abrasion Eyes General: appearance normal, both eyes and all related structures Visual Loya: normal visual loya by confrontation Alignment and Position: alignment normal Periorbital: periorbital findings normal Eyelids: Yes eyelids normal Conjunctivae: conjunctivae normal Sclerae: sclerae normal Corneas: corneas normal Pupils: Equal, round and reactive pupils present EOM: EOMs intact bilaterally Direct Ophthalmoscopy: normal light reflex Neck Neck: Yes normal visual inspection, Yes full ROM, Yes no lymphadenopathy, No no meningeal signs, Yes trachea midline, Yes supple, No anterior neck swelling and No tender Chest Chest palpation & inspection: normal inspection of the chest and normal palpation of entire chest wall Resp Effort & Inspection: normal respiratory effort and able to speak in complete sentences Auscultation: clear to auscultation bilaterally Cardio Jugular venous distension: no JVD Heart sounds: S1 normal heart sound present and S2 normal heart sound present GI Inspection: Yes normal to inspection Palpation (GI): Soft to palpation, not firm, nontender, no guarding and not rigid General: Yes no CVA tenderness Back/Spine/Pelvis Other: negative for rash on back. Back: no CVA tenderness and back tenderness (left thoracic tenderness on palpation. ) Skin General skin exam: no rashes or lesions noted, elasticity normal and turgor normal Neuro General: patient oriented x3, gait normal, tone normal, moves all extremities, Normal light touch and pain sensation, No no meningeal signs, no focal motor deficits and CN's II-XI intact bilaterally Cranial nerves: Yes Equal, round and reactive pupils present Extrem General: Yes normal to inspection, Yes full ROM and Yes capillary refill normal Psych Appearance: grossly normal, well kempt and not disheveled Course Course Course Narrative: RME; 5-year-old female presents to ED for posterior back pain left scapular area for the past 2 months. Patient states burning sensation in the area. Patient denies any trauma, shortness of breath, coughing, chest pain, or pleurisy. Patient denies any history of shingles. Patient was concerned she she may have shingles so patient got her shingles vaccine yesterday. Medical Decision Making Medical Decision Making MDM Narrative: 68 yold female, osteoarthritis, gastric sleeve, DVT presents to ED for chronic left upper mid back pain for 2 months that is worse on movement. Patient denies ever having any shortness of breath, chest pain, pleurisy, coughing up blood, rash, or any recent trauma. Patient states having a burning sensation in mid back left upper back but never saw a rash. Patient took her shingles vaccine yesterday from her PCP because she was afraid to make a shingles. Patient denies any recent long travel recent surgery. Patient denies any chest pain radiating to the back, lower abdominal pain, leg swelling, arm swelling or tingling. Chest x-ray negative and normal. Thoracic positive for severe degenerative arthritis. Not suspecting PE, DVT, [place], CHF, osteomyelitis, epidural abscess, cauda equinus syndrome, or any other life-threatening etiology. Once again patient is having this for 2 months without any chest pain or shortness of breath just mid left upper back pain worse on movement and burning sensation. Unlikely shingles due to patient's having burning for 2 months and has no rash. Differential Diagnosis Differential Diagnoses: The differential diagnosis associated with the presentation includes (Shingles, fracture, dislocation) Admission/Observation Consideration of admission/observation: Escalation of care including admission/observation considered Independent Interpretation I performed an independent interpretation of an: Plain X-Ray Radiology Impression Discussion of test interpretation with radiology: I have reviewed the radiologist's reading. Independent Historian Clinical information obtained from an independent historian. History obtained from or confirmed by: Other (patient) Prescription Management I considered prescription management with: Pain Medication Discharge Plan Discharge Clinical Impression: Radiculopathy of thoracic region Patient Disposition: Home, Self-Care Instructions: Back Pain (ED), Degenerative Disc Disease (ED) Additional Instructions: Recommend follow-up with primary care provider and spinal surgeon. Return to the ED immediately for any worsening back pain, urinary/bowel incontinence, rash, fever, chills, chest pain, shortness of breath, coughing up blood, chest pain on inspiration, left upper extremity swelling, calf pain, or any other concerning symptoms. EXAMINATION: XR CHEST 2 VIEWS HISTORY: chest pain COMPARISON: Comparison is made with the prior examination dated 05/02/2022. FINDINGS: PA and lateral views of the chest are submitted. The lungs are expanded and clear. There is no pleural effusion, pneumothorax, or pulmonary vascular congestion. The heart is normal in size. There is degenerative disc disease of the spine. There are surgical clips in the left upper quadrant. XR/XR chest 2V IMPRESSION: No acute cardiopulmonary abnormality. Electronically signed by: Martin Phillips MD 09/23/2024 03:20 PM EDT RP XAMINATION: XR THORACIC SPINE 3 VIEWS HISTORY: upper back pain COMPARISON: Comparison is made with the prior examination dated 07/30/2020. FINDINGS: AP and lateral views of the thoracic spine are submitted. Osseous mineralization is normal. The vertebral bodies maintain normal height without evidence of fracture or subluxation. There is mild levoscoliosis at the thoracolumbar junction. There is moderate degenerative disc disease with disc space narrowing and osteophyte formation. The visualized paraspinal soft tissues are unremarkable. XR/XR thoracic spine 3V IMPRESSION: Diffuse moderate degenerative disc disease. Electronically signed by: Martin Phillips MD 09/23/2024 03:21 PM EDT RP Prescriptions: New naproxen 500 mg tablet 500 mg PO BID PRN (Reason: pain) Qty: 14 0RF lidocaine 5 % adhesive patch,medicated 1 patch topical DAILY Qty: 15 0RF Rx Instructions: leave on most painful area for up to 12 hrs prednisone 20 mg tablet 40 mg PO DAILY 5 Days Qty: 10 0RF No Action mometasone 0.1 % cream 1 appl topical DAILY 15 Days Qty: 45 1RF (DME) blood pressure monitor Kit See Rx Instructions .Route Qty: 1 0RF Rx Instructions: As directed clotrimazole-betamethasone 1-0.05 % cream 1 appl topical BID 10 Days Qty: 45 0RF amlodipine 5 mg tablet 5 mg PO DAILY 90 Days Qty: 90 3RF celecoxib 200 mg capsule 200 mg PO DAILY PRN (Reason: pain) 30 Days Qty: 30 3RF Rx Instructions: Take with food cholecalciferol (vitamin D3) 50 mcg (2,000 unit) capsule 50 mcg PO DAILY Qty: 90 3RF ascorbate calcium (vitamin C) 500 mg tablet 500 mg PO BID albuterol sulfate [ProAir HFA] 90 mcg/actuation HFA aerosol inhaler 2 puff inhalation .4 times a day PRN (Reason: Wheezing) Qty: 8.5 5RF cyclobenzaprine 10 mg tablet 10 mg PO BEDTIME Qty: 14 0RF polyethylene glycol 3350 [Miralax] 17 gram/dose powder 17 g PO DAILY 30 Days Qty: 510 5RF loratadine 10 mg tablet 10 mg PO DAILY PRN (Reason: allergy symptoms) 90 Days Qty: 90 1RF diclofenac sodium 1 % gel 2 g topical BID PRN (Reason: for pain) Qty: 100 0RF (DME) blood pressure test kit-large Kit See Rx Instructions .ROUTE DIRECTED Qty: 1 Rx Instructions: As directed senna 8.6 mg capsule 25.8 mg PO BEDTIME 30 Days Qty: 90 6RF cyanocobalamin (vitamin B-12) 500 mcg tablet 500 mcg PO DAILY Qty: 90 3RF albuterol sulfate [Ventolin HFA] 90 mcg/actuation HFA aerosol inhaler 2 puff inhalation Q6H PRN (Reason: shortness of breath or wheezing) 30 Days Qty: 18 5RF levothyroxine 100 mcg tablet 100 mcg PO DAILY 90 Days Qty: 90 3RF multivitamin [Multiple Vitamins] Tablet 1 tab PO QAM 90 Days Qty: 90 3RF famotidine [Pepcid] 40 mg tablet 40 mg PO DAILY PRN (Reason: dyspepsia) Qty: 30 6RF simethicone 180 mg capsule 180 mg PO QID 30 Days Qty: 120 3RF Rx Instructions: after meals multivitamin with folic acid [Daily-Jen (with folic acid)] 400 mcg tablet 1 tab PO DAILY Qty: 30 11RF Referrals: Armando Wheeler MD [Primary Care Provider] - (Thoracic radiculopathy. Degenerative disc disease) Shaquille Quintero MD, PhD [Physician] - (Moderate degenerative disc disease. Thoracic radiculopathy) Interventions: ED Discharge Assessment Last Done: 09/23/24 16:58 Discharge Date/Time: 09/23/24 16:59 Print Language: Kiswahili
[2024-09-23 16:58] VITALS: BP 146/74; PULSE 87; RESP 18; TEMP 36.2; O2SAT 97
--- OUTSIDE RECORDS SUMMARY | 2024-09-23 17:41 | XMS_ITS | Clinical Summary ---
Author Organization [facility] Address [address] [place] [address] Care Team Providers Care Log Loader Name Role Phone Armando Wheeler MD Primary Care Provider +1- [phone] Allergies No known active allergies Medications amLODIPine (NORVASC) 5 MG tabletIndication s:Manish's angina Take 1 tablet (5 mg total) by mouth daily. Do not start before December 22, 2022. 30 tablet 12/22/2022 Active amoxicillin-clav ulanate (AUGMENTIN) 875-125 MG per tabletIndication s:Manish's angina Take 1 tablet by mouth 2 (two) times a day. 20 tablet 12/21/2022 Active apixaban (ELIQUIS) 5 MG tabletIndication s:Manish's angina Take 1 tablet (5 mg total) by mouth 2 (two) times a day. 60 tablet 5 12/21/2022 Active levothyroxine (SYNTHROID, LEVOTHROID) 100 MCG tabletIndication s:Manish's angina Take 1 tablet (100 mcg total) by mouth daily on an empty stomach. Do not start before December 22, 2022. 30 tablet 12/22/2022 Active multivitamin with minerals (CEROVITE) Liquid liquidIndication s:Manish's angina Take 15 mL by mouth daily. [...] the Last Year Not on file 12/07/2022 Comments Unknown Sex and Gender Information Value Date Recorded Sex Assigned at Female 12/05/2022 7:16 AM EDT Legal Sex Female 6:20 PM EST Gender Identity Female 12/05/2022 7:16 AM EDT [...] Density (Females,Ag es 65 and older) 2018 COVID-19 Vaccine (1 - 2023-2 5 season) 2024 Influenza Vaccine 12/20/2024 RSV Vaccine 60 years and old er and Patients (1 - 1-dose 75+ series) 2028 Hepatitis B Vaccines Aged Out No long er eligible based on patient's age to [place] [id number] [facility] MEDICARE Advance Directives * Full Code (Latest Code Status on File) Date Activated Date Inactivated Comments 12/15/2022 8:13 PM * Full Code Date Activated Date Inactivated Comments 12/05/2022 9:07 AM 12/15/2022 8:13 PM Care Teams Log Loader Relationship Specialty Start Date End Date Armando Wheeler MD [address] [place] [address] Dr [place], [place] [address] PCP - General Internal Medicine 12/21/22
== END 2024-09-23 16:59 | disposition home or self-care (01) ==
PROVIDERS: Emergency Provider Emergency Medicine; PCP Internal Medicine
DX: M54.14 Radiculopathy, thoracic region (principal); M54.6 Pain in thoracic spine; Z98.84 Bariatric surgery status; Z79.899 Other long term (current) drug therapy; Z86.718 Personal history of other venous thrombosis and embolism; Z87.891 Personal history of nicotine dependence
CPT/HCPCS: 71046; 72072; 99282; 99283

== ENCOUNTER → 2024-09-23 14:44 | Outpatient (BNV) | payer MEDICARE, SELFPAY | PROVIDERS: Emergency Provider Emergency Medicine; PCP Internal Medicine; Visit Provider Radiology Diagnostic Radiology | DX: M51.34 Other intervertebral disc degeneration, thoracic region (principal); R07.9 Chest pain, unspecified | CPT/HCPCS: 71046; 72072 ==

== ENCOUNTER 2024-10-10 09:31 | Outpatient (AMB) | payer MEDICARE, SELFPAY ==
--- NOTE | 2024-10-10 09:37 | MHC.OFFVIS ---
Vital Signs 10/10/24 09:45 Height 5 ft 7 in Weight 185 lb BMI 29.0 BP 140/64 H Blood Pressure Location Rt brachial Position Sitting Pulse 94 Pulse Source Pulse Oximeter Pulse Oximetry (%) 96 Oxygen Delivery Method Room Air Intake Visit Reasons: 6 weeks f/u r/s 05/28/2024 Intake Note: ESTABLISHED PATIENT for mgmt of CIC + Abd dist. FELISA 02/2024. CC: Pt reports persistence of sx since last visit. Tool And Gauge Inspector Required: Yes Tool And Gauge Inspector Services: Tool And Gauge Inspector Present Tool And Gauge Inspector Name: [facility] [place] Information Interpreted: clinical only Accompanied by: Self / Same As Patient Allergies kamara [CHERRIES] Allergy (Intermediate, Verified 10/10/24 09:37) ITCHING-THROAT Sulfa (Sulfonamide Antibiotics) Allergy (Intermediate, Verified 10/10/24 09:37) rash atorvastatin Adverse Reaction (Intermediate, Verified 10/10/24 09:37) myalgia naproxen Adverse Reaction (Mild, Verified 10/10/24 09:37) dizziness green apples Allergy (Uncoded 10/10/24 09:37) Rash HPI HPI 6 weeks f/u r/s 05/28/2024: Details: Assessment & Plan (1) Dyspepsia: Code(s): R10.13 - Epigastric pain Category: Medical (2) Abdominal bloating: Code(s): R14.0 - Abdominal distension (gaseous) Category: Medical Plan Japanese [place] Live For a screening colonoscopy her last being in 2019 and was negative. She has never had a personal history of polyps and given her multiple co-morbidities despite her family history of polyps I think we should discuss Cologuard as an alternative screening. I show her the video for Cologuard and she really likes this idea. She is c/o intermittent dyspepsia, but prn o2o not working so well. I explain the mechanism and that she would be better off with pepcid as it has a better onset of action for prn use. She continues on prn senna and has good bowel control as well as Miralax prn. ROV 6 week. Medications: New simethicone after meals 180 mg PO QID 30 days 120 caps 3RF R14.0 - Abdominal distension (gaseous) famotidine (Pepcid) 40 mg PO DAILY PRN 30 tabs 6RF dyspepsia R10.13 - Epigastric pain Refilled multivitamin with folic acid 400 mcg (Daily-Jen (with folic acid)) 1 tab PO DAILY 30 tabs 11RF Discontinued linaclotide (Linzess) Discontinued Reason: Doctor's Order 72 mcg PO QAM 30 caps 3RF K59.04 - Chronic idiopathic constipation LABS THE COLOGUARD WAS NEGATIVE TODAY'S VISIT Japanese #Cathie Live She continues on famotidine and she has not needed the senna but she is doing well on the simethicone. She finds that the famotidine works well for her pain. She is happy with this regimen and has not needed anything else. Return office visit in 6 months [facility] Medical History (Updated 10/10/24 @ 17:18 by MITA Godfrey) Abdominal distension, gaseous Chronic deep vein thrombosis (DVT) of axillary vein of left upper extremity Left hip pain Atypical chest pain Dyspepsia History of DVT (deep vein thrombosis) Acute diarrhea Thrombosis of left upper extremity Fracture of triquetrum of right wrist Avulsion fracture Dermatitis Myalgia Myalgia due to statin Dizziness Radicular pain of both lower extremities Exertional chest pain Achilles tendinitis of left lower extremity Ductal carcinoma in situ (DCIS) of right breast Bilateral knee pain History of ductal carcinoma in situ (DCIS) of breast Fracture of triquetral bone of right wrist with routine healing Lumbar degenerative disc disease COVID-19 Left lumbar radiculopathy Parapharyngeal abscess (~11/2022) Zinc deficiency Vitamin B1 deficiency Vitamin A deficiency Chest pain, pleuritic Intestinal malabsorption following gastrectomy Left inguinal pain Neuropathic pain of left lower extremity Overweight (BMI 25.0-29.9) Primary insomnia Vitamin D deficiency Allergic rhinitis Elevated LFTs Primary osteoarthritis, unspecified shoulder Osteoarthritis of spine with radiculopathy, lumbosacral region Primary osteoarthritis of both knees Chronic obstructive pulmonary disease (COPD) Benign essential hypertension Acquired hypothyroidism Pure hypercholesterolemia Surgical History (Updated 10/10/24 @ 09:56 by MITA Godfrey) Hx of peritonsillar abscess drainage History of sleeve gastrectomy (07/24/18) History of incision and drainage (~11/2022) History of colonoscopy History of total abdominal hysterectomy and bilateral salpingo-oophorectomy (~2004) History of cardiac cath (~03/2018) History of lumpectomy of right breast (~12/2012) H/O unilateral oophorectomy Family History Father CVD (cardiovascular disease) Mother Cervical cancer Pancreatic cancer Uterine cancer Sister Substance abuse Social History Household Members: Spouse Housing: Apartment Are you a primary manager primary care to a significant other at home: No Do you presently have visiting nurse or other home services: No Alcohol intake: never Patient Tobacco Use Status: Former Tobacco user Tobacco use type: Cigarette e-Cigarette/Vaping Use: Never Used Second Hand Smoke Exposure: No service: No 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al status: disabled 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, 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al exposures/hazards: No Cognitive needs: No Hearing needs: No Vision needs: Yes Review of Systems Const Denies fatigue, Denies fever(s), Denies night sweats, Denies poor appetite and Denies weight loss ENT Reports Normal hearing present, Denies dental pain, Denies dysphagia, Denies hearing loss, Denies mouth pain, Denies odynophagia, Denies throat swelling, Denies tongue swelling and Reports other (Dentition adequate) Card Reports no additional complaints Resp Reports no additional complaints GI Details: Reports abdominal pain, Denies melena, Reports bloating, Denies hematochezia, Reports constipation, Denies GI cramping, Denies dysphagia, Denies excessive flatus, Denies early satiety, Reports heartburn, Denies diarrhea, Denies nausea, Denies odynophagia, Denies vomiting and Denies hematemesis Skin/Breast Denies pruritus, Denies lesions, Denies rash and Denies jaundice Neuro Reports Normal hearing present and Denies Abnormal speech present Endo Denies fatigue Aller/Immun Denies throat swelling and Denies tongue swelling Physical Exam Vital Signs: Last Vital Signs Pulse 94 05/22/25 09:45 BP 140/64 H 10/10/24 09:45 Pulse Ox 96 10/10/24 09:45 Oxygen Delivery Method Room Air 10/10/24 09:45 BMI result Body Mass Index 29.0 Const General: cooperative, no acute distress, well developed and well groomed Nutritional Appearance: well nourished and overweight Orientation/consciousness: oriented to person, oriented to place and oriented to time Limitations: language barrier HEENT Head: Yes normocephalic and Yes atraumatic Eyes General: appearance normal, both eyes and all related structures Pupils: Equal, round and reactive pupils present Neck Neck: Yes normal visual inspection and Yes no lymphadenopathy Thyroid: Thyroid normal Resp Effort & Inspection: normal respiratory effort and able to speak in complete sentences Auscultation: clear to auscultation bilaterally Cardio Rate: regular rate Rhythm: regular rhythm Heart sounds: Normal, physiologic split S2 sound present Peripheral pulses: radial pulses present and posterior tibial pulses present GI Inspection: No distended, No Abdominal panniculus present and Yes obesity Palpation (GI): Soft to palpation, nontender, no guarding, not rigid and No hepatosplenomegaly present Percussion: Yes normal to percussion Auscultation: normal bowel sounds Rectal Exam - Female: deferred Skin General skin exam: no rashes or lesions noted, turgor normal, skin not dry, no jaundice, No spider nevi and no striae Rashes: no rashes Nails: normal Neuro General: oriented to person, oriented to place and oriented to time Cranial nerves: Yes Equal, round and reactive pupils present and Yes Normal hearing present Speech: No Abnormal speech present Extrem General: Yes normal to inspection, No clubbing, No cyanosis and No edema Psych Appearance: grossly normal and well kempt Mental Status: mental status grossly normal Speech and movement: Normal speech and movement present Affect: normal affect Attitude: cooperative Thought process: Normal thought process present and not confabulating Thought content: Normal thought content present Insight: Fair insight present (Psych) Judgement: Fair judgement present (Psych) Assessment & Plan Assessment & Plan (1) Periumbilical abdominal pain: Comment: resolved with simethicone and famotdine Code(s): R10.33 - Periumbilical pain Category: Medical (2) Chronic idiopathic constipation: Comment: Controlled by eating Oatmeal Code(s): K59.04 - Chronic idiopathic constipation Category: Medical (3) Abdominal bloating: Code(s): R14.0 - Abdominal distension (gaseous) Category: Medical (4) Encounter for colorectal cancer screening using Cologuard test: Comment: 04/03/2024=negative repeat 3 years Code(s): Z12.11 - Encounter for screening for malignant neoplasm of colon; Z12.12 - Encounter for screening for malignant neoplasm of rectum Category: Medical (5) GERD (gastroesophageal reflux disease): Code(s): K21.9 - Gastro-esophageal reflux disease without esophagitis Category: Medical Plan Japanese #Cathie Live She continues on famotidine and she has not needed the senna but she is doing well on the simethicone. She finds that the famotidine works well for her pain. She is happy with this regimen and has not needed anything else. She is controlling her constipation by eating oatmeal daily and by her morning cup of coffee which of course is fine. Return office visit in 6 months Coding Level of Care Code Est Pt Level 3 (41834) Diagnoses Periumbilical abdominal pain R10.33 Chronic idiopathic constipation K59.04 Abdominal bloating R14.0 Encounter for colorectal cancer screening using Cologuard test Z12.11; Z12.12 GERD (gastroesophageal reflux disease) K21.9
[2024-10-10 09:45] VITALS: BP 140/64; PULSE 94; O2SAT 96; BMI 29.0
--- OUTSIDE RECORDS SUMMARY | 2024-10-10 09:49 | XMS_ITS | Clinical Summary ---
Author Organization [facility] Address [address] [place] [address] Care Team Providers Care Inside Sales Professional Name Role Phone Armando Wheeler MD Primary Care Provider [phone] Allergies No known active allergies Medications amLODIPine [...] to complete [place] [id number] [facility] Advance Directives * Full Code (Latest Code Status on File) Date Activated Date Inactivated Comments 12/15/2022 8:13 PM * Full Code Date Activated Date Inactivated Comments 12/05/2022 9:07 AM 12/15/2022 8:13 PM Care Teams Inside Sales Professional Relationship Specialty Start Date End Date Armando Wheeler MD [address] [place] [address] [place], [place] [id number] PCP - General Internal Medicine 12/21/22
== END 2024-10-10 09:51 | disposition home or self-care (01) ==
LOC: HO.HGI 09:31
PROVIDERS: PCP Internal Medicine; Visit Provider Nurse Practitioner
DX: R10.33 Periumbilical pain (principal); K59.04 Chronic idiopathic constipation; R14.0 Abdominal distension (gaseous); K21.9 Gastro-esophageal reflux disease without esophagitis
CPT/HCPCS: 99213

== ENCOUNTER → 2024-10-10 09:31 | Outpatient (BNVA) | payer MEDICARE, SELFPAY | PROVIDERS: PCP Internal Medicine; Visit Provider Nurse Practitioner | DX: K59.04 Chronic idiopathic constipation (principal); K21.9 Gastro-esophageal reflux disease without esophagitis; R10.13 Epigastric pain; R14.0 Abdominal distension (gaseous) | CPT/HCPCS: 99212 ==

== ENCOUNTER 2024-11-14 11:11 | Outpatient (REF) | payer MEDICARE, SELFPAY ==
[2024-11-14 11:25] LABS: MANUAL DIFF FLAG NO
[2024-11-14 11:43] LABS: Basophils Absolute Auto 0.1 X10*3/uL (0.0-0.2); Basophils Percent Auto 1.1 % (0-2); Eosinophils Absolute Auto 0.2 X10*3/uL (0.0-0.4); Eosinophils Percent Auto 3.6 % (0-4); Hematocrit 39.3 % (37.0-47.0); Hemoglobin 13.2 g/dl (12.0-16.0); Imm Gran Abs Auto 0.01 X10*3/uL (0.00-0.03); Imm Gran Pct Auto 0.2 % (0.0-0.4); Lymphocytes Absolute Auto 1.5 X10*3/uL (1.2-4.9); Lymphocytes Percent Auto 32.1 % (20-40); Mean Corpuscular HGB Conc 33.6 g/dl (31.0-35.0); Mean Corpuscular Hemoglobin 31.2 pg (27.0-33.0); Mean Corpuscular Volume 92.9 fL (80.0-98.0); Mean Platelet Volume 9.6 fL (9.4-12.3); Monocytes Absolute Auto 0.5 X10*3/uL (0.1-1.2); Monocytes Percent Auto 9.9 % (2-11); Neutrophils Absolute Auto 2.5 x10*3/uL (2.0-8.3); Neutrophils Percent Auto 53.1 % (45-73); Platelet Count 254 X10*3/uL (160-400); Red Blood Count 4.23 X10*6/uL (4.20-5.50); Red Cell Distribution Width 13.1 % (11.0-16.0); White Blood Count 4.8 X10*3/uL (4.8-10.8)
[2024-11-14 11:54] LABS: Appearance Urine Clear; Color Urine Yellow; Glucose Urine UA Negative (Negative); Leukocyte Esterase Urine Small (1+) (Negative); Nitrite Urine Negative (Negative); UMIC TRIGGER UACC YES; Urine Blood Negative (Negative); Urine Ketones Trace mg/dL (Negative); Urine Protein Negative (Neg-Trace)
[2024-11-14 12:00] LABS: Bacteria Urine 4+ (None Seen); Hyaline Casts Urine 0-2 /LPF (0-2); RBC Urine 0-2 /HPF (0-2); Squamous Epithelial Cell Urine 0-2 /HPF (0-2); UACC Culture Trigger YES
[2024-11-14 12:20] LABS: Alanine Aminotransferase 11 U/L (0-31); Albumin Level 4.2 g/dL (3.5-5.0); Alkaline Phosphatase 145 U/L (39-117); Anion Gap 9 (12-20); Aspartate Amino Transferase 22 U/L (5-31); Bilirubin Total 0.9 mg/dL (0.0-1.0); Blood Urea Nitrogen 21 mg/dL (9-16); Calcium 9.1 mg/dL (8.4-10.2); Carbon Dioxide 28 mmol/L (22-29); Chloride 105 mmol/L (96-108); Cholesterol 269 mg/dL (<200); Estimated Glomerular Filt Rate > 60; Glucose Fasting 83 mg/dL (60-99); HDL Cholesterol 68 mg/dL (>40); LDL Cholesterol Calculated 188 mg/dL (<100); Potassium 4.4 mmol/L (3.3-5.1); Sodium 138 mmol/L (135-145); Total Protein 7.3 g/dL (6.5-8.0); Triglycerides 68 mg/dL (<150)
[2024-11-14 12:42] LABS: Free T4 (Free Thyroxine) 1.06 ng/dL (0.71-1.85); Thyroid Stimulating Hormone 1.87 uIU/mL (0.32-4.0); Vitamin D 25-OH Total 71.7 ng/mL (>30)
[2024-11-14 12:56] LABS: Folate 17.2 ng/mL (> or = 4.0); Vitamin B12 558 pg/mL (200-900)
== END 2024-11-14 11:12 | disposition home or self-care (01) ==
LOC: HO.LAB 11:11
PROVIDERS: PCP Internal Medicine; Visit Provider Internal Medicine
DX: E78.00 Pure hypercholesterolemia, unspecified (principal); D64.9 Anemia, unspecified; E03.9 Hypothyroidism, unspecified; E53.8 Deficiency of other specified B group vitamins; E55.9 Vitamin D deficiency, unspecified
CPT/HCPCS: 36415; 80053; 80061; 81001; 82306; 82607; 82746; 84439; 84443; 85025; 87086; 87088; 87186

== ENCOUNTER 2024-11-15 10:35 | Outpatient (AMB) | payer MEDICARE, SELFPAY ==
[2024-11-15 10:39] VITALS: BP 120/78; PULSE 81; O2SAT 98; BMI 28.7
--- NOTE | 2024-11-15 10:39 | MHC.PC.OV ---
Vital Signs 11/15/24 10:39 Height 5 ft 7 in Weight 183 lb 6 oz BMI 28.7 BP 120/78 Blood Pressure Location Lt brachial Position Sitting Pulse 81 Pulse Source Pulse Oximeter Pulse Oximetry (%) 98 Oxygen Delivery Method Room Air Intake Visit Reasons: 4 Months f/u Certified Ophthalmic Technologist Required: No Accompanied by: Self / Same As Patient Allergies kamara (CHERRIES) Allergy (Intermediate, Verified 11/15/24 11:12) ITCHING-THROAT Sulfa (Sulfonamide Antibiotics) Allergy (Intermediate, Verified 11/15/24 11:12) rash atorvastatin Adverse Reaction (Intermediate, Verified 11/15/24 11:12) myalgia naproxen Adverse Reaction (Mild, Verified 11/15/24 11:12) dizziness green apples Allergy (Uncoded 11/15/24 11:12) Rash Medication List - Last Reconciled 11/15/24 by Armando Wheeler MD albuterol sulfate 90 mcg/actuation (ProAir HFA) 2 puffs inhalation .4 times a day PRN amlodipine 5 mg PO DAILY 90 days ascorbate calcium (vitamin C) 500 mg PO BID blood pressure monitor As directed blood pressure test kit-large As directed celecoxib 200 mg PO DAILY PRN 30 days cholecalciferol (vitamin D3) 50 mcg PO DAILY clotrimazole-betamethasone 1-0.05 % 1 appl topical BID 10 days cyanocobalamin (vitamin B-12) 500 mcg PO DAILY cyclobenzaprine 10 mg PO BEDTIME diclofenac sodium 1% 2 grams topical BID PRN famotidine 40 mg PO DAILY PRN levothyroxine 100 mcg PO DAILY 90 days lidocaine 5% 1 patch topical DAILY loratadine 10 mg PO DAILY PRN 90 days mometasone 0.1% 1 appl topical DAILY 15 days multivitamin (Multiple Vitamins tablet) 1 tab PO QAM 90 days multivitamin with folic acid 400 mcg (Daily-Jen (with folic acid)) 1 tab PO DAILY naproxen 500 mg PO BID PRN polyethylene glycol 3350 (Miralax) 17 grams PO DAILY 30 days sennosides (senna) 25.8 mg (3 x 8.6 mg) PO BEDTIME 30 days simethicone 180 mg PO QID 30 days Ventolin HFA 90 mcg/actuation (albuterol sulfate) 2 puffs inhalation Q6H PRN 30 days NS Tobacco use date assessed: 11/15/24 Fall risk assessment: No Falls in past year Last assessed Fall Risk: 11/15/24 Dental Screening Dental Screen Date: 11/15/24 Did you have a dental visit in the last 12 months?: Yes Did you have a dental problem in the last 6 months where you did not have access to dental care?: No Was dental information given to patient?: Patient has dentist HPI 4 Months f/u HPI Details Patient comes in today for her follow up visit States that she has been experiencing recurrent exertional dyspnea lately Also reports experiencing increased tearing of her eyes as well as frequent runny nose lately States that she has no itching or irritation in her eyes and she also denies any recent change in her vision She denies any recent cough/cold symptoms Patient currently denies any headaches or dizziness She denies any chest pains No nausea/vomiting, no abdominal pain No change in bowel habits noted She had her follow up labs done yesterday - to discuss her results [facility] Medical History (Updated 11/15/24 @ 11:42 by Armando Wheeler MD) Abdominal distension, gaseous Chronic deep vein thrombosis (DVT) of axillary vein of left upper extremity Left hip pain Atypical chest pain Dyspepsia History of DVT (deep vein thrombosis) Acute diarrhea Thrombosis of left upper extremity Fracture of triquetrum of right wrist Avulsion fracture Dermatitis Myalgia Myalgia due to statin Dizziness Radicular pain of both lower extremities Exertional chest pain Achilles tendinitis of left lower extremity Ductal carcinoma in situ (DCIS) of right breast Bilateral knee pain History of ductal carcinoma in situ (DCIS) of breast Fracture of triquetral bone of right wrist with routine healing Lumbar degenerative disc disease COVID-19 Left lumbar radiculopathy Parapharyngeal abscess (~11/2022) Zinc deficiency Vitamin B1 deficiency Vitamin A deficiency Chest pain, pleuritic Intestinal malabsorption following gastrectomy Left inguinal pain Neuropathic pain of left lower extremity Overweight (BMI 25.0-29.9) Primary insomnia Vitamin D deficiency Allergic rhinitis Elevated LFTs Primary osteoarthritis, unspecified shoulder Osteoarthritis of spine with radiculopathy, lumbosacral region Primary osteoarthritis of both knees Chronic obstructive pulmonary disease (COPD) Benign essential hypertension Acquired hypothyroidism Pure hypercholesterolemia Surgical History Hx of peritonsillar abscess drainage History of sleeve gastrectomy (07/24/18) History of incision and drainage (~11/2022) History of colonoscopy History of total abdominal hysterectomy and bilateral salpingo-oophorectomy (~2004) History of cardiac cath (~03/2018) History of lumpectomy of right breast (~12/2012) H/O unilateral oophorectomy Family History Father CVD (cardiovascular disease) Mother Cervical cancer Pancreatic cancer Uterine cancer Sister Substance abuse Social History Household Members: Spouse Housing: Apartment Are you a primary childcare attendant to a significant other at home: No Do you presently have visiting nurse or other home services: No Alcohol intake: never Patient Tobacco Use Status: Former Tobacco user Tobacco use type: Cigarette e-Cigarette/Vaping Use: Never Used Second Hand Smoke Exposure: No service: No 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al status: disabled 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, 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 1. Little interest or pleasure in doing things: not at all 2. Feeling down, depressed, or hopeless: not at all 3. Trouble falling or staying asleep, or sleeping too much: not at all 4. Feeling tired or having little energy: not at all 5. Poor appetite or overeating: not at all 6. Feeling bad about yourself - or that you are a failure or have let yourself or your family down: not at all 7. Trouble concentrating on things, such as reading the newspaper or watching television: not at all 8. Moving or speaking so slowly that other people could have noticed. Or the opposite - being so fidgety or restless that you have been moving around a lot more than usual: not at all 9. Thoughts that you would be better off or of hurting yourself in some way: not at all Total score: 0 Depression Screening Interpretation: Negative Depression Screening Done: Yes 59509 - PHQ-9 Billing: Yes Source: Developed by Drs. Martin Mata, Ankur Anguiano and colleagues, with an educational terrence from [employer]. Thrive Questionnaire Date Thrive assessed: 11/15/24 I am a: Patient What is your living situation today?: I choose not to answer this question Within the past 12 months, did the food you bought not last and you didn't have the money to get more?: Often true Within the past 12 months, did you worry whether your food would run out before you got money to buy more?: Often true Do you have trouble paying for medicines?: Yes Do you have trouble getting transportation to medical appointments?: No Do you have trouble paying your heating and electricity bill?: No Do you have trouble taking care of your child, family member or friend?: No Do you have trouble with day-to-day activities such as bathing, preparing meals, shopping, managing finances, etc.?: No Are you currently unemployed and looking for a job?: No Are you interested in more education?: No Please select the resources that you would like help with: Food Currently or been in a relationship where the following occur: No concerns reported THRIVE Score: 2 AUDIT C Alcohol Use Questionnaire (AUDIT-C) 1. How often do you have a drink containing alcohol?: Never 3. How often do you have six or more drinks on one occasion?: Never Total Score: 0 Score Reviewed/Action Taken: Yes SYDNEY-7 AMB Questionnaire SYDNEY-7 Date SYDNEY - 7 assessed: 11/15/24 Feeling nervous, anxious, or on edge: 0 = Not at all Not being able to stop or control worryin = Not at all Worrying too much about different things: 0 = Not at all Trouble relaxin = Not at all Being so restless that it is hard to sit still: 0 = Not at all Becoming easily annoyed or irritable: 0 = Not at all Feeling afraid as if something awful might happen: 1 = Several days Total SYDNEY-7 score (0-4 normal; 5-9 mild; 10-14 moderate; 15-21 severe): 1 Source: Developed by Stephanie Norton Kurt Kroenke and colleagues, with an educational terrence from [employer]. Review of Systems Const Denies chills, Denies fatigue, Denies fever(s) and Denies headache(s) ENT Denies dysphagia, Denies dizziness, Denies otalgia, Denies headache(s), Denies neck pain, Denies odynophagia and Denies sore throat Card Denies chest pain, Denies irregular heart rhythm, Denies palpitations and Reports dyspnea on exertion (recurrent lately) Resp Denies chest congestion, Denies cough and Reports dyspnea on exertion (recurrent lately) GI Denies abdominal pain, Reports constipation (on and off - Rx help), Denies dysphagia, Denies heartburn, Denies diarrhea, Denies nausea, Denies odynophagia and Denies vomiting Denies hematuria, Denies urinary frequency, Denies dysuria and Denies urinary urgency Musc Reports as per HPI, Reports back pain (over the lower back), Reports arthralgias (involving multiple joints, including right wrist, shoulder, hips), Denies muscle cramps, Denies neck pain, Reports stiffness and Denies tingling Skin/Breast Denies rash Neuro Denies dizziness, Denies headache(s), Denies tingling and Denies paresthesias Psych Denies anxiety and Denies depression Endo Denies fatigue and Denies palpitations Anup/Lymph Denies easy bruising Physical exam (Primary Care) Vital Signs: Last Vital Signs Pulse 81 11/15/24 10:39 BP 120/78 11/15/24 10:39 Pulse Ox 98 11/15/24 10:39 Oxygen Delivery Method Room Air 11/15/24 10:39 BMI result Body Mass Index 28.7 Tobacco/Smoking Status: Tobacco use Status Tobacco use date assessed 11/15/24 11/15/24 10:40 Patient Tobacco Use Status Former Tobacco user 11/15/24 10:40 Tobacco use type Cigarette 11/15/24 10:40 e-Cigarette/Vaping Use Never Used 11/15/24 10:40 PHQ-9: PHQ-9 Score PHQ-9: Total score 0 11/15/24 11:15 Depression Screening Interpretation: Negative Thrive Assessment: Date of Thrive Assessment Date Thrive assessed 11/15/24 11/15/24 10:40 Currently or been in a relationship where the following occur: No concerns reported Const General: no acute distress and alert HENMT Ears: TM's normal bilaterally and EAC's normal Throat: Yes posterior oropharynx normal and Yes tonsils normal (no TP congestion) Neck Neck: Yes supple and No lymphadenopathy Thyroid: Thyroid normal Resp Auscultation: clear to auscultation bilaterally, no rales and no wheezes Cardio Rate: regular rate Rhythm: regular rhythm Heart sounds: no murmurs GI Palpation (GI): Soft to palpation and nontender Auscultation: normal bowel sounds General: Yes no CVA tenderness Back/Spine/Pelvis Back: no CVA tenderness Thoracic/Lumbar Spine: lumbar spinal tenderness (mild) Skin Rashes: no rashes Extrem General: Yes no clubbing, cyanosis or edema Right upper extremity: shoulder/upper arm Details: tenderness Location: of the A-C joint and Extremity exam: right hand Details: tenderness Location: of the dorsal hand Left lower extremity: foot Details: tenderness Location: of the calcaneus and no edema Results Reviewed Results Reviewed: Laboratory Tests 11/14/24 11/14/24 11:19 11:24 WBC 4.8 Hgb 13.2 Hct 39.3 Plt Count 254 Sodium 138 Potassium 4.4 Creatinine 0.84 Estimated GFR > 60 Fasting Glucose 83 Calcium 9.1 AST 22 ALT 11 Triglycerides 68 Cholesterol 269 H LDL Cholesterol, Calc 188 H HDL Cholesterol 68 Vitamin B12 558 25-OH Vitamin D Total 71.7 TSH 1.87 Free T4 1.06 Ur Specific Jewett 1.020 Urine Protein Negative Urine Glucose (UA) Negative Urine Blood Negative Urine Nitrite Negative Ur Leukocyte Esterase Small (1+) H Coding Level of Care Code Est Pt Level 4 (11739) Diagnoses Pure hypercholesterolemia E78.00 Exertional dyspnea R06.09 Benign essential hypertension I10 Acquired hypothyroidism E03.9 Chronic obstructive pulmonary disease, unspecified COPD type J44.9 COPD type: unspecified COPD Osteoarthritis involving multiple joints on both sides of body M15.9 Degeneration of intervertebral disc of lumbar region with discogenic back pain M51.360 Disc-related pain type: discogenic back pain only Vitamin D deficiency E55.9 Vitamin B12 deficiency E53.8 Bilateral leg paresthesia R20.2 Chronic idiopathic constipation K59.04 Excessive tear production of both lacrimal glands H04.203 Laterality: bilateral Thrombosis of left upper extremity I82.602 Ductal carcinoma in situ (DCIS) of right breast D05.11 Overweight (BMI 25.0-29.9) E66.3 Additional Codes PHQ-9 - 09353 - PHQ-9 Billing: Yes ([id number]) Assessment & Plan Assessment & Plan (1) Pure hypercholesterolemia: Code(s): E78.00 - Pure hypercholesterolemia, unspecified Category: Medical Plan: Results of her labs done yesterday reviewed and discussed with patient Patient's cholesterol levels are still significantly elevated on her recent labs, with her total cholesterol at 269 mg/dl (was at 277 mg/dl when last checked on 02/20/2024) and LDL cholesterol is now at 188 mg/dl (was at 191 mg/dl back on 02/20/2024) - she was not taking her Atorvastatin 20 mg regularly at the time as she stopped taking her Rx when she noticed that her myalgia and joint pains felt a lot worse after she takes her Rx Reports that her joint pains and muscle aches have improved significantly since she stopped taking her Atorvastatin Reinforced low-cholesterol diet I will try her this time on low dose Rosuvastatin as patient needs to get her cholesterol levels controlled as best as she can Have instructed her to stop the Rx and call us [facility] IF she starts experiencing symptoms similar to what she had with Atorvastatin If she still cannot tolerate any alternative statins, then we may have to try her on the newer PCSK9 inhibitors like Repatha or Praluent Will recheck her labs and fasting lipids in 4 months for follow up (2) Exertional dyspnea: Code(s): R06.09 - Other forms of dyspnea Category: Medical Plan: As patient now reports experiencing increasing exertional dyspnea lately (and with her Hx of hyperlipidemia and HTN), will refer her to cardiology for further evaluation and management Have advised patient that I will leave it up to cardiology to decide if she needs to have cardiac stress testing or not (3) Benign essential hypertension: Code(s): I10 - Essential (primary) hypertension Category: Medical Plan: Reinforced low sodium diet - goal is systolic BP of at least 130 mm or less Continue Amlodipine 5 mg QD Patient is reminded again to continue monitoring her blood pressure regularly (4) Acquired hypothyroidism: Code(s): E03.9 - Hypothyroidism, unspecified Category: Medical Plan: Patient remains clinically euthyroid at present and her TFTs are normal on her recent labs Continue Levothyroxine 100 mcg QD Will recheck her TFTs in 4 months for follow up (5) Chronic obstructive pulmonary disease (COPD): Code(s): J44.9 - Chronic obstructive pulmonary disease, unspecified Category: Medical Qualifiers: COPD type: unspecified COPD Qualified Code(s): J44.9 - Chronic obstructive pulmonary disease, unspecified Plan: Stable - continue Albuterol HFA 2 inhalations Q 6 hours PRN (6) Osteoarthritis involving multiple joints on both sides of body: Code(s): M15.9 - Polyosteoarthritis, unspecified Category: Medical Plan: Involving multiple joints, including both knees, right shoulder, hips and left ankle X-rays of the left ankle and right wrist done a few months ago revealed (+) mild OA changes Continue Celebrex 200 mg QD PRN for pain; she was on Naproxen or Ibuprofen in the past and states that they have not helped much Have advised her again that regular exercises and stretching and referral to PT/OT when needed are likely the most effective methods of helping her manage her symptoms although patient reports that a lot of her symptoms have improved significantly since she stopped taking her Atorvastatin (7) Lumbar degenerative disc disease: Code(s): M51.36 - Other intervertebral disc degeneration, lumbar region Category: Medical Qualifiers: Disc-related pain type: discogenic back pain only Qualified Code(s): M51.360 - Other intervertebral disc degeneration, lumbar region with discogenic back pain only Plan: Reinforced activity and weight-lifting restrictions Lumbar spine x-rays done in April 2022 revealed (+) prominent degenerative disc changes L1-L2, L4-L5, and L5-S1 with borderline retrolisthesis at L1-L2 that are stable and no interval vertebral compression or destructive process are seen Continue Tramadol 50 mg TID PRN (8) Vitamin D deficiency: Code(s): E55.9 - Vitamin D deficiency, unspecified Category: Medical Plan: Continue Vitamin D3 2000 units QD (9) Vitamin B12 deficiency: Code(s): E53.8 - Deficiency of other specified B group vitamins Category: Medical Plan: She was taking her Vitamin B12 1000 mcg QD but was advised to cut it back to 2 to 3 times a week at her last visit as her B12 level was >2000 then Her B12 level has since dropped down to 558 on her recent labs (10) Bilateral leg paresthesia: Code(s): R20.2 - Paresthesia of skin Category: Medical Plan: Have previously discussed with patient that she may be starting to experience the onset of symptoms of neuropathy but as they currently occur on and off and do not really seem to be bothering her too much at night, have advised her to observe these for now as she presently has more concerning symptoms to be worked up for (11) Chronic idiopathic constipation: Comment: Controlled by eating Oatmeal Code(s): K59.04 - Chronic idiopathic constipation Category: Medical Plan: Better controlled Reinforced increased oral fluids and dietary fiber Continue Docusate 100 mg QD PRN and Miralax 17 gm QD; she was also started on Linzess 72 mcg QD by GI a few months ago Follow up with GI as scheduled (12) Excessive lacrimation: Code(s): H04.209 - Unspecified epiphora, unspecified side Category: Medical Qualifiers: Laterality: bilateral Qualified Code(s): H04.203 - Unspecified epiphora, bilateral Plan: Suspect possible lacrimal duct obstruction Will refer her to ophthalmology for further evaluation and management Will start her in the meantime on Fluticasone 50 mcg nasal spray QD PRN to see if this will help alleviate some of her eye and nasal symptoms (13) Thrombosis of left upper extremity: Code(s): I82.602 - Acute embolism and thrombosis of unspecified veins of left upper extremity Category: Medical Plan: RESOLVED Repeat venous doppler of her left upper extremity done in October 2023 came back normal with no evidence of superficial or deep vein thrombosis in the left upper extremity She has been on Eliquis 5 mg BID and has completed at least 6 months of Eliquis, after which Rx was then discontinued (14) Ductal carcinoma in situ (DCIS) of right breast: Code(s): D05.11 - Intraductal carcinoma in situ of right breast Category: Medical Plan: S/P treatment with Tamoxifen x 5 years, from 01/2013 to 01/2018 Follow up with oncology as scheduled for continuing surveillance (15) Overweight (BMI 25.0-29.9): Comment: S/P sleeve gastrectomy Code(s): E66.3 - Overweight Category: Medical Plan: Reinforced diet/exercise as tolerated/lose weight Plan Follow up in 4 months Orders: Orders Comprehensive [place]. Panel Fast 4 Months E78.00 - Pure hypercholesterolemia, unspecified Lipid Panel 4 Months E78.00 - Pure hypercholesterolemia, unspecified Free T4 (Free Thyroxine) 4 Months E03.9 - Hypothyroidism, unspecified Vitamin D 25-OH Total 4 Months E55.9 - Vitamin D deficiency, unspecified Vitamin B12 and Folate 4 Months E53.8 - Deficiency of other specified B group vitamins Complete Blood Count Auto Diff 4 Months D64.9 - Anemia, unspecified UA CC w/rflx Micro + Cult 4 Months R30.0 - Dysuria Thyroid Stimulating Hormone 4 Months E03.9 - Hypothyroidism, unspecified Referrals Cardiology Referral E78.00 - Pure hypercholesterolemia, unspecified, R06.09 - Other forms of dyspnea Ophthalmology Referral H04.209 - Unspecified epiphora, unspecified side Medications: New rosuvastatin 5 mg PO DAILY 90 tabs 1RF 90 days fluticasone propionate 50 mcg/actuation administer into each nostril 2 sprays intranasal DAILY PRN 16 grams 5RF allergy symptoms 30 days
--- OUTSIDE RECORDS SUMMARY | 2024-11-15 11:25 | XMS_ITS | Clinical Summary ---
Author Organization [facility] Address [address] [place] [address] Care Team Providers Care Yarn Washer Name Role Phone Armando Wheeler MD Primary Care Provider [phone] Allergies No known active allergies Medications amLODIPine [...] 82 01/10/2023 10:10 AM EDT Temperature 36.4 C (97.5 F) 01/10/2023 10:10 AM EDT Respiratory Rate 18 12/21/2022 11:02 AM EDT [...] age to complete [place] [id number] [facility] [employer] MGD MEDICARE Advance Directives * Full Code (Latest Code Status on File) Date Activated Date Inactivated Comments 12/15/2022 8:13 PM * Full Code Date Activated Date Inactivated Comments 12/05/2022 9:07 AM 12/15/2022 8:13 PM Care Teams Yarn Washer Relationship Specialty Start Date End Date Armando Wheeler MD [address] [place] [address] [place], [place] [id number] PCP - General Internal Medicine 12/21/22
== END 2024-11-15 11:40 | disposition home or self-care (01) ==
LOC: HO.HMCH 10:35
PROVIDERS: PCP Internal Medicine; Visit Provider Internal Medicine
DX: E78.00 Pure hypercholesterolemia, unspecified (principal); J44.9 Chronic obstructive pulmonary disease, unspecified; R06.09 Other forms of dyspnea; I10 Essential (primary) hypertension; E03.9 Hypothyroidism, unspecified; M15.9 Polyosteoarthritis, unspecified; M51.360 Other intervertebral disc degeneration, lumbar region with discogenic back pain only; E55.9 Vitamin D deficiency, unspecified; E53.8 Deficiency of other specified B group vitamins; R20.2 Paresthesia of skin; K59.04 Chronic idiopathic constipation; H04.203 Unspecified epiphora, bilateral

== ENCOUNTER → 2024-11-15 10:35 | Outpatient (BNVA) | payer MEDICARE, SELFPAY | PROVIDERS: PCP Internal Medicine; Visit Provider Internal Medicine | DX: E78.00 Pure hypercholesterolemia, unspecified (principal); R06.09 Other forms of dyspnea; I10 Essential (primary) hypertension; E03.9 Hypothyroidism, unspecified; J44.9 Chronic obstructive pulmonary disease, unspecified; M15.9 Polyosteoarthritis, unspecified; M51.360 Other intervertebral disc degeneration, lumbar region with discogenic back pain only; E55.9 Vitamin D deficiency, unspecified; E53.8 Deficiency of other specified B group vitamins; R20.2 Paresthesia of skin; K59.04 Chronic idiopathic constipation; H04.203 Unspecified epiphora, bilateral; I82.602 Acute embolism and thrombosis of unspecified veins of left upper extremity; D05.11 Intraductal carcinoma in situ of right breast; E66.3 Overweight; Z68.28 Body mass index [BMI] 28.0-28.9, adult; Z71.3 Dietary counseling and surveillance; Z87.891 Personal history of nicotine dependence | CPT/HCPCS: 96127; 99212 ==

== ENCOUNTER 2025-01-01 15:31 | Outpatient (REF) | payer MEDICARE, SELFPAY ==
--- OUTSIDE RECORDS SUMMARY | 2025-01-01 15:33 | XMS_ITS | Encounter Summary ---
Author Organization [facility] Address [address] [place] [address] Phone Care Team Providers Care Inspector Electromechanical Name Role Phone Armando Wheeler MD Primary Care Provider [phone] Encounter Details Date Type Department Care Team (Late st Contact Info) Description 12/05/2022 Procedure Pass [facility], Ct Scan - [facility] [address] [place] [address] Social History Tobacco Use Types Packs/Day Years Used Date Smoking Tobacco: Never Assessed Education Answer Date Recorded Are you interested in more education? Not on tierney e 12/04/2022 Are you concerned about learning? Not on file 12/04/2022 No 12/04/2022 No 12/04/2022 Digital Access Answer Date Recorded No 12/04/2022 No 12/04/2022 Reliable internet access at home? Not on file 12/04/2022 Device with a working camera? Not on file Intimate Partner Violence Answer Date R ecorded Are you denied basic needs s uch as food, clothing, or medical care? No 12/04/2022 In the past 12 months have y ou been in a relationship with a person who hurts, threatens, or tries to control you? No 12/04/2022 Are you denied basic needs s uch as food, clothing, or medical care? No 12/04/2022 In the past 12 months have y ou been in a relationship with a person who hurts, threatens, or tries to control you? No 12/04/2022 Comments Unknown Sex and Gender Information Value Date Recorded Sex Assigned at Not on file Legal Sex Female 9:51 PM EDT Gender Identity Not on file Sexual Orientation Not on file documented as of this encounter Plan of Treatment Not on file documented as of this encounter Visit Diagnoses Not on filedocumented in this encounter Care Teams Inspector Electromechanical Relationship Specialty Start Date End Date Armando Wheeler MD [address] [place] [address] [place] [address] PCP - General 12/04/22 documented as of this encounter Additional Source Comments The information contained in this document represents components of the legal health record. It is not the complete legal health record.[facility]
--- OUTSIDE RECORDS SUMMARY | 2025-01-01 15:33 | XMS_ITS ---
Author Name [facility] Organization Unknown History of Medication Use Medication Directions Dispensed Refills Start Date End Date Stat us amLODIPine (NORVASC) 5 MG tablet Take 1 tablet (5 mg total) by mouth daily. Do not start before December 22, 2022. 12/22/2022 01/22/2023 active amoxicillin-clavula fortunato (AUGMENTIN) 875-125 MG per tablet Take 1 tablet by mouth 2 (two) times a day. 12/21/2022 01/01/2023 active Problems Problem Status Onset Date Problem Type Date of Resolution Source Parapharyngeal abscess active EncounterDiagnosisAct CCT Encounters Encounter Type Encounter Reason Primary Diagnosis Location Date Ambulatory Retropharyngeal and parapharyngeal abscess Retropharyngeal and parapharyngeal abscess [facility] 01/10/2023 Inpatient Retropharyngeal and parapharyngeal abscess [facility] 12/05/2022 Ambulatory [facility] 12/05/2022 Care Team Organization Name Specialty Phone Email Start Date End Da te [facility] 01/10/202301/10 [facility] Primary [facility] 01/10/2023 [facility] Primary Care 12/05/20222022 [facility] 12/05/2022
[2025-01-01 17:22] LABS: Appearance Urine Clear; Glucose Urine UA Negative (Negative); PH 6.0 (5.0-9.0); Specific Gravity - Urine 1.020 (1.005-1.025); UMIC TRIGGER UACC YES
[2025-01-01 17:27] LABS: UACC Culture Trigger YES
== END 2025-01-01 15:32 | disposition home or self-care (01) ==
LOC: HO.LAB 15:31
PROVIDERS: PCP Internal Medicine; Visit Provider Internal Medicine
DX: R30.0 Dysuria (principal)
CPT/HCPCS: 81001; 87086

== ENCOUNTER 2025-02-11 11:43 | Outpatient (REF) | payer MEDICARE, SELFPAY ==
[2025-02-11 12:24] LABS: MANUAL DIFF FLAG NO
[2025-02-11 12:41] LABS: Hematocrit 41.3 % (37.0-47.0); Hemoglobin 13.4 g/dl (12.0-16.0); Imm Gran Abs Auto 0.01 X10*3/uL (0.00-0.03); Imm Gran Pct Auto 0.2 % (0.0-0.4); Lymphocytes Absolute Auto 1.2 X10*3/uL (1.2-4.9); Mean Corpuscular HGB Conc 32.4 g/dl (31.0-35.0); Mean Corpuscular Hemoglobin 30.6 pg (27.0-33.0); Mean Corpuscular Volume 94.3 fL (80.0-98.0); NRBC Abs Auto 0.000 X10*3/uL (0.0-0.012); NRBC Pct Auto 0.0 /100WBC (0.0-0.2); Platelet Count 212 X10*3/uL (160-400); Red Blood Count 4.38 X10*6/uL (4.20-5.50); White Blood Count 5.9 X10*3/uL (4.8-10.8)
[2025-02-11 13:10] LABS: Appearance Urine Cloudy; Glucose Urine UA Negative (Negative); PH 5.5 (5.0-9.0); Specific Gravity - Urine 1.015 (1.005-1.025); UMIC TRIGGER UACC YES
[2025-02-11 13:16] LABS: UACC Culture Trigger YES
[2025-02-11 13:34] LABS: Free T4 (Free Thyroxine) 1.08 ng/dL (0.71-1.85); Thyroid Stimulating Hormone 0.17 uIU/mL (0.32-4.0)
[2025-02-11 13:43] LABS: Folate 13.1 ng/mL (> or = 4.0); Vitamin B12 419 pg/mL (200-900)
[2025-02-11 13:45] LABS: Anion Gap 11 (12-20)
[2025-02-11 13:50] LABS: Alanine Aminotransferase 11 U/L (0-31); Albumin Level 4.1 g/dL (3.5-5.0); Alkaline Phosphatase 140 U/L (39-117); Aspartate Amino Transferase 21 U/L (5-31); Blood Urea Nitrogen 18 mg/dL (9-16); Calcium 9.0 mg/dL (8.4-10.2); Carbon Dioxide 30 mmol/L (22-29); Chloride 105 mmol/L (96-108); Cholesterol 184 mg/dL (<200); Estimated Glomerular Filt Rate > 60; HDL Cholesterol 60 mg/dL (>40); Potassium 4.5 mmol/L (3.3-5.1); Sodium 141 mmol/L (135-145); Total Protein 7.3 g/dL (6.5-8.0); Triglycerides 67 mg/dL (<150)
--- OUTSIDE RECORDS SUMMARY | 2025-02-11 14:37 | XMS_ITS | Clinical Summary ---
Author Organization [facility] Address [address] [place] [address] Phone Care Team Providers Care Religious Education Director Name Role Phone Armando Wheeler MD Primary Care Provider [phone] Allergies Active Allergy Reactions Criticality Noted Date Comments Apple 12/04/2022 Green apple Guillermo Flavor 12/04/2022 Social History Tobacco Use Types Packs/Day Years [...] on file Sexual Orientation Not on file Last Filed Vital Signs Vital Sign Reading Time Taken Comments Blood Pressure 96/61 12/05/2022 5:30 AM EDT Pulse 93 12/05/2022 5:30 AM EDT Temperature 36 C (96.8 F) 12/04/2022 9:56 PM EDT Respiratory Rate 14 12/05/2022 5:30 AM EDT Oxygen Saturation 100% 12/05/2022 5:30 AM EDT Inhaled Oxygen Concentration 45% 12/05/2022 5 :14 AM EDT Weight 80.3 kg (177 lb) 12/05/2022 1:27 AM EDT Height 170.2 cm (5' 7 ) 12/05/2022 1:27 AM EDT Body Mass Index 27.72 12/05/2022 1:27 AM EDT Plan of Treatment Health Maintenance Due Date Last Done Comments Adult Td,Tdap Booster 1955 LIPID PANEL 1955 DEPRESSION SCREENING 1965 SMOKING Hx and SMOKELESS TOB ACCO SCREENING 1966 HEPATITIS C SCREENING 10/07/1971 MAMMOGRAM 1993 COLOGUARD 1998 COLONOSCOPY 1998 COLORECTAL CANCER SCREENING 1998 FIT TEST 1998 FOBT 1998 SIGMOIDOSCOPY 1998 VIRTUAL COLONOSCOPY 1998 PNEUMOCOCCAL VACCINES (50+ y ears) (1 of 1 - PCV) 10/07/2003 ZOSTER VACCINES (1 of 2) 10/07/2003 OSTEOPOROSIS SCREENING INITI AL (ONE-TIME) 2018 INFLUENZA VACCINE (#1) 2024 COVID-19 VACCINE ( - 2023-2 5 season) 2025 RSV VACCINE (1 - 1-dose 75+ series) 2028 HEPATITIS A VACCINES Aged Out No long er eligible based on patient's age to complete this topic HIB VACCINES Aged Out No longer eligi ble based on patient's age to complete this topic MENINGOCOCCAL VACCINES (ACWY) Aged Out No longer eligible based on patient's age to complete this topic MENINGOCOCCAL VACCINES (B) Aged Out N o longer eligible based on patient's age to complete this topic Medical Devices Not on file Insurance HEALTH SAF[employer] NET FULL Member Subscriber Plan / Payer (Ef fective 2022-) Name:Nitza Dannielle Relation to Subscriber:Self Name:GoddardDannielle bruno Payer ID:Not on file Group ID:Not on file Type:Medicaid Address: [address] MEDICARE REPLACEMENT HEALTH SAFETY NET FULL Member Subscriber Plan / Payer (Ef fective 2022-) Name:Dannielle Goddard Relation to Subscriber:Self Name:Nitza Dannielle Payer ID:Not on file Group ID:Not on file Type:Medicaid Address: [address] MEDICARE REPLACEMENT HEALTH SAFETY NET FULL Member Subscriber Plan / Payer (Ef fective 2022-) Name:Dannielle Goddard Relation to Subscriber:Self Name:Dannielle Goddard Payer ID:Not on file Group ID:Not on file Type:Medicaid Address: [address] MEDICARE REPLACEMENT NET FULL Member Subscriber Plan / Payer (Ef fective 2022-) Name:GoddardDannielle Relation to Subscriber:Self Name:GoddardDannielle bruno Payer ID:Not on file Group ID:Not on file Type:Medicaid Address: [address] MEDICARE REPLACEMENT SAFETY NET FULL Member Subscriber Plan / Payer (Ef fective 2022-Present) Name:GoddardDannielle bruno Relation to Subscriber:Self Name:Dannielle Goddard Payer ID:Not on file Group ID:Not on file Type:Medicaid Address: [address] MEDICARE REPLACEMENT FULL Member Subscriber Plan / Payer (Ef fective 2022-) Name:Nitza Dannielle Relation to Subscriber:Self Name:Dannielle Goddard Payer ID:Not on file Group ID:Not on file Type:Medicaid Address: [address] MEDICARE REPLACEMENT Care Teams Religious Education Director Relationship Specialty Start Date End Date Armando Wheeler MD [address] [place] [address] [place] [address] PCP - General 12/04/22 Additional Source Comments The information contained in this document represents components of the legal health record. It is not the complete legal health record.[facility]
--- OUTSIDE RECORDS SUMMARY | 2025-02-11 14:37 | XMS_ITS | Clinical Summary ---
Author Organization [facility] Address [address] [place] [address] Care Team Providers Care Health Care Administrator Name Role Phone Armando Wheeler MD Primary Care Provider [phone] Allergies No known active allergies Medications amLODIPine [...] Health Maintenance Due Date Last Done Comments Advance Care Planning 1955 Hepatitis C Virus Screening 1955 DTaP/Tdap/Td Vaccines (1 - Tdap) 1972 Mammogram 1993 Colonoscopy 1998 Pneumococcal Vaccines 50+ (1 of 1 - PCV) 10/07/2003 Zoster (Shingles) Vaccine (1 of 2) 10/07/2003 DXA Bone Density (Females,Ag es 65 and older) 2018 Influenza Vaccine 12/20/2024 COVID-19 Vaccine ( - 2023-2 5 season) 2025 RSV Vaccine 60 years and old er and Patients (1 - 1-dose 75+ series) 2028 Hepatitis B Vaccines Aged Out No long er eligible based on patient's age to [place] [id number] [facility] MEDIC[facility] Advance Directives * Full Code (Latest Code Status on File) Date Activated Date Inactivated Comments 12/15/2022 8:13 PM * Full Code Date Activated Date Inactivated Comments 12/05/2022 9:07 AM 12/15/2022 8:13 PM Care Teams Health Care Administrator Relationship Specialty Start Date End Date Armando Wheeler MD [address] [place] [address] Dr [place], [place] [address] PCP - General Internal Medicine 12/21/22
--- OUTSIDE RECORDS SUMMARY | 2025-02-11 14:37 | XMS_ITS | Encounter Summary ---
Author Organization [facility] Address [address] [place] [address] Phone Care Team Providers Care Spout Positioner Name Role Phone Armando Wheeler MD Primary Care Provider [phone] Encounter Details Date Type Department Care Team (Late st Contact Info) Description 12/05/2022 Procedure [facility], Ct Scan - [facility] [address] [place] [address] Social History Tobacco Use Types Packs/Day Years [...] on filedocumented in this encounter Care Teams Spout Positioner Relationship Specialty Start Date End Date Armando Wheeler MD [address] [place] [address] [place] [address] PCP - General 12/04/22 documented as of this encounter Additional Source Comments The information contained in this document represents components of the legal health record. It is not the complete legal health record.[facility]
== END 2025-02-11 11:44 | disposition home or self-care (01) ==
LOC: HO.LAB 11:43
PROVIDERS: PCP Internal Medicine; Visit Provider Internal Medicine
DX: E53.8 Deficiency of other specified B group vitamins (principal); E03.9 Hypothyroidism, unspecified; E55.9 Vitamin D deficiency, unspecified; E78.00 Pure hypercholesterolemia, unspecified; D64.9 Anemia, unspecified
CPT/HCPCS: 36415; 80053; 80061; 81001; 81003; 82306; 82607; 82746; 84439; 84443; 85025; 87086; 87088; 87186

== ENCOUNTER 2025-02-12 10:29 | Outpatient (AMB) | payer MEDICARE, SELFPAY ==
[2025-02-12 10:45] VITALS: BP 124/80; PULSE 74; O2SAT 94; BMI 28.4
--- NOTE | 2025-02-12 10:45 | MHC.PC.OV ---
Vital Signs 02/12/25 10:45 Height 5 ft 7 in Weight 181 lb 8 oz BMI 28.4 BP 124/80 Blood Pressure Location Lt brachial Position Sitting Pulse 74 Pulse Source Pulse Oximeter Pulse Oximetry (%) 94 Oxygen Delivery Method Room Air Intake Visit Reasons: annual exam - see comments Dock Coordinator Required: No Accompanied by: Self / Same As Patient Allergies kamara (CHERRIES) Allergy (Intermediate, Verified 02/12/25 11:16) ITCHING-THROAT Sulfa (Sulfonamide Antibiotics) Allergy (Intermediate, Verified 02/12/25 11:16) rash atorvastatin Adverse Reaction (Intermediate, Verified 02/12/25 11:16) myalgia naproxen Adverse Reaction (Mild, Verified 02/12/25 11:16) dizziness green apples Allergy (Uncoded 02/12/25 11:16) Rash Medication List - Last Reconciled 02/12/25 by Armando Wheeler MD albuterol sulfate 90 mcg/actuation (ProAir HFA) 2 puffs inhalation .4 times a day PRN amlodipine 5 mg PO DAILY 90 days ascorbate calcium (vitamin C) 500 mg PO BID blood pressure monitor As directed blood pressure test kit-large As directed celecoxib 200 mg PO DAILY PRN 30 days cholecalciferol (vitamin D3) 50 mcg PO DAILY clotrimazole-betamethasone 1-0.05 % 1 appl topical BID 10 days cyanocobalamin (vitamin B-12) 500 mcg PO DAILY cyclobenzaprine 10 mg PO BEDTIME diclofenac sodium 1% 2 grams topical BID PRN famotidine 40 mg PO DAILY PRN fluticasone propionate 50 mcg/actuation 2 sprays intranasal DAILY PRN 30 days levothyroxine 100 mcg PO DAILY 90 days lidocaine 5% 1 patch topical DAILY loratadine 10 mg PO DAILY PRN 90 days mometasone 0.1% 1 appl topical DAILY 15 days multivitamin (Multiple Vitamins tablet) 1 tab PO QAM 90 days multivitamin with folic acid 400 mcg (Daily-Jen (with folic acid)) 1 tab PO DAILY naproxen 500 mg PO BID PRN polyethylene glycol 3350 (Miralax) 17 grams PO DAILY 30 days rosuvastatin 5 mg PO DAILY 90 days sennosides (senna) 25.8 mg (3 x 8.6 mg) PO BEDTIME 30 days simethicone 180 mg PO QID 30 days Ventolin HFA 90 mcg/actuation (albuterol sulfate) 2 puffs inhalation Q6H PRN 30 days NS Tobacco use date assessed: 02/12/25 Fall risk assessment: No Falls in past year Last assessed Fall Risk: 02/12/25 Dental Screening Dental Screen Date: 02/12/25 Did you have a dental visit in the last 12 months?: No Did you have a dental problem in the last 6 months where you did not have access to dental care?: No Was dental information given to patient?: Patient has dentist HPI annual exam - see comments HPI Details Patient comes in today for her annual physical examination States that she feels okay She denies any headaches or dizziness Denies any exertional chest pains but still reports (+) SOB/SESAY often No nausea/vomiting, no abdominal pain No change in bowel habits noted She denies any acute urinary symptoms but reports (+) increased suprapubic pain during and after sexual intercourse with her a few days ago States that she has never had this issue in the past and that the suprapubic pain lasted for a few days before gradually subsiding Recalls that she was also experiencing some mild dysuria for a couple of days after the above symptoms started - is requesting for a referral to see gynecology to have these symptoms checked out She is currently experiencing (+) myalgias, especially over her lower extremities, ever since she started taking her prescribed Rosuvastatin although she states that her symptoms are milder than when she was on Atorvastatin States that she has been putting up with the symptoms so far as does not want her cholesterol to go up again but finds it hard to walk at times due to her leg symptoms She had her follow up labs done yesterday - to discuss her results She was referred for repeat colonoscopy last year and was seen by GI but she ended up getting Cologuard testing instead on 04/12/2024, which came back negative - recommend repeat in 3 years She also had a negative FIT testing done back on 05/09/2024 Her annual mammogram was last done on 03/11/2024 and she has this year's annual mammogram scheduled for next month on 03/18/2025 She is S/P CONNER-BSO so she no longer goes for her yearly gynecology exam Her BMD was last done in 2022 [facility] Medical History (Updated 02/12/25 @ 11:25 by rAmando Wheeler MD) Abdominal distension, gaseous Chronic deep vein thrombosis (DVT) of axillary vein of left upper extremity Left hip pain Atypical chest pain Dyspepsia History of DVT (deep vein thrombosis) Acute diarrhea Thrombosis of left upper extremity Fracture of triquetrum of right wrist Avulsion fracture Dermatitis Myalgia Myalgia due to statin Dizziness Radicular pain of both lower extremities Exertional chest pain Achilles tendinitis of left lower extremity Ductal carcinoma in situ (DCIS) of right breast Bilateral knee pain History of ductal carcinoma in situ (DCIS) of breast Fracture of triquetral bone of right wrist with routine healing Lumbar degenerative disc disease COVID-19 Left lumbar radiculopathy Parapharyngeal abscess (~11/2022) Zinc deficiency Vitamin B1 deficiency Vitamin A deficiency Chest pain, pleuritic Intestinal malabsorption following gastrectomy Left inguinal pain Neuropathic pain of left lower extremity Overweight (BMI 25.0-29.9) Primary insomnia Vitamin D deficiency Allergic rhinitis Elevated LFTs Primary osteoarthritis, unspecified shoulder Osteoarthritis of spine with radiculopathy, lumbosacral region Primary osteoarthritis of both knees Chronic obstructive pulmonary disease (COPD) Benign essential hypertension Acquired hypothyroidism Pure hypercholesterolemia Surgical History (Updated 02/12/25 @ 12:42 by Armando Wheeler MD) Hx of peritonsillar abscess drainage History of sleeve gastrectomy (07/24/18) History of incision and drainage (~11/2022) History of colonoscopy History of total abdominal hysterectomy and bilateral salpingo-oophorectomy (~2004) History of cardiac cath (~03/2018) History of lumpectomy of right breast (~12/2012) H/O unilateral oophorectomy Family History Father CVD (cardiovascular disease) Mother Cervical cancer Pancreatic cancer Uterine cancer Sister Substance abuse Social History Household Members: Spouse Housing: Apartment Are you a primary hospice care transitions coordinator to a significant other at home: No Do you presently have visiting nurse or other home services: No Alcohol intake: never Patient Tobacco Use Status: Former Tobacco user Tobacco use type: Cigarette e-Cigarette/Vaping Use: Never Used Second Hand Smoke Exposure: No service: No 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al status: disabled 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 Depression Screening Interpretation: Negative Depression Screening Done: Yes Source: Developed by Drs. Martin Mata, Stephanie Briceño, Ankur Jeong and colleagues, with an educational terrence from [employer]. Thrive Questionnaire Date Thrive assessed: 11/15/24 I am a: Patient What is your living situation today?: I choose not to answer this question Within the past 12 months, did the food you bought not last and you didn't have the money to get more?: Often true Within the past 12 months, did you worry whether your food would run out before you got money to buy more?: Often true Do you have trouble paying for medicines?: Yes Do you have trouble getting transportation to medical appointments?: No Do you have trouble paying your heating and electricity bill?: No Do you have trouble taking care of your child, family member or friend?: No Do you have trouble with day-to-day activities such as bathing, preparing meals, shopping, managing finances, etc.?: No Are you currently unemployed and looking for a job?: No Are you interested in more education?: No Please select the resources that you would like help with: Food Currently or been in a relationship where the following occur: No concerns reported THRIVE Score: 2 AUDIT C Alcohol Use Questionnaire (AUDIT-C) 1. How often do you have a drink containing alcohol?: Never 3. How often do you have six or more drinks on one occasion?: Never Total Score: 0 Score Reviewed/Action Taken: Yes SYDNEY-7 AMB Questionnaire SYDNEY-7 Date SYDNEY - 7 assessed: 11/15/24 Source: Developed by Drs. Martin Mata, Stephanie Briceño, Ankur Jeong and colleagues, with an educational terrence from [employer]. Review of Systems Const Denies chills, Reports fatigue (mild), Denies fever(s) and Denies headache(s) Eyes Denies blurry vision, Denies change in vision, Denies irritation and Denies itchy eyes ENT Denies dysphagia, Denies dizziness, Denies otalgia, Denies headache(s), Denies neck pain, Denies odynophagia and Denies sore throat Card Denies chest pain, Denies irregular heart rhythm, Denies palpitations and Reports dyspnea on exertion (recurrent ) Resp Denies chest congestion, Denies cough, Reports dyspnea on exertion (recurrent ) and Denies wheezing GI Denies abdominal pain, Reports constipation (on and off - Rx help), Denies dysphagia, Denies heartburn, Denies diarrhea, Denies nausea, Denies odynophagia and Denies vomiting Denies hematuria, Denies difficulty voiding, Reports dyspareunia (see HPI), Denies dysuria and Denies urinary urgency Musc Reports back pain (over the lower back), Reports myalgias (started when she went back on her cholesterol Rx), Reports arthralgias (involving multiple joints, including right wrist, shoulder, hips), Denies neck pain and Reports stiffness Skin/Breast Denies rash Neuro Denies dizziness, Denies headache(s) and Denies paresthesias Psych Denies anxiety and Denies depression Endo Reports fatigue (mild) and Denies palpitations Anup/Lymph Denies easy bruising Aller/Immun Denies itchy eyes and Denies wheezing Physical exam (Primary Care) Vital Signs: Last Vital Signs Pulse 74 02/12/25 10:45 BP 124/80 02/12/25 10:45 Pulse Ox 94 02/12/25 10:45 Oxygen Delivery Method Room Air 02/12/25 10:45 BMI result Body Mass Index 28.4 Tobacco/Smoking Status: Tobacco use Status Tobacco use date assessed 02/12/25 02/12/25 10:47 Patient Tobacco Use Status Former Tobacco user 02/12/25 10:47 Tobacco use type Cigarette 02/12/25 10:47 e-Cigarette/Vaping Use Never Used 02/12/25 10:47 Depression Screening Interpretation: Negative Thrive Assessment: Date of Thrive Assessment Date Thrive assessed 11/15/24 02/12/25 10:47 Currently or been in a relationship where the following occur: No concerns reported Const General: no acute distress and alert Orientation/consciousness: patient oriented x3 HENMT Head: Yes normocephalic and Yes atraumatic Ears: TM's normal bilaterally and EAC's normal General nose exam: No nasal discharge present Face and sinus: Yes normal facial exam and Yes sinuses nontender Teeth and gingiva: dentition normal Throat: Yes posterior oropharynx normal and Yes tonsils normal (no TP congestion) Eyes Eyelids: Yes eyelids normal Conjunctivae: conjunctivae normal Pupils: Equal, round and reactive pupils present EOM: EOMs intact bilaterally Neck Neck: Yes supple and No lymphadenopathy Thyroid: Thyroid normal Resp Auscultation: clear to auscultation bilaterally, no rales and no wheezes Cardio Rate: regular rate Rhythm: regular rhythm Heart sounds: no murmurs GI Palpation (GI): Soft to palpation and nontender Auscultation: normal bowel sounds General: Yes no CVA tenderness Back/Spine/Pelvis Back: no CVA tenderness Thoracic/Lumbar Spine: lumbar spinal tenderness (mild) Skin Lesions: no lesions Rashes: no rashes Neuro General: patient oriented x3, moves all extremities, no focal motor deficits and CN's II-XI intact bilaterally Cranial nerves: Yes Equal, round and reactive pupils present Cognition (Neuro): normal cognition Gait exam (Neuro): Normal gait present Extrem General: Yes no clubbing, cyanosis or edema Right upper extremity: shoulder/upper arm Details: tenderness Location: of the A-C joint and Extremity exam: right hand Details: tenderness Location: of the dorsal hand Left lower extremity: foot Details: tenderness Location: of the calcaneus and no edema Results Reviewed Results Reviewed: Laboratory Tests 02/11/25 02/11/25 12:15 12:23 WBC 5.9 Hgb 13.4 Hct 41.3 Plt Count 212 Sodium 141 Potassium 4.5 Creatinine 0.74 Estimated GFR > 60 Fasting Glucose 85 Calcium 9.0 AST 21 ALT 11 Triglycerides 67 Cholesterol 184 LDL Cholesterol, Calc 111 H HDL Cholesterol 60 Vitamin B12 419 25-OH Vitamin D Total 84.8 TSH 0.17 L Free T4 1.08 Ur Specific [place] 1.015 Urine Protein Negative Urine Glucose (UA) Negative Urine Blood Trace H Urine Nitrite Negative Ur Leukocyte Esterase Large (3+) H Coding Level of Care Code Est Pt Level 4 (40114) Complex EM visit Add On G2211 Diagnoses Pure hypercholesterolemia E78.00 Exertional dyspnea R06.09 Benign essential hypertension I10 Acquired hypothyroidism E03.9 Chronic obstructive pulmonary disease, unspecified COPD type J44.9 COPD type: unspecified COPD Osteoarthritis involving multiple joints on both sides of body M15.9 Degeneration of intervertebral disc of lumbar region with discogenic back pain M51.360 Disc-related pain type: discogenic back pain only Vitamin D deficiency E55.9 Vitamin B12 deficiency E53.8 Bilateral leg paresthesia R20.2 Chronic idiopathic constipation K59.04 Thrombosis of left upper extremity I82.602 Ductal carcinoma in situ (DCIS) of right breast D05.11 Dyspareunia in female N94.10 Overweight (BMI 25.0-29.9) E66.3 Assessment & Plan Assessment & Plan (1) Pure hypercholesterolemia: Code(s): E78.00 - Pure hypercholesterolemia, unspecified Category: Medical Plan: Results of her labs done yesterday reviewed and discussed with patient Patient's cholesterol levels have improved significantly from previous, with her total cholesterol dropping from 269 mg/dl to 184 mg/dl and LDL cholesterol from 188 mg/dl to 111 mg/dl back on her recent labs States that she started experiencing the joint pains and muscle aches again (similar to what she had with Atorvastatin in the past but to a lesser degree) when she started taking Rosuvastatin 5 mg but she did not stop the medication this time as she did not want her cholesterol levels to go back up again Reinforced low-cholesterol diet I will try her to switch her over to one of the newer PCSK9 inhibitors (will try Repatha first) and if this is approved by her insurance, she will start of Repatha 140 mg SQ every 2 weeks and come off Rosuvastatin AYLA Will recheck her labs and fasting lipids in 4 months for follow up (2) Exertional dyspnea: Code(s): R06.09 - Other forms of dyspnea Category: Medical Plan: She was previously referred to cardiology for further evaluation and management of her increasing SESAY lately and is scheduled to be seen for initial consultation in March 2025 Have advised patient that I will leave it up to cardiology to decide if she needs to have cardiac stress testing done or not (3) Benign essential hypertension: Code(s): I10 - Essential (primary) hypertension Category: Medical Plan: Reinforced low sodium diet - goal is systolic BP of at least 130 mm or less Continue Amlodipine 5 mg QD Patient is reminded again to continue monitoring her blood pressure regularly (4) Acquired hypothyroidism: Code(s): E03.9 - Hypothyroidism, unspecified Category: Medical Plan: Patient remains clinically euthyroid at present and her TFTs are normal on her recent labs Continue Levothyroxine 100 mcg QD Will recheck her TFTs in 4 months for follow up (5) Chronic obstructive pulmonary disease (COPD): Code(s): J44.9 - Chronic obstructive pulmonary disease, unspecified Category: Medical Qualifiers: COPD type: unspecified COPD Qualified Code(s): J44.9 - Chronic obstructive pulmonary disease, unspecified Plan: Appears controlled - continue Albuterol HFA 2 inhalations Q 6 hours PRN (6) Osteoarthritis involving multiple joints on both sides of body: Code(s): M15.9 - Polyosteoarthritis, unspecified Category: Medical Plan: Involving multiple joints, including both knees, right shoulder, hips and left ankle X-rays of the left ankle and right wrist done a few months ago revealed (+) mild OA changes Continue Celebrex 200 mg QD PRN for pain; she was on Naproxen or Ibuprofen in the past and states that they have not helped much Have advised her again that regular exercises and stretching and referral to PT/OT when needed are likely the most effective methods of helping her manage her symptoms although patient reports that a lot of her symptoms have improved significantly since she stopped taking her Atorvastatin but some of they have recurred when she started taking Rosuvastatin a few months ago (7) Lumbar degenerative disc disease: Code(s): M51.36 - Other intervertebral disc degeneration, lumbar region Category: Medical Qualifiers: Disc-related pain type: discogenic back pain only Qualified Code(s): M51.360 - Other intervertebral disc degeneration, lumbar region with discogenic back pain only Plan: Reinforced activity and weight-lifting restrictions Lumbar spine x-rays done in April 2022 revealed (+) prominent degenerative disc changes L1-L2, L4-L5, and L5-S1 with borderline retrolisthesis at L1-L2 that are stable and no interval vertebral compression or destructive process are seen Continue Tramadol 50 mg TID PRN (8) Vitamin D deficiency: Code(s): E55.9 - Vitamin D deficiency, unspecified Category: Medical Plan: Continue Vitamin D3 2000 units QD (9) Vitamin B12 deficiency: Code(s): E53.8 - Deficiency of other specified B group vitamins Category: Medical Plan: Continue Vitamin B12 500 mcg QD - Rx refilled (10) Bilateral leg paresthesia: Code(s): R20.2 - Paresthesia of skin Category: Medical Plan: Have previously discussed with patient that she may be starting to experience the onset of symptoms of neuropathy but as they currently occur on and off and do not really seem to be bothering her too much at night, have advised her to observe these for now as she presently has more concerning symptoms to be worked up for (11) Chronic idiopathic constipation: Comment: Controlled by eating Oatmeal Code(s): K59.04 - Chronic idiopathic constipation Category: Medical Plan: Better controlled Reinforced increased oral fluids and dietary fiber Continue Docusate 100 mg QD PRN and Miralax 17 gm QD; she was also started on Linzess 72 mcg QD by GI a few months ago Follow up with GI as scheduled (12) Thrombosis of left upper extremity: Code(s): I82.602 - Acute embolism and thrombosis of unspecified veins of left upper extremity Category: Medical Plan: RESOLVED Repeat venous doppler of her left upper extremity done in October 2023 came back normal with no evidence of superficial or deep vein thrombosis in the left upper extremity She has been on Eliquis 5 mg BID and has completed at least 6 months of Eliquis, after which Rx was then discontinued (13) Ductal carcinoma in situ (DCIS) of right breast: Code(s): D05.11 - Intraductal carcinoma in situ of right breast Category: Medical Plan: S/P treatment with Tamoxifen x 5 years, from 01/2013 to 01/2018 Follow up with oncology as scheduled for continuing surveillance (14) Dyspareunia in female: Code(s): N94.10 - Unspecified dyspareunia Category: Medical Plan: Per request, will refer her to gynecology for further evaluation and management but have advised patient that since she is S/P CONNER-BSO, gynecology may not be the appropriate specialty to see her Advised that if gynecology is not able to help her, will consider referring her to urology instead (15) Overweight (BMI 25.0-29.9): Comment: S/P sleeve gastrectomy Code(s): E66.3 - Overweight Category: Medical Plan: Reinforced diet/exercise as tolerated/lose weight Plan Follow up in 4 months Orders: Orders Complete Blood Count Auto Diff 4 Months D64.9 - Anemia, unspecified NT Pro B Type Natriuretic Pept 4 Months R06.09 - Other forms of dyspnea TSH reflex Free T4 4 Months E78.00 - Pure hypercholesterolemia, unspecified UA CC w/rflx Micro + Cult 4 Months R30.0 - Dysuria Vitamin D 25-OH Total 4 Months E55.9 - Vitamin D deficiency, unspecified Comprehensive [place]. Panel Fast 4 Months E78.00 - Pure hypercholesterolemia, unspecified Lipid Panel 4 Months E78.00 - Pure hypercholesterolemia, unspecified Vitamin B12 and Folate 4 Months E53.8 - Deficiency of other specified B group vitamins Referrals TERRITORY DEVELOPMENT MANAGER Referral N94.10 - Unspecified dyspareunia Medications: New evolocumab (Repatha Nicoick) 140 mg subcut Q2W 2 mL 5RF hyperlipidemia 4 weeks Changed From cyanocobalamin (vitamin B-12) 500 mcg PO DAILY 90 tabs 3RF To cyanocobalamin (vitamin B-12) 500 mcg PO DAILY 90 tabs 3RF 90 days
--- OUTSIDE RECORDS SUMMARY | 2025-02-12 13:07 | XMS_ITS | Encounter Summary ---
Author Organization [facility] Address [address] [place] [address] Phone Care Team Providers Care Parking Cashier Name Role Phone Armando Wheeler MD Primary Care Provider [phone] Encounter Details Date Type Department Care Team (Late st Contact Info) Description 12/05/2022 Procedure Pass [facility], Ct Scan - [facility] [address] [place] [address] Social History Tobacco Use Types Packs/Day Years [...] on filedocumented in this encounter Care Teams Parking Cashier Relationship Specialty Start Date End Date Armando Wheeler MD [address] [place] [address] [place] [address] PCP - General 12/04/22 documented as of this encounter Additional Source Comments The information contained in this document represents components of the legal health record. It is not the complete legal health record.[facility]
--- OUTSIDE RECORDS SUMMARY | 2025-02-12 13:07 | XMS_ITS | Clinical Summary ---
Author Organization [facility] Address [address] [place] [address] Phone Care Team Providers Care Dermatologist Managing Partner Name Role Phone Armando Wheeler MD Primary Care Provider [phone] Allergies Active Allergy Reactions Criticality Noted Date [...] file Group ID:Not on file Type:Medicaid Address: [address] MEDICARE REPLACEMENT HEALTH SAFETY NET FULL Member Subscriber Plan / Payer (Ef fective 2022-) Name:Dannielle Goddard Relation to Subscriber:Self Name:Nitza Dannielle Payer ID:Not on file Group ID:Not on file Type:Medicaid Address: [address] MEDICARE REPLACEMENT HEALTH SAFETY NET FULL Member Subscriber Plan / Payer (Ef fective 2022-) Name:Dannielle Goddard Relation to Subscriber:Self Name:Dannielle Goddard Payer ID:Not on file Group ID:Not on file Type:Medicaid Address: [address] MEDICARE REPLACEMENT NET FULL Member Subscriber Plan / Payer (Ef fective 2022-) Name:GoddardDannielle Relation to Subscriber:Self Name:GoddardDannielle bruno Payer ID:Not on file Group ID:Not on file Type:Medicaid Address: [address] MEDICARE REPLACEMENT SAFETY NET FULL Member Subscriber Plan / Payer (Ef fective 2022-Present) Name:GoddardDannielle bruno Relation to Subscriber:Self Name:Dannielle Goddard Payer ID:Not on file Group ID:Not on file Type:Medicaid Address: [address] MEDICARE REPLACEMENT FULL Member Subscriber Plan / Payer (Ef fective 2022-) Name:Nitza Dannielle Relation to Subscriber:Self Name:Dannielle Goddard Payer ID:Not on file Group ID:Not on file Type:Medicaid Address: [address] [place] [address] Care Teams Dermatologist Managing Partner Relationship Specialty Start Date End Date Armando Wheeler MD [address] [place] [address] [facility] [place] [address] PCP - General 12/04/22 Additional Source Comments The information contained in this document represents components of the legal health record. It is not the complete legal health record.[facility]
--- OUTSIDE RECORDS SUMMARY | 2025-02-12 13:07 | XMS_ITS | Clinical Summary ---
Author Organization [facility] Address [address] [place] [address] Care Team Providers Care Account Executive Metalworking Name Role Phone Armando Wheeler MD Primary Care Provider +1- [phone] Allergies No known active allergies Medications amLODIPine [...] to [place] [id number] [facility] MEDICARE Advance Directives * Full Code (Latest Code Status on File) Date Activated Date Inactivated Comments 12/15/2022 8:13 PM * Full Code Date Activated Date Inactivated Comments 12/05/2022 9:07 AM 12/15/2022 8:13 PM Care Teams Account Executive Metalworking Relationship Specialty Start Date End Date Armando Wheeler MD [address] [place] [address] Dr [place], [place] [address] PCP - General Internal Medicine 12/21/22
== END 2025-02-12 11:32 | disposition home or self-care (01) ==
LOC: HO.HMCH 10:30
PROVIDERS: PCP Internal Medicine; Visit Provider Internal Medicine
DX: E78.00 Pure hypercholesterolemia, unspecified (principal); J44.9 Chronic obstructive pulmonary disease, unspecified; R06.09 Other forms of dyspnea; I10 Essential (primary) hypertension; E03.9 Hypothyroidism, unspecified; M15.9 Polyosteoarthritis, unspecified; M51.360 Other intervertebral disc degeneration, lumbar region with discogenic back pain only; E55.9 Vitamin D deficiency, unspecified; E53.8 Deficiency of other specified B group vitamins; R20.2 Paresthesia of skin; K59.04 Chronic idiopathic constipation; I82.602 Acute embolism and thrombosis of unspecified veins of left upper extremity

== ENCOUNTER → 2025-02-12 10:29 | Outpatient (BNVA) | payer MEDICARE, SELFPAY | PROVIDERS: PCP Internal Medicine; Visit Provider Internal Medicine | DX: Z00.00 Encounter for general adult medical examination without abnormal findings (principal); R06.02 Shortness of breath; M79.18 Myalgia, other site; E78.00 Pure hypercholesterolemia, unspecified; R06.09 Other forms of dyspnea; I10 Essential (primary) hypertension; E03.9 Hypothyroidism, unspecified; J44.9 Chronic obstructive pulmonary disease, unspecified; M15.9 Polyosteoarthritis, unspecified; M51.360 Other intervertebral disc degeneration, lumbar region with discogenic back pain only; E55.9 Vitamin D deficiency, unspecified; E53.8 Deficiency of other specified B group vitamins; R20.2 Paresthesia of skin; K59.04 Chronic idiopathic constipation; I82.602 Acute embolism and thrombosis of unspecified veins of left upper extremity; D05.11 Intraductal carcinoma in situ of right breast; N94.10 Unspecified dyspareunia; E66.3 Overweight; Z68.28 Body mass index [BMI] 28.0-28.9, adult | CPT/HCPCS: 99212 ==

== ENCOUNTER 2025-03-12 12:51 | Outpatient (REF) | payer MEDICARE, SELFPAY | END 2025-03-12 12:52 | disposition home or self-care (01) | LOC: HO.MAMMO 12:51 | PROVIDERS: Visit Provider Internal Medicine | DX: Z12.31 Encounter for screening mammogram for malignant neoplasm of breast (principal) | CPT/HCPCS: 77063; 77067 ==

== ENCOUNTER → 2025-03-12 13:00 | Outpatient (BNV) | payer MEDICARE, SELFPAY | PROVIDERS: Visit Provider Radiology Body Imaging | DX: Z12.31 Encounter for screening mammogram for malignant neoplasm of breast (principal) | CPT/HCPCS: 77063; 77067 ==

== ENCOUNTER 2025-03-16 09:24 | Emergency (ER) | payer MEDICARE, SELFPAY ==
--- NOTE | ~2025-03-16 | CT_ITS ---
CLINICAL HISTORY: left sided neck pain swelling, hx of abscess CT soft tissue neck with contrast Comparison: CT/SR - CT NECK SOFT TISSUE WITH IV CONTRAST - 12/01/22 20:38 EDT Findings: The visualized intracranial contents are unremarkable. No enlargement of the tonsil. No abnormal fluid collection. Cystic area of the left hypopharynx 7 mm in size series 3, image 57 is unchanged. Pharyngeal mucosal space, parapharyngeal fat, prevertebral tissues, and epiglottis are within normal limits. Salivary glands are within normal limits. No sialoliths. Thyroid gland is unremarkable. Visualized lung apices are clear. No acute fractures. IMPRESSION: No enlargement of the tonsil. No evidence of soft tissue abscess of the neck. This document has been electronically signed by: Martell Montes De Oca MD on 03/16/2025 13:20:00
[2025-03-16 09:28] VITALS: BP 152/70; PULSE 78; RESP 18; TEMP 36.6; O2SAT 98; BMI 28.3
--- NOTE | 2025-03-16 10:16 | ED_ITS ---
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 Patient states that her symptoms started approximately 3 days ago, states that she developed left ear pain that now radiates into the left side of her neck. She denies any difficulty swallowing or pain with swallowing. She states that she had a very large infection in her throat which required her to have surgery 2 years ago and states that her symptoms are presenting in the same fashion. She does endorse some congestion, slight cough, otherwise denies any fevers, chills, chest pain, shortness of breath, abdominal pain, nausea, vomiting or diarrhea. Denies taking any medications at home to treat her current symptoms. No other complaints or concerns at this time. MD complaint: Left ear pain Onset (ago): day(s) Radiation: non-radiation Pain Consistency: constant Relieving factors: none Exacerbating factors: none Associated symptoms: denies other symptoms Treatments prior to arrival: none Related Data Home Medications ?Medication ?Instructions ?Recorded ?Confirmed ascorbate calcium (vitamin C) 500 500 mg PO BID 02/12/25 mg tablet blood pressure test kit-large #1 ea 09/01/22 02/12/25 Previous Rx's ?Medication ?Instructions ?Recorded albuterol sulfate 90 mcg/actuation 2 puff inhalation . 4 times a day 06/20/21 aerosol inhaler (ProAir HFA) PRN Wheezing #8.5 grams cyclobenzaprine 10 mg tablet 10 mg PO BEDTIME #14 tabs 04/22/22 mometasone 0.1 % topical cream 1 appl topical DAILY 15 days #45 05/29/22 grams blood pressure monitor #1 ea 07/25/22 sennosides 8.6 mg capsule (senna) 25.8 mg (3 x 8.6 mg) PO BEDTIME 09/01/22 constipation 30 days #90 caps loratadine 10 mg tablet 10 mg PO DAILY PRN allergy 0 11/02/22 symptoms 90 days #90 tabs polyethylene glycol 3350 17 17 g PO DAILY constipation 30 days 11/02/22 gram/dose oral powder (Miralax) #510 grams clotrimazole-betamethasone 1 1 appl topical BID 10 day s #45 06/25/23 %-0.05 % topical cream grams Ventolin HFA 90 mcg/actuation 2 puff inhalation Q6H GA N 02/23/24 aerosol inhaler (albuterol sulfate) shortness of breat h or wheezing 30 days #18 grams levothyroxine 100 mcg tablet 100 mcg PO DAILY 90 days #90 tabs 02/23/24 multivitamin with folic acid 400 1 tab PO DAILY #30 ta bs 03/13/24 mcg tablet (Daily-Jen (with folic acid)) simethicone 180 mg capsule 180 mg PO QID 30 days #120 caps 03/13/24 cholecalciferol (vitamin D3) 50 50 mcg PO DAILY #90 ca ps 06/14/24 mcg (2,000 unit) capsule multivitamin (Multiple Vitamins 1 tab PO QAM 90 days # 90 tabs 06/25/24 tablet) lidocaine 5 % topical patch 1 patch topical DAILY #15 ea 09/23/24 naproxen 500 mg tablet 500 mg PO BID PRN pain #14 t abs 09/23/24 famotidine 40 mg tablet 40 mg PO DAILY PRN for indig estion 10/17/24 #90 tabs fluticasone propionate 50 2 spray intranasal DAILY PRN 11/15/24 mcg/actuation nasal allergy symptoms 30 days #16 grams spray,suspension rosuvastatin 5 mg tablet 5 mg PO DAILY 90 days #90 ta bs 11/15/24 amlodipine 5 mg tablet 5 mg PO DAILY 90 days #90 ta bs 12/21/24 diclofenac sodium 1 % topical gel 2 g topical BID PRN for pain #100 01/08/25 grams celecoxib 200 mg capsule 200 mg PO DAILY PRN pain 30 days 01/09/25 #30 caps cyanocobalamin (vitamin B-12) 500 500 mcg PO DAILY 90 days #90 tabs 02/12/25 mcg tablet evolocumab 140 mg/mL subcutaneous 140 mg subcut Q2W hy perlipidemia 4 02/12/25 pen injector (Ryan Walshick) weeks #2 mL amoxicillin 875 mg tablet 875 mg PO BID 7 days #14 tab s 03/16/25 ofloxacin 0.3 % ear drops 10 drp otic (ears) DAILY 7 d ays 03/16/25 #10 mL Allergies Allergy/AdvReac Type Severity Reaction Status Date / Time kamara (CHERRIES) Allergy Intermediate ITCHING-THR Verified 03/16/25 09:32 OAT Sulfa (Sulfonamide Allergy Intermediate rash Verified 03/16/25 09:32 Antibiotics) atorvastatin AdvReac Intermediate myalgia Verified 03/16/25 09:32 naproxen AdvReac Mild dizziness Verified 03/16/25 09:32 robyn Allergy Itching Uncoded 03/16/25 09:33 green apples Allergy Rash Uncoded 02/12/25 11:16 Review of Systems 2 Review of Systems: Constitutional : No Fever, No Chills ENT/Mouth : No sore throat, No Rhinorrhea Eyes: No Eye Pain, No Swelling, No Redness Cardiovascular : No Chest Pain, No SOB Respiratory : No Cough, No Sputum Gastrointestinal : No Nausea, No Vomiting, No Diarrhea, No abdominal Pain Genitourinary : No Dysuria, No Hematuria Musculoskeletal : No joint pain, No Myalgias, No Joint Swelling Skin : No Skin Lesions Neuro : No Weakness, No Numbness, No Headache All other systems reviewed and are negative Yes all other systems are reviewed and are negative Constitutional: Constitutional: Reports as per [facility] Past Medical History Attestation statement: The following information was validated with the patient. Medical History Abdominal distension, gaseous Chronic deep vein thrombosis (DVT) of axillary vein of left upper extremity Left hip pain Atypical chest pain Dyspepsia History of DVT (deep vein thrombosis) Acute diarrhea Thrombosis of left upper extremity Fracture of triquetrum of right wrist Avulsion fracture Dermatitis Myalgia Myalgia due to statin Dizziness Radicular pain of both lower extremities Exertional chest pain Achilles tendinitis of left lower extremity Ductal carcinoma in situ (DCIS) of right breast Bilateral knee pain History of ductal carcinoma in situ (DCIS) of breast Fracture of triquetral bone of right wrist with routine healing Lumbar degenerative disc disease COVID-19 Left lumbar radiculopathy Parapharyngeal abscess (~11/2022) Zinc deficiency Vitamin B1 deficiency Vitamin A deficiency Chest pain, pleuritic Intestinal malabsorption following gastrectomy Left inguinal pain Neuropathic pain of left lower extremity Overweight (BMI 25.0-29.9) Primary insomnia Vitamin D deficiency Allergic rhinitis Elevated LFTs Primary osteoarthritis, unspecified shoulder Osteoarthritis of spine with radiculopathy, lumbosacral region Primary osteoarthritis of both knees Chronic obstructive pulmonary disease (COPD) Benign essential hypertension Acquired hypothyroidism Pure hypercholesterolemia Surgical History Hx of peritonsillar abscess drainage History of sleeve gastrectomy (07/24/18) History of incision and drainage (~11/2022) History of colonoscopy History of total abdominal hysterectomy and bilateral salpingo-oophorectomy (~2004) History of cardiac cath (~03/2018) History of lumpectomy of right breast (~12/2012) H/O unilateral oophorectomy Family History Family History Father CVD (cardiovascular disease) Mother Cervical cancer Pancreatic cancer Uterine cancer Sister Substance abuse Social History Social History Household Members: Spouse Housing: Apartment Are you a primary landcare facilitator to a significant other at home: No Do you presently have visiting nurse or other home services: No Alcohol intake: never Patient Tobacco Use Status: Former Tobacco user Tobacco use type: Cigarette e-Cigarette/Vaping Use: Never Used Second Hand Smoke Exposure: No Advance Directives: No Advance Directives Information Provided: Yes service: No 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al status: disabled 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, 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 Left TM is slightly erythematous, auditory canal slightly erythematous, no edema, Right TM unremarkable Patient with no trismus, drooling, or dysphonia, she does have slight left anterior cervical lymphadenopathy noted, tender. Head: Yes normal to inspection, Yes normocephalic and Yes atraumatic Ears: hearing grossly normal bilaterally General nose exam: Normal external nose present Face and sinus: Yes normal facial exam Mouth: Normal oral and palatal mucosa present, oropharynx normal and moist mucous membranes Throat: Yes posterior oropharynx normal Eyes General: appearance normal, both eyes and all related structures Eyelids: Yes eyelids normal Conjunctivae: conjunctivae normal Sclerae: sclerae normal Pupils: Equal, round and reactive pupils present EOM: EOMs intact bilaterally Neck Neck: Yes normal visual inspection, Yes full ROM and Yes no lymphadenopathy Lymphatic: no lymphadenopathy noted Chest Chest palpation & inspection: normal inspection of the chest Resp Effort & Inspection: normal respiratory effort and able to speak in complete sentences Auscultation: clear to auscultation bilaterally, no crackles, no rales, no rhonchi and no wheezes Cardio Rate: regular rate Rhythm: regular rhythm Heart sounds: S1 normal heart sound present and S2 normal heart sound present GI Inspection: Yes normal to inspection Skin General skin exam: no rashes or lesions noted Trauma: no lacerations or abrasions Wounds: no wounds Neuro General: patient oriented x3 and moves all extremities Cranial nerves: Yes Equal, round and reactive pupils present Extrem General: Yes normal to inspection Right upper extremity: normal to inspection Left upper extremity: normal to inspection Right lower extremity: normal to inspection Left lower extremity: normal to inspection Medications Administered Discontinued Medications Generic Name Dose Route Start Last Admin Trade Name Freq PRN Reason Stop Dose Admin Iohexol 100 ml 03/16/25 12:13 03/16/25 12:14 Iohexol 350 Mg/Ml 100 Ml Infus..Btl IV 03/16/25 12:14 60 ml ONCE ONE Administration Medical Decision Making Medical Decision Making 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 On arrival, blood pressure mildly elevated 152/70, all other vital signs within normal limits. She is speaking in full sentences under no acute distress. No trismus, drooling, or dysphonia. Left TM is intact however patient does have slight erythema noted to the TM and left external ear canal. Differential diagnoses include otitis media, otitis externa, otalgia, mass. Given that she has a history of answer, masses on the differential. She also reports that she had a large infection in her throat which she is concerned that this is returning as recurrent presentation is similar to the infection she had previously. Given history, will obtain labs, viral swabs, as well as soft tissue neck. Patient declining wanting any pain medication at this time. We will continue to closely monitor. 1:30 PM 03/16/2025 (Jerica Bellamy PA-C): CT revealing no acute findings. Discussed findings with patient. Did discussed with patient that symptoms are consistent with otitis media/externa, will treat with antibiotics. Given strict return precautions. Patient understands and agrees with plan. Patient stable for discharge. Differential Diagnosis Differential Diagnoses: The differential diagnosis associated with the presentation includes See above Lab Data MDM Lab Attestation statement: I reviewed the patient's lab results. Labs revealed no leukocytosis, stable H&H, chemistry revealing no significant electrolyte derangement. COVID and flu, strep negative 03/16/25 11:14 03/16/25 11:14 Labs: Lab Results 03/16/25 03/16/25 Range/Units 11:14 11:15 WBC 5.8 (4.8-10.8) X10*3/uL RBC 4.29 (4.20-5.50) X10*6/uL Hgb 13.2 (12.0-16.0) g/dl Hct 40.3 (37.0-47.0) % MCV 93.9 (80.0-98.0) fL MCH 30.8 (27.0-33.0) pg MCHC 32.8 (31.0-35.0) g/dl RDW 13.2 (11.0-16.0) % Plt Count 243 (160-400) X10*3/uL MPV 9.6 (9.4-12.3) fL Immature Gran % (Auto) 0.2 (0.0-0.4) % Neut % (Auto) 62.9 (45-73) % Lymph % (Auto) 24.6 (20-40) % [place] % (Auto) 9.6 (2-11) % Eos % (Auto) 2.2 (0-4) % Baso % (Auto) 0.5 (0-2) % Lymph # (Auto) 1.4 (1.2-4.9) X10*3/uL [place] # (Auto) 0.6 (0.1-1.2) X10*3/uL Eos # (Auto) 0.1 (0.0-0.4) X10*3/uL Baso # (Auto) 0.0 (0.0-0.2) X10*3/uL Abs Immat Gran (auto) 0.01 (0.00-0.03) X10*3/uL Absolute Neuts (auto) 3.7 (2.0-8.3) x10*3/uL Absolute Nucleated RBC 0.000 (0.0-0.012) X10*3/uL Nucleated RBC % (auto) 0.0 (0.0-0.2) /100WBC ESR 14 (0-20) MM/HR Sodium 141 (135-145) mmol/L Potassium 4.1 (3.3-5.1) mmol/L Chloride 103 (96-108) mmol/L Carbon Dioxide 30 H (22-29) mmol/L Anion Gap 12 (12-20) BUN 15 (9-16) mg/dL Creatinine 0.74 (0.5-1.4) mg/dL Estim Creat Clear Calc 76.8 Estimated GFR > 60 Random Glucose 80 (60-115) mg/dL Calcium 9.1 (8.4-10.2) mg/dL Total Bilirubin 0.6 (0.0-1.0) mg/dL Direct Bilirubin 0.2 (0.0-0.5) mg/dL AST 26 (5-31) U/L ALT 23 (0-31) U/L Alkaline Phosphatase 143 H (39-117) U/L C-Reactive Protein < 0.10 (< or = 0.50) mg/dL Total Protein 7.6 (6.5-8.0) g/dL Albumin 4.3 (3.5-5.0) g/dL COVID-19 (ANDRADE) Negative (Negative) COVID-19 Clin Com See Note Influenza Type A (ALESIA) Negative (Negative) Influenza Type B (ALESIA) Negative (Negative) Influenza A & B Note See Note S. pyogenes GrpA ALESIA Negative (Negative) Radiology Impression Discussion of test interpretation with radiology: I have reviewed the radiologist's reading. Radiologist Impression: Findings: The visualized intracranial contents are unremarkable. No enlargement of the tonsil. No abnormal fluid collection. Cystic area of the left hypopharynx 7 mm in size series 3, image 57 is unchanged. Pharyngeal mucosal space, parapharyngeal fat, prevertebral tissues, and epiglottis are within normal limits. Salivary glands are within normal limits. No sialoliths. Thyroid gland is unremarkable. Visualized lung apices are clear. No acute fractures. IMPRESSION: No enlargement of the tonsil. No evidence of soft tissue abscess of the neck. This document has been electronically signed by: Martell Montes De Oca MD on 03/16/2025 13:20:00 Dictated By: Martell Montes De Oca MD Discharge Plan Discharge Clinical Impression: Otitis media, Otitis externa Patient Disposition: Home, Self-Care Instructions: How to Use Ear Drops (ED), Ear Infection (ED) Additional Instructions: You were seen in the emergency department due to left ear pain. You were found to have an ear infection. Your blood work was reassuring. You tested negative for COVID and flu. We also tested negative for strep throat. Your CT of your neck does not reveal any acute findings. Please take prescribed antibiotic as directed, finish the entire course. Please also use antibiotic ear drops as prescribed. If any new or worsening symptoms occur including but not limited to worsening pain, high fevers, severe chest pain, shortness of breath, please seek emergent care. Prescriptions: New amoxicillin 875 mg tablet 875 mg PO BID 7 Days Qty: 14 0RF ofloxacin 0.3 % drops 10 drp otic (ears) DAILY 7 Days Qty: 10 0RF No Action mometasone 0.1 % cream 1 appl topical DAILY 15 Days Qty: 45 1RF (DME) blood pressure monitor Kit See Rx Instructions .Route Qty: 1 0RF Rx Instructions: As directed clotrimazole-betamethasone 1-0.05 % cream 1 appl topical BID 10 Days Qty: 45 0RF cholecalciferol (vitamin D3) 50 mcg (2,000 unit) capsule 50 mcg PO DAILY Qty: 90 3RF famotidine 40 mg tablet 40 mg PO DAILY PRN (Reason: for indigestion) Qty: 90 2RF amlodipine 5 mg tablet 5 mg PO DAILY 90 Days Qty: 90 3RF diclofenac sodium 1 % gel 2 g topical BID PRN (Reason: for pain) Qty: 100 0RF celecoxib 200 mg capsule 200 mg PO DAILY PRN (Reason: pain) 30 Days Qty: 30 3RF Rx Instructions: Take with food naproxen 500 mg tablet 500 mg PO BID PRN (Reason: pain) Qty: 14 0RF lidocaine 5 % adhesive patch,medicated 1 patch topical DAILY Qty: 15 0RF Rx Instructions: leave on most painful area for up to 12 hrs ascorbate calcium (vitamin C) 500 mg tablet 500 mg PO BID albuterol sulfate [ProAir HFA] 90 mcg/actuation HFA aerosol inhaler 2 puff inhalation .4 times a day PRN (Reason: Wheezing) Qty: 8.5 5RF cyclobenzaprine 10 mg tablet 10 mg PO BEDTIME Qty: 14 0RF polyethylene glycol 3350 [Miralax] 17 gram/dose powder 17 g PO DAILY 30 Days Qty: 510 5RF loratadine 10 mg tablet 10 mg PO DAILY PRN (Reason: allergy symptoms) 90 Days Qty: 90 1RF (DME) blood pressure test kit-large Kit See Rx Instructions .ROUTE DIRECTED Qty: 1 Rx Instructions: As directed senna 8.6 mg capsule 25.8 mg PO BEDTIME 30 Days Qty: 90 6RF albuterol sulfate [Ventolin HFA] 90 mcg/actuation HFA aerosol inhaler 2 puff inhalation Q6H PRN (Reason: shortness of breath or wheezing) 30 Days Qty: 18 5RF levothyroxine 100 mcg tablet 100 mcg PO DAILY 90 Days Qty: 90 3RF rosuvastatin 5 mg tablet 5 mg PO DAILY 90 Days Qty: 90 1RF fluticasone propionate 50 mcg/actuation spray,suspension 2 spray intranasal DAILY PRN (Reason: allergy symptoms) 30 Days Qty: 16 5RF Rx Instructions: administer into each nostril multivitamin [Multiple Vitamins] Tablet 1 tab PO QAM 90 Days Qty: 90 3RF simethicone 180 mg capsule 180 mg PO QID 30 Days Qty: 120 3RF Rx Instructions: after meals multivitamin with folic acid [Daily-Jen (with folic acid)] 400 mcg tablet 1 tab PO DAILY Qty: 30 11RF Repatha SureClick 140 mg/mL pen injector 140 mg subcut Q2W 28 Days Qty: 2 5RF cyanocobalamin (vitamin B-12) 500 mcg tablet 500 mcg PO DAILY 90 Days Qty: 90 3RF Discharge Date/Time: 03/16/25 14:22 Print Language: Maltese
--- OUTSIDE RECORDS SUMMARY | 2025-03-16 10:53 | XMS_ITS | Clinical Summary ---
Author Organization [facility] Address [address] [place] [address] Care Team Providers Care Preparation Plant Supervisor Name Role Phone Armando Wheeler MD Primary Care Provider +1- [phone] Allergies No known active allergies Medications amLODIPine [...] - 2023-2 5 season) 2025 RSV Vaccine 50 years and old er and Patients (1 - 1-dose 75+ series) 2028 Hepatitis B Vaccines Aged Out No long er eligible based on patient's age to [place] [id number] [facility] MEDICARE Advance Directives * Full Code (Latest Code Status on File) Date Activated Date Inactivated Comments 12/15/2022 8:13 PM * Full Code Date Activated Date Inactivated Comments 12/05/2022 9:07 AM 12/15/2022 8:13 PM Care Teams Preparation Plant Supervisor Relationship Specialty Start Date End Date Armando Wheeler MD [address] [place] [address] Dr [place], [place] [address] PCP - General Internal Medicine 12/21/22
--- OUTSIDE RECORDS SUMMARY | 2025-03-16 10:53 | XMS_ITS | Encounter Summary ---
Author Organization [facility] Address [address] [place] [address] Phone Care Team Providers Care Procedures Nurse Name Role Phone Armando Wheeler MD Primary Care Provider [phone] -[phone] Encounter Details Date Type Department Care Team (Late st Contact Info) Description 12/05/2022 Procedure Pass [facility], Ct Scan - [facility] [address] [place] [address] Social History Tobacco Use Types Packs/Day Years [...] on filedocumented in this encounter Care Teams Procedures Nurse Relationship Specialty Start Date End Date Armando Wheeler MD [address] [place] [address] [place] [address] PCP - General 12/04/22 documented as of this encounter Additional Source Comments The information contained in this document represents components of the legal health record. It is not the complete legal health record.[facility]
--- OUTSIDE RECORDS SUMMARY | 2025-03-16 10:53 | XMS_ITS | Clinical Summary ---
Author Organization [facility] Address [address] [place] [address] Phone Care Team Providers Care Fence Repairman Name Role Phone Armando Wheeler MD Primary Care Provider [phone] -[phone] Allergies Active Allergy Reactions Criticality Noted Date [...] VACCINE (#1) 2024 COVID-19 VACCINE ( - 2024-2 6 season) 2025 RSV VACCINE (1 - 1-dose [...] file Group ID:Not on file Type:Medicaid Address: [address] MEDICARE REPLACEMENT HEALTH SAFETY NET FULL Member Subscriber Plan / Payer (Ef fective 2022-) Name:Dannielle Goddard Relation to Subscriber:Self Name:Nitza Dannielle Payer ID:Not on file Group ID:Not on file Type:Medicaid Address: [address] MEDICARE REPLACEMENT HEALTH SAFETY NET FULL Member Subscriber Plan / Payer (Ef fective 2022-) Name:Dannielle Goddard Relation to Subscriber:Self Name:Dannielle Goddard Payer ID:Not on file Group ID:Not on file Type:Medicaid Address: [address] MEDICARE REPLACEMENT NET FULL Member Subscriber Plan / Payer (Ef fective 2022-) Name:GoddardDannielle Relation to Subscriber:Self Name:GoddardDannielle bruno Payer ID:Not on file Group ID:Not on file Type:Medicaid Address: [address] MEDICARE REPLACEMENT SAFETY NET FULL Member Subscriber Plan / Payer (Ef fective 2022-Present) Name:GoddardDannielle bruno Relation to Subscriber:Self Name:Dannielle Goddard Payer ID:Not on file Group ID:Not on file Type:Medicaid Address: [address] MEDICARE REPLACEMENT FULL Member Subscriber Plan / Payer (Ef fective 2022-) Name:Nitza Dannielle Relation to Subscriber:Self Name:Dnanielle Goddard Payer ID:Not on file Group ID:Not on file Type:Medicaid Address: [address] MEDICARE REPLACEMENT Care Teams Fence Repairman Relationship Specialty Start Date End Date Armando Wheeler MD [address] [place] [address] [place] [address] PCP - General 12/04/22 Additional Source Comments The information contained in this document represents components of the legal health record. It is not the complete legal health record.[facility]
[2025-03-16 11:24] LABS: MANUAL DIFF FLAG NO
[2025-03-16 11:27] LABS: Hematocrit 40.3 % (37.0-47.0); Hemoglobin 13.2 g/dl (12.0-16.0); Imm Gran Abs Auto 0.01 X10*3/uL (0.00-0.03); Imm Gran Pct Auto 0.2 % (0.0-0.4); Lymphocytes Absolute Auto 1.4 X10*3/uL (1.2-4.9); Mean Corpuscular HGB Conc 32.8 g/dl (31.0-35.0); Mean Corpuscular Hemoglobin 30.8 pg (27.0-33.0); Mean Corpuscular Volume 93.9 fL (80.0-98.0); NRBC Abs Auto 0.000 X10*3/uL (0.0-0.012); NRBC Pct Auto 0.0 /100WBC (0.0-0.2); Platelet Count 243 X10*3/uL (160-400); Red Blood Count 4.29 X10*6/uL (4.20-5.50); White Blood Count 5.8 X10*3/uL (4.8-10.8)
[2025-03-16 11:39] LABS: IDNOW Serial# 55D5AD1C; Strep A Nucleic Acid Negative (Negative)
[2025-03-16 11:43] LABS: Alanine Aminotransferase 23 U/L (0-31); Albumin Level 4.3 g/dL (3.5-5.0); Alkaline Phosphatase 143 U/L (39-117); Anion Gap 12 (12-20); Aspartate Amino Transferase 26 U/L (5-31); Blood Urea Nitrogen 15 mg/dL (9-16); Calcium 9.1 mg/dL (8.4-10.2); Carbon Dioxide 30 mmol/L (22-29); Chloride 103 mmol/L (96-108); Creatinine Clr Calc Pharmacy 76.8; Estimated Glomerular Filt Rate > 60; Potassium 4.1 mmol/L (3.3-5.1); Sodium 141 mmol/L (135-145); Total Protein 7.6 g/dL (6.5-8.0)
[2025-03-16 11:56] LABS: IDNOW Serial# 08D9AD1C; Influenza B2 Negative (Negative)
[2025-03-16 11:56] LABS: COVID-19 Test Negative (Negative); IDNOW Serial# 58CA691E
[2025-03-16 12:04] VITALS: BP 139/75; PULSE 69; RESP 14; TEMP 36.9; O2SAT 97
[2025-03-16 12:07] LABS: Erythrocyte Sedimentation Rate 14 MM/HR (0-20)
[2025-03-16] MEDS: iohexoL 350 MG/ML 100 ML INFUS..BTL IV (12:14)
== END 2025-03-16 14:22 | disposition home or self-care (01) ==
PROVIDERS: Physician Assistant Medical; Emergency Provider Emergency Medicine Emergency Medical Services; PCP Internal Medicine
DX: H66.92 Otitis media, unspecified, left ear (principal); H60.92 Unspecified otitis externa, left ear; J44.9 Chronic obstructive pulmonary disease, unspecified; M54.2 Cervicalgia; Z79.899 Other long term (current) drug therapy; Z86.718 Personal history of other venous thrombosis and embolism; Z11.52 Encounter for screening for COVID-19
CPT/HCPCS: 36415; 70491; 80048; 80076; 85025; 85652; 86140; 87502; 87635; 87651; 99283; 99284; Q9967

== ENCOUNTER → 2025-03-16 10:44 | Outpatient (BNV) | payer MEDICARE, SELFPAY | PROVIDERS: Emergency Provider Emergency Medicine Emergency Medical Services; PCP Internal Medicine; Visit Provider Nuclear Medicine | DX: M54.2 Cervicalgia (principal); R22.1 Localized swelling, mass and lump, neck | CPT/HCPCS: 70491 ==

== ENCOUNTER 2025-03-18 13:41 | Outpatient (REF) | payer MEDICARE, SELFPAY ==
--- NOTE | ~2025-03-18 | MM_ITS ---
EXAMINATION: DXA BONE DENSITY AXIAL HISTORY: Osteopenia TECHNIQUE: WARSTUFF Dual energy absorptiometry (DEXA) of the lumbar spine, total left hip, and femoral neck was performed. COMPARISON: Comparison is made with the prior examination dated 03/08/2023. FINDINGS: The bone mineral density of the lumbar spine is 1.222 g/cm2, corresponding to a T-score of 0.4, and a Z-score of 1.6. This is indicative of normal bone mineral density. This represents a BMD change of 10.6% compared to the prior exam. This is statistically significant. The bone mineral density of the left total hip is 0.933 g/cm2, corresponding to a T-score of -0.1, and a Z-score of 1.0. This is indicative of normal bone mineral density. This represents a BMD change of 0.2% compared to the prior exam. This is not statistically significant. The bone mineral density of the left femoral neck is 0.907 g/cm2, corresponding to a T-score of -0.9, and a Z-score of 0.5. This is indicative of normal bone mineral density. This represents a BMD change of -0.8% compared to the prior exam. FRACTURE RISK: The FRAX index suggests a ten year probability of major osteoporotic fracture of 5.0%, and of hip fracture 0.5%. MM/XR DEXA axial skeleton IMPRESSION: Based on bone mineral density, and according to World Health Organization (WHO) criteria, the diagnosis is consistent with normal bone mineral density. Statistically, 68% of repeat scans fall within 1 SD (+/- 0.010 g/cm2 for AP spine L1-L4) and 1 SD (+/- 0.012 g/cm2 for femur total) FRAX is a trademark of the [employer]'s [place] [employer] Metabolic Bone Disease, a World Health Organization (WHO) Collaborating Center. Electronically signed by: Martin Phillips MD 03/18/2025 02:05 PM EDT
--- OUTSIDE RECORDS SUMMARY | 2025-03-18 17:45 | XMS_ITS | Clinical Summary ---
Author Organization [facility] Address [address] [facility] [address] [place] [address] Phone Care Team Providers Care Hotel Supplies Salesperson Name Role Phone Armando Wheeler MD Primary Care Provider +1 -[phone] Allergies Active Allergy Reactions Criticality Noted Date [...] file Group ID:Not on file Type:Medicaid Address: [address] MEDICARE REPLACEMENT HEALTH SAFETY NET FULL Member Subscriber Plan / Payer (Ef fective 2022-) Name:Dannielle Goddard Relation to Subscriber:Self Name:Nitza Dannielle Payer ID:Not on file Group ID:Not on file Type:Medicaid Address: [address] MEDICARE REPLACEMENT HEALTH SAFETY NET FULL Member Subscriber Plan / Payer (Ef fective 2022-) Name:Dannielle Goddard Relation to Subscriber:Self Name:Dannielle Goddard Payer ID:Not on file Group ID:Not on file Type:Medicaid Address: [address] MEDICARE REPLACEMENT NET FULL Member Subscriber Plan / Payer (Ef fective 2022-) Name:GoddardDannielle Relation to Subscriber:Self Name:GoddardDannielle bruno Payer ID:Not on file Group ID:Not on file Type:Medicaid Address: [address] MEDICARE REPLACEMENT SAFETY NET FULL Member Subscriber Plan / Payer (Ef fective 2022-Present) Name:GoddardDannielle bruno Relation to Subscriber:Self Name:Dannielle Goddard Payer ID:Not on file Group ID:Not on file Type:Medicaid Address: [address] MEDICARE REPLACEMENT FULL Member Subscriber Plan / Payer (Ef fective 2022-) Name:Nitza Dannielle Relation to Subscriber:Self Name:Dannielle Goddard Payer ID:Not on file Group ID:Not on file Type:Medicaid Address: [address] MEDICARE REPLACEMENT Care Teams Hotel Supplies Salesperson Relationship Specialty Start Date End Date Armando Wheeler MD [address] [place] [address] [facility] [place] [address] PCP - General 12/04/22 Additional Source Comments The information contained in this document represents components of the legal health record. It is not the complete legal health record.[facility]
--- OUTSIDE RECORDS SUMMARY | 2025-03-18 17:45 | XMS_ITS | Encounter Summary ---
Author Organization [facility] Address [address] [facility] [address] [place] [address] Phone Care Team Providers Care Tool Honing Machine Set Up Operator Name Role Phone Armando Wheeler MD Primary Care Provider +1 [phone] Encounter Details Date Type Department Care Team (Late st Contact Info) Description 12/05/2022 Procedure Pass [facility], Ct Scan - [facility] [address] [place] [address] Social History Tobacco Use Types Packs/Day Years [...] on filedocumented in this encounter Care Teams Tool Honing Machine Set Up Operator Relationship Specialty Start Date End Date Armando Wheeler MD [address] [place] [address] [place] [address] PCP - General 12/04/22 documented as of this encounter Additional Source Comments The information contained in this document represents components of the legal health record. It is not the complete legal health record.[facility]
--- OUTSIDE RECORDS SUMMARY | 2025-03-18 17:45 | XMS_ITS | Clinical Summary ---
Author Organization [facility] Address [address] [place] [address] Care Team Providers Care Director Case Management Name Role Phone Armando Wheeler MD Primary Care Provider +1- [phone] Allergies No known active allergies Medications amLODIPine [...] to complete [place] [id number] [facility] MEDICARE Advance Directives * Full Code (Latest Code Status on File) Date Activated Date Inactivated Comments 12/15/2022 8:13 PM * Full Code Date Activated Date Inactivated Comments 12/05/2022 9:07 AM 12/15/2022 8:13 PM Care Teams Director Case Management Relationship Specialty Start Date End Date Armando Wheeler MD [address] [place] [address] Dr [place], [place] [address] PCP - General Internal Medicine 12/21/22
== END 2025-03-18 13:42 | disposition home or self-care (01) ==
LOC: HO.MAMMO 13:41
PROVIDERS: PCP Internal Medicine; Visit Provider Internal Medicine Medical Oncology
DX: Z13.820 Encounter for screening for osteoporosis (principal); M89.9 Disorder of bone, unspecified; M85.80 Other specified disorders of bone density and structure, unspecified site; Z78.0 Asymptomatic menopausal state
CPT/HCPCS: 77080

== ENCOUNTER → 2025-03-18 14:00 | Outpatient (BNV) | payer MEDICARE, SELFPAY | PROVIDERS: PCP Internal Medicine; Visit Provider Radiology Diagnostic Radiology | DX: E28.39 Other primary ovarian failure (principal) | CPT/HCPCS: 77080 ==

== ENCOUNTER 2025-03-27 13:52 | Outpatient (AMB) | payer MEDICARE, SELFPAY ==
--- NOTE | 2025-03-27 14:00 | MHC.OFFVIS ---
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/other forms of dyspnea Aircraft Time Clerk Required: Yes Aircraft Time Clerk Language: Microsoft Dynamics Ax Consultant Name: [email or web address] Accompanied by: Self / Same As Patient Allergies kamara (CHERRIES) Allergy (Intermediate, Verified 03/16/25 09:32) ITCHING-THROAT Sulfa (Sulfonamide Antibiotics) Allergy (Intermediate, Verified 03/16/25 09:32) rash atorvastatin Adverse Reaction (Intermediate, Verified 03/16/25 09:32) myalgia naproxen Adverse Reaction (Mild, Verified 03/16/25 09:32) dizziness robyn Allergy (Uncoded 03/16/25 09:33) Itching green apples Allergy (Uncoded 02/12/25 11:16) Rash Medication List - Last Reconciled 03/27/25 by Heriberto Barry MD albuterol sulfate 90 mcg/actuation (ProAir HFA) 2 puffs inhalation .4 times a day PRN amlodipine 5 mg PO DAILY 90 days amoxicillin 875 mg PO BID 7 days ascorbate calcium (vitamin C) 500 mg PO BID blood pressure monitor As directed blood pressure test kit-large As directed celecoxib 200 mg PO DAILY PRN 30 days cholecalciferol (vitamin D3) 50 mcg PO DAILY clotrimazole-betamethasone 1-0.05 % 1 appl topical BID 10 days cyanocobalamin (vitamin B-12) 500 mcg PO DAILY 90 days cyclobenzaprine 10 mg PO BEDTIME diclofenac sodium 1% 2 grams topical BID PRN evolocumab (Repatha SureClick) 140 mg subcut Q2W 4 weeks famotidine 40 mg PO DAILY PRN fluticasone propionate 50 mcg/actuation 2 sprays intranasal DAILY PRN 30 days levothyroxine 100 mcg PO DAILY 90 days loratadine 10 mg PO DAILY PRN 90 days mometasone 0.1% 1 appl topical DAILY 15 days multivitamin (Multiple Vitamins tablet) 1 tab PO QAM 90 days multivitamin with folic acid 400 mcg (Daily-Jen (with folic acid)) 1 tab PO DAILY naproxen 500 mg PO BID PRN ofloxacin 0.3% 10 drps otic (ears) DAILY 7 days polyethylene glycol 3350 (Miralax) 17 grams PO DAILY 30 days rosuvastatin 5 mg PO DAILY 90 days simethicone 180 mg PO QID 30 days Ventolin HFA 90 mcg/actuation (albuterol sulfate) 2 puffs inhalation Q6H PRN 30 days NS HPI Comments Details: The patient is a 69-year-old female presenting with fatigue on exertion. She reports experiencing fatigue when climbing stairs, which is accompanied by shortness of breath. She does not have any exertional angina or in fact any other cardiac symptoms. There is no history of any coronary disease myocardial infarction or cardiomyopathy. History of smoking in the past but nothing recently. Many comorbidities listed and she also has polypharmacy. Of note, she has got dyslipidemia and listed to be on statins as well as Repatha. Has hypertension for which she takes amlodipine. [facility] Medical History Abdominal distension, gaseous Chronic deep vein thrombosis (DVT) of axillary vein of left upper extremity Left hip pain Atypical chest pain Dyspepsia History of DVT (deep vein thrombosis) Acute diarrhea Thrombosis of left upper extremity Fracture of triquetrum of right wrist Avulsion fracture Dermatitis Myalgia Myalgia due to statin Dizziness Radicular pain of both lower extremities Exertional chest pain Achilles tendinitis of left lower extremity Ductal carcinoma in situ (DCIS) of right breast Bilateral knee pain History of ductal carcinoma in situ (DCIS) of breast Fracture of triquetral bone of right wrist with routine healing Lumbar degenerative disc disease COVID-19 Left lumbar radiculopathy Parapharyngeal abscess (~11/2022) Zinc deficiency Vitamin B1 deficiency Vitamin A deficiency Chest pain, pleuritic Intestinal malabsorption following gastrectomy Left inguinal pain Neuropathic pain of left lower extremity Overweight (BMI 25.0-29.9) Primary insomnia Vitamin D deficiency Allergic rhinitis Elevated LFTs Primary osteoarthritis, unspecified shoulder Osteoarthritis of spine with radiculopathy, lumbosacral region Primary osteoarthritis of both knees Chronic obstructive pulmonary disease (COPD) Benign essential hypertension Acquired hypothyroidism Pure hypercholesterolemia Surgical History Hx of peritonsillar abscess drainage History of sleeve gastrectomy (07/24/18) History of incision and drainage (~11/2022) History of colonoscopy History of total abdominal hysterectomy and bilateral salpingo-oophorectomy (~2004) History of cardiac cath (~03/2018) History of lumpectomy of right breast (~12/2012) H/O unilateral oophorectomy Family History Father CVD (cardiovascular disease) Mother Cervical cancer Pancreatic cancer Uterine cancer Sister Substance abuse Social History Household Members: Spouse Housing: Apartment Are you a primary healthcare business analyst to a significant other at home: No Do you presently have visiting nurse or other home services: No Alcohol intake: never Patient Tobacco Use Status: Former Tobacco user Tobacco use type: Cigarette e-Cigarette/Vaping Use: Never Used Second Hand Smoke Exposure: No service: No 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al status: disabled 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, 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al exposures/hazards: No Cognitive needs: No Hearing needs: No Vision needs: Yes Review of Systems Const Denies chills, Denies fatigue, Denies fever(s), Denies frequent falls, Denies weakness, Denies weight gain and Denies weight loss ENT Denies dizziness Card Denies chest pain, Denies leg edema, Denies lightheadedness, Denies palpitations, Reports dyspnea, Reports dyspnea on exertion and Denies orthopnea Resp Denies cough, Reports dyspnea and Reports dyspnea on exertion GI Denies bloating and Denies change in bowel habits Musc Denies muscle weakness, Denies numbness and Denies tingling Neuro Denies dizziness, Denies frequent falls, Denies numbness, Denies tingling and Denies weakness Endo Denies fatigue and Denies palpitations Physical Exam Vital Signs: Last Vital Signs Pulse 65 03/27/25 14:02 BP 120/72 03/27/25 14:02 BMI result Body Mass Index 28.9 Const General: comfortable and no acute distress Orientation/consciousness: patient oriented x3 HEENT Other: Unremarkable Head: Yes normal to inspection Neck Neck: Yes normal visual inspection Chest Chest palpation & inspection: normal inspection of the chest Resp Auscultation: clear to auscultation bilaterally Cardio Palpation: normal PMI Heart sounds: S1 normal heart sound present, S2 normal heart sound present, no gallops, no murmurs and no rubs GI Palpation (GI): Soft to palpation Back/Spine/Pelvis Other: unremarkable Skin General skin exam: no rashes or lesions noted Neuro General: patient oriented x3 Extrem General: Yes normal to inspection Psych Mental Status: mental status grossly normal Office Procedures EKG Details: EKG with underlying sinus rhythm at 65/Min; no ischemic changes; [place] [address]-[id number], Complete Assessment & Plan Assessment & Plan (1) SOB (shortness of breath): Code(s): R06.02 - Shortness of breath Category: Medical (2) Benign essential hypertension: Code(s): I10 - Essential (primary) hypertension Category: Medical (3) Pure hypercholesterolemia: Code(s): E78.00 - Pure hypercholesterolemia, unspecified Category: Medical Plan Clinically, does not appear in any congestive heart failure. Positive history mentions cardiac catheterization at [facility] 2018 being normal, but she does not remember this. We will need to check records to see if this is indeed accurate. Otherwise, we will stopped an echocardiogram and BNP as the initial test for her exertional shortness of breath. We will then decide if she needs ischemic workup with a stress test. With regard to hypertension, normal blood pressure today. She is on amlodipine. With regard to lipids, on rosuvastatin and Repatha. Most recent LDL is 111 mg/dL. It has been as much as 191 mg/dL in the past. Follow up will be arranged after testing. Orders: Orders CA echo transthoracic complete Today R06.02 - Shortness of breath NT Pro B Type Natriuretic Pept Today I50.9 - Heart failure, unspecified, R06.02 - Shortness of breath Coding Level of Care Code New Pt Level 4 (64001) Complex EM visit Add On G2211 Diagnoses SOB (shortness of breath) R06.02 Benign essential hypertension I10 Pure hypercholesterolemia E78.00 CPT Codes EKG - CPT: 01765-[id number], Complete ([id number])
[2025-03-27 14:02] VITALS: BP 120/72; PULSE 65; BMI 28.9
--- OUTSIDE RECORDS SUMMARY | 2025-03-27 16:54 | XMS_ITS | Clinical Summary ---
Author Organization [facility] Address [address] [facility] [address] [place] [address] Phone Care Team Providers Care Floating Derrick Operator Name Role Phone Armando Wheeler MD Primary Care Provider +1 -[phone] Allergies Active Allergy Reactions Criticality Noted Date [...] file Group ID:Not on file Type:Medicaid Address: [address] MEDICARE REPLACEMENT HEALTH SAFETY NET FULL Member Subscriber Plan / Payer (Ef fective 2022-) Name:Dannielle Goddard Relation to Subscriber:Self Name:Nitza Dannielle Payer ID:Not on file Group ID:Not on file Type:Medicaid Address: [address] MEDICARE REPLACEMENT HEALTH SAFETY NET FULL Member Subscriber Plan / Payer (Ef fective 2022-) Name:Dannielle Goddard Relation to Subscriber:Self Name:Dannielle Goddard Payer ID:Not on file Group ID:Not on file Type:Medicaid Address: [address] MEDICARE REPLACEMENT NET FULL Member Subscriber Plan / Payer (Ef fective 2022-) Name:GoddardDannielle Relation to Subscriber:Self Name:GoddardDannielle bruno Payer ID:Not on file Group ID:Not on file Type:Medicaid Address: [address] MEDICARE REPLACEMENT SAFETY NET FULL Member Subscriber Plan / Payer (Ef fective 2022-Present) Name:GoddardDannielle bruno Relation to Subscriber:Self Name:Dannielle Goddard Payer ID:Not on file Group ID:Not on file Type:Medicaid Address: [address] MEDICARE REPLACEMENT FULL Member Subscriber Plan / Payer (Ef fective 2022-) Name:Nitza Dannielle Relation to Subscriber:Self Name:Dannielle Goddard Payer ID:Not on file Group ID:Not on file Type:Medicaid Address: [address] MEDICARE REPLACEMENT Care Teams Floating Derrick Operator Relationship Specialty Start Date End Date Armando Wheeler MD [address] [place] [address] [place] [address] PCP - General 12/04/22 Additional Source Comments The information contained in this document represents components of the legal health record. It is not the complete legal health record.[facility]
--- OUTSIDE RECORDS SUMMARY | 2025-03-27 16:54 | XMS_ITS | Clinical Summary ---
Author Organization [facility] Address [address] [place] [address] Care Team Providers Care Surveillance Sensor Operator Name Role Phone Armando Wheeler MD Primary Care Provider +1- [phone] Allergies No known active allergies Medications amLODIPine [...] to [place] [id number] [facility] MEDICARE Advance Directives * Full Code (Latest Code Status on File) Date Activated Date Inactivated Comments 12/15/2022 8:13 PM * Full Code Date Activated Date Inactivated Comments 12/05/2022 9:07 AM 12/15/2022 8:13 PM Care Teams Surveillance Sensor Operator Relationship Specialty Start Date End Date Armando Wheeler MD [address] [place] [address] Dr [place], [place] [address] PCP - General Internal Medicine 12/21/22
--- OUTSIDE RECORDS SUMMARY | 2025-03-27 16:54 | XMS_ITS | Encounter Summary ---
Author Organization [facility] Address [address] [facility] [address] [place] [address] Phone Care Team Providers Care Manager Government Name Role Phone Armando Wheeler MD Primary Care Provider +1 -[phone] Encounter Details Date Type Department Care Team (Late st Contact Info) Description 12/05/2022 Procedure Pass [facility], Ct Scan - [facility] [address] [place] [address] Social History Tobacco Use Types Packs/Day Years [...] on filedocumented in this encounter Care Teams Manager Government Relationship Specialty Start Date End Date Armando Wheeler MD [address] [place] [address] [place] [address] PCP - General 12/04/22 documented as of this encounter Additional Source Comments The information contained in this document represents components of the legal health record. It is not the complete legal health record.[facility]
== END 2025-03-27 14:24 | disposition home or self-care (01) ==
LOC: HO.HCS 13:52
PROVIDERS: PCP Internal Medicine; Visit Provider Internal Medicine
DX: R06.02 Shortness of breath (principal); I10 Essential (primary) hypertension; E78.00 Pure hypercholesterolemia, unspecified
CPT/HCPCS: 93010; 99204; G2211

== ENCOUNTER → 2025-03-27 13:52 | Outpatient (BNVA) | payer MEDICARE, SELFPAY | PROVIDERS: PCP Internal Medicine; Visit Provider Internal Medicine | DX: R06.02 Shortness of breath (principal); I10 Essential (primary) hypertension; E78.00 Pure hypercholesterolemia, unspecified; I50.9 Heart failure, unspecified | CPT/HCPCS: 93005; 99202 ==

== ENCOUNTER 2025-03-31 13:19 | Outpatient (AMB) | payer MEDICARE, SELFPAY ==
--- NOTE | 2025-03-31 13:21 | A.OFFVIS_ITS ---
Vital Signs 3 03/31/25 13:26 Height 5 ft 7 in Weight 184 lb 4.903 oz BMI 28.9 BP 122/82 Blood Pressure Location Lt brachial Position Sitting Intake Visit Reasons: yearly breast exam Intake Note: Patient is seen in office for yearly breast exam. Pt c/o: gets bilateral breast pain, last for a few seconds, denies any other concerns mm:03/12/25 Cost Accounting Manager Required: Yes Cost Accounting Manager Language: Structural Biologist Services: Cost Accounting Manager Present Cost Accounting Manager Name: Shirley MCCORMICK Information Interpreted: non-clinical & clinical Scrap Cutter: Scrap Cutter Present Accompanied by: Self / Same As Patient Allergies kamara (CHERRIES) Allergy (Intermediate, Verified 03/31/25 13:26) ITCHING-THROAT Sulfa (Sulfonamide Antibiotics) Allergy (Intermediate, Verified 03/31/25 13:26) rash atorvastatin Adverse Reaction (Intermediate, Verified 03/31/25 13:26) myalgia naproxen Adverse Reaction (Mild, Verified 03/31/25 13:26) dizziness robyn Allergy (Uncoded 03/31/25 13:26) Itching green apples Allergy (Uncoded 03/31/25 13:26) Rash Medication List - Last Reconciled 03/31/25 by Glenn Friedman MD albuterol sulfate 90 mcg/actuation (ProAir HFA) 2 puffs inhalation .4 times a day PRN amlodipine 5 mg PO DAILY 90 days amoxicillin 875 mg PO BID 7 days ascorbate calcium (vitamin C) 500 mg PO BID blood pressure monitor As directed blood pressure test kit-large As directed celecoxib 200 mg PO DAILY PRN 30 days cholecalciferol (vitamin D3) 50 mcg PO DAILY clotrimazole-betamethasone 1-0.05 % 1 appl topical BID 10 days cyanocobalamin (vitamin B-12) 500 mcg PO DAILY 90 days cyclobenzaprine 10 mg PO BEDTIME diclofenac sodium 1% 2 grams topical BID PRN evolocumab (Repatha SureClick) 140 mg subcut Q2W 4 weeks famotidine 40 mg PO DAILY PRN fluticasone propionate 50 mcg/actuation 2 sprays intranasal DAILY PRN 30 days levothyroxine 100 mcg PO DAILY 90 days loratadine 10 mg PO DAILY PRN 90 days mometasone 0.1% 1 appl topical DAILY 15 days multivitamin (Multiple Vitamins tablet) 1 tab PO QAM 90 days multivitamin with folic acid 400 mcg (Daily-Jen (with folic acid)) 1 tab PO DAILY naproxen 500 mg PO BID PRN ofloxacin 0.3% 10 drps otic (ears) DAILY 7 days polyethylene glycol 3350 (Miralax) 17 grams PO DAILY 30 days rosuvastatin 5 mg PO DAILY 90 days simethicone 180 mg PO QID 30 days Ventolin HFA 90 mcg/actuation (albuterol sulfate) 2 puffs inhalation Q6H PRN 30 days NS HPI Comments Details: 69-year-old female patient returning for six-month follow-up examination following right breast surgery. She is a former patient of Dr. Valdes with a history of ductal carcinoma in situ of the right breast, ER/MA positive. A stereotactic biopsy was not possible therefore she underwent lumpectomy with needle localization on November 2012. She subsequently required a re-excision in January 2013. She completed radiation therapy on 04/14/2013. Her most recent mammogram of 03/12/2025 revealed no mammographic evidence of malignancy (BI-RADS 2). Routine routine annual mammography was recommended. She denies any pain, skin changes, redness, discharge from the nipples, or palpable mass in either breast. [facility] Medical History Abdominal distension, gaseous Chronic deep vein thrombosis (DVT) of axillary vein of left upper extremity Left hip pain Atypical chest pain Dyspepsia History of DVT (deep vein thrombosis) Acute diarrhea Thrombosis of left upper extremity Fracture of triquetrum of right wrist Avulsion fracture Dermatitis Myalgia Myalgia due to statin Dizziness Radicular pain of both lower extremities Exertional chest pain Achilles tendinitis of left lower extremity Ductal carcinoma in situ (DCIS) of right breast Bilateral knee pain History of ductal carcinoma in situ (DCIS) of breast Fracture of triquetral bone of right wrist with routine healing Lumbar degenerative disc disease COVID-19 Left lumbar radiculopathy Parapharyngeal abscess (~11/2022) Zinc deficiency Vitamin B1 deficiency Vitamin A deficiency Chest pain, pleuritic Intestinal malabsorption following gastrectomy Left inguinal pain Neuropathic pain of left lower extremity Overweight (BMI 25.0-29.9) Primary insomnia Vitamin D deficiency Allergic rhinitis Elevated LFTs Primary osteoarthritis, unspecified shoulder Osteoarthritis of spine with radiculopathy, lumbosacral region Primary osteoarthritis of both knees Chronic obstructive pulmonary disease (COPD) Benign essential hypertension Acquired hypothyroidism Pure hypercholesterolemia Surgical History Hx of peritonsillar abscess drainage History of sleeve gastrectomy (07/24/18) History of incision and drainage (~11/2022) History of colonoscopy History of total abdominal hysterectomy and bilateral salpingo-oophorectomy (~2004) History of cardiac cath (~03/2018) History of lumpectomy of right breast (~12/2012) H/O unilateral oophorectomy Family History Father CVD (cardiovascular disease) Mother Cervical cancer Pancreatic cancer Uterine cancer Sister Substance abuse Social History Household Members: Spouse Housing: Apartment Are you a primary child care team lead to a significant other at home: No Do you presently have visiting nurse or other home services: No Alcohol intake: never Patient Tobacco Use Status: Former Tobacco user Tobacco use type: Cigarette e-Cigarette/Vaping Use: Never Used Second Hand Smoke Exposure: No service: No 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al status: disabled 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, 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 Right breast: Well-healed incision in the 3 o'clock position just medial to the nipple-areolar complex. No palpable mass below this incision. No new skin change, no nipple retraction, no nipple discharge, no palpable mass, no enlarged lymph nodes Chest/axillae images: 2 1. Resp Effort & Inspection: normal respiratory effort Auscultation: no crackles and no wheezes Skin Other: Warm, dry, no rash General skin exam: no rashes or lesions noted Neuro Other: Mobility Assessment: 5 1. 3 meter assessment time (seconds) 2. Gait observations: Normal balance and gait Extrem Other: No upper extremity lymphedema General: Yes no clubbing, cyanosis or edema Assessment & Plan Assessment & Plan (1) Ductal carcinoma in situ (DCIS) of right breast: Code(s): D05.11 - Intraductal carcinoma in situ of right breast Category: Medical Plan: 69-year-old female patient returning for follow-up breast examination after right breast lumpectomy for ductal carcinoma in situ at the 3 o'clock position in November 2012 followed by radiation therapy. She feels well and denies any ongoing symptoms. Examination reveals no suspicious findings in either breast and no evidence of recurrence disease. Her most recent mammogram of 03/12/2025 revealed no mammographic evidence of malignancy (BI-RADS 2) and follow-up in 1 year is recommended. I recommended follow-up examination in 1 year, sooner p.r.n.. Coding Level of Care Code Est Pt Level 3 (00025) Complex EM visit Add On G2211 Diagnoses Ductal carcinoma in situ (DCIS) of right breast D05.11
[2025-03-31 13:26] VITALS: BP 122/82; BMI 28.9
--- OUTSIDE RECORDS SUMMARY | 2025-03-31 15:24 | XMS_ITS | Clinical Summary ---
Author Organization [facility] Address [address] [place] [address] Care Team Providers Care Aqu[employer] Fitness Instructor Name Role Phone Armando Wheeler MD Primary Care Provider [phone]- [phone] Allergies No known active allergies Medications amLODIPine [...] to complete [place] [id number] [facility] MEDICARE Advance Directives * Full Code (Latest Code Status on File) Date Activated Date Inactivated Comments 12/15/2022 8:13 PM * Full Code Date Activated Date Inactivated Comments 12/05/2022 9:07 AM 12/15/2022 8:13 PM Care Teams Aquatics Group Fitness Instructor Relationship Specialty Start Date End Date Armando Wheeler MD [address] [place] [address] Dr [place], [place] [address] PCP - General Internal Medicine 12/21/22
--- OUTSIDE RECORDS SUMMARY | 2025-03-31 15:24 | XMS_ITS | Encounter Summary ---
Author Organization [facility] Address [address] [place] [address] Phone Care Team Providers Care Top Edge Beveler Name Role Phone Armando Wheeler MD Primary Care Provider [phone] [phone] Encounter Details Date Type Department Care Team (Late st Contact Info) Description 12/05/2022 Procedure Pass [facility], Ct Scan - [facility] [address] [place] [address] Social History Tobacco Use Types Packs/Day Years [...] on filedocumented in this encounter Care Teams Top Edge Beveler Relationship Specialty Start Date End Date Armando Wheeler MD [address] [place] [address] [place] [address] PCP - General 12/04/22 documented as of this encounter Additional Source Comments The information contained in this document represents components of the legal health record. It is not the complete legal health record.[facility]
--- OUTSIDE RECORDS SUMMARY | 2025-03-31 15:24 | XMS_ITS | Clinical Summary ---
Author Organization [facility] Address [address] [place] [address] Phone Care Team Providers Care Product Handler Name Role Phone Armando Wheeler MD Primary Care Provider [phone] [phone] Allergies Active Allergy Reactions Criticality Noted Date [...] file Group ID:Not on file Type:Medicaid Address: [address] MEDICARE REPLACEMENT HEALTH SAFETY NET FULL Member Subscriber Plan / Payer (Ef fective 2022-) Name:Dannielle Goddard Relation to Subscriber:Self Name:Nitza Dannielle Payer ID:Not on file Group ID:Not on file Type:Medicaid Address: [address] MEDICARE REPLACEMENT HEALTH SAFETY NET FULL Member Subscriber Plan / Payer (Ef fective 2022-) Name:Dannielle Goddard Relation to Subscriber:Self Name:Dannielle Goddard Payer ID:Not on file Group ID:Not on file Type:Medicaid Address: [address] MEDICARE REPLACEMENT NET FULL Member Subscriber Plan / Payer (Ef fective 2022-) Name:GoddardDannielle Relation to Subscriber:Self Name:GoddardDannielle bruno Payer ID:Not on file Group ID:Not on file Type:Medicaid Address: [address] MEDICARE REPLACEMENT SAFETY NET FULL Member Subscriber Plan / Payer (Ef fective 2022-Present) Name:GoddardDannielle bruno Relation to Subscriber:Self Name:Dannielle Goddard Payer ID:Not on file Group ID:Not on file Type:Medicaid Address: [address] MEDICARE REPLACEMENT FULL Member Subscriber Plan / Payer (Ef fective 2022-) Name:Nitza Dannielle Relation to Subscriber:Self Name:Dannielle Goddard Payer ID:Not on file Group ID:Not on file Type:Medicaid Address: [address] MEDICARE REPLACEMENT Care Teams Product Handler Relationship Specialty Start Date End Date Armando Wheeler MD [address] [place] [address] [facility] [place] [address] PCP - General 12/04/22 Additional Source Comments The information contained in this document represents components of the legal health record. It is not the complete legal health record.[facility]
== END 2025-03-31 13:45 | disposition home or self-care (01) ==
PROVIDERS: PCP Internal Medicine; Visit Provider Surgery
DX: D05.11 Intraductal carcinoma in situ of right breast (principal)
CPT/HCPCS: 99213; G2211

== ENCOUNTER → 2025-03-31 13:19 | Outpatient (BNVA) | payer MEDICARE, SELFPAY | PROVIDERS: PCP Internal Medicine; Visit Provider Surgery | DX: Z12.11 Encounter for screening for malignant neoplasm of colon (principal); D05.11 Intraductal carcinoma in situ of right breast | CPT/HCPCS: 99212 ==

== ENCOUNTER 2025-04-02 10:46 | Outpatient (AMB) | payer MEDICARE, SELFPAY ==
--- NOTE | 2025-04-02 11:01 | A.OFFVIS_ITS ---
Vital Signs 04/02/25 11:09 Height 5 ft 7 in Weight 184 lb BMI 28.8 BP 134/62 Blood Pressure Location Rt brachial Position Sitting Pulse 66 Pulse Source Pulse Oximeter Pulse Oximetry (%) 95 Oxygen Delivery Method Room Air Intake Visit Reasons: 6m Intake Note: Est pt for mgmt of GERD + CIC. CC; Pt denies any new GI concerns or sx at this time. Confirms her current Rx are working as intended. Linoleum Layer Helper Required: Yes Linoleum Layer Helper Services: Linoleum Layer Helper Present Linoleum Layer Helper Name: Dash [id number] + [facility] Information Interpreted: clinical only Accompanied by: Self / Same As Patient Allergies kamara (CHERRIES) Allergy (Intermediate, Verified 04/02/25 11:08) ITCHING-THROAT Sulfa (Sulfonamide Antibiotics) Allergy (Intermediate, Verified 04/02/25 11:08) rash atorvastatin Adverse Reaction (Intermediate, Verified 04/02/25 11:08) myalgia naproxen Adverse Reaction (Mild, Verified 04/02/25 11:08) dizziness robyn Allergy (Uncoded 04/02/25 11:08) Itching green apples Allergy (Uncoded 04/02/25 11:08) Rash HPI HPI 6m: Details: Assessment & Plan (1) Periumbilical abdominal pain: Comment: resolved with simethicone and famotdine Code(s): R10.33 - Periumbilical pain Category: Medical (2) Chronic idiopathic constipation: Comment: Controlled by eating Oatmeal Code(s): K59.04 - Chronic idiopathic constipation Category: Medical (3) Abdominal bloating: Code(s): R14.0 - Abdominal distension (gaseous) Category: Medical (4) Encounter for colorectal cancer screening using Cologuard test: Comment: 04/03/2024=negative repeat 3 years Code(s): Z12.11 - Encounter for screening for malignant neoplasm of colon; Z12.12 - Encounter for screening for malignant neoplasm of rectum Category: Medical (5) GERD (gastroesophageal reflux disease): Code(s): K21.9 - Gastro-esophageal reflux disease without esophagitis Category: Medical Plan Wolof #Macoira Live She continues on famotidine and she has not needed the senna but she is doing well on the simethicone. She finds that the famotidine works well for her pain. She is happy with this regimen and has not needed anything else. She is controlling her constipation by eating oatmeal daily and by her morning cup of coffee which of course is fine. Return office visit in 6 months TODAY'S VISIT Neyda Petersen [facility] Medical History Abdominal distension, gaseous Chronic deep vein thrombosis (DVT) of axillary vein of left upper extremity Left hip pain Atypical chest pain Dyspepsia History of DVT (deep vein thrombosis) Acute diarrhea Thrombosis of left upper extremity Fracture of triquetrum of right wrist Avulsion fracture Dermatitis Myalgia Myalgia due to statin Dizziness Radicular pain of both lower extremities Exertional chest pain Achilles tendinitis of left lower extremity Ductal carcinoma in situ (DCIS) of right breast Bilateral knee pain History of ductal carcinoma in situ (DCIS) of breast Fracture of triquetral bone of right wrist with routine healing Lumbar degenerative disc disease COVID-19 Left lumbar radiculopathy Parapharyngeal abscess (~11/2022) Zinc deficiency Vitamin B1 deficiency Vitamin A deficiency Chest pain, pleuritic Intestinal malabsorption following gastrectomy Left inguinal pain Neuropathic pain of left lower extremity Overweight (BMI 25.0-29.9) Primary insomnia Vitamin D deficiency Allergic rhinitis Elevated LFTs Primary osteoarthritis, unspecified shoulder Osteoarthritis of spine with radiculopathy, lumbosacral region Primary osteoarthritis of both knees Chronic obstructive pulmonary disease (COPD) Benign essential hypertension Acquired hypothyroidism Pure hypercholesterolemia Surgical History Hx of peritonsillar abscess drainage History of sleeve gastrectomy (07/24/18) History of incision and drainage (~11/2022) History of colonoscopy History of total abdominal hysterectomy and bilateral salpingo-oophorectomy (~2004) History of cardiac cath (~03/2018) History of lumpectomy of right breast (~12/2012) H/O unilateral oophorectomy Family History Father CVD (cardiovascular disease) Mother Cervical cancer Pancreatic cancer Uterine cancer Sister Substance abuse Social History Household Members: Spouse Housing: Apartment Are you a primary career and guidance counselor to a significant other at home: No Do you presently have visiting nurse or other home services: No Alcohol intake: never Patient Tobacco Use Status: Former Tobacco user Tobacco use type: Cigarette e-Cigarette/Vaping Use: Never Used Second Hand Smoke Exposure: No service: No 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al status: disabled 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, 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al exposures/hazards: No Cognitive needs: No Hearing needs: No Vision needs: Yes Review of Systems Const Denies fatigue, Denies fever(s), Denies night sweats, Denies poor appetite and Denies weight loss ENT Reports Normal hearing present, Denies dental pain, Denies dysphagia, Denies hearing loss, Denies mouth pain, Denies odynophagia, Denies throat swelling, Denies tongue swelling and Reports other (Dentition adequate) Card Reports no additional complaints Resp Reports no additional complaints GI Details: Denies abdominal pain, Denies melena, Denies bloating, Denies hematochezia, Reports constipation, Denies GI cramping, Denies dysphagia, Denies excessive flatus, Denies early satiety, Reports dyspepsia, Reports heartburn, Denies diarrhea, Denies nausea, Denies odynophagia, Denies vomiting and Denies hematemesis Skin/Breast Denies pruritus, Denies lesions, Denies rash and Denies jaundice Neuro Reports Normal hearing present and Denies Abnormal speech present Endo Denies fatigue Aller/Immun Denies throat swelling and Denies tongue swelling Physical Exam Vital Signs: Last Vital Signs Pulse 66 04/02/25 11:09 BP 134/62 04/02/25 11:09 Pulse Ox 95 04/02/25 11:09 Oxygen Delivery Method Room Air 04/02/25 11:09 BMI result Body Mass Index 28.8 Const General: cooperative, no acute distress, well developed and well groomed Nutritional Appearance: well nourished and overweight Orientation/consciousness: oriented to person, oriented to place and oriented to time Limitations: language barrier HEENT Head: Yes normocephalic and Yes atraumatic Eyes General: appearance normal, both eyes and all related structures Pupils: Equal, round and reactive pupils present Neck Neck: Yes normal visual inspection and Yes no lymphadenopathy Thyroid: Thyroid normal Resp Effort & Inspection: normal respiratory effort and able to speak in complete sentences Auscultation: clear to auscultation bilaterally Cardio Rate: regular rate Rhythm: regular rhythm Heart sounds: Normal, physiologic split S2 sound present Peripheral pulses: radial pulses present and posterior tibial pulses present GI Inspection: No distended, No Abdominal panniculus present and Yes obesity Palpation (GI): Soft to palpation, nontender, no guarding, not rigid and No hepatosplenomegaly present Percussion: Yes normal to percussion Auscultation: normal bowel sounds Rectal Exam - Female: deferred Skin General skin exam: no rashes or lesions noted, turgor normal, skin not dry, no jaundice, No spider nevi and no striae Rashes: no rashes Nails: normal Neuro General: oriented to person, oriented to place and oriented to time Cranial nerves: Yes Equal, round and reactive pupils present and Yes Normal hearing present Speech: No Abnormal speech present Extrem General: Yes normal to inspection, No clubbing, No cyanosis and No edema Psych Appearance: grossly normal and well kempt Mental Status: mental status grossly normal Speech and movement: Normal speech and movement present Affect: normal affect Attitude: cooperative Thought process: Normal thought process present and not confabulating Thought content: Normal thought content present Insight: Fair insight present (Psych) Judgement: Fair judgement present (Psych) Assessment & Plan Assessment & Plan (1) Chronic idiopathic constipation: Comment: Controlled by eating Oatmeal Code(s): K59.04 - Chronic idiopathic constipation Category: Medical (2) GERD (gastroesophageal reflux disease): Code(s): K21.9 - Gastro-esophageal reflux disease without esophagitis Category: Medical (3) Encounter for colorectal cancer screening using Cologuard test: Comment: 04/03/2024=negative repeat 3 years Code(s): Z12.11 - Encounter for screening for malignant neoplasm of colon; Z12.12 - Encounter for screening for malignant neoplasm of rectum Category: Medical Plan Wolof # Macoira Live She continues on famotidine and she has not needed the senna but she is doing well on the simethicone. She has not needed the senna recently because she continues to eat her oatmeal which is fine. She says that she only has a epigastric pain now if she eats particularly greasy foods. I tell her that this is frequently a problem with aging and not something I can readily improved. It is likely she will simply have to avoid these richer foods. Return office visit in 6 months Coding Level of Care Code Est Pt Level 3 (80403) Diagnoses Chronic idiopathic constipation K59.04 GERD (gastroesophageal reflux disease) K21.9 Encounter for colorectal cancer screening using Cologuard test Z12.11; Z12.12
[2025-04-02 11:09] VITALS: BP 134/62; PULSE 66; O2SAT 95; BMI 28.8
--- OUTSIDE RECORDS SUMMARY | 2025-04-02 13:01 | XMS_ITS | Clinical Summary ---
Author Organization [facility] Address [address] [place] [address] Phone Care Team Providers Care House Wirer Name Role Phone Armando Wheeler MD Primary Care Provider [phone] [phone] Allergies Active Allergy Reactions Criticality Noted Date [...] on patient's age to complete this topic IPV VACCINES Aged Out No longer eligi ble [...] file Group ID:Not on file Type:Medicaid Address: [address] MEDICARE REPLACEMENT NET FULL Member Subscriber Plan / Payer (Ef fective 2022-) Name:GoddardDannielle bruno Relation to Subscriber:Self Name:GoddardDannielle bruno Payer ID:Not on file Group ID:Not on file Type:Medicaid Address: [address] MEDICARE REPLACEMENT HEALTH SAFETY NET FULL Member Subscriber Plan / Payer (Ef fective 2022-Present) Name:GoddardDannielle bruno Relation to Subscriber:Self Name:Dannielle Goddard Payer ID:Not on file Group ID:Not on file Type:Medicaid Address: [address] MEDIC[address] REPLACEMENT FULL Member Subscriber Plan / Payer (Ef fective 2022-) Name:Nitza Dannielle Relation to Subscriber:Self Name:Dannielle Goddard Payer ID:Not on file Group ID:Not on file Type:Medicaid Address: [address] MEDICARE REPLACEMENT HEALTH SAFETY NET FULL Member Subscriber Plan / Payer (Ef fective 2022-Present) Name:Dannielle Goddard Relation to Subscriber:Self Name:Dannielle Goddard Payer ID:Not on file Group ID:Not on file Type:Medicaid Address: [address] MEDICARE REPLACEMENT HEALTH SAFETY NET FULL Member Subscriber Plan / Payer (Ef fective 2022-Present) Name:Dannielle Goddard Relation to Subscriber:Self Name:Nitza Dannielle Payer ID:Not on file Group ID:Not on file Type:Medicaid Address: [address] MEDICARE REPLACEMENT Care Teams House Wirer Relationship Specialty Start Date End Date Armando Wheeler MD [address] [place] [address] [place] [address] PCP - General 12/04/22 Additional Source Comments The information contained in this document represents components of the legal health record. It is not the complete legal health record.[facility]
--- OUTSIDE RECORDS SUMMARY | 2025-04-02 13:01 | XMS_ITS | Encounter Summary ---
Author Organization [facility] Address [address] [place] [address] Phone Care Team Providers Care Garage Attendant Name Role Phone Armando Wheeler MD Primary Care Provider [phone] [phone] Encounter Details Date Type Department Care Team (Late st Contact Info) Description 12/05/2022 Procedure Pass [facility], Ct Scan - [facility] [address] [place] [address] Social History Tobacco Use Types Packs/Day Years [...] on filedocumented in this encounter Care Teams Garage Attendant Relationship Specialty Start Date End Date Armando Wheeler MD [address] [place] [address] [place] [address] PCP - General 12/04/22 documented as of this encounter Additional Source Comments The information contained in this document represents components of the legal health record. It is not the complete legal health record.[facility]
--- OUTSIDE RECORDS SUMMARY | 2025-04-02 13:01 | XMS_ITS | Clinical Summary ---
Author Organization [facility] Address [address] [place] [address] Care Team Providers Care [employer] Name Role Phone Armando Wheeler MD Primary Care Provider [phone]- [phone] Allergies No known active allergies Medications amLODIPine [...] complete [place] [id number] [facility] MEDIC[facility] Advance Directives * Full Code (Latest Code Status on File) Date Activated Date Inactivated Comments 12/15/2022 8:13 PM * Full Code Date Activated Date Inactivated Comments 12/05/2022 9:07 AM 12/15/2022 8:13 PM Care Teams [employer] Relationship Specialty Start Date End Date Armando Wheeler MD [address] [place] [address] Dr [place], [place] [id number] PCP - General Internal Medicine 12/21/22
== END 2025-04-02 11:36 | disposition home or self-care (01) ==
LOC: HO.HGI 10:47
PROVIDERS: PCP Internal Medicine; Visit Provider Nurse Practitioner
DX: K59.04 Chronic idiopathic constipation (principal); K21.9 Gastro-esophageal reflux disease without esophagitis; Z12.12 Encounter for screening for malignant neoplasm of rectum
CPT/HCPCS: 99213

== ENCOUNTER → 2025-04-02 10:46 | Outpatient (BNVA) | payer MEDICARE, SELFPAY | PROVIDERS: PCP Internal Medicine; Visit Provider Nurse Practitioner | DX: K21.9 Gastro-esophageal reflux disease without esophagitis (principal); K59.04 Chronic idiopathic constipation; Z12.11 Encounter for screening for malignant neoplasm of colon; Z12.12 Encounter for screening for malignant neoplasm of rectum; Z87.891 Personal history of nicotine dependence; Z80.0 Family history of malignant neoplasm of digestive organs | CPT/HCPCS: 99212 ==

== ENCOUNTER → 2025-04-30 09:52 | Outpatient (REF) | payer MEDICARE, SELFPAY ==
--- NOTE | 2025-04-30 09:55 | CA_ITS ---
Transthoracic Echocardiogram Patient (Last, First, Middle): Dannielle Navarro L Gender: Female Date of : 1955 Age: 69 Procedure Date: 04/30/2025 Procedure Type: Transthoracic Echocardiogram Location: OP Height: 170.18 cm Weight: 83.46 kg BSA: 1.95 m2 Heart Rate: 69 bpm BP: 134 / 62 mmHg [employer] Supervisor: MARK Referring MD: Heriberto Barry MD Support Director: Chase Garza MD Symptoms: R06.02 - Shortness of breath Study Quality: Adequate ECG Rhythm: Sinus Conclusions: - 1. Normal LV ejection fraction of 65-70% 2. Normal cardiac valvular Dopplers 3. Mildly enlarged ascending aortic root 4. No gross pericardial effusion Findings Left Ventricle Normal left ventricular size, thickness, and systolic function. The visually estimated ejection fraction is between 65-70%. Spectral Doppler is indicative of a normal filling pattern. Right Ventricle Normal right ventricular cavity size and systolic function. Atria Both atria are normal in size. There is no evidence of interatrial shunt. Aortic Valve Normal aortic valve structure and function. There is no aortic valve stenosis. There is no aortic valve regurgitation. Mitral Valve Normal mitral valve structure and function. There is trace mitral valve regurgitation. There is no mitral valve stenosis. Pulmonic Valve The pulmonic valve is likely normal. There is trace pulmonic valve regurgitation. Tricuspid Valve Normal tricuspid valve structure. Tricuspid regurgitation envelope is inadequate for calculation of right ventricular systolic pressure. Normal right atrial pressure. There is no evidence of pulmonary hypertension. Great Vessels The pulmonary artery was not well visualized. There is mild dilatation of the sinuses of Valsalva and no dilatation of the ascending aorta measuring 3.20 cm. Venous The inferior vena cava is normal in size and collapses greater than 50% with inspiration. Pericardium/Pleural There is no evidence of pericardial effusion. Prior Study Comparison No significant change compared to prior study dated: 06/28/2017. Measurements 2D Linear Measurements IVSd: 1.05 0.6-0.9/0.6-1.0 cm LVIDd: 4.34 3.9-5.3/4.2-5.9 cm LVIDd Index: 2.23 2.4-3.2/2.2-3.1 cm/m2 LVIDs: 2.79 2.0-3.6 cm LVPWd: 1.09 0.7-1.1 cm LA Diam: 3.80 2.7-3.8/3.0-4.0 cm LAIDs Index: 1.95 1.5-2.3 cm/m2 LV Mass: 216.71 67-162/88-224 g LV Mass Index: 111.13 43-95/49-115 g/m2 LVOT Diam: 2.00 3.0+(-)1.3 cm 2D Systolic Function EF 4C: 62.80 >55% EF 2C: 80.00 >55% EF BiP: 71.20 >55% Mitral Valve MV Pk E: 0.83 MV PK A: 0.63 MV Decel Time: 206.00 E/A: 1.30 E'Lateral: 8.59 E'Medial: 7.62 E/E' Med: 10.90 E/E' Lat: 9.70 PHT: 60.00 MVA PHT: 3.67 Decel Nash: 4.03 Aortic Valve AoV Pk Lemuel: 1.12 AoV Pk Grad: 5.00 NICKOLAS: 2.79 LVOT LVOT Pk Lemuel: 0.93 LVOT Mn Lemuel: 0.60 LVOT VTI: 0.20 LVOT Pk Grad: 3.00 LVOT Mn Grad: 2.00 LVOT Diam: 2.00 LVOT Area: 3.14 Diastolic Function MV Pk E: 0.83 MV Pk A: 0.63 E/A: 1.30 E'Medial: 7.62 E/E' Med: 10.90 E' Laterial: 8.59 E/E' Lat: 9.70 Right Ventricle TAPSE (mm): 19.40 TVS' Lemuel: 10.70 Tricuspid Valve RA Press: 3.00 Great Vessels Aorta Sinus of Valsalva: 4.00 2.0-3.5 cm Ao Asc: 3.20 2.1-3.4 cm Ao Arch: 2.40 Pulmonary Veins Pulm Vein S/D 1.30 Pulmonary Valve PV Pk Lemuel: 0.76 Peak PV Grad: 2.00 Updated in Other Vendor System with Status of Final Chase Garza MD electronically signed on 05/01/2025 3:34:37 PM with status of Final
== END ==
LOC: HO.CARD 09:52
PROVIDERS: PCP Internal Medicine; Visit Provider Internal Medicine
DX: R06.02 Shortness of breath (principal)
CPT/HCPCS: 93306

== ENCOUNTER → 2025-04-30 09:55 | Outpatient (BNV) | payer MEDICARE, SELFPAY | PROVIDERS: PCP Internal Medicine; Visit Provider Internal Medicine Cardiovascular Disease | DX: R06.02 Shortness of breath (principal); I77.810 Thoracic aortic ectasia | CPT/HCPCS: 93306 ==